=== PATIENT | male | born 1965 | race Caucasian/White ===

== ENCOUNTER 2022-12-27 21:00 | Observation (INO) | payer SELFPAY ==
[2022-12-27] VITALS (19 sets, daily range): BP systolic 146–179; BP diastolic 81–98; PULSE 66–82; RESP 13–26; TEMP 36.4; O2SAT 94–98; BMI 25.9
--- NOTE | 2022-12-27 21:31 | XR_ITS ---
The [address] [address] Patient Name: TAQUERIA DRAKE MRN: [id number] date: 1965 Sex: M Assigned Patient Location: ER Current Patient Location: ER Accession/Order Number: [id number] Exam Date: 12/27/2022 21:54 Report Date: 12/27/2022 22:22 At the request of: RENATA LUNA Procedure: XR chest 1V EXAMINATION: XR chest 1V HISTORY: CP COMPARISON: 11/26/2020 TECHNIQUE: AP portable FINDINGS: LUNGS: Mild left basilar infiltrate. The right lung is clear VASCULATURE: No increased pulmonary vasculature. PLEURA: No pneumothorax, effusion, or pleural thickening. CARDIAC: No cardiomegaly or cardiac silhouette abnormality. MEDIASTINUM: No visible mass or adenopathy. BONES: No fracture or visible bone lesion. OTHER: Negative. XR/XR chest 1V IMPRESSION: Left basilar infiltrate, atelectasis versus pneumonia Electronically authenticated by: PRICILA HURT Date: 12/27/2022 22:22
--- NOTE | 2022-12-27 21:31 | ECG_ITS ---
The [facility] Test Date: 2022-12-27 Pat Name: TAQUERIA DRAKE Department: Room: - Gender: Male Fall Internship: : 1965 Requested By: MIRIAM HASSAN Order Number: [id number] Reading MD: ROSA MERCHANT Measurements Intervals [place] Rate: 63 P: 65 VT: 150 QRS: -34 QRSD: 110 T: 38 QT: 394 QTc: 401 Interpretive Statements 1100 Sinus rhythm 4068 Nonspecific Twave abnormality 7200 Abnormal left axis deviation 9130 borderline ECG No previous ECG available for comparison Electronically Signed On 12-28-2022 6:59:51 EDT by ROSA MERCHANT
[2022-12-27 21:43] LABS: Basophils Percent Auto 0.3 % (0.2-2.0); Eosinophils Absolute Auto 0.2 10^3/uL (0.0-0.7); Eosinophils Percent Auto 2.4 % (0.9-7.0); Hematocrit 42.4 % (42.0-54.0); Hemoglobin 14.6 g/dL (14.0-18.0); Immature Granulocytes Abs Auto 0.03 10^3/uL (0.00-0.03); Immature Granulocytes Pct Auto 0.3 % (0.0-0.5); Lymphocytes Absolute Auto 3.2 10^3/uL (1.2-3.8); Lymphocytes Percent Auto 34.9 % (20.5-60.0); Mean Corpuscular HGB Conc 34.4 g/dL (29.9-35.2); Mean Corpuscular Hemoglobin 31.3 pg (25.9-34.0); Mean Platelet Volume 10.2 fL (9.5-13.5); Monocytes Absolute Auto 1.1 10^3/uL (0.3-0.8); Monocytes Percent Auto 11.6 % (1.7-12.0); Neutrophils Absolute Auto 4.7 10^3/uL (1.4-6.5); Neutrophils Percent Auto 50.5 % (43.0-75.0); Platelet Count 292 10^3/uL (150-450); Red Blood Count 4.66 10^6/uL (4.70-6.10); Red Cell Distribution Width 13.5 % (11.0-15.0); White Blood Count 9.3 10^3/uL (4.0-11.0)
[2022-12-27] MEDS: MORPHINE SULFATE 2 MG/ML SYRINGE IV (21:47)
[2022-12-27] MEDS: NITROGLYCERIN 0.4 MG TAB.SUBL PO (21:49)
[2022-12-27 21:54] LABS: INR 1.13; Partial Thromboplastin Time 30.2 sec (22.3-36.2); Prothrombin Time 11.9 sec (9.0-11.6)
[2022-12-27 21:55] LABS: Alanine Aminotransferase 41 U/L (16-63); Albumin Globulin Ratio 1.1; Albumin Level 3.8 g/dL (3.4-5.0); Alkaline Phosphatase 72 U/L (46-116); Anion Gap 11.3; Aspartate Amino Transferase 26 U/L (15-37); BUN Creatinine Ratio 14.5; Bilirubin Total 0.2 mg/dL (0.2-1.0); Calcium 9.2 mg/dL (8.5-10.1); Carbon Dioxide 27.4 mmol/L (21.0-32.0); Chloride 105 mmol/L (98-107); Estimated GFR (African America >60 (>=60); Estimated GFR (Non-African Ame >60 (>=60); Globulin 3.5 g/dL; Glucose 119 mg/dL (74-106); Potassium 3.7 mmol/L (3.5-5.1); Sodium 140 mmol/L (136-145); Total Protein 7.3 g/dL (6.4-8.2)
--- NOTE | 2022-12-27 22:01 | PC.NURSE ---
2147: BP 164/97 and pain rated 4/10, 1 nitro given and 2mg Morphine given 2156: BP 151/88 pain rated 2/10, gambling monitor continues
[2022-12-27 23:35] LABS: Troponin I High Sensitivity 9.6 pg/mL (4.0-76.1)
--- NOTE | 2022-12-27 23:51 | ED.CHESTPAI1 ---
HPI - Chest Pain General Chief Complaint: Chest Pain Stated Complaint: chest pain Time Seen by Provider: 12/27/22 21:31 Source: patient Mode of arrival: walk-in Limitations: no limitations History of Present Illness HPI narrative: The patient have history of coronary artery disease status post stent the last was in 2019 presented to us with a left-sided chest pain pressure like radiating to his back. The pain was not associated with any vomiting but associated with difficulty breathing and nausea and he mentioned that he was doing some physical work outside when this happened The patient denies any other concern he did try some nitroglycerin for arrival that did not help Related Data Home Medications Medication Instructions Recorded Confirmed aspirin 81 mg capsule 81 mg PO DAILY 12/27/22 12/27/22 atorvastatin 10 mg tablet 10 mg PO DAILY 12/27/22 12/27/22 carvedilol 6.25 mg tablet 6.25 mg PO Q12H 12/27/22 12/27/22 lisinopril 10 mg tablet 5 mg PO DAILY 12/27/22 12/27/22 metformin 500 mg tablet 500 mg PO DAILY 12/27/22 12/27/22 nitroglycerin 0.4 mg sublingual mg 12/27/22 tablet Allergies Allergy/AdvReac Type Severity Reaction Status Date / Time No Known Drug Allergies Allergy Verified 12/27/22 21:10 Review of Systems ROS Status of ROS 10 or more systems reviewed and unremarkable except as noted in history and below [facility] Social History Smoking status: Current every day smoker Exam Narrative Exam Narrative: Nurses notes and vital signs reviewed and patient is not hypoxic. General: Well-appearing and in no apparent distress. Skin: Warm, dry, no pallor noted. No rash. Head: Normocephalic, atraumatic. Neck: Supple, non-tender. Eye: Pupils are equal, round and EOMI. No scleral icterus. Ears, Nose, Mouth, and Throat: TM are clear, no nasal mucosal hypertrophy. Oral mucosa is moist, no posterior oropharynx erythema, uvula is mid-line Cardiovascular: Regular Rate and Rhythm without murmur, gallop or rub. Respiratory: No accessory muscle use or respiratory distress. Lungs are clear to auscultation, no wheezing, rales or rhonchi Chest Wall: no tenderness Back: No midline thoracic or lumbar vertebral tenderness. No CVA tenderness Musculoskeletal: normal ROM, no calf or popliteal tenderness, no lower extremity edema/swelling GI: Abdomen is soft, non-distended. Normal bowel sounds. No masses appreciated. No tenderness to palpation. No rebound, guarding, or rigidity noted. Neurological: A&O x4. No cranial nerve dysfunction observed. No truncal ataxia. Moves all extremities. Sensation intact. Psychiatric: Cooperative and interactive. Normal mood and affect. Constitutional Vital Signs, click to edit/add: Last Vital Signs Temp 97.6 F 12/27/22 21:04 Pulse 66 12/28/22 04:30 Resp 23 12/28/22 04:30 BP 148/84 H 12/28/22 04:30 Pulse Ox 95 12/27/22 23:40 O2 Del Method Room Air 12/27/22 21:21 Course Vital Signs Vital signs: Vital Signs Temperature 97.6 F 12/27/22 21:04 Pulse Rate 72 12/27/22 21:04 Respiratory Rate 18 12/27/22 21:04 Blood Pressure 179/94 H 12/27/22 21:04 Pulse Oximetry 98 12/27/22 21:04 Oxygen Delivery Method Room Air 12/27/22 21:04 Temperature 97.6 F 12/27/22 21:04 Pulse Rate 66 12/28/22 04:30 Respiratory Rate 23 12/28/22 04:30 Blood Pressure 148/84 H 12/28/22 04:30 Pulse Oximetry 95 12/27/22 23:40 Oxygen Delivery Method Room Air 12/27/22 21:21 MDM - Chest Pain MDM Narrative Medical decision making narrative: The patient EKG showing sinus rhythm with a heart rate of [address] elevation or depression Upon presentation he was noted to have elevated blood pressure with his pain being typical for coronary artery disease and his history the patient was treated with nitroglycerin and morphine Chest x-ray shows infiltrates in the left lung although the patient have no cough or difficulty breathing other than the one associated with the pain the patient also had a repeated troponin twice showing no trending up The patient is a high risk patient will be admitted for further observation Lab Data Labs: Lab Results 12/27/22 12/27/22 12/28/22 Range/Units 21:19 23:13 03:48 WBC 9.3 8.7 (4.0-11.0) 10^3/uL RBC 4.66 L 4.68 L (4.70-6.10) 10^6/uL Hgb 14.6 14.3 (14.0-18.0) g/dL Hct 42.4 42.9 (42.0-54.0) % MCV 91.0 91.7 (80.0-94.0) fL MCH 31.3 30.6 (25.9-34.0) pg MCHC 34.4 33.3 (29.9-35.2) g/dL RDW 13.5 13.6 (11.0-15.0) % Plt Count 292 253 (150-450) 10^3/uL MPV 10.2 10.2 (9.5-13.5) fL Neut % (Auto) 50.5 51.9 (43.0-75.0) % Lymph % (Auto) 34.9 34.6 (20.5-60.0) % Kaufman % (Auto) 11.6 10.4 (1.7-12.0) % Eos % (Auto) 2.4 2.3 (0.9-7.0) % Baso % (Auto) 0.3 0.3 (0.2-2.0) % Neut # (Auto) 4.7 4.5 (1.4-6.5) 10^3/uL Lymph # (Auto) 3.2 3.0 (1.2-3.8) 10^3/uL Kaufman # (Auto) 1.1 H 0.9 H (0.3-0.8) 10^3/uL Eos # (Auto) 0.2 0.2 (0.0-0.7) 10^3/uL Baso # (Auto) 0.0 0.0 (0.0-0.1) 10^3/uL Abs Immat Gran (auto) 0.03 0.04 H (0.00-0.03) 10^3/uL Imm/Tot Granulo (auto) 0.3 0.5 (0.0-0.5) % PT 11.9 H (9.0-11.6) sec INR 1.13 APTT 30.2 (22.3-36.2) sec Sodium 140 139 (136-145) mmol/L Potassium 3.7 3.3 L (3.5-5.1) mmol/L Chloride 105 105 (98-107) mmol/L Carbon Dioxide 27.4 24.4 (21.0-32.0) mmol/L Anion Gap 11.3 12.9 BUN 10.0 9.0 (7.0-18.0) mg/dL Creatinine 0.69 L 0.67 L (0.70-1.30) mg/dL Est GFR ( Amer) >60 >60 (>=60) Est GFR (Non-Af Amer) >60 >60 (>=60) BUN/Creatinine Ratio 14.5 13.4 Glucose 119 H 140 H (74-106) mg/dL Calcium 9.2 8.7 (8.5-10.1) mg/dL Total Bilirubin 0.2 (0.2-1.0) mg/dL AST 26 (15-37) U/L ALT 41 (16-63) U/L Alkaline Phosphatase 72 (46-116) U/L Troponin I High Sens 9.0 9.6 8.8 (4.0-76.1) pg/mL Total Protein 7.3 (6.4-8.2) g/dL Albumin 3.8 (3.4-5.0) g/dL Globulin 3.5 g/dL Albumin/Globulin Ratio 1.1 Triglycerides 217 H (<=150) mg/dL Cholesterol 149 (<=200) mg/dL LDL Cholesterol, Calc 72.0 mg/dL VLDL Cholesterol 43.4 mg/dL HDL Cholesterol 34 L (40-60) mg/dL Cholesterol/HDL Ratio 4.4 Heart Score History: Highly Suspicious ECG: Normal Age: >45-<65 years Risk Factors: >3 Risk Factors/ HX of CAD:2 Discharge Plan Discharge Chief Complaint: Chest Pain Clinical Impression: Chest pain, Pneumonia Patient Disposition: Admitted as Observation Time of Disposition Decision: 00:18 Condition: Good
[2022-12-28] VITALS (37 sets, daily range): BP systolic 121–177; BP diastolic 69–111; PULSE 50–81; RESP 12–26; TEMP 36.6; O2SAT 91–97; BMI 25.4; BMI 25.9
[2022-12-28] MEDS: AZITHROMYCIN 500 MG in 0.9 % SODIUM CHLORIDE 250 ML 250 MG IV (00:45)
--- NOTE | 2022-12-28 03:09 | P.PN_ITS ---
Progress Note: Subjective Subjective Interval history: The patient is a 57-year-old male with a history of coronary artery disease status post stents and diabetes, who was in his usual state of health until earlier today when he had 8 out of 10 substernal chest pain associated with nausea and vomiting prior to arrival. He took 1 nitroglycerin without minimal effect. He did feel lightheaded. The pain radiated to his back but not to his arm. It was similar to his episode in 2019 when he had his first episode of ischemia. He presented to the ED and 2 troponins were negative. Chest x-ray was done which did show a left lower lobe infiltrate. The patient denies any pulmonary complaints. He smokes 1 pack/day. He is being admitted for chest pain rule out. Exam Narrative Exam Narrative: General : Alert and oriented x3 HEENT : Extraocular movements intact, pupils equal round and reactive to light and accommodation Neck: Supple, no JVD Chest: Clear to auscultation bilaterally, no wheezes Heart: Regular rate and rhythm, S1 and S2 heard Abdomen: Soft nontender nondistended. Extremities: No clubbing cyanosis or edema Neurologically: Moving all 4 extremities Skin: No rashes Constitutional Vital Signs, click to edit/add: Last Vital Signs Temp 97.6 F 12/27/22 21:04 Pulse 64 12/28/22 03:00 Resp 23 12/28/22 03:00 BP 177/90 H 12/28/22 03:00 Pulse Ox 95 12/27/22 23:40 O2 Del Method Room Air 12/27/22 21:21 Progress Note: Objective Labs Labs: Short CBC 12/27/22 Range/Units 21:19 WBC 9.3 (4.0-11.0) 10^3/uL Hgb 14.6 (14.0-18.0) g/dL Hct 42.4 (42.0-54.0) % Plt Count 292 (150-450) 10^3/uL BMP 12/27/22 21:19 Sodium 140 Potassium 3.7 Chloride 105 Carbon Dioxide 27.4 BUN 10.0 Creatinine 0.69 L Glucose 119 H Calcium 9.2 Liver Function 12/27/22 Range/Units 21:19 Total Bilirubin 0.2 (0.2-1.0) mg/dL AST 26 (15-37) U/L ALT 41 (16-63) U/L Alkaline Phosphatase 72 (46-116) U/L Albumin 3.8 (3.4-5.0) g/dL Progress Note: A&P Assessment and Plan (1) Chest pain: (2) Pneumonia: Plan The patient is a 57-year-old male with above medical problems, presenting with atypical chest pain and was found to have left lower lobe pneumonia on chest x- ray. Atypical chest pain -Patient has several cardiac risk factors including prior coronary artery disease and stents, diabetes and hypertension -Chest pain could also be related to pleurisy from underlying pneumonia -Provide supportive care -Serial cardiac enzymes -Continue aspirin -Nitroglycerin as needed -Morphine for severe pain - NPO -Hold Coreg for stress test -Day provider to order stress test per hospital protocol Diabetes -Hold Glucophage while n.p.o. Question left lower lobe community-acquired pneumonia -Provide nebulizers as needed -Empiric antibiotics with Rocephin and azithromycin Nicotine dependence -Provide nicotine patch DVT Prophylaxis -Lovenox, SCDs Medication review -Medication reconciliation form completed Goals of care -Full code Communications -Discussed with the emergency room physician -Discussed with the bedside nurse -Patient updated of plan of care, all questions answered to their satisfaction Disposition -Home when medically stable Telemedicine clause -As the provider of this telehealth evaluation, requested by the patient's evaluating physician, I attest that I introduced myself to the patient, provided my credentials and determined that telemedicine via a real-time, two-way interactive audio and video platform is an appropriate and effective means of providing this service. -I reviewed the patient's chart and had a discussion with the member of the patient's treatment team. -The patient and I mutually agreed with continuation of this evaluation via telemedicine. The patient consented for the telemedicine evaluation. -This virtual encounter was taken place from [place], [place]. The encounter was approximately 35 minutes. The nurse was present during the entire time of the encounter and was able to remove the stethoscope and appropriate directions. The patient was evaluated at [facility] Telemedicine Attestation Telemedicine Attestation I conducted this encounter from [facility] via secure live, [id number] video conference with the patient, located at [facility] with nurse. Prior to the interview, the risks and benefits of telemedicine were discussed with the patient and verbal consent was obtained.
[2022-12-28 04:12] LABS: Basophils Percent Auto 0.3 % (0.2-2.0); Eosinophils Absolute Auto 0.2 10^3/uL (0.0-0.7); Eosinophils Percent Auto 2.3 % (0.9-7.0); Hematocrit 42.9 % (42.0-54.0); Hemoglobin 14.3 g/dL (14.0-18.0); Immature Granulocytes Abs Auto 0.04 10^3/uL (0.00-0.03); Immature Granulocytes Pct Auto 0.5 % (0.0-0.5); Lymphocytes Percent Auto 34.6 % (20.5-60.0); Mean Corpuscular HGB Conc 33.3 g/dL (29.9-35.2); Mean Corpuscular Hemoglobin 30.6 pg (25.9-34.0); Mean Corpuscular Volume 91.7 fL (80.0-94.0); Mean Platelet Volume 10.2 fL (9.5-13.5); Monocytes Absolute Auto 0.9 10^3/uL (0.3-0.8); Monocytes Percent Auto 10.4 % (1.7-12.0); Neutrophils Absolute Auto 4.5 10^3/uL (1.4-6.5); Neutrophils Percent Auto 51.9 % (43.0-75.0); Platelet Count 253 10^3/uL (150-450); Red Blood Count 4.68 10^6/uL (4.70-6.10); Red Cell Distribution Width 13.6 % (11.0-15.0); White Blood Count 8.7 10^3/uL (4.0-11.0)
[2022-12-28 04:20] LABS: Anion Gap 12.9; BUN Creatinine Ratio 13.4; Calcium 8.7 mg/dL (8.5-10.1); Carbon Dioxide 24.4 mmol/L (21.0-32.0); Chloride 105 mmol/L (98-107); Estimated GFR (African America >60 (>=60); Estimated GFR (Non-African Ame >60 (>=60); Glucose 140 mg/dL (74-106); Potassium 3.3 mmol/L (3.5-5.1); Sodium 139 mmol/L (136-145)
[2022-12-28 04:30] LABS: Chol HDL Ratio 4.4; Cholesterol 149 mg/dL (<=200); HDL Cholesterol 34 mg/dL (40-60); Triglycerides 217 mg/dL (<=150); Troponin I High Sensitivity 8.8 pg/mL (4.0-76.1); VLDL CHOLESTEROL 43.4 mg/dL
[2022-12-28] MEDS: CEFTRIAXONE 1,000 MG in 0.9 % SODIUM CHLORIDE 50 ML 100 MG IV (04:32)
[2022-12-28] MEDS: NICOTINE 14 MG PATCH.TD24 TD (04:32)
--- NOTE | 2022-12-28 07:58 | CA_ITS ---
Patient: TAQUERIA DRAKE Exam Date: 12/28/2022 : 1965 Gender:M Ordering : DR Ren Atwood . Admission #: [id number] Family : Order #: [id number] CLICK HERE TO VIEW EXAM ECHOCARDIOGRAM REPORT PROCEDURE: CA ECHO DOPPLER COMPLETE INDICATIONS: Dyspnea, Chest pain COMPARISON: None. DESCRIPTION: COMPLETE ECHOCARDIOGRAM Real-time transthoracic echocardiography with 2D, M-mode, spectral and color flow Doppler performed. QUALITY: Technical quality was good. LEFT VENTRICLE: Normal chamber size. Mild concentric left ventricular hypertrophy. Global left ventricular systolic function is normal. LV EF: Estimated left ventricular ejection fraction is 55-60% DIASTOLIC: Normal diastolic function. ATRIAL SEPTUM: LEFT ATRIUM: Normal chamber size. RIGHT ATRIUM: Mild dilatation. RIGHT VENTRICLE: Normal chamber size. Normal right ventricular systolic function. TRICUSPID VALVE: Normal mobility and thickness. No stenosis with trivial regurgitation. Mild pulmonary hypertension. RVSP 35 mmHg MITRAL VALVE: Normal mobility and thickness. No evidence of mitral valve stenosis. There is no mitral annular calcification. Trivial mitral regurgitation. AORTIC VALVE: Normal trileaflet appearance. Thickened aortic valve. Normal leaflet mobility. No evidence of aortic valve stenosis. No aortic regurgitation. AORTIC ROOT: Normal diameter and appearance. PULMONIC VALVE: Normal thickness and mobility. No stenosis. Trivial regurgitation. PERICARDIUM: No evidence of pericardial effusion. IVC: Collapses with inspirations. Mild dilatation measuring 2.4 cm. PLEURA: CONCLUSION: 1. Mild concentric left ventricular hypertrophy. Normal ventricular systolic function. LVEF is 55 to 60%. 2. Normal right ventricular size and systolic function. 3. Normal diastolic function. 4. No significant valvular dysfunction. 5. Mildly elevated right-sided pressures. Adult Echocardiography Procedure Report Left Ventricle LVEDD (3.7 - 5.6 cm): 4.62 cm LVESD (2.2 - 4.0 cm): 3.53 cm LVIVS thickness (0.6 - 1.2 cm): 1.20 cm LVPW thickness (0.5 - 1.0 cm): 1.37 cm e': 0.08 m/s E - e': 7.64 LVOT Max Gradient: 3.57 mm[Hg] LVOT Area (cm2): 0.94 m/s Peak Velocity (LVOT): 0.94 m/s Mean Velocity (LVOT): 0.62 m/s LVOT Diameter 2.08 cm Left Ventricular Ejection Fraction: 55-60 % Left Atrium LA Volume Index (2D A2C): 31.80 ml/m2 Left Atrium Systolic Dimension: 3.95 cm Mitral Valve MV E to A Ratio: 1.15 Mitral Valve A-Wave Peak Velocity: 0.51 m/s Mitral Valve E-Wave Peak Velocity: 0.59 m/s Right Ventricle RV Internal Diastolic Dimension: 3.04 cm Aorta AO Root Diam: 3.39 cm Ascending Ao Diam: 2.72 cm Aortic Valve AoV Area (Peak Da): 2.26 cm2, 2.26 cm2 AoV Area (VTI): 2.14 cm2, 2.14 cm2 Peak Velocity(Antegrade Flow): 1.42 m/s Peak Gradient(Antegrade Flow): 8.03 mm[Hg] Mean Velocity(Antegrade Flow): 0.95 m/s Mean Gradient(Antegrade Flow): 4.16 mm[Hg] Velocity Time Integral: 31.23 cm Tricuspid Valve Peak Velocity (Regurgitant Flow): 1.88 m/s, 2.09 m/s, 2.61 m/s Pulmonic Valve Mean Gradient: 2.35 mm[Hg] Mean Velocity: 0.72 m/s Peak Velocity: 0.98 m/s, 0.97 m/s Peak Gradient: 3.73 mm[Hg], 3.86 mm[Hg] Right Atrium Right Atrium Systolic Pressure: 54.94 ml, 54.94 ml Dictated by: Eric Sidhu M.D. on 12/30/2022 at 16:53 Approved by: Eric Sidhu M.D. on 12/30/2022 at 16:56
--- NOTE | 2022-12-28 07:59 | P.HP_ITS ---
H&P: HPI History of Present Illness Chief complaint: chest pain Narrative: Pt with increasing episodeas of chest pain - some pressure - some mccarty - is similar to when had stent placed in the past CXR also supsicious for LLL pneumonia - no fever - no cough PFSH PFSH Medical History (Updated 12/28/22 @ 08:57 by Charu Bowles) Surgical History (Updated 12/28/22 @ 08:57 by Charu Bowles) Family History (Updated 12/28/22 @ 08:59 by Charu Bowles) Grandfather Family history of CHF (congestive heart failure) Family history of hypertension Family history of myocardial infarction Father Family history of CHF (congestive heart failure) Family history of myocardial infarction Mother Family history of COPD (chronic obstructive pulmonary disease) Family history of diabetes mellitus Family history of hypertension Grandmother Family history of cancer Sister Family history of myocardial infarction Social History (Updated 12/28/22 @ 09:06 by Charu Bowles) Within the past year, how often did you have a drink containing alcohol: monthly or less Within the past year, how many standard drinks containing alcohol did you have on a typical day: 1 or 2 Within the past year, how often did you have six or more drinks on one occasion: never Total score: 0 Score interpretation: A score less than 4 is consistent with normal alcohol consumption. Smoking status: Heavy tobacco smoker Non-prescribed substance use: denies use Previous occupational history: [employer] Highest level of school completed/degree received: 12th grade, no diploma Are you now , , , , never or living with a partner: living with partner In a typical week, how many times do you talk on the telephone with family, friends, or neighbors: 3 or more times per week How often do you get together with friends or relatives: once per week How often do you attend buddhism or baptism services: never Do you belong to any clubs or organizations such as buddhism groups unions, fraternal or athletic groups, or school groups: no Total score: 2 Score interpretation: A score of greater than or equal to 2 indicates the lowest level of social isolation. Little interest or pleasure in doing things: not at all Feeling down, depressed, or hopeless: not at all Feel stressed/tense/nervous/anxious/difficulty sleeping: only a little Due to disability, difficulty making decisions: No Do you think of yourself as: straight/heterosexual Gender Identity: male Meds Home Medications and Allergies Home Medications Medication Instructions Recorded Confirmed Type aspirin 81 mg capsule 81 mg PO DAILY 12/27/22 12/28/22 History atorvastatin 10 mg tablet 80 mg PO DAILY 12/27/22 12/28/22 History carvedilol 6.25 mg tablet 25 mg PO Q12H 12/27/22 12/28/22 History lisinopril 10 mg tablet 40 mg PO DAILY 12/27/22 12/28/22 History metformin 500 mg tablet 500 mg PO BID 12/27/22 12/28/22 History nitroglycerin 0.4 mg sublingual 0.4 mg sublingual Q5M PRN chest 12/27/22 12/28/22 History tablet pain dapagliflozin 5 mg tablet (Farxiga) 5 mg PO DAILY 12/28/22 12/28/22 History fenofibrate 40 mg tablet 48 mg PO DAILY 12/28/22 12/28/22 History isosorbide mononitrate 60 mg 60 mg PO DAILY 12/28/22 12/28/22 History tablet,extended release 24 hr omeprazole 40 mg capsule,delayed 40 mg PO DAILY 12/28/22 12/28/22 History release Allergies Allergy/AdvReac Type Severity Reaction Status Date / Time No Known Drug Allergies Allergy Verified 12/27/22 21:10 Exam Constitutional Vital Signs, click to edit/add: Last Vital Signs Temp 97.6 F 12/27/22 21:04 Pulse 81 12/28/22 07:10 Resp 18 12/28/22 07:10 BP 138/111 H 12/28/22 07:10 Pulse Ox 96 12/28/22 06:15 O2 Del Method Room Air 12/27/22 21:21 Documenting provider has reviewed patient's vital signs: yes Common normals: no apparent distress Chest Common normals: inspection of chest normal Respiratory Common normals: normal respiratory effort and no retractions Auscultation: rales Cardio Common normals: regular rate, regular rhythm and no murmurs GI Common normals: Normal to inspection, nondistended, normoactive bowel sounds present, soft to palpation and no masses Results Labs Labs: Short CBC 12/27/22 12/28/22 Range/Units 21:19 03:48 WBC 9.3 8.7 (4.0-11.0) 10^3/uL Hgb 14.6 14.3 (14.0-18.0) g/dL Hct 42.4 42.9 (42.0-54.0) % Plt Count 292 253 (150-450) 10^3/uL BMP 12/27/22 12/28/22 21:19 03:48 Sodium 140 139 Potassium 3.7 3.3 L Chloride 105 105 Carbon Dioxide 27.4 24.4 BUN 10.0 9.0 Creatinine 0.69 L 0.67 L Glucose 119 H 140 H Calcium 9.2 8.7 Liver Function 12/27/22 Range/Units 21:19 Total Bilirubin 0.2 (0.2-1.0) mg/dL AST 26 (15-37) U/L ALT 41 (16-63) U/L Alkaline Phosphatase 72 (46-116) U/L Albumin 3.8 (3.4-5.0) g/dL Assessment and Plan Assessment and Plan (1) Chest pain: (2) Pneumonia: (3) Diabetes: (4) Heart attack: (5) Hyperlipemia: (6) Hypertension: Plan Chest pain - hx CAd stent placed - feels similar - nopain now - adjust meds - consult to cardiology, check echo Pneumonia vs atelectasis - to be safe - treat with antibiotics Hypertension 0 cont iwht mes NIDDM - sliding scale GERD - cont with meds
[2022-12-28 08:42] LABS: Lactate/Lactic Acid 1.1 mmol/L (0.4-2.0)
[2022-12-28 09:01] LABS: Free T3 2.56 pg/mL (2.18-3.98); Magnesium 1.8 mg/dL (1.8-2.4); Thyroid Stimulating Hormone 1.182 uIU/mL (0.358-3.740)
[2022-12-28] MEDS: ISOSORBIDE MONONITRATE 30 MG TAB.ER.24H PO (09:55)
[2022-12-28] MEDS: ATORVASTATIN CALCIUM 10 MG TABLET PO (09:56)
[2022-12-28] MEDS: ASPIRIN 81 MG TAB.CHEW PO (09:56)
[2022-12-28] MEDS: LISINOPRIL 10 MG TABLET 5 MG PO (09:56)
[2022-12-29] VITALS (7 sets, daily range): BP systolic 160–166; BP diastolic 90–101; PULSE 58–77; RESP 18; TEMP 36.5; O2SAT 94
[2022-12-29] MEDS: AZITHROMYCIN 500 MG in 0.9 % SODIUM CHLORIDE 250 ML 250 MG IV (02:23)
[2022-12-29 04:42] LABS: Basophils Percent Auto 0.3 % (0.2-2.0); Eosinophils Absolute Auto 0.2 10^3/uL (0.0-0.7); Eosinophils Percent Auto 2.2 % (0.9-7.0); Hematocrit 44.9 % (42.0-54.0); Hemoglobin 14.7 g/dL (14.0-18.0); Immature Granulocytes Abs Auto 0.03 10^3/uL (0.00-0.03); Immature Granulocytes Pct Auto 0.3 % (0.0-0.5); Lymphocytes Absolute Auto 2.2 10^3/uL (1.2-3.8); Lymphocytes Percent Auto 25.5 % (20.5-60.0); Mean Corpuscular HGB Conc 32.7 g/dL (29.9-35.2); Mean Corpuscular Hemoglobin 30.4 pg (25.9-34.0); Mean Corpuscular Volume 92.8 fL (80.0-94.0); Mean Platelet Volume 9.9 fL (9.5-13.5); Monocytes Absolute Auto 1.1 10^3/uL (0.3-0.8); Neutrophils Absolute Auto 5.2 10^3/uL (1.4-6.5); Neutrophils Percent Auto 59.7 % (43.0-75.0); Platelet Count 232 10^3/uL (150-450); Red Blood Count 4.84 10^6/uL (4.70-6.10); Red Cell Distribution Width 13.4 % (11.0-15.0); White Blood Count 8.7 10^3/uL (4.0-11.0)
[2022-12-29 04:53] LABS: Anion Gap 12.6; BUN Creatinine Ratio 18.3; Calcium 8.8 mg/dL (8.5-10.1); Carbon Dioxide 26.3 mmol/L (21.0-32.0); Chloride 106 mmol/L (98-107); Estimated GFR (African America >60 (>=60); Estimated GFR (Non-African Ame >60 (>=60); Glucose 141 mg/dL (74-106); Potassium 3.9 mmol/L (3.5-5.1); Sodium 141 mmol/L (136-145)
[2022-12-29] MEDS: CEFTRIAXONE 1,000 MG in 0.9 % SODIUM CHLORIDE 50 ML 100 MG IV (05:14)
--- NOTE | 2022-12-29 07:48 | P.DS_ITS ---
DS: Providers Provider Date of admission: 12/28/22 06:55 Primary care physician: MIRIAM HASSAN Consults: 12/28/22 07:55 Consult to Cardiology Routine Consulting Provider: Fernando Chu DS: Diagnosis Discharge Diagnosis (1) Chest pain: (2) Pneumonia: (3) Diabetes: (4) Heart attack: (5) Hyperlipemia: (6) Hypertension: Plan Chest pain - hx CAd stent placed Pneumonia vs atelectasis Hypertension NIDDM GERD DS: Summary Hospital Course Hospital Course: Patient was seen and evaluated in the emergency room secondary to chest pain. This pain was typical of his previous chest pain related to when he had a stent placed. Cardiac markers were done which showed no myocardial damage. Echocardiogram is still pending. Cardiac consultation later today. Increased his Imdur to 60 mg a day. Restart carvedilol today. Depending on outcome of echocardiogram and plan from cardiology patient will either be discharged to home or transfer to [facility]. Since follow-up with PCP at discharge. Medications see list Status at Discharge Functional status at discharge: independent ambulation Overall status at discharge: patient is back to baseline Time Spent with Patient Time attestation: Total time spent providing and/or coordinating discharge services: Exam Constitutional Vital Signs, click to edit/add: Last Vital Signs Temp 97.7 F 12/29/22 05:15 Pulse 60 12/29/22 07:46 Resp 18 12/29/22 05:15 BP 160/90 H 12/29/22 07:46 Pulse Ox 94 L 12/29/22 05:15 O2 Del Method Room Air 12/29/22 05:15 Documenting provider has reviewed patient's vital signs: yes Common normals: no apparent distress Respiratory Common normals: normal respiratory effort, no retractions and clear to auscultation bilaterally Cardio Common normals: regular rate, regular rhythm and no murmurs GI Common normals: Normal to inspection, nondistended, normoactive bowel sounds present, soft to palpation and no masses DS: Data Data Completed and Pending Labs on day of discharge: Labs from last 24 hours 12/29/22 12/28/22 04:26 08:12 WBC 8.7 RBC 4.84 Hgb 14.7 Hct 44.9 MCV 92.8 MCH 30.4 MCHC 32.7 RDW 13.4 Plt Count 232 MPV 9.9 Neut % (Auto) 59.7 Lymph % (Auto) 25.5 [place] % (Auto) 12.0 Eos % (Auto) 2.2 Baso % (Auto) 0.3 Neut # (Auto) 5.2 Lymph # (Auto) 2.2 [place] # (Auto) 1.1 H Eos # (Auto) 0.2 Baso # (Auto) 0.0 Abs Immat Gran (auto) 0.03 Imm/Tot Granulo (auto) 0.3 Sodium 141 Potassium 3.9 Chloride 106 Carbon Dioxide 26.3 Anion Gap 12.6 BUN 11.0 Creatinine 0.60 L Est GFR ( Amer) >60 Est GFR (Non-Af Amer) >60 BUN/Creatinine Ratio 18.3 Glucose 141 H Lactate 1.1 Calcium 8.8 Magnesium 2.0 1.8 NT-Pro-B Natriuret Pep 78.0 TSH 1.182 Thyroxine (T4) 7.10 Free T3 2.56 Discharge Plan Discharge Disposition: Home, Self-Care Condition: Good Discharge Medications: New isosorbide mononitrate 60 mg tablet extended release 24 hr 120 mg PO DAILY Qty: 60 0RF Continued nitroglycerin 0.4 mg tablet, sublingual 0.4 mg sublingual Q5M PRN (Reason: chest pain) aspirin 81 mg capsule 81 mg PO DAILY metformin 500 mg tablet 500 mg PO BID carvedilol 6.25 mg tablet 25 mg PO Q12H Rx Instructions: must administer with a meal/food atorvastatin 10 mg tablet 80 mg PO DAILY lisinopril 10 mg tablet 40 mg PO DAILY omeprazole 40 mg capsule,delayed release(DR/EC) 40 mg PO DAILY fenofibrate 40 mg tablet 48 mg PO DAILY Farxiga 5 mg tablet 5 mg PO DAILY Discontinued isosorbide mononitrate 60 mg tablet extended release 24 hr 60 mg PO DAILY Forms: Portal Instructions
[2022-12-29] MEDS: ASPIRIN 81 MG TAB.CHEW PO (08:30)
[2022-12-29] MEDS: CARVEDILOL 25 MG TABLET PO (08:32)
[2022-12-29] MEDS: OMEPRAZOLE 40 MG CAPSULE.DR PO (08:34)
[2022-12-29] MEDS: NICOTINE 14 MG PATCH.TD24 TD (08:36)
[2022-12-29] MEDS: METFORMIN HCL 500 MG TABLET PO (09:21)
--- NOTE | 2023-01-11 14:52 | CM.DCFOLLOWU ---
Person spoke with:patient How are you feeling? well How is your pain? no pain Did you understand your discharge instructions? yes Do you have any questions about your discharge instructions? no Were you given any prescriptions at discharge? yes Were you able to get your prescriptions filled? yes, one is expensive, but spoke with Dr. Atwood about it and they are working on different medication Do you understand how to take your medications as ordered? yes Do you have any questions about your follow up appointment and do you plan to keep your follow up appointment? had follow up with Dr. Atwood and re-scheduled follow up with reporting consultant. Is there anything else that you would like to discuss? no Questions/Comments/Concerns/Other:
== END 2022-12-29 09:52 | disposition home or self-care (01) ==
LOC: ER 12-28 02:07 → MS 12-28 06:56
PROVIDERS: Internal Medicine; Admitting Provider Family Medicine; Emergency Provider Emergency Medicine; PCP Nurse Practitioner Family; Visit Provider Family Medicine
DX: R07.9 Chest pain, unspecified (principal); I25.10 Atherosclerotic heart disease of native coronary artery without angina pectoris; Z95.5 Presence of coronary angioplasty implant and graft; I10 Essential (primary) hypertension; E11.9 Type 2 diabetes mellitus without complications; K21.9 Gastro-esophageal reflux disease without esophagitis; R06.00 Dyspnea, unspecified; Z79.82 Long term (current) use of aspirin; Z79.899 Other long term (current) drug therapy; Z79.84 Long term (current) use of oral hypoglycemic drugs; F17.210 Nicotine dependence, cigarettes, uncomplicated; R91.8 Other nonspecific abnormal finding of lung field
CPT/HCPCS: 36415; 71045; 80048; 80053; 80061; 83605; 83735; 83880; 84436; 84443; 84481; 84484; 85025; 85610; 85730; 87070; 93005; 93306; 94667; 94668; 94761; 96365; 96366; 96367; 96375; 99285; G0378; J0456

== ENCOUNTER 2023-02-17 10:50 | Outpatient (OUT) | payer SELFPAY ==
[2023-02-17 11:22] LABS: Basophils Absolute Auto 0.1 10^3/uL (0.0-0.1); Basophils Percent Auto 0.5 % (0.2-2.0); Eosinophils Absolute Auto 0.2 10^3/uL (0.0-0.7); Eosinophils Percent Auto 2.2 % (0.9-7.0); Hematocrit 46.4 % (42.0-54.0); Hemoglobin 15.8 g/dL (14.0-18.0); Immature Granulocytes Abs Auto 0.03 10^3/uL (0.00-0.03); Immature Granulocytes Pct Auto 0.3 % (0.0-0.5); Lymphocytes Percent Auto 19.9 % (20.5-60.0); Mean Corpuscular HGB Conc 34.1 g/dL (29.9-35.2); Mean Corpuscular Hemoglobin 30.7 pg (25.9-34.0); Mean Corpuscular Volume 90.1 fL (80.0-94.0); Mean Platelet Volume 10.2 fL (9.5-13.5); Monocytes Percent Auto 10.1 % (1.7-12.0); Neutrophils Absolute Auto 6.9 10^3/uL (1.4-6.5); Platelet Count 240 10^3/uL (150-450); Red Blood Count 5.15 10^6/uL (4.70-6.10); Red Cell Distribution Width 13.3 % (11.0-15.0); White Blood Count 10.2 10^3/uL (4.0-11.0)
[2023-02-17 13:04] LABS: Prostate Specific Antigen Scrn 1.43 ng/mL (<=4.00)
[2023-02-17 14:06] LABS: Alanine Aminotransferase 55 U/L (16-63); Albumin Globulin Ratio 1.1; Alkaline Phosphatase 70 U/L (46-116); Aspartate Amino Transferase 20 U/L (15-37); BUN Creatinine Ratio 16.4; Bilirubin Total 0.3 mg/dL (0.2-1.0); Calcium 9.2 mg/dL (8.5-10.1); Carbon Dioxide 25.2 mmol/L (21.0-32.0); Chloride 103 mmol/L (98-107); Chol HDL Ratio 4.9; Cholesterol 152 mg/dL (<=200); Estimated GFR (African America >60 (>=60); Estimated GFR (Non-African Ame >60 (>=60); Free T3 3.01 pg/mL (2.18-3.98); Globulin 3.8 g/dL; Glucose 224 mg/dL (74-106); HDL Cholesterol 31 mg/dL (40-60); Potassium 4.2 mmol/L (3.5-5.1); Sodium 137 mmol/L (136-145); Thyroid Stimulating Hormone 0.931 uIU/mL (0.358-3.740); Total Protein 7.8 g/dL (6.4-8.2); Triglycerides 271 mg/dL (<=150); Uric Acid 2.8 mg/dL (3.5-7.2); VLDL CHOLESTEROL 54.2 mg/dL
[2023-02-17 14:46] LABS: Estimated Average Glucose 194 mg/dL; Glycohemoglobin A1C 8.4 % (4.5-6.2)
[2023-02-18 11:13] LABS: Insulin 16.9 uIU/mL (2.6-24.9)
== END 2023-02-17 10:51 | disposition home or self-care (01) ==
LOC: LAB 10:53
PROVIDERS: PCP Nurse Practitioner Family; Visit Provider Nurse Practitioner Family
DX: Z00.00 Encounter for general adult medical examination without abnormal findings (principal); Z12.5 Encounter for screening for malignant neoplasm of prostate
CPT/HCPCS: 36415; 80053; 80061; 83036; 83525; 84436; 84443; 84481; 84550; 85025; G0103

== ENCOUNTER 2023-02-19 12:37 | Outpatient (REF) | payer SELFPAY ==
[2023-02-19 13:09] LABS: Occult Blood Negative
== END 2023-02-19 12:38 | disposition home or self-care (01) ==
LOC: LAB 12:37
PROVIDERS: PCP Nurse Practitioner Family; Visit Provider Nurse Practitioner Family
DX: Z00.00 Encounter for general adult medical examination without abnormal findings (principal)
CPT/HCPCS: G0328

== ENCOUNTER 2023-03-11 11:57 | Outpatient (OUT) | payer SELFPAY ==
--- NOTE | 2023-03-11 13:07 | PM.STRESS ---
Stress Test Stress Test Allergies Allergy/AdvReac Type Severity Reaction Status Date / Time No Known Drug Allergies Allergy Verified 12/27/22 21:10 Requesting physician: BRITTANY DÍAZ General Information: Reason for Stress Test: [evaluation of a patient with known coronary artery disease and recent hospitalization for chest pain ] Cardiac History and Risk Factors: [this is a 57-year-old patient with known coronary disease. He has a history of PCI/stent placement ?2 in 2019. Primary risk factors include essential hypertension hyperlipidemia and type 2 diabetes mellitus. He also has a positive family history for coronary disease.] Resting 12 - Lead Electrocardiogram: normal sinus rhythm with a ventricular rate of 84 bpm. The NM interval 0.12, QRS interval 0.12 and QT 0.3 to. The axis is normal there is slight intraventricular conduction delay. Q waves are noticed in limb lead I and aVL. There is nonspecific ST-T wave changes. Stress Test: Protocol: [Michael protocol] Exercise Capacity: [This patient demonstrated below average exercise capacity. He exercised for five minutes achieving a heart rate of 141 bpm which is equal to eighty-five percent maximum predicted heart rate. Patient exercised into stage II of this protocol which is equivalent to 2.5 miles per hour twelve percent grade in seven METs units.] Blood Pressure Response: [This patient demonstrated an accentuated blood pressure response to exercise. His resting blood pressure 136/98 increasing to a peak of 222/110 and then gradually returning to baseline during the recovery phase.] Rhythm: [This patient's rhythm was sinus with occasional PVCs during exercise.] ST - Response: [At peak exercise there was slight J-point depression with upsloping ST segments easily returning to baseline prior to 0.08 seconds.] Patient Response: [During peak exercise the patient complained of dyspnea without chest pain.] Interpretation: During exercise there was no objective evidence of myocardial ischemia. The patient demonstrated below average exercise capacity with an abnormal blood pressure response to exercise. His Hancock's treadmill score was five placing him in the low risk category.
== END 2023-03-11 11:58 | disposition home or self-care (01) ==
LOC: CARD 11:57
PROVIDERS: PCP Nurse Practitioner Family; Visit Provider Internal Medicine Cardiovascular Disease
DX: I25.10 Atherosclerotic heart disease of native coronary artery without angina pectoris (principal); I25.83 Coronary atherosclerosis due to lipid rich plaque; R94.31 Abnormal electrocardiogram [ECG] [EKG]
CPT/HCPCS: 93017

== ENCOUNTER 2023-06-19 10:55 | Emergency (ER) | payer SELFPAY ==
[2023-06-19 10:59] VITALS: BP 163/87; PULSE 83; RESP 16; TEMP 36.7; O2SAT 99; BMI 25.5
--- NOTE | 2023-06-19 11:36 | ED.GENADUL1 ---
HPI - General Adult General Chief complaint: Back Pain/Injury Stated complaint: FLANK PAIN Time Seen by Provider: 06/19/23 11:36 Source: patient Mode of arrival: walk-in Related Data Home Medications Medication Instructions Recorded Confirmed aspirin 81 mg capsule 81 mg PO DAILY 12/27/22 12/28/22 atorvastatin 10 mg tablet 80 mg PO DAILY 12/27/22 12/28/22 carvedilol 6.25 mg tablet 25 mg PO Q12H 12/27/22 12/28/22 lisinopril 10 mg tablet 40 mg PO DAILY 12/27/22 12/28/22 metformin 500 mg tablet 500 mg PO BID 12/27/22 12/28/22 nitroglycerin 0.4 mg sublingual 0.4 mg sublingual Q5M PRN chest 12/27/22 12/28/22 tablet pain dapagliflozin propanediol 5 mg 5 mg PO DAILY 12/28/22 12/28/22 tablet (Farxiga) fenofibrate 40 mg tablet 48 mg PO DAILY 12/28/22 12/28/22 omeprazole 40 mg capsule,delayed 40 mg PO DAILY 12/28/22 12/28/22 release Previous Rx's Medication Instructions Recorded isosorbide mononitrate 60 mg 120 mg (2 x 60 mg) PO DAILY #60 12/29/22 tablet,extended release 24 hr tabs Allergies Allergy/AdvReac Type Severity Reaction Status Date / Time No Known Drug Allergies Allergy Verified 12/27/22 21:10 [facility] Medical History (Updated 01/02/23 @ 00:00 by ) Hyperlipemia ?E78.5 - Hyperlipidemia, unspecified (ICD-10) Heart attack ?I21.9 - Acute myocardial infarction, unspecified (ICD-10) Hypertension ?I10 - Essential (primary) hypertension (ICD-10) Diabetes ?E11.9 - Type 2 diabetes mellitus without complications (ICD-10) Surgical History (Updated 12/28/22 @ 08:57 by Charu Bowles) Stented coronary artery ?Z95.5 - Presence of coronary angioplasty implant and graft (ICD-10) Hx of appendectomy ?Z90.49 - Acquired absence of other specified parts of digestive tract (ICD-10) H/O knee surgery ?Z98.890 - Other specified postprocedural states (ICD-10) Family History (Updated 12/28/22 @ 08:59 by Charu Bowles) Grandfather Family history of CHF (congestive heart failure) Family history of hypertension Family history of myocardial infarction Father Family history of CHF (congestive heart failure) Family history of myocardial infarction Mother Family history of COPD (chronic obstructive pulmonary disease) Family history of diabetes mellitus Family history of hypertension Grandmother Family history of cancer Sister Family history of myocardial infarction Social History (Updated 12/28/22 @ 09:06 by Charu Bowles) Within the past year, how often did you have a drink containing alcohol: monthly or less Within the past year, how many standard drinks containing alcohol did you have on a typical day: 1 or 2 Within the past year, how often did you have six or more drinks on one occasion: never Total score: 0 Score interpretation: A score less than 4 is consistent with normal alcohol consumption. 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- [employer] Highest level of school completed/degree received: 12th grade, no diploma Are you now , , , , never or living with a partner: living with partner In a typical week, how many times do you talk on the telephone with family, friends, or neighbors: 3 or more times per week How often do you get together with friends or relatives: once per week How often do you attend protestant or tenriism services: never Do you belong to any clubs or organizations such as protestant groups unions, fraternal or athletic groups, or school groups: no Total score: 2 Score interpretation: A score of greater than or equal to 2 indicates the lowest level of social isolation. Little interest or pleasure in doing things: not at all Feeling down, depressed, or hopeless: not at all Feel stressed/tense/nervous/anxious/difficulty sleeping: only a little Due to disability, difficulty making decisions: No Do you think of yourself as: straight/heterosexual Gender Identity: male Exam Constitutional Vital Signs, click to edit/add: Last Vital Signs Temp 98.1 F 06/19/23 10:59 Pulse 83 06/19/23 10:59 Resp 16 06/19/23 10:59 BP 163/87 H 06/19/23 10:59 Pulse Ox 99 06/19/23 10:59 O2 Del Method Room Air 06/19/23 10:59 Course Vital Signs Vital signs: Vital Signs Temperature 98.1 F 06/19/23 10:59 Pulse Rate 83 06/19/23 10:59 Respiratory Rate 16 06/19/23 10:59 Blood Pressure 163/87 H 06/19/23 10:59 Pulse Oximetry 99 06/19/23 10:59 Oxygen Delivery Method Room Air 06/19/23 10:59 Temperature 98.1 F 06/19/23 10:59 Pulse Rate 83 06/19/23 10:59 Respiratory Rate 16 06/19/23 10:59 Blood Pressure 163/87 H 06/19/23 10:59 Pulse Oximetry 99 06/19/23 10:59 Oxygen Delivery Method Room Air 06/19/23 10:59 Discharge Plan Discharge Chief Complaint: Back Pain/Injury Prescriptions / Home Meds: No Action nitroglycerin 0.4 mg tablet, sublingual 0.4 mg sublingual Q5M PRN (Reason: chest pain) aspirin 81 mg capsule 81 mg PO DAILY metformin 500 mg tablet 500 mg PO BID carvedilol 6.25 mg tablet 25 mg PO Q12H Rx Instructions: must administer with a meal/food atorvastatin 10 mg tablet 80 mg PO DAILY lisinopril 10 mg tablet 40 mg PO DAILY omeprazole 40 mg capsule,delayed release(DR/EC) 40 mg PO DAILY fenofibrate 40 mg tablet 48 mg PO DAILY Farxiga 5 mg tablet 5 mg PO DAILY isosorbide mononitrate 60 mg tablet extended release 24 hr 120 mg PO DAILY Qty: 60 0RF Referrals: MIRIAM HASSAN [Primary Care Provider] - 1 week
--- NOTE | 2023-06-19 11:36 | ED.GENADUL1 ---
HPI - General Adult General Chief complaint: Back Pain/Injury Stated complaint: FLANK PAIN Time Seen by Provider: 06/19/23 11:36 Source: patient Mode of arrival: walk-in History of Present Illness HPI narrative: patient here is bilateral flank pain. 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 He doesn't know if he is running a fever but he does describe classic shakes and chills and sweating. He is not on any antibiotics. He's noticed a little bit increase of his urination recently. He is a diabetic and says his blood sugar has been running slightly higher, just about 2:30 this morning. He's not had nausea vomiting or diarrhea. He's not had problems with his prostate in the past. He has no history of kidney stones or urinary tract infections. Related Data Home Medications Medication Instructions Recorded Confirmed aspirin 81 mg capsule 81 mg PO DAILY 12/27/22 06/19/23 atorvastatin 10 mg tablet 80 mg PO DAILY 12/27/22 06/19/23 carvedilol 6.25 mg tablet 25 mg PO Q12H 12/27/22 06/19/23 lisinopril 10 mg tablet 40 mg PO DAILY 12/27/22 06/19/23 metformin 500 mg tablet 500 mg PO BID 12/27/22 06/19/23 nitroglycerin 0.4 mg sublingual 0.4 mg sublingual Q5M PRN chest 12/27/22 06/19/23 tablet pain dapagliflozin propanediol 5 mg 5 mg PO DAILY 12/28/22 06/19/23 tablet (Farxiga) fenofibrate 40 mg tablet 48 mg PO DAILY 12/28/22 06/19/23 Previous Rx's Medication Instructions Recorded isosorbide mononitrate 60 mg 120 mg (2 x 60 mg) PO DAILY #60 12/29/22 tablet,extended release 24 hr tabs Allergies Allergy/AdvReac Type Severity Reaction Status Date / Time No Known Drug Allergies Allergy Verified 12/27/22 21:10 [facility] Medical History (Updated 06/19/23 @ 14:33 by Bill Norman MD) Hyperlipemia ?E78.5 - Hyperlipidemia, unspecified (ICD-10) Heart attack ?I21.9 - Acute myocardial infarction, unspecified (ICD-10) Hypertension ?I10 - Essential (primary) hypertension (ICD-10) Diabetes ?E11.9 - Type 2 diabetes mellitus without complications (ICD-10) Surgical History (Updated 12/28/22 @ 08:57 by Charu Bowles) Stented coronary artery ?Z95.5 - Presence of coronary angioplasty implant and graft (ICD-10) Hx of appendectomy ?Z90.49 - Acquired absence of other specified parts of digestive tract (ICD-10) H/O knee surgery ?Z98.890 - Other specified postprocedural states (ICD-10) Family History (Updated 12/28/22 @ 08:59 by Charu Bowles) Grandfather Family history of CHF (congestive heart failure) Family history of hypertension Family history of myocardial infarction Father Family history of CHF (congestive heart failure) Family history of myocardial infarction Mother Family history of COPD (chronic obstructive pulmonary disease) Family history of diabetes mellitus Family history of hypertension Grandmother Family history of cancer Sister Family history of myocardial infarction Social History (Updated 12/28/22 @ 09:06 by Charu Bowles) Within the past year, how often did you have a drink containing alcohol: monthly or less Within the past year, how many standard drinks containing alcohol did you have on a typical day: 1 or 2 Within the past year, how often did you have six or more drinks on one occasion: never Total score: 0 Score interpretation: A score less than 4 is consistent with normal alcohol consumption. 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- [employer] Highest level of school completed/degree received: 12th grade, no diploma Are you now , , , , never or living with a partner: living with partner In a typical week, how many times do you talk on the telephone with family, friends, or neighbors: 3 or more times per week How often do you get together with friends or relatives: once per week How often do you attend hinduism or jehovah's witness services: never Do you belong to any clubs or organizations such as hinduism groups unions, fraternal or athletic groups, or school groups: no Total score: 2 Score interpretation: A score of greater than or equal to 2 indicates the lowest level of social isolation. Little interest or pleasure in doing things: not at all Feeling down, depressed, or hopeless: not at all Feel stressed/tense/nervous/anxious/difficulty sleeping: only a little Due to disability, difficulty making decisions: No Do you think of yourself as: straight/heterosexual Gender Identity: male Exam Narrative Exam Narrative: Awake alert pleasant does not appear ill or toxic. Skin is warm and dry Zaniewski tissue perfusion. There is no cyanosis pallor or clamminess. He does have some aching with percussion over both flank areas. There is no skin lesions or evidence of trauma or injury. His lungs were clear with no labored respiratory effort. Heart sounds were normal. Extremities were normal Constitutional Vital Signs, click to edit/add: Last Vital Signs Temp 98.1 F 06/19/23 10:59 Pulse 83 06/19/23 10:59 Resp 16 06/19/23 10:59 BP 163/87 H 06/19/23 10:59 Pulse Ox 99 06/19/23 10:59 O2 Del Method Room Air 06/19/23 10:59 Course Vital Signs Vital signs: Vital Signs Temperature 98.1 F 06/19/23 10:59 Pulse Rate 83 06/19/23 10:59 Respiratory Rate 16 06/19/23 10:59 Blood Pressure 163/87 H 06/19/23 10:59 Pulse Oximetry 99 06/19/23 10:59 Oxygen Delivery Method Room Air 06/19/23 10:59 Temperature 98.1 F 06/19/23 10:59 Pulse Rate 83 06/19/23 10:59 Respiratory Rate 16 06/19/23 10:59 Blood Pressure 163/87 H 06/19/23 10:59 Pulse Oximetry 99 06/19/23 10:59 Oxygen Delivery Method Room Air 06/19/23 10:59 Medical Decision Making [facility] Narrative Medical decision making narrative: this patient is a known diabetic. He has indications on his urinalysis of infection but his CBC is normal and his clinical vital signs are stable. I think it is prudent to start parental antibiotics. He is to follow-up with his primary care doctor by mid week and return to emergency room should he have any deterioration of his condition. We did do a postvoid residual urine and he only had 17 mL syringe is not obstructed or retaining any urine. His kidney function was also normal. Glucose was elevated and this was discussed with him. Lab Data Labs: Lab Results 06/19/23 06/19/23 Range/Units 11:37 11:43 WBC 10.3 (4.0-11.0) 10^3/uL RBC 4.47 L (4.70-6.10) 10^6/uL Hgb 13.5 L (14.0-18.0) g/dL Hct 41.5 L (42.0-54.0) % MCV 92.8 (80.0-94.0) fL MCH 30.2 (25.9-34.0) pg MCHC 32.5 (29.9-35.2) g/dL RDW 13.4 (11.0-15.0) % Plt Count 241 (150-450) 10^3/uL MPV 10.3 (9.5-13.5) fL Neut % (Auto) 70.3 (43.0-75.0) % Lymph % (Auto) 14.2 L (20.5-60.0) % [place] % (Auto) 14.1 H (1.7-12.0) % Eos % (Auto) 0.8 L (0.9-7.0) % Baso % (Auto) 0.2 (0.2-2.0) % Neut # (Auto) 7.3 H (1.4-6.5) 10^3/uL Lymph # (Auto) 1.5 (1.2-3.8) 10^3/uL [place] # (Auto) 1.5 H (0.3-0.8) 10^3/uL Eos # (Auto) 0.1 (0.0-0.7) 10^3/uL Baso # (Auto) 0.0 (0.0-0.1) 10^3/uL Abs Immat Gran (auto) 0.04 H (0.00-0.03) 10^3/uL Imm/Tot Granulo (auto) 0.4 (0.0-0.5) % Sodium 129 L (136-145) mmol/L Potassium 4.1 (3.5-5.1) mmol/L Chloride 93 L (98-107) mmol/L Carbon Dioxide 23.7 (21.0-32.0) mmol/L Anion Gap 16.4 BUN 10.0 (7.0-18.0) mg/dL Creatinine 0.73 (0.70-1.30) mg/dL Est GFR ( Amer) >60 (>=60) Est GFR (Non-Af Amer) >60 (>=60) BUN/Creatinine Ratio 13.7 Glucose 274 H (74-106) mg/dL Lactate 1.1 (0.4-2.0) mmol/L Calcium 9.6 (8.5-10.1) mg/dL Total Bilirubin 0.5 (0.2-1.0) mg/dL AST 12 L (15-37) U/L ALT 21 (16-63) U/L Alkaline Phosphatase 76 (46-116) U/L Total Protein 7.5 (6.4-8.2) g/dL Albumin 3.1 L (3.4-5.0) g/dL Globulin 4.4 g/dL Albumin/Globulin Ratio 0.7 Urine Color Lt. yellow (YELLOW) Urine Clarity Clear (CLEAR) Urine pH 6.0 (5.0-9.0) Ur Specific [place] <=1.005 A (1.005-1.025) Urine Protein Negative (NEG/TRACE) mg/dL Urine Glucose (UA) >=1000 A (NEGATIVE) mg/dL Urine Ketones >=80 A (NEGATIVE) mg/dL Urine Occult Blood Trace-i (NEGATIVE) Urine Nitrite Negative (NEGATIVE) Urine Bilirubin Negative (NEGATIVE) Urine Urobilinogen 1.0 (0.2-1.0) EU/dL Ur Leukocyte Esterase Negative (NEGATIVE) Urine RBC 5-10 A (0-2) #/HPF Urine WBC 5-10 A (NONE SEEN) #/HPF Ur Squamous Epith Cells Few A (NONE/RARE) #/LPF Urine Bacteria Moderate A (NONE SEEN) #/HPF Urine Mucus None seen (NONE SEEN) Ur Culture Indicated? Yes Discharge Plan Discharge Chief Complaint: Back Pain/Injury Clinical Impression: Urinary tract infection Patient Disposition: Home, Self-Care Time of Disposition Decision: 14:32 Prescriptions / Home Meds: No Action nitroglycerin 0.4 mg tablet, sublingual 0.4 mg sublingual Q5M PRN (Reason: chest pain) aspirin 81 mg capsule 81 mg PO DAILY metformin 500 mg tablet 500 mg PO BID carvedilol 6.25 mg tablet 25 mg PO Q12H Rx Instructions: must administer with a meal/food atorvastatin 10 mg tablet 80 mg PO DAILY lisinopril 10 mg tablet 40 mg PO DAILY fenofibrate 40 mg tablet 48 mg PO DAILY Farxiga 5 mg tablet 5 mg PO DAILY isosorbide mononitrate 60 mg tablet extended release 24 hr 120 mg PO DAILY Qty: 60 0RF Additional Instructions: Cipro/recheck with primary care doctor.by mid week/return to Emergency Room if worse Stand Alone Forms: Portal Instructions Referrals: MIRIAM HASSAN [Primary Care Provider] - 1 week
[2023-06-19] MEDS: 0.9 % SODIUM CHLORIDE 1,000 ML 999 ML IV (11:52)
[2023-06-19 11:54] LABS: Basophils Percent Auto 0.2 % (0.2-2.0); Eosinophils Absolute Auto 0.1 10^3/uL (0.0-0.7); Eosinophils Percent Auto 0.8 % (0.9-7.0); Hematocrit 41.5 % (42.0-54.0); Hemoglobin 13.5 g/dL (14.0-18.0); Immature Granulocytes Abs Auto 0.04 10^3/uL (0.00-0.03); Immature Granulocytes Pct Auto 0.4 % (0.0-0.5); Lymphocytes Absolute Auto 1.5 10^3/uL (1.2-3.8); Lymphocytes Percent Auto 14.2 % (20.5-60.0); Mean Corpuscular HGB Conc 32.5 g/dL (29.9-35.2); Mean Corpuscular Hemoglobin 30.2 pg (25.9-34.0); Mean Corpuscular Volume 92.8 fL (80.0-94.0); Mean Platelet Volume 10.3 fL (9.5-13.5); Monocytes Absolute Auto 1.5 10^3/uL (0.3-0.8); Monocytes Percent Auto 14.1 % (1.7-12.0); Neutrophils Absolute Auto 7.3 10^3/uL (1.4-6.5); Neutrophils Percent Auto 70.3 % (43.0-75.0); Platelet Count 241 10^3/uL (150-450); Red Blood Count 4.47 10^6/uL (4.70-6.10); Red Cell Distribution Width 13.4 % (11.0-15.0); White Blood Count 10.3 10^3/uL (4.0-11.0)
[2023-06-19 11:54] LABS: Bilirubin Urine NEGATIVE (NEGATIVE); Blood Urine TRACE-I (NEGATIVE); Clarity Urine CLEAR (CLEAR); Color Urine LT. YELLOW (YELLOW); Glucose Urine UA >=1000 mg/dL (NEGATIVE); Ketones Urine >=80 mg/dL (NEGATIVE); Leukocyte Esterase Urine NEGATIVE (NEGATIVE); Nitrite Urine NEGATIVE (NEGATIVE); Protein Urine NEGATIVE (NEG/TRACE); Specific Gravity Urine <=1.005 (1.005-1.025)
[2023-06-19 12:15] LABS: Alanine Aminotransferase 21 U/L (16-63); Albumin Globulin Ratio 0.7; Albumin Level 3.1 g/dL (3.4-5.0); Alkaline Phosphatase 76 U/L (46-116); Anion Gap 16.4; Aspartate Amino Transferase 12 U/L (15-37); BUN Creatinine Ratio 13.7; Bilirubin Total 0.5 mg/dL (0.2-1.0); Calcium 9.6 mg/dL (8.5-10.1); Carbon Dioxide 23.7 mmol/L (21.0-32.0); Chloride 93 mmol/L (98-107); Estimated GFR (African America >60 (>=60); Estimated GFR (Non-African Ame >60 (>=60); Globulin 4.4 g/dL; Glucose 274 mg/dL (74-106); Potassium 4.1 mmol/L (3.5-5.1); Sodium 129 mmol/L (136-145); Total Protein 7.5 g/dL (6.4-8.2)
[2023-06-19 12:24] LABS: Lactate/Lactic Acid 1.1 mmol/L (0.4-2.0)
[2023-06-19 12:32] LABS: Urine Microscopic Indicated YES
[2023-06-19 12:33] LABS: Bacteria Urine MODERATE #/HPF (NONE SEEN); Mucus Urine NONE SEEN (NONE SEEN); Squamous Epithelial Cell Urine FEW #/LPF (NONE/RARE)
[2023-06-19 12:34] LABS: Urine Culture Indicated YES
[2023-06-19] MEDS: CIPROFLOXACIN IN 5 % DEXTROSE 400 MG/200 ML PIGGYBACK 200 MG IV (13:38)
== END 2023-06-19 14:40 | disposition home or self-care (01) ==
PROVIDERS: Emergency Provider Emergency Medicine Emergency Medical Services; PCP Nurse Practitioner Family
DX: N39.0 Urinary tract infection, site not specified (principal); E78.5 Hyperlipidemia, unspecified; I10 Essential (primary) hypertension; I25.2 Old myocardial infarction; E11.9 Type 2 diabetes mellitus without complications; Z95.5 Presence of coronary angioplasty implant and graft; Z90.49 Acquired absence of other specified parts of digestive tract; Z98.890 Other specified postprocedural states; F17.210 Nicotine dependence, cigarettes, uncomplicated; Z79.82 Long term (current) use of aspirin; Z79.899 Other long term (current) drug therapy; Z79.84 Long term (current) use of oral hypoglycemic drugs
CPT/HCPCS: 36415; 51798; 80053; 81001; 83605; 85025; 87086; 87150; 87186; 96374; 99284; J0744

== ENCOUNTER 2023-09-27 09:04 | Outpatient (OUT) | payer SELFPAY ==
--- OUTSIDE RECORDS SUMMARY | 2023-09-27 09:13 | XMS_ITS | CCD ---
Author Organization [facility] Care Team Providers Care Toll Collector Supervisor Name Role Phone TAMMY KENNY Unavailable Unavailable AL-HOURANI, LUÍS Admitting Unavailable AL-HOURANI, LUÍS Attending Unavailable SELF, REFERRED Primary Care Unavailable SELF, REFERRED Referring Unavailable ALGHOTHANI, MOHAMAD Admitting Unavailable ALGHOTHANI, MOHAMAD Attending Unavailable SONYA, MIRIAM Primary Care Unavailable ALGHOTHANI, MOHAMAD Consulting Unavailable SONYA, MIRIAM Admitting Unavailable SONYA, MIRIAM Attending Unavailable SONYA, MIRIAM Primary Care Unavailable ALGHOTHANI, MOHAMAD Admitting Unavailable ALGHOTHANI, MOHAMAD Attending Unavailable SONYA, MIRIAM Primary Care Unavailable DR PRICILA HURT V Consulting Unavailable ALGHOTHANI, MOHAMAD Consulting Unavailable SONYA, MIRIAM Admitting Unavailable SONYA, MIRIAM Attending Unavailable SONYA, MIRIAM Primary Care Unavailable SONYA, MIRIAM Consulting Unavailable SONYA, MIRIAM Admitting Unavailable SONYA, MIRIAM Attending Unavailable SONYA, MIRIAM Primary Care Unavailable SONYA, MIRIAM Consulting Unavailable ALGHOTHANI, MOHAMAD Admitting Unavailable ALGHOTHANI, MOHAMAD Attending Unavailable SONYA, MIRIAM Primary Care Unavailable ALGHOTHANI, MOHAMAD Consulting Unavailable ALGHOTHANI, MOHAMAD Admitting Unavailable ALGHOTHANI, MOHAMAD Attending Unavailable SONYA, MIRIAM Primary Care Unavailable Flip BECKER Attending Unavailable Sparkle SIEGEL Attending Unavailable NIRAVYAHAIRA Attending Unavailable ALGHOTHANI, MOHAMAD Attending Unavailable NIRAVYAHAIRA Attending Unavailable Allergies Allergy Classification Reported Allergen(s) Allergy Type Date of Onset Reaction(s) Facility (1 source) No Known Medication Allergies; Translations: [No Known Medication Allergies] Propensity to adverse reactions (disorder) [facility] Repository Problems Active Problems Problem Classification Problem Date Documented Date Episodic/Chronic Coronary atherosclerosis and other heart disease (10 sources) Atherosclerotic heart disease of [place] coronary artery with other forms of angina pectoris; Translations: [Atherosclerotic heart disease of [place] coronary artery without angina pectoris] Onset: 04-14-2022 Chronic Diabetes mellitus without complication (4 sources) Type 2 diabetes mellitus without complications; Translations: [TYPE 2 DM WITHOUT COMPLICATIONS] Onset: 01-12-2022 Chronic Disorders of lipid metabolism (3 sources) Hyperlipidemia, unspecified; Translations: [Mixed hyperlipidemia] Onset: 09-18-2021 Chronic Essential hypertension (2 sources) Essential (primary) hypertension; Translations: [Essential (primary) hypertension] Onset: 04-14-2022 Chronic Nonspecific chest pain (1 source) Chest pain, unspecified; Translations: [Chest pain, unspecified] Onset: 06-02-2018 Episodic Other lower respiratory disease (4 sources) Dyspnea, unspecified; Translations: [DYSPNEA UNSPECIFIED] Onset: 04-08-2022 Episodic Other lower respiratory disease (2 sources) Other forms of dyspnea; Translations: [Other forms of dyspnea] Onset: 09-24-2023 Episodic Substance-related disorders (2 sources) Nicotine dependence, unspecified, uncomplicated; Translations: [Nicotine dependence, unspecified, uncomplicated] Onset: 04-14-2022 Chronic Past or Other Problems Problem Classification Problem Date Documented Da te Episodic/Chronic Diabetes mellitus without complication (1 source) Other abnormal glucose; Translations: [OTHER ABNORMAL GLUCOSE] Onset: 09-18-2021 Episodic Other screening for suspected conditions (not mental disorders or infectious disease) (2 sources) Encounter for screening for malignant neoplasm of prostate; Translations: [Encounter for screening for malignant neoplasm of rectum] Onset: 09-18-2021 Episodic Results Test Name Value Interpretation Reference Range Facility Office Visiton 09-24-2023 Follow-up visit [id number] Kirk Hdez 1965 M Date Provider Department Center 09/24/2023 YAHAIRA FERMIN Family History Problem Relation Age of Onset Coronary artery disease Father Heart attack Father Other Father Coronary artery disease Maternal Grandfather Family Status - Relation Status Age at Father Maternal Grandfather Level of Service:09561 [place] OFFICE/OUTPATIENT ESTABLISHED MOD MDM 30 MIN Normal [facility] 04-13-2023 Consent [id number]#1. 00TIFF [facility] In office Testingon 04-13-20 23 In office Testing [id number] 02 [id number]#1. 00TIFF [facility] Registrationon 04-13-2023 Registration [id number] 02 [id number]#1. 00TIFF [facility] Office Visiton 03-12-2023 Follow-up visit [id number] Kirk Hdez ry P 1965 M Date Provider Department Center 03/12/2023 3848-OLYA MALIK MARLA Dove Family History Problem Relation Age of Onset Coronary artery disease Father Heart attack Father Other Father Coronary artery disease Maternal Grandfather Family Status - Relation Status Age at Father Maternal Grandfather Level of Service:26297 [place] OFFICE/OUTPATIENT ESTABLISHED LOW MDM 20-29 MIN [facility] Office Visiton 12-08-2022 Follow-up visit [id number] LemuelKirk ry P 1965 M Date Provider Department Center 12/08/2022 120-YAHAIRA GASTELUM MARLA Dove Family History Problem Relation Age of Onset Coronary artery disease Father Heart attack Father Other Father Coronary artery disease Maternal Grandfather Family Status - Relation Status Age at Father Maternal Grandfather Level of Service:61271 [place] OFFICE/OUTPATIENT ESTABLISHED MOD MDM 30-39 MIN [facility] 04-30-2022 Consent [id number]#1. 00CD:127 Normal [facility] In office Testingon 04-30-20 22 In office Testing [id number]#1. 00CD:127 Normal [facility] In office Testing [id number]#1. 00CD:[address] [facility] Registrationon 04-30-2022 Registration [id number]#1. 00CD:[address] [facility] LIPID PROFILEon 04-28-2022 CHOL-HDL RATIO NORM SEE BELOW Normal [facility] Comment on above: Result Comment: 3.3 - 4.4 LOW RISK 4.4 - 7.1 AVERAGE RISK 7.1 - 11.0 MODERATE RISK >11.0 HIGH RISK Performed By: #### L IPID ####[facility] [address] [place], [place] [address]Ka. Sheila Thompson Cholesterol [Mass/Vol] 154 mg/dL Normal <=200 [facility] Comment on above: Performed By: #### L IPID ####[facility] [address] [place] [id number]. Sheila Thompson Cholesterol in HDL [Mass/Vol] 32 mg/dL Critically low 40-60 [facility] Comment on above: Performed By: #### L IPID ####[facility] Uh[address] [place] [id number]. Sheila Jay Cholesterol in LDL [Mass/Vol] 80.6 mg/dL Normal [facility] Comment on above: Performed By: #### L IPID ####[facility] [address] [place] [id number]. Sheila Thompson Cholesterol.total/Ch olesterol in HDL [Mass ratio] 4.8 {ratio} Normal [facility] Comment on above: Performed By: #### L IPID ####[facility] [address] [place] [id number]. Sheila Thompson HDL NORMAL > or = 60 mg/dl - LO W CARDIOVASCULAR RISK <40 mg/dl - HIGH CARDIOVASCULAR RISK Normal [facility] Comment on above: Performed By: #### L IPID ####[facility] [address] [place] [id number]. Sheila Thompson LDL CALC NORMAL SEE BELOW Normal [facility] Comment on above: Result Comment: <100 mg/dl OPTIMAL 100 - 129 mg/dl NEAR OR ABOVE OPTIMAL 130 - 159 mg/dl BORDERLINE HIGH 160 - 189 mg/dl HIGH >190 mg/dl VERY HIGH Performed By: #### L IPID ####[facility] [address] [place] [id number]. Sheila hTompson Triglyceride [Mass/Vol] 207 mg/dL Critically high <=150 [facility] Comment on above: Performed By: #### L IPID ####[facility] [address] [place], [place] [address]Jg. Sheila Thompson VLDL CALC 41.4 mg/dL Normal [facility] Comment on above: Performed By: #### L IPID ####[facility] [address] [place], [place] [address]Pv. Sheila Thompson ECHOCARDIO M/2D COMPLETEon 1 ECHOCARDIO M/2D COMPLETE Patient: TAQUERIA HDEZ Exam Date: 04/08/2022 : 1965 Gender:M Ordering : OLYA MALIK Admission #: [id number] Family : Order #: [id number] CLICK HERE TO VIEW EXAM ECHOCARDIOGRAM REPORT PROCEDURE: CARDIO PULMONARY ECHOCARDIO M/2D COMP INDICATIONS: [place]MORE COMPARISON: None. DESCRIPTION: COMPLETE ECHOCARDIOGRAM Real-time transthoracic echocardiography with 2D, M-mode, spectral and color flow Doppler performed. QUALITY: Technical quality was good. LEFT VENTRICLE: Normal chamber size. Mild concentric left ventricular hypertrophy. Global left ventricular systolic function is normal. LV EF: Calculated left ventricular ejection fraction is 60%. DIASTOLIC: Normal diastolic function. ATRIAL SEPTUM: LEFT ATRIUM: Mild dilatation. RIGHT ATRIUM: Mild dilatation. RIGHT VENTRICLE: Normal chamber size. Normal right ventricular systolic function. TRICUSPID VALVE: Normal mobility and thickness. No stenosis with trivial regurgitation. Mild pulmonary hypertension. RVSP 36 mmHg MITRAL VALVE: Normal mobility and thickness. No mitral valve prolapse. No evidence of mitral valve stenosis. There is no mitral annular calcification. Trivial mitral regurgitation. AORTIC VALVE: Normal trileaflet appearance. Mildly calcified aortic valve. Normal leaflet mobility. No evidence of aortic valve stenosis. DVI 0.8. No aortic regurgitation. AORTIC ROOT: Normal diameter and appearance. PULMONIC VALVE: Normal thickness and mobility. No stenosis. No regurgitation. PERICARDIUM: No evidence of pericardial effusion. IVC: Collapses with inspirations. Normal size. PLEURA: CONCLUSION: 1. Mild concentric left ventricular hypertrophy. Normal left ventricular systolic function. LVEF is 60%. 2. Normal right ventricular systolic function. 3. Mild biatrial dilatation. 4. No significant valvular dysfunction. 5. Mildly elevated right-sided pressures. Adult Echocardiography Procedure Report Left Ventricle LVEDD (3.7 - 5.6 cm): 5.25 cm LVESD (2.2 - 4.0 cm): 3.32 cm LVIVS thickness (0.6 - 1.2 cm): 1.19 cm LVPW thickness (0.5 - 1.0 cm): 1.09 cm e': 0.11 m/s E - e': 6.12 LVOT Max Gradient: 3.80 mm[Hg] Peak Velocity (LVOT): 0.97 m/s Mean Velocity (LVOT): 0.62 m/s LVOT Diameter 2.17 cm Left Ventricular Ejection Fraction: 60% Left Atrium LA Volume Index (2D A2C): 78.37 ml, 78.37 ml Left Atrium Systolic Dimension: 4.08 cm Mitral Valve MV E to A Ratio: 1.26 Mitral Valve A-Wave Peak Velocity: 0.55 m/s Mitral Valve E-Wave Peak Velocity: 0.69 m/s Right Ventricle RV Internal Diastolic Dimension: 3.15 cm Aorta AO Root Diam: 3.22 cm Ascending Ao Diam: 2.51 cm Aortic Valve AoV Area (Peak Da): 2.92 cm2, 2.92 cm2 AoV Area (VTI): 2.63 cm2, 2.63 cm2 Peak Velocity(Antegrade Flow): 1.24 m/s Peak Gradient(Antegrade Flow): 6.15 mm[Hg] Mean Velocity(Antegrade Flow): 0.89 m/s Mean Gradient(Antegrade Flow): 3.57 mm[Hg] Velocity Time Integral: 27.04 cm Tricuspid Valve Peak Velocity (Regurgitant Flow): 2.58 m/s, 2.86 m/s, 2.58 m/s Peak Velocity: 0.66 m/s Pulmonic Valve Peak Velocity: 1.03 m/s, 1.02 m/s Peak Gradient: 4.21 mm[Hg], 4.13 mm[Hg] Right Atrium Right Atrium Systolic Pressure: 47.09 ml, 47.09 ml Dictated by: Cole Haney M.D. on 04/15/2022 at 11:04 Approved by: Cole Haney M.D. on 04/15/2022 at 11:06 Normal [facility] DIRECT LDLon 01-12-2022 Cholesterol in LDL [Mass/Vol] 70 mg/dL Normal [facility] Comment on above: Performed By: #### L ABEL ROACH, CMP ####[facility] [address] [place] [address]Dr. Sheila Thompson DLDL NORMAL SEE BELOW Normal [facility] Comment on above: Result Comment: <100 mg/dl OPTIMAL 100 - 129 mg/dl NEAR OR ABOVE OPTIMAL 130 - 159 mg/dl BORDERLINE HIGH 160 - 189 mg/dl HIGH >190 mg/dl VERY HIGH Performed By: #### L ABEL ROACH, CMP ####[facility] [address] [place] [address]Dr. Sheila Thompson GLYCOHEMOGLOBIN A1Con 2021 ADA RECOMMENDATION SEE BELOW Normal [facility] Comment on above: Result Comment: ADA RECOMMENDED LIMIT 4.0 - 6.0 ADA THERAPEUTIC TARGET < 7.0 ACTION SUGGESTED > 7.0 Performed By: #### A 1C ####[facility] [address] [place] [address]Dr. Sheila Thompson Glucose [Mass/Vol] 160 mg/dL Normal [facility] Comment on above: Performed By: #### A 1C ####[facility] [address] [place] [id number]. Sheila Thompson HbA1c (Bld) [Mass fraction] 7.2 % Critically high 4.5-6.2 [facility] Comment on above: Performed By: #### A 1C ####[facility] [address] [place] [address]Dr. Sheila Thompson LIPID PROFILEon 01-12-2022 CHOL-HDL RATIO NORM SEE BELOW Normal [facility] Comment on above: Result Comment: 3.3 - 4.4 LOW RISK 4.4 - 7.1 AVERAGE RISK 7.1 - 11.0 MODERATE RISK >11.0 HIGH RISK Performed By: #### L MARLEY, JESSICAL, CMP ####[facility] [address] [place] [address]Dr. Sheila Thompson Cholesterol [Mass/Vol] 165 mg/dL Normal <=200 [facility] Comment on above: Performed By: #### L IPID, DLDL, CMP ####[facility] [address] [place] [address]Dr. Sheila Thompson Cholesterol in HDL [Mass/Vol] 25 mg/dL Critically low 40-60 [facility] Comment on above: Performed By: #### L IPID, DLDL, CMP ####[facility] [address] [place] [address]Dr. Sheila Thompson Cholesterol.total/Ch olesterol in HDL [Mass ratio] 6.6 {ratio} Normal [facility] Comment on above: Performed By: #### L IPID, DLDL, CMP ####[facility] [address] [place] [address]Dr. Sheila Thompson HDL NORMAL > or = 60 mg/dl - LO W CARDIOVASCULAR RISK <40 mg/dl - HIGH CARDIOVASCULAR RISK Normal [facility] Comment on above: Performed By: #### L IPID, DLDL, CMP ####[facility] [address] [place] [address]Dr. Sheila Thompson Triglyceride [Mass/Vol] 502 mg/dL Critically high <=150 [facility] Comment on above: Performed By: #### L IPID, DLDL, CMP ####[facility] [address] [place] [address]Dr. Sheila Thompson PROF 14(COMP METB)on 022 Albumin [Mass/Vol] 3.9 g/dL Normal 3.4-5.0 [facility] Comment on above: Performed By: #### L IPID, DLDL, CMP ####[facility] [address] [place] [address]Dr. Sheila Thompson Albumin/Globulin [Mass ratio] 1.1 {ratio} Normal [facility] Comment on above: Performed By: #### L IPID, DLDL, CMP ####[facility] [address] [place] [address]Dr. Sheila Thompson ALP [Catalytic activity/Vol] 71 U/L Normal 46-116 [facility] Comment on above: Performed By: #### L IPID, DLDL, CMP ####[facility] [address] [place] [address]Dr. Sheila Thompson ALT [Catalytic activity/Vol] 47 U/L Normal 16-63 [facility] Comment on above: Performed By: #### L IPID, DLDL, CMP ####[facility] [address] [place] [address]Dr. Sheila Thompson Anion gap [Moles/Vol] 12.9 mmol/L Normal [facility] Comment on above: Performed By: #### L IPID, DLDL, CMP ####[facility] [address] [place] [address]Dr. Sheila Thompson AST [Catalytic activity/Vol] 21 U/L Normal 15-37 [facility] Comment on above: Performed By: #### L IPID, DLDL, CMP ####[facility] [address] [place] [address]Dr. Sheila Thompson Bilirubin [Mass/Vol] 0.2 mg/dL Normal 0.2-1.0 [facility] Comment on above: Performed By: #### L IPID, DLDL, CMP ####[facility] [address] [place] [address]Dr. Sheila Thompson Calcium [Mass/Vol] 9.0 mg/dL Normal 8.5-10.1 [facility] Comment on above: Performed By: #### L IPID, DLDL, CMP ####[facility] [address]se[address] [place] [address]Dr. Sheila Thompson Chloride [Moles/Vol] 104 mmol/L Normal 98-107 [facility] Comment on above: Performed By: #### L IPID, DLDL, CMP ####[facility] [address] [place] [address]Dr. Sheila Thompson CO2 [Moles/Vol] 26.9 mmol/L Normal 21.0-32.0 [facility] Comment on above: Performed By: #### L IPID, DLDL, CMP ####[facility] [address]wefs[address] [place] [address]Dr. Sheila Thompson Creatinine [Mass/Vol] 0.78 mg/dL Normal 0.70-1.30 [facility] Comment on above: Performed By: #### L IPID, DLDL, CMP ####[facility] [address]fs[address] [place] [address]Dr. Sheila Thompson EGFR-AF TONGAN >60 Normal >=60 [facility] Comment on above: Performed By: #### L IPID, DLDL, CMP ####[facility] [address] [place] [address]Dr. Sheila Thompson EGFR-NON AF TONGAN >60 Normal >=60 [facility] Comment on above: Performed By: #### L IPID, DLDL, CMP ####[facility] [address]ieg[address] [place] [address]Dr. Sheila Thompson Globulin (S) [Mass/Vol] 3.5 g/dL Normal [facility] Comment on above: Performed By: #### L IPID, DLDL, CMP ####[facility] [address] [place], [place] [address]Dr. Sheila Thompson Glucose [Mass/Vol] 171 mg/dL Critically high 74-106 [facility] Comment on above: Performed By: #### L IPID, DLDL, CMP ####[facility] [address] [place], [place] [address]Dr. Sheila Thompson Potassium [Moles/Vol] 3.8 mmol/L Normal 3.5-5.1 [facility] Comment on above: Performed By: #### L IPID, DLDL, CMP ####[facility] [address] [place], [place] [address]Dr. Sheila Thompson Protein [Mass/Vol] 7.4 g/dL Normal 6.4-8.2 [facility] Comment on above: Performed By: #### L IPID, DLDL, CMP ####[facility] [address] [place], [place] [address]Dr. Sheila Thompson Sodium [Moles/Vol] 140 mmol/L Normal 136-145 [facility] Comment on above: Performed By: #### L IPID, DLDL, CMP ####[facility] [address] [place], [place] [address]Dr. Sheila Thompson Urea nitrogen [Mass/Vol] 16.0 mg/dL Normal 7.0-18.0 [facility] Comment on above: Performed By: #### L IPID, DLDL, CMP ####[facility] [address] [place], [place] [address]Dr. Sheila Thompson Urea nitrogen/Creatinine [Mass ratio] 20.5 mg/mg Normal [facility] Comment on above: Performed By: #### L IPID, DLDL, CMP ####[facility] [address] [place], [place] [address]Dr. Sheila Thompson INSULINon 09-16-2021 Insulin 59.1 uIU/mL Critically high 2.6-24.9 [facility] Comment on above: Performed By: #### I NSULIN ####[facility] [address] [place], [place] [address]Dr. Sheila Thompson CBC AUTO DIFFon 09-15-2021 BASO # 0.0 103/ul Normal 0.0-0.1 [facility] Comment on above: Performed By: #### C BC ####[facility] [address] [place], [place] [address]Dr. Sheila Thompson Basophils/100 WBC (Bld) 0.4 % Normal 0.2-2.0 [facility] Comment on above: Performed By: #### C BC ####[facility] [address] [place], [place] [address]Dr. Sheila Thompson EO # 0.2 103/ul Normal 0.0-0.7 [facility] Comment on above: Performed By: #### C BC ####[facility] [address] [place], [place] [address]Dr. Sheila Thompson Eosinophils/100 WBC (Bld) 1.9 % Normal 0.9-7.0 [facility] Comment on above: Performed By: #### C BC ####[facility] [address] [place] [address]Dr. Sheila Thompson Erythrocyte distribution width (RBC) [Ratio] 13.3 % Normal 11.0-15.0 [facility] Comment on above: Performed By: #### C BC ####[facility] [address] [place] [address]Dr. Sheila Thompson Hematocrit (Bld) [Volume fraction] 44.5 % Normal 42.0-54.0 [facility] Comment on above: Performed By: #### C BC ####[facility] [address] [place], [place] [address]Dr. Sheila Thompson Hemoglobin (Bld) [Mass/Vol] 14.7 g/dL Normal 14.0-18.0 [facility] Comment on above: Performed By: #### C BC ####[facility] [address]xl[address] [place], [place] [address]Dr. Sheila Jay IG # 0.02 10e3/ul Normal 0.00-0.03 [facility] Comment on above: Performed By: #### C BC ####[facility] [address] [place], [place] [address]Dr. Sheila Thompson IG % 0.2 % Normal 0.0-0.5 [facility] Comment on above: Performed By: #### C BC ####[facility] [address] [place], [place] [address]Dr. Sheila Thompson LYMPH # 2.2 103/ul Normal 1.2-3.8 [facility] Comment on above: Performed By: #### C BC ####[facility] [address] [place], [place] [address]Dr. Sheila Thompson Lymphocytes/100 WBC (Bld) 26.0 % Normal 20.5-60.0 [facility] Comment on above: Performed By: #### C BC ####[facility] [address] [place], [place] [address]Dr. Luzyoung Thompson MANUAL DIFF REQ NO Normal The [facility] Comment on above: Performed By: #### C BC ####[facility] [address] [place], [place] [address]Dr. Sheila Thompson MCH (RBC) [Entitic mass] 30.6 pg Normal 25.9-34.0 [facility] Comment on above: Performed By: #### C BC ####[facility] [address] [place] [address]Dr. Sheila Thompson MCHC (RBC) [Mass/Vol] 33.0 g/dL Normal 29.9-35.2 [facility] Comment on above: Performed By: #### C BC ####[facility] [address] [place] [address]Dr. Sheila Thompson MCV (RBC) [Entitic vol] 92.7 fL Normal 80.0-94.0 [facility] Comment on above: Performed By: #### C BC ####[facility] [address] [place] [address]Dr. Sehila Jay MONO # 1.0 103/ul Critically high 0.3-0.8 The [facility] Comment on above: Performed By: #### C BC ####[facility] [address] [place] [address]Dr. Luzyoung Thompson Monocytes/100 WBC (Bld) 11.9 % Normal 1.7-12.0 [facility] Comment on above: Performed By: #### C BC ####[facility] [address] [place] [address]Dr. Sheila Thompson NEUT # 5.0 103/ul Normal 1.4-6.5 [facility] Comment on above: Performed By: #### C BC ####[facility] [address] [place] [address]Dr. Sheila Jay Neutrophils/100 WBC (Bld) 59.6 % Normal 43.0-75.0 [facility] Comment on above: Performed By: #### C BC ####[facility] [address]jebr[address] [place] [address]Dr. Sheila Jay Platelet mean volume (Bld) [Entitic vol] 10.4 fL Normal 9.5-13.5 [facility] Comment on above: Performed By: #### C BC ####[facility] [address] [place], [place] [address]Wm. Sheila Thompson PLT 245 103/ul Normal 150-450 [facility] Comment on above: Performed By: #### C BC ####[facility] [address] [place], [place] [address]Gi. Sheila Thompson RBC 4.80 106/ul Normal 4.70-6.10 [facility] Comment on above: Performed By: #### C BC ####[facility] [id number] [place] [id number]. Sheila Thompson WBC 8.4 103/ul Normal 4.0-11.0 [facility] Comment on above: Performed By: #### C BC ####[facility] [address] [place] [id number] Thompson DIRECT LDLon 09-15-2021 Cholesterol in LDL [Mass/Vol] 74 mg/dL Normal [facility] Comment on above: Performed By: #### L IPID, DLDL, CMP, URIC #### [facility] [address] [address] [address] Sheila Thompson DLDL NORMAL SEE BELOW Normal [facility] Comment on above: Result Comment: <100 mg/dl OPTIMAL 100 - 129 mg/dl NEAR OR ABOVE OPTIMAL 130 - 159 mg/dl BORDERLINE HIGH 160 - 189 mg/dl HIGH >190 mg/dl VERY HIGH Performed By: #### L IPID, DLDL, CMP, URIC #### [facility] [address] [address] [address] Sheila Thompson GLYCOHEMOGLOBIN A1Con 2021 ADA RECOMMENDATION ADA THERAPEUTIC TARG ET 6.0 - 7.0 ACTION SUGGESTED > 7.0 Normal [facility] Comment on above: Performed By: #### A 1C #### [facility] [address] [address] [address] Sheila Thompson Glucose [Mass/Vol] 194 mg/dL Normal The [facility] Comment on above: Performed By: #### A 1C #### [facility] [address] [address] [address] Sheila Thompson HbA1c (Bld) [Mass fraction] 8.4 % Critically high <=6.0 [facility] Comment on above: Performed By: #### A 1C #### [facility] [address] [address] [address] Sheila Thompson LIPID PROFILEon 09-15-2021 CHOL-HDL RATIO NORM SEE BELOW Normal [facility] Comment on above: Result Comment: 3.3 - 4.4 LOW RISK 4.4 - 7.1 AVERAGE RISK 7.1 - 11.0 MODERATE RISK >11.0 HIGH RISK Performed By: #### L IPID, DLDL, CMP, URIC #### [facility] [address] [address] [address] Sheila Thompson Cholesterol [Mass/Vol] 223 mg/dL Critically high <=200 [facility] Comment on above: Performed By: #### L IPID, DLDL, CMP, URIC #### [facility] [address] [address] [address] Sheila Thompson Cholesterol in HDL [Mass/Vol] 24 mg/dL Critically low 40-60 [facility] Comment on above: Performed By: #### L IPID, DLDL, CMP, URIC #### [facility] [address] [address] [address] Sheila Thompson Cholesterol.total/Ch olesterol in HDL [Mass ratio] 9.3 {ratio} Normal [facility] Comment on above: Performed By: #### L IPID, DLDL, CMP, URIC #### [facility] [address] [address] [address] Sheila Thompson HDL NORMAL > or = 60 mg/dl - LO W CARDIOVASCULAR RISK <40 mg/dl - HIGH CARDIOVASCULAR RISK Normal [facility] Comment on above: Performed By: #### L IPID, DLDL, CMP, URIC #### [facility] [address] [place] [address] Dr. Sheila Thompson LDL CALC NORMAL SEE BELOW Normal The [facility] Comment on above: Result Comment: <100 mg/dl OPTIMAL 100 - 129 mg/dl NEAR OR ABOVE OPTIMAL 130 - 159 mg/dl BORDERLINE HIGH 160 - 189 mg/dl HIGH >190 mg/dl VERY HIGH Performed By: #### L IPID, DLDL, CMP, URIC #### [facility] [address] [address] [address] Sheila Thompson Triglyceride [Mass/Vol] 903 mg/dL Critically high <=150 [facility] Comment on above: Performed By: #### L IPID, DLDL, CMP, URIC #### [facility] [address] [address] [address] Sheila Thompson PROF 14(COMP METB)on 022 Albumin [Mass/Vol] 3.9 g/dL Normal 3.4-5.0 [facility] Comment on above: Performed By: #### L IPID, DLDL, CMP, URIC #### [facility] [address] [place] [address] Dr. Sheila Thompson Albumin/Globulin [Mass ratio] 1.1 {ratio} Normal [facility] Comment on above: Performed By: #### L IPID, DLDL, CMP, URIC #### [facility] [address] [place] [address] Dr. Sheila Thompson ALP [Catalytic activity/Vol] 76 U/L Normal 46-116 [facility] Comment on above: Performed By: #### L IPID, DLDL, CMP, URIC #### [facility] [address] [place] [address] Dr. Sheila Thompson ALT [Catalytic activity/Vol] 45 U/L Normal 16-63 [facility] Comment on above: Performed By: #### L IPID, DLDL, CMP, URIC #### [facility] [address] [address] [address] Sheila Thompson Anion gap [Moles/Vol] 12.3 mmol/L Normal [facility] Comment on above: Performed By: #### L IPID, DLDL, CMP, URIC #### [facility] [address] [place] [address] Dr. Sheila Thompson AST [Catalytic activity/Vol] 11 U/L Critically low 15-37 [facility] Comment on above: Performed By: #### L IPID, DLDL, CMP, URIC #### [facility] [address] [place] [address] Dr. Sheila Thompson Bilirubin [Mass/Vol] 0.2 mg/dL Normal 0.2-1.3 [facility] Comment on above: Performed By: #### L IPID, DLDL, CMP, URIC #### [facility] [address] [place] [address] Dr. Sheila Thompson Calcium [Mass/Vol] 8.4 mg/dL Critically low 8.5-10.1 Th [facility] Comment on above: Performed By: #### L IPID, DLDL, CMP, URIC #### [facility] [address] [place] [address] Dr. Sheila Thompson Chloride [Moles/Vol] 102 mmol/L Normal 98-107 [facility] Comment on above: Performed By: #### L IPID, DLDL, CMP, URIC #### [facility] [address] [place] [address] Dr. Sheila Thompson CO2 [Moles/Vol] 26.8 mmol/L Normal 22.0-30.0 The [facility] Comment on above: Performed By: #### L IPID, DLDL, CMP, URIC #### [facility] [address] [place] [address] Dr. Sheila Thompson Creatinine [Mass/Vol] 0.67 mg/dL Normal 0.66-1.25 [facility] Comment on above: Performed By: #### L IPID, DLDL, CMP, URIC #### [facility] [address] [place] [address] Dr. Sheila Thompson EGFR-AF TONGAN >60 Normal >=60 The [facility] Comment on above: Performed By: #### L IPID, DLDL, CMP, URIC #### [facility] [address] [place] [address] Dr. Sheila Thompson EGFR-NON AF TONGAN >60 Normal >=60 [facility] Comment on above: Performed By: #### L IPID, DLDL, CMP, URIC #### [facility] [address] [place] [address] Dr. Sheila Thompson Globulin (S) [Mass/Vol] 3.6 g/dL Normal [facility] Comment on above: Performed By: #### L IPID, DLDL, CMP, URIC #### [facility] [address] [address] [address] Sheila Thompson Glucose [Mass/Vol] 192 mg/dL Critically high 74-106 T [facility] Comment on above: Performed By: #### L IPID, DLDL, CMP, URIC #### [facility] [address] [address] [address] Sheila Thompson Potassium [Moles/Vol] 4.1 mmol/L Normal 3.4-5.0 [facility] Comment on above: Performed By: #### L IPID, DLDL, CMP, URIC #### [facility] [address] [address] [address] Sheila Thompson Protein [Mass/Vol] 7.5 g/dL Normal 6.1-8.2 [facility] Comment on above: Performed By: #### L IPID, DLDL, CMP, URIC #### [facility] [address] [address] [address] Sheila Thompson Sodium [Moles/Vol] 137 mmol/L Normal 137-145 [facility] Comment on above: Performed By: #### L IPID, DLDL, CMP, URIC #### [facility] [address] [address] [address] Sheila Thompson Urea nitrogen [Mass/Vol] 16.0 mg/dL Normal 7.0-18.0 [facility] Comment on above: Performed By: #### L IPID, DLDL, CMP, URIC #### [facility] [address] [address] [address] Sheila Thompson Urea nitrogen/Creatinine [Mass ratio] 23.9 mg/mg Normal [facility] Comment on above: Performed By: #### L IPID, DLDL, CMP, URIC #### [facility] [address] [address] [address] Sheila Thompson URIC ACID SERUMon 09-15-2021 Urate [Mass/Vol] 2.4 mg/dL Critically low 3.5-8.5 [facility] Comment on above: Performed By: #### L IPID, DLDL, CMP, URIC #### [facility] [address] [address] [address] Sheila JAMESON STRESS/REST MULTIon 08-25 NM STRESS/REST MULTI Patient: TAQUERIA HDEZ Exam Date: 08/25/2021 : 1965 Gender:M Ordering : OLYA MALIK Admission #: [id number] Family : Order #: [id number] CLICK HERE TO VIEW EXAM RADIOLOGY REPORT PROCEDURE: RADIONUCLIDE IMAGING STRESS/REST MULTI COMPARISON: NM STRESS/REST MULTI, 09/18/2019. INDICATIONS: Angina co-occurrent and due to coronary arteriosclerosis TECHNIQUE: Exam Description: Stress/Rest one day protocol gated SPECT Rest Imagin.0 mCi Tc-99m Cardiolite IV on 08/25/2021 Stress Imaging 30.7 mCi Tc-99m Cardiolite IV on 08/25/2021 Exercise Protocol: 0.4 mg Lexiscan given IV Heart Rate (bpm): Rest: 71 Max: 97 PMHR: 59 Blood Pressure: Rest: 162/98 Max: 180/100 Symptoms: Rest and peak stress ECG findings were normal and the exercise portion of the study was normal per attending physician Dr. Haney . For more details please see separate cardiac stress test report. FINDINGS: QUALITY OF STUDY: Good. PERFUSION DEFECT: LOCATION: Basal inferior. SIZE: Small (1-2 segments). SEVERITY: Mild. TYPE: Persistent. WALL MOTION: Normal. LV SIZE: Normal. 108 mL. TID / TCD: None; 0.9 LVEF: Normal. Calculated EF 63%. SUMMARY: Myocardial perfusion imaging study has ABNORMAL findings. CONCLUSION: 1. Small area of perfusion abnormality in the inferior wall, possibly diaphragmatic attenuation artifact 2. No reversible ischemia 3. Normal exercise test Dictated by: Pricila Hurt MD on 08/26/2021 at 13:55 Approved by: Pricila Hurt MD on 08/26/2021 at 13:57 Normal [facility] BASIC METABOLIC PANELon 10-1 Calcium [Mass/Vol] 9.9 mg/dL Normal 8.6-10.3 [facility] Comment on above: Order Comment: No: D o not add to previous draw Performed By: #### 9 [id number], [id number] #### [facility] [address] [place] [address], [place] Chloride [Moles/Vol] 103 mmol/L Normal 98-107 [facility] Comment on above: Order Comment: No: D o not add to previous draw Performed By: #### 9 9908, 10497 #### [facility] [address] [place] [address], [place] CO2 [Moles/Vol] 26 mmol/L Normal 21-31 [facility] Comment on above: Order Comment: No: D o not add to previous draw Performed By: #### 9 9908, [id number] #### [facility] [address] [place] [address], [place] Creatinine [Mass/Vol] 0.72 mg/dL Normal 0.70-1.30 [facility] Comment on above: Order Comment: No: D o not add to previous draw Performed By: #### 9 9908, 72962 #### [facility] [address] [place] [address], [place] GFR/1.73 sq M predicted among blacks MDRD (S/P/Bld) [Vol rate/Area] mL/min/{1.73_m2} Normal >60 [facility] Comment on above: Order Comment: No: D o not add to previous draw Performed By: #### 9 9908, [id number] #### [facility] [address] [place] [address], [place] GFR/1.73 sq M predicted among non-blacks MDRD (S/P/Bld) [Vol rate/Area] mL/min/{1.73_m2} Normal >60 [facility] Comment on above: Order Comment: No: D o not add to previous draw Performed By: #### 9 [id number], [id number] #### [facility] [address] [place] [address], [facility] Glucose [Mass/Vol] 152 mg/dL High 70-[address] [facility] Comment on above: Order Comment: No: D o not add to previous draw Performed By: #### 9 9908, 88034 #### [facility] [address] [place] [address], [facility] Potassium [Moles/Vol] 4.2 mmol/L Normal 3.5-5.1 [facility] Comment on above: Order Comment: No: D o not add to previous draw Performed By: #### 9 [id number], 05941 #### [facility] [address] [facility] [place] [address], [facility] Sodium [Moles/Vol] 135 mmol/L Low 136-[address] [facility] Comment on above: Order Comment: No: D o not add to previous draw Performed By: #### 9 [id number], 87411 #### [facility] [address] [facility] [place] [address], [facility] Urea nitrogen [Mass/Vol] 8 mg/dL Normal 7-25 [facility] Comment on above: Order Comment: No: D o not add to previous draw Performed By: #### 9 [id number], [id number] #### [facility] [address] [facility]. [address] CBC W/DIFFon 04-01-2019 ABS BASOPHILS 0.0 10*3/uL Normal 0.0-0.2 The [facility] Comment on above: Performed By: #### 5 0103 #### [facility] [address] [facility] [place] [address], [facility] ABS IMM GRANS 0.0 10*3/uL Normal 0.0-0.2 The [facility] Comment on above: Performed By: #### 5 0103 #### [facility] [address] [place] [address], [facility] ABS NEUTROPHILS 7.6 10*3/uL Normal 1.6-7.6 The [facility] Comment on above: Performed By: #### 5 0103 #### [facility] [address] [facility] [place] [address], [facility] Basophils/100 WBC (Bld) 0.4 % Normal 0.0-1.0 [facility] Comment on above: Performed By: #### 5 0103 #### [facility] [address] [place] [address], [facility] Eosinophils (Bld) [#/Vol] 0.2 10*3/uL Normal 0.0-0.5 [facility] Comment on above: Performed By: #### 5 0103 #### [facility] [address] [facility] [place] [address], [facility] Eosinophils/100 WBC (Bld) 1.3 % Normal 0.0-6.0 [facility] Comment on above: Performed By: #### 5 0103 #### [facility] [address] [place] [address], [facility] Erythrocyte distribution width (RBC) [Ratio] 13.2 % Normal 11.5-15.0 [facility] Comment on above: Performed By: #### 5 0103 #### [facility] [address] [facility] [place] [address], [facility] Hematocrit (Bld) [Volume fraction] 47.5 % Normal 39.0-50.0 [facility] Comment on above: Performed By: #### 5 0103 #### [facility] [address] [facility] [address], [facility] Hemoglobin (Bld) [Mass/Vol] 15.2 g/dL Normal 13.0-17.0 [facility] Comment on above: Performed By: #### 5 3 #### [facility] [address] [facility] [place] [address], [facility] IMMATURE GRANS 0.4 % Normal 0.0-1.0 The [facility] Comment on above: Performed By: #### 5 0103 #### [facility] [address] [facility] [place] [address], [facility] Lymphocytes (Bld) [#/Vol] 2.2 10*3/uL Normal 1.2-4.0 [facility] Comment on above: Performed By: #### 5 0103 #### [facility] [address] [facility] [place] [address], [facility] Lymphocytes/100 WBC (Bld) 19.6 % Low 20.0-45.0 [facility] Comment on above: Performed By: #### 5 3 #### [facility] [address] [facility] [address] MCH (RBC) [Entitic mass] 29.9 pg Normal 27.0-33.0 [facility] Comment on above: Performed By: #### 5 0103 #### [facility] [address] [facility] MCHC (RBC) [Mass/Vol] 32.0 g/dL Normal 32.0-35.0 [facility] Comment on above: Performed By: #### 5 3 #### [facility] [address] [facility] [place] [address], [facility] MCV (RBC) [Entitic vol] 93.3 fL Normal 82.0-98.0 [facility] Comment on above: Performed By: #### 5 3 #### [facility] [address] [facility] [address], [facility] Monocytes (Bld) [#/Vol] 1.3 10*3/uL High 0.1-1.0 [facility] Comment on above: Performed By: #### 5 3 #### [facility] [address] [facility] [place] [address], [facility] MONOS 11.4 % Normal 5.0-12.0 [facility] Comment on above: Performed By: #### 5 0103 #### [facility] [address] [place] [id number], [facility] Neutrophils/100 WBC (Bld) 66.9 % Normal 40.0-72.0 [facility] Comment on above: Performed By: #### 5 0103 #### [facility] [address] [facility] [place] [address], [facility] Nucleated RBC/100 WBC (Bld) [Ratio] 0 % Normal 0-0 [facility] Comment on above: Performed By: #### 5 0103 #### [facility] [address] [facility] [place] [address], [facility] PLAT CNT 223 10*3/uL Normal 150-400 The [facility] Comment on above: Performed By: #### 5 0103 #### [facility] [address] [facility] [place] [address], [facility] RBC (Bld) [#/Vol] 5.09 10*6/uL Normal 4.20-5.70 [facility] Comment on above: Performed By: #### 5 0103 #### [facility] [address] [facility] [place] [address], [place] WBC (Bld) [#/Vol] 11.39 10*3/uL High 4.00-10.60 [facility] Comment on above: Performed By: #### 5 0103 #### [facility] [address] [facility] [place] [address], [facility] History and Physicalon 04-01 History and Physical MR#: [id number] [facility] Pt. Name: Taqueria Hdez Admitted: 04/01/2019 Date of : 1965 Attending Physician: Julius Ivy MD Room #: [id number] Discharge Date: HISTORY AND PHYSICAL CHIEF COMPLAINT: Headache, elevated blood pressure. HISTORY OF PRESENT ILLNESS: This is a 54-year-old male, who was transferred from [facility] this morning for further evaluation. He presented there last night complaining of a headache. He states his headache has been on the left side of his head radiating to the back. It has been constantly present since 1 p.m. yesterday. It was partially alleviated by morphine that he received at [place], but has returned since. He states his blood pressure has been high as well. It has been in the 160s all week despite taking his medications. Normally, his blood pressure has been systolic within 140s. He reports compliance with his medications. When he presented to [place] ER, his blood pressure reportedly was 188/104. He was given morphine as mentioned for his headache and his blood pressure did not improve significantly. He has been given some hydralazine, his blood pressure came down. He is having associated dizziness and some blurring of his vision. He has felt nauseated and he received Zofran, which improved his nausea. He has no weakness or numbness in his extremities. Denies chest pain, shortness of breath, abdominal pain, dysuria, urinary frequency or urgency. Denies fevers, chills, or cough. In the [facility], he had CT imaging of his head done, which showed some findings concerning for possible moyer. Recommendation was made for the patient to have an MRI and it is not available at [facility]. PAST MEDICAL HISTORY: Hypertension, hyperlipidemia, GERD, vertigo, spinal stenosis. The patient has CAD, status post stents. PAST SURGICAL HISTORY: Knee surgery, appendectomy, and coronary stents. HOME MEDICATIONS: Amlodipine 10 mg p.o. daily, atorvastatin 40 mg p.o. at bedtime, clonidine 0.1 mg p.o. b.i.d. p.r.n. for systolic blood pressure 150, lisinopril-hydrochloro thiazide 10-12.5 mg p.o. daily, metoprolol tartrate 25 mg p.o. daily, omeprazole 1 capsule p.o. daily, prasugrel 10 mg p.o. daily. ALLERGIES: No known drug allergies. SOCIAL HISTORY: He states he smokes about a pack and a half per day. No alcohol use. No recreational drug use. FAMILY HISTORY: Significant for emphysema, coronary disease. REVIEW OF SYSTEMS: A 14-point review of systems obtained. All pertinent positives and negatives mentioned in the history of present illness. The remainder of systems otherwise negative. PHYSICAL EXAMINATION: GENERAL APPEARANCE: The patient is middle-aged male, presently in no acute distress, lying in bed comfortably. VITAL SIGNS: Temperature 97.5, heart rate 61, respiratory rate 17, blood pressure 135/93, saturating 99% on room air. EYES: Pupils are equal, round, reactive to light and accommodation. Extraocular movements are intact. No conjunctival pallor. ENT: External appearance of ears are unremarkable. Hearing appears to be normal. Mucous membranes are moist. No abnormalities in oropharynx. NECK: Supple. No cervical adenopathy. No JVD. RESPIRATORY: Lungs are clear to auscultation. Normal respiratory effort. CARDIOVASCULAR: Normal heart sounds. Regular rate and rhythm. No murmurs. Peripheral pulses are palpable and symmetric. ABDOMEN: Soft, nontender. Bowel sounds normal. No guarding or rebound tenderness. EXTREMITIES: No edema in bilateral lower extremities. No cyanosis. SKIN: No rash or lesions. Skin is warm and dry. PSYCHIATRIC: The patient's recent and remote memory intact. He is alert and oriented x3. MUSCULOSKELETAL: Head is normocephalic, atraumatic. Range of motion is intact in all extremities. Motor strength is normal in all extremities. NEUROLOGIC: No sensory deficits on exam. Cranial nerves II from XII are intact. Finger-nose testing, no symptoms. Deep tendon reflexes normal. LABORATORY STUDIES: Lab studies reviewed from [facility] from March 31, 2019. BMP; sodium 136, potassium 4.1, chloride 102, bicarb 29, BUN 8, creatinine 0.68, calcium 9.4, glucose 145. CBC; WBC 11.7, hemoglobin 14.9, hematocrit 43.6, platelet count 208. PT 11.6, INR 1.12, PTT 37.5. Troponin I less than 0.017. IMAGING STUDIES: CT of the brain without contrast, preliminary Radiology read was of no CT evidence of acute cortical CVA, hemorrhage or mass effect. There is decreased attenuation in the left occipital lobe, which may be artifact at end of the parietal lobes bilaterally. PRES is a concern with reported hypertension and headache. ASSESSMENT AND PLAN: 1. Hypertensive urgency/emergency: The patient's blood pressure is improved after receiving IV hydralazine. He still has headache. Resume his oral antihypertensives now and monitor his blood pressure. He will need followup with MRI for concern of PRES on imaging. 2. Headache: We will provide the patient with pain control for his headache and we will provide blood pressure control as well. Antiemetic for nausea. The patient has no neurological findings on exam. 3. Coronary artery disease status post stent: Continue the patient's home medications. He is not having any chest pain. 4. Hyperlipidemia: Continue the patient's statin and fenofibrate. 5. Gastroesophageal reflux disease: Continue the patient's Prilosec. 6. Leukocytosis: No evidence of signs or symptoms suggest infection, may be reactive. We will repeat CBC. Monitor clinically. 7. DVT prophylaxis: The patient received heparin subcutaneously for prophylaxis. 8. Diet: The patient have a cardiac diet. 9. Advanced directives: The patient is full code. Electronically Signed by: Julius Ivy MD 04/09/2019 11:02 P Julius Ivy MD Date Dict: 04/01/2019/04:16 A/Julius Ivy MD Date Trans: 04/01/2019 04:53 A/todd [id number] Normal [facility] LIVER BATTERYon 04-01-2019 Albumin [Mass/Vol] 4.6 g/dL Normal 3.5-5.[address] [facility] Comment on above: Order Comment: No: D o not add to previous draw Performed By: #### [id number], [id number] #### [facility] [address] [place] [address], [facility] ALKALINE PHOSPH 62 IU/L Normal 34-104 [facility] Comment on above: Order Comment: No: D o not add to previous draw Performed By: #### 9 [id number], [id number] #### [facility] [address] [place] [address], [place] ALT [Catalytic activity/Vol] 53 U/L High 7-52 [facility] Comment on above: Order Comment: No: D o not add to previous draw Performed By: #### 9 [id number], [id number] #### [facility] [address] [place] [address], [place] AST [Catalytic activity/Vol] 32 U/L Normal 13-39 [facility] Comment on above: Order Comment: No: D o not add to previous draw Performed By: #### 9 [id number], [id number] #### [facility] [address] [place] [address], [place] Bilirubin [Mass/Vol] 0.4 mg/dL Normal 0.3-1.0 [facility] Comment on above: Order Comment: No: D o not add to previous draw Performed By: #### 9 [id number], [id number] #### [facility] [address] [place] [address], [place] Bilirubin.direct [Mass/Vol] 0.0 mg/dL Normal 0.0-0.2 [facility] Comment on above: Order Comment: No: D o not add to previous draw Performed By: #### 9 [id number], [id number] #### [facility] [address] [place] [address], [place] Protein [Mass/Vol] 7.5 g/dL Normal 6.0-8.[address] [facility] Comment on above: Order Comment: No: D o not add to previous draw Performed By: #### 9 [id number], [id number] #### [facility] [address] [place] [address], [facility] MRI BRAIN WO CONTRASTon 03-14 MRI BRAIN WO CONTRAST [facility] Department of Radiology [address] [place] [id number] ======== Patient Name: TAQUERIA HDEZ : 1965 Sex: M Age: Race: White Pt. Location: [id number] Patient Status: D Ordered Date: 04/01/2019 4:00:00 AM Completed Date: 04/01/2019 12:45 PM Requesting Provider: JULIUS IVY Attending Provider: LUÍS FLORES Report Copy To: Signs & Symptoms: Headaches History: See Comments Comments: Other, evaluate for pres, has hypertension and headache, had decreased attenuation on ct head occiptal lobe and bilateral parietal lobes Exam: MRI BRAIN WO CONTRAST ======== 0MRI BRAIN WO CONTRAST 04/01/2019 12:45 PM EDT SIGN AND SYMPTOMS: Headaches TECHNOLOGIST COMMENTS: headaches QUESTION FOR RADIOLOGIST: Other, evaluate for pres, has hypertension and headache, had decreased attenuation on ct head occiptal lobe and bilateral parietal lobes PROTOCOL: The following pulse sequences were utilized when imaging the brain: sagittal T1, diffusion weighted imaging, axial T2 FLAIR, axial T2 fat-sat, axial T1, axial GRE. COMPARISON: None. FINDINGS: Extra axial spaces: Age appropriate. Hemorrhage: None. Ventricular system: Within normal limits. Basal cisterns: Within normal limits and not effaced. Cerebral parenchyma: Normal in signal. No evidence of increased T2 FLAIR signal in the occipital lobes. Single T2 hyperintensity in the right parietal white matter, within normal limits for patient's age. Midline shift: None.. Cerebellum: Within normal limits. Brainstem: Within normal limits. OTHER: Calvarium: Normal marrow signal. Vascular system: Satisfactory flow voids within the anterior and posterior circulation. Visualized Paranasal sinuses: Within normal limits. Visualized Orbits: Within normal limits. Visualized upper cervical spine: Within normal limits. Sella and skull base: Within normal limits. IMPRESSION: Unremarkable examination. No evidence of increased T2 FLAIR signal within the posterior occipital regions. Approved by:Althea Pyle on 04/01/2019 2:00 PM EDT. I, Tianna Orozco, have reviewed the images and report and concur with these findings. Electronically signed by:Tianna Orozco. Transcribed by: [email or web address], User Resident: ALTHEA BLACKMON Electronically Signed by: TIANNA OROZCO @ 04/02/2019 03:18 PM I personally read this/these film(s) with this resident Normal [facility] Comment on above: Order Comment: Other , evaluate for pres, has hypertension and headache, had decreased attenuation on ct head occiptal lobe and bilateral parietal lobes CBC With Platelet No Differe ntialon 06-02-2018 Erythrocyte distribution width Auto Ratio (RBC) 13.6 fL Normal 11.5-15.0 [facility] Hematocrit Auto Volume Fraction (Bld) 44.7 % Normal 37.0-54.0 [facility] Hemoglobin mass conc (Bld) 14.7 g/dL Normal 12.5-16.5 [facility] MCH Auto Entitic mass (RBC) 29.9 pg Normal 26.0-35.0 [facility] MCHC Auto mass conc (RBC) 32.9 % Normal 32.0-34.5 [facility] MCV Auto Entitic volume (RBC) 91.0 fL Normal 80.0-99.9 [facility] Platelet mean volume Auto Entitic volume (Bld) 10.0 fL Normal 7.0-12.0 [facility] Platelets Auto #/vol (Bld) 240 E9/L Normal 130-450 [facility] RBC Auto #/vol (Bld) 4.91 E12/L Normal 3.80-5.80 [facility] WBC Auto #/vol (Bld) 7.5 E9/L Normal 4.5-11.5 [facility] Comprehensive Metabolic Pane vince 06-02-2018 Albumin mass conc 4.4 g/dL Normal 3.5-5.2 [facility] ALP enzyme act/vol 67 U/L Normal 40-129 [facility] ALT enzyme act/vol 54 U/L High 0-40 [facility] Anion gap 3 molar conc 13 mmol/L Normal 7-16 [facility] AST enzyme act/vol 40 U/L High 0-39 [facility] Bilirubin mass conc 0.3 mg/dL Normal 0.0-1.2 [facility] Calcium mass conc 9.1 mg/dL Normal 8.6-10.2 [facility] Chloride molar conc 100 mmol/L Normal 98-107 [facility] CO2 molar conc 24 mmol/L Normal 22-29 [facility] Creatinine mass conc 0.9 mg/dL Normal 0.7-1.2 [facility] GFR/1.73 sq M predicted among blacks MDRD vol rate/area (S/P/Bld) mL/min/{1.73_m2} Normal [facility] GFR/1.73 sq M predicted among non-blacks MDRD vol rate/area (S/P/Bld) mL/min/{1.73_m2} Normal >=60 [facility] Comment on above: Result Comment: Filtration Plant Mechanic leonard Kidney Disease: less than 60 ml/min/1.73 sq.m. Kidney Failure: less than 15 ml/min/1.73 sq.m.Results valid for patients 18 years and older. Glucose mass conc 161 mg/dL High 74-99 [facility] Potassium molar conc 3.8 mmol/L Normal 3.5-5.0 [facility] Protein mass conc 7.5 g/dL Normal 6.4-8.3 [facility] Sodium molar conc 137 mmol/L Normal 132-146 [facility] Urea nitrogen mass conc 11 mg/dL Normal 6-20 [facility] Troponinon 06-02-2018 Troponin I.cardiac mass conc ng/mL Normal 0.00-0.03 [facility] Comment on above: Result Comment: TROP ONIN T BLOOD LEVELS: 0.03 ng/mL Upper Reference Limit0.04 - 0.09 ng/mL Possible myocardial injury >= 0.10 ng/mL Myocardial injury XR CHEST PORTABLEon 12-20-20 18 XR CHEST PORTABLE Patient : 1965Age: 53 yearsGender: MaleOrder Date: 06/02/2018 8:30 AMExam: XR CHEST PORTABLENumber of Views: 1Indication: Chest painComparison: NoneFindings: There is a normal cardiomediastinal silhouette with clearlungs.. No pneumothorax, pleural effusion or focal areas of airspaceconsolidation. IMPRESSION: No radiographic evidence of acute cardiopulmonary disease.Interpreted by:ANDREIA Whartonigned by:Jarrell Blankenship MD06/02/18inal result Normal [facility] Encounters Encounter Date Encounter Type Care Provider Facility Start: 09-24-2023 End: 09-24-2023 ambulatory [facility] Start: 04-13-2023 End: 04-14-2023 ambulatory Sparkle Jong SIEGEL Facility:[facility] Start: 03-12-2023 End: 03-12-2023 ambulatory [facility] Start: 12-08-2022 End: 12-08-2022 ambulatory [facility] Start: 04-30-2022 End: 05-01-2022 ambulatory Flip BECKER [facility] Start: 04-28-2022 End: 04-29-2022 ambulatory [facility] [place] [facility] Start: 04-08-2022 End: 04-09-2022 ambulatory OLYA MALIK Facility:[facility] Start: 01-12-2022 End: 01-13-2022 ambulatory MIRIAM HASSAN Facility:[facility] Start: 09-15-2021 End: 09-16-2021 ambulatory MIRIAM HASSAN Facility:[facility] Start: 08-25-2021 End: 08-26-2021 ambulatory [facility] [place] Start: 08-20-2021 ambulatory MIRIAM HASSAN Facility: [facility] Start: 04-01-2019 End: 04-01-2019 Patient encounter procedure LUÍS FLORES Facility:[facility] Start: 06-02-2018 End: 06-02-2018 Emergency department patient visit TAMMY KENNY [facility] Procedures Date Procedure Procedure Detail Performing Clinician Start: 09-15-2021 PSA screening OLYA PINA Comment on above: Performed By: #### P [facility] #### [facility] [address] [place] [address] Dr. Sheila Thompson Start: 06-02-2018 Blood count complete automated TAMMY KENNY Start: 06-02-2018 Comprehensive metabolic panel TAMMY KENNY Start: 06-02-2018 TROPONIN TAMMY DE LA TORRE Start: 06-02-2018 Radiologic exam ches t single view TAMMY KENNY Start: 06-02-2018 TELEMETRY MONITORING AR FERNANDO KENNY Start: 06-02-2018 EKG 12-LEAD TAMMYJOESPH DE LA TORRE Start: 06-02-2018 SALINE LOCK IV TAMMY S MIT Payers Date Payer Category Payer Private Health Insurance [id number] 2018 Unknown [id number] 1965 Unknown [id number] [id number]. [id number] 1965 Unknown [id number] 2.16.8 [id number] 1965 Unknown [id number] 2.16.84 [id number] 1965 Unknown [id number] 2.16.84 [id number] 1965 Unknown [id number] 2.16.84 [id number] 1965 Unknown [id number] 2.16.84 [id number] 1965 Unknown [id number] 2.16.84 [id number] 1965 Unknown [id number] 2.16.84 [id number] 1965 Unknown [id number] 2.16.84 [id number] 1965 Unknown [id number] 2.16.8 [id number] 1958 Private Health Insurance [id number] 1958 Private Health Insurance [id number] Self-pay [id number] Clinical Notes 08-25-2021 to 09-24-2023 Note Date & Type Note Facility 09-24-2023 Note longterm tobacco us e and new unintentional weight loss Ordered CXR, and pt to f/U with PCP today [facility] 09-24-2023 Note Continue lipitor and tricor for lipid management [facility] 09-24-2023 Note Reports weight loss of about 30 pounds over last 2.5 months without trying to loose weight/ diet or exercise. F/U with PCP today CXR in light of h/o tobacco dependence [facility] 09-24-2023 Note Hypertension is unco ntrolled in office. Continue coreg and lisinopril [facility] 09-24-2023 Note Coronary artery dise ase is stable Continue GDMT- ASA, lipitor, coreg continue risk factor modifications- heart healthy diet, regular exercise as tolerated and continue all medications. [facility] 09-24-2023 Note Patient here for 6 m o follow up CAD, hypertension, and hyperlipidemia. Had labs in Jun 2023. He has lost almost 30# since last visit in Feb 2023. He states this is unintentional. C/o worsening SOB. He states chest pain is sometimes worsening but it varies . C/o diaphoresis. Has been using compression stockings for LE edema, which doesn't help much. He is not taking Farxiga due to the high cost. Review of Systems Constitutional: Positive for weight loss (26# since Feb 2023). Cardiovascular: Positive for chest pain (intermittent), leg swelling and palpitations (with ambulation). Respiratory: Positive for shortness of breath. Musculoskeletal: Positive for arthritis, back pain, joint pain and myalgias. Neurological: Positive for headaches and light-headedness ( little bit ). All other systems reviewed and are negative. [facility] 09-24-2023 Note [facility] CARDIOLOGY PROGR ESS NOTE HPI: Taqueria Hdez is a 58 y.o. male here for routine f/U for CAD s/p PCI, HTN, HPL, and tobacco dependence Patient here for 6 mo follow up CAD, hypertension, and hyperlipidemia. Had labs in Jun 2023. He has lost almost 30# over the last 2.5 months. He states this is unintentional. C/o worsening SOB. He states intermittent chest pain is sometimes worsening but it varies . C/o diaphoresis. Has been using compression stockings for LE edema. He is not taking Farxiga due to the high cost. stopped imdur r/t headache. Denied any recent illness or hospitalization. 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 Review of Systems Constitutional: Positive for weight loss (26# since Feb 2023). Cardiovascular: Positive for chest pain (intermittent), leg swelling and palpitations (with ambulation). Respiratory: Positive for shortness of breath. Musculoskeletal: Positive for arthritis, back pain, joint pain and myalgias. Neurological: Positive for headaches and light-headedness ( little bit ). All other systems reviewed and are negative. Previous note per Dr Malik 09/2021 56 yo male past medical history including hypertension, hyperlipidemia, tobacco abuse, and CAD status post PCI in 2018. He presents to cardiology clinic for follow-up regarding his CAD and hypertension. -Lexiscan myocardial perfusion without evidence of reversible ischemia. -Continue aspirin, atorvastatin, Coreg for CAD -Continue current antihypertensive regimen. Emphasized importance of taking medications as prescribed. Patient voices understanding. -I counseled the patient on the importance of smoking cessation. He voices understanding and declines assistance at the present time. -Optimize medical management -Aggressive risk factor modification -Plan of care discussed with patient. All questions were answered. Patient voices understanding and is agreeable with current plan. -Patient was educated on red flag symptoms. Strict return precautions were provided. Patient verbalizes understanding -Follow-up in cardiology clinic in 6 months, or sooner as needed Visit Vitals BP (!) 154/96 (BP Location: Right arm, Patient Position: Sitting) Pulse 88 Ht 1.88 m (6' 2 ) Wt 77.6 kg (171 lb) SpO2 98% BMI 21.96 kg/m??? Smoking Status Every Day BSA 2.01 m??? No Known Allergies Medications: Current Outpatient Medications on File Prior to Visit Medication Sig Dispense Refill aspirin 81 mg EC tablet aspirin 81 mg tablet,delayed release atorvastatin (Lipitor) 80 mg tablet TAKE ONE TABLET BY MOUTH AT BEDTIME 90 tablet 3 carvedilol (Coreg) 25 mg tablet Take 1 tablet (25 mg) by mouth with breakfast and with evening meal. 180 tablet 3 fenofibrate (Tricor) 48 mg tablet Take 48 mg by mouth in the morning. lisinopril 40 mg tablet Take 1 tablet (40 mg) by mouth in the morning. 90 tablet 3 metFORMIN (Glucophage) 500 mg tablet Take 500 mg by mouth with breakfast and with evening meal. nitroglycerin (Nitrostat) 0.4 mg SL tablet nitroglycerin 0.4 mg sublingual tablet omeprazole (PriLOSEC) [address] capsule omeprazole 40 mg capsule,delayed release amLODIPine (Norvasc) 5 mg tablet Take 1 tablet (5 mg) by mouth in the morning. (Patient not taking: Reported on 09/24/2023) 90 tablet 3 isosorbide mononitrate ER (Imdur) 60 mg 24 hr tablet isosorbide mononitrate ER 60 mg tablet,extended release 24 hr only takes in the AM if his SPB > 160 [DISCONTINUED] dapagliflozin (Farxiga) 5 mg Take 5 mg by mouth 1 (one) time each day. No current facility-administered medications on file prior to visit. Physical Exam: Constitutional: Appearance: Normal appearance. Without apparent distress, thin appearing HENT: Head: Normocephalic and atraumatic. Nose: Nose normal. Mouth/Throat: Mouth: Mucous membranes are moist. Eyes: Extraocular Movements: Extraocular movements intact. Conjunctiva/sclera: Conjunctivae normal. Neck: Vascular: No JVD. Cardiovascular: Rate and Rhythm: Normal rate and regular rhythm. Pulses: Dorsalis pedis pulses are 3 on the right side and 3on the left side. Posterior tibial pulses are 3 on the right side and 3 on the left side. Heart sounds: Normal heart sounds, S1 normal and S2 normal. Pulmonary: Effort: Pulmonary effort is normal. Breath sounds: Normal breath sounds. Abdominal: General: Bowel sounds are normal. Palpations: Abdomen is soft. Musculoskeletal: General: Normal range of motion. Cervical back: Normal range of motion. Right lower leg: No edema. Left lower leg: No edema. Skin: General: Skin is warm and dry. Capillary Refill: Capillary refill takes less than 2 seconds. Neurological: General: No focal deficit present. Mental Status: he is alert and oriented to person, place, and time. Psychiatric: Mood and Affect: Mood normal. Behavior: Behavior normal. Thought Content: Thought content n (more content not included)... [facility] 03-12-2023 Note [facility] CARDIOLOGY PROGR ESS NOTE HPI: Taqueria Hdez is a 57 y.o. male here for routine f/U for CAD s/p PCI, HTN, HPL, and tobacco dependence Patient states that he is doing well overall. He denies any cardiac complaints or concerns at the present time. He was seen in the hospital in December with complaints of chest pain. At that time, cardiac work-up was unremarkable. He was diagnosed with pneumonia and treated for this. He states his symptoms resolved after treatment. 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 He denies any chest pain or shortness of breath. He denies any lower extremity edema, orthopnea, or paroxysmal nocturnal dyspnea. Overall, he states he is doing well. Review of Systems Constitutional: Negative. Respiratory: Negative. Cardiovascular: Negative. Neurological: Negative. All other systems reviewed and are negative. Previous note per Dr Malik 09/2021 56 yo male past medical history including hypertension, hyperlipidemia, tobacco abuse, and CAD status post PCI in 2018. He presents to cardiology clinic for follow-up regarding his CAD and hypertension. -Lexiscan myocardial perfusion without evidence of reversible ischemia. -Continue aspirin, atorvastatin, Coreg for CAD -Continue current antihypertensive regimen. Emphasized importance of taking medications as prescribed. Patient voices understanding. -I counseled the patient on the importance of smoking cessation. He voices understanding and declines assistance at the present time. -Optimize medical management -Aggressive risk factor modification -Plan of care discussed with patient. All questions were answered. Patient voices understanding and is agreeable with current plan. -Patient was educated on red flag symptoms. Strict return precautions were provided. Patient verbalizes understanding -Follow-up in cardiology clinic in 6 months, or sooner as needed Olya Malik MD Visit Vitals BP 154/82 (BP Location: Right arm, Patient Position: Sitting) Pulse 82 Ht 1.88 m (6' 2 ) Wt 89.4 kg (197 lb) SpO2 95% BMI 25.29 kg/m??? Smoking Status Every Day BSA 2.16 m??? No Known Allergies Medications: Current Outpatient Medications on File Prior to Visit Medication Sig Dispense Refill aspirin 81 mg EC tablet aspirin 81 mg tablet,delayed release atorvastatin (Lipitor) 80 mg tablet Take 1 tablet (80 mg) by mouth at bedtime. 90 tablet 3 carvedilol (Coreg) 25 mg tablet Take 1 tablet (25 mg) by mouth with breakfast and with evening meal. 180 tablet 3 dapagliflozin (Farxiga) 5 mg Take 5 mg by mouth 1 (one) time each day. fenofibrate (Tricor) 48 mg tablet Take 48 mg by mouth in the morning. isosorbide mononitrate ER (Imdur) 60 mg 24 hr tablet isosorbide mononitrate ER 60 mg tablet,extended release 24 hr only takes in the AM if his SPB > 160 lisinopril 40 mg tablet Take 1 tablet (40 mg) by mouth in the morning. 90 tablet 3 metFORMIN (Glucophage) 500 mg tablet Take 500 mg by mouth with breakfast and with evening meal. nitroglycerin (Nitrostat) 0.4 mg SL tablet nitroglycerin 0.4 mg sublingual tablet omeprazole (PriLOSEC) [address] capsule omeprazole 40 mg capsule,delayed release No current facility-administered medications on file prior to visit. Physical Exam: Constitutional: Appearance: Normal appearance. Without apparent distress HENT: Head: Normocephalic and atraumatic. Nose: Nose normal. Mouth/Throat: Mouth: Mucous membranes are moist. Eyes: Extraocular Movements: Extraocular movements intact. Conjunctiva/sclera: Conjunctivae normal. Neck: Vascular: No JVD. Cardiovascular: Rate and Rhythm: Normal rate and regular rhythm. Pulses: Dorsalis pedis pulses are 3 on the right side and 3on the left side. Posterior tibial pulses are 3 on the right side and 3 on the left side. Heart sounds: Normal heart sounds, S1 normal and S2 normal. Pulmonary: Effort: Pulmonary effort is normal. Breath sounds: Normal breath sounds. Abdominal: General: Bowel sounds are normal. Palpations: Abdomen is soft. Musculoskeletal: General: Normal range of motion. Cervical back: Normal range of motion. Right lower leg: No edema. Left lower leg: No edema. Skin: General: Skin is warm and dry. Capillary Refill: Capillary refill takes less than 2 seconds. Neurological: General: No focal deficit present. Mental Status: alert and oriented to person, place, and time. Psychiatric: Mood and Affect: Mood normal. Behavior: Behavior normal. Thought Content: Thought content normal. Judgment: Judgment normal. Labs: 01/12/22 Renal function and liver function normal Lipid level well controlled Last lab values have been reviewed CV Testin04/08/22 Echo Treadmill stress test 04/28/22 Assessment/Plan: Tobacco dependence syndrome Tobacco use is- unwilling to stop smoking at this time - spent over 6 minutes counseling the patient on the importance of smo (more content not included)... [facility] 03-12-2023 Note Patient here for [facility] admission in December 2022 for chest pain and pneumonia. 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 Still has intermittent chest pain. Had routine labs a few weeks ago. [facility] 12-08-2022 Note [facility] CARDIOLOGY PROGR ESS NOTE HPI: Taqueria Hdez is a 57 y.o. male here for routine 6 month f/U for CAD s/p PCI, HTN, HPL, and tobacco dependence HPI Currently denied any activity limiting symptoms. Denied chest pain, shortness of breath, orthopnea, or palpitations. States he is not willing to quit smoking. 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 Review of Systems Constitutional: Negative. Respiratory: Negative. Cardiovascular: Negative. Neurological: Negative. All other systems reviewed and are negative. Previous note per Dr Malik 09/[birth year]21 56 yo male past medical history including hypertension, hyperlipidemia, tobacco abuse, and CAD status post PCI in 2018. He presents to cardiology clinic for follow-up regarding his CAD and hypertension. -Lexiscan myocardial perfusion without evidence of reversible ischemia. -Continue aspirin, atorvastatin, Coreg for CAD -Continue current antihypertensive regimen. Emphasized importance of taking medications as prescribed. Patient voices understanding. -I counseled the patient on the importance of smoking cessation. He voices understanding and declines assistance at the present time. -Optimize medical management -Aggressive risk factor modification -Plan of care discussed with patient. All questions were answered. Patient voices understanding and is agreeable with current plan. -Patient was educated on red flag symptoms. Strict return precautions were provided. Patient verbalizes understanding -Follow-up in cardiology clinic in 6 months, or sooner as needed Olya Malik MD Visit Vitals BP 134/79 (BP Location: Left arm, Patient Position: Sitting) Pulse 75 Ht 1.88 m (6' 2 ) Wt 91.6 kg (202 lb) SpO2 96% BMI 25.94 kg/m??? Smoking Status Every Day BSA 2.19 m??? No Known Allergies Medications: Current Outpatient Medications on File Prior to Visit Medication Sig Dispense Refill aspirin 81 mg EC tablet aspirin 81 mg tablet,delayed release atorvastatin (Lipitor) 80 mg tablet Take 1 tablet (80 mg) by mouth at bedtime. 90 tablet 3 carvedilol (Coreg) 25 mg tablet Take 1 tablet (25 mg) by mouth with breakfast and with evening meal. 180 tablet 3 dapagliflozin (Farxiga) 5 mg Take 5 mg by mouth 1 (one) time each day. fenofibrate (Tricor) 48 mg tablet Take 48 mg by mouth in the morning. isosorbide mononitrate ER (Imdur) 60 mg 24 hr tablet isosorbide mononitrate ER 60 mg tablet,extended release 24 hr only takes in the AM if his SPB > 160 lisinopril 40 mg tablet Take 1 tablet (40 mg) by mouth in the morning. 90 tablet 3 metFORMIN (Glucophage) 500 mg tablet Take 500 mg by mouth with breakfast and with evening meal. nitroglycerin (Nitrostat) 0.4 mg SL tablet nitroglycerin 0.4 mg sublingual tablet omeprazole (PriLOSEC) [address] capsule omeprazole 40 mg capsule,delayed release [DISCONTINUED] ibuprofen 800 mg tablet ibuprofen 800 mg tablet TAKE 1 TABLET BY MOUTH 2 - 3 TIMES A DAY NEEDED No current facility-administered medications on file prior to visit. Physical Exam: Constitutional: Appearance: Normal appearance. Without apparent distress HENT: Head: Normocephalic and atraumatic. Nose: Nose normal. Mouth/Throat: Mouth: Mucous membranes are moist. Eyes: Extraocular Movements: Extraocular movements intact. Conjunctiva/sclera: Conjunctivae normal. Neck: Vascular: No JVD. Cardiovascular: Rate and Rhythm: Normal rate and regular rhythm. Pulses: Dorsalis pedis pulses are 3 on the right side and 3on the left side. Posterior tibial pulses are 3 on the right side and 3 on the left side. Heart sounds: Normal heart sounds, S1 normal and S2 normal. Pulmonary: Effort: Pulmonary effort is normal. Breath sounds: Normal breath sounds. Abdominal: General: Bowel sounds are normal. Palpations: Abdomen is soft. Musculoskeletal: General: Normal range of motion. Cervical back: Normal range of motion. Right lower leg: No edema. Left lower leg: No edema. Skin: General: Skin is warm and dry. Capillary Refill: Capillary refill takes less than 2 seconds. Neurological: General: No focal deficit present. Mental Status: alert and oriented to person, place, and time. Psychiatric: Mood and Affect: Mood normal. Behavior: Behavior normal. Thought Content: Thought content normal. Judgment: Judgment normal. Labs: 01/12/22 Renal function and liver function normal Lipid level well controlled Last lab values have been reviewed CV Testin04/08/22 Echo Treadmill stress test 04/28/22 Assessment/Plan: Tobacco dependence syndrome Tobacco use is- unwilling to stop smoking at this time 10 min smoking cessation discussion Hypertensive disorder Hypertension is well controlled 134/79 Continue lisinopril, coreg, imdur Hyperlipidemia Continue tricor Coronary atherosclerosis Coronary artery disease is stable Continue GDMT- ASA, lipitor, coreg, tricor and imdur continue risk factor modificati (more content not included)... [facility] 12-08-2022 Note Patient here for 6 m o follow up CAD, hypertension, and hyperlipidemia. Had stress test and lipid profile in Apr 2022 after last apt. Says his chest pain is still intermittent and no worse than usual. C/o SOB at rest. 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 Review of Systems Cardiovascular: Positive for chest pain (intermittent), leg swelling and palpitations. Respiratory: Positive for shortness of breath. Musculoskeletal: Positive for arthritis, back pain, joint pain and myalgias. Neurological: Positive for headaches. All other systems reviewed and are negative. [facility] 12-08-2022 Note Coronary artery dise ase is stable Continue GDMT- ASA, lipitor, coreg, tricor and imdur continue risk factor modifications- heart healthy diet, regular exercise as tolerated and continue all medications. [facility] 12-08-[address] [facility] 12-08-2022 Note Hypertension is well controlled 134/79 Continue lisinopril, coreg, imdur [facility] 12-08-2022 Note Tobacco use is- unwi lling to stop smoking at this time 10 min smoking cessation discussion [facility] 04-28-2022 Note CARDIAC STRESS TEST Requesting Physician: Olya Malik M.D. Procedure Date:04/28/2022 Interpreting Physician: Deric Hernadez M.D. INDICATION FOR THE TEST: [employer] physical requirement. The patient is a 57-year-old gentleman with a past medical history of CAD with stents in the past, hypertension, tobacco abuse, with a family history of CAD, who presented for a treadmill stress test. At baseline, he was noted to have sinus rhythm with incomplete right bundle branch block with a resting heart rate of 81 beats per minute with a resting blood pressure was 158/92 mm/Hg. Patient exercised up to stage 3 with a total exercise time of 7 minutes and 30 seconds. During this time, the patient did demonstrate increase in heart rate achieving up to a maximum peak heart rate of 139 beats per minute and a blood pressure that was noted to 210/96 mm/Hg. He achieved 84% of the expected heart rate, thus ruling out chronotropic incompetence. Total maximum METS acquired was 10.1. During this time, there were no ECG changes concerning for ischemia. No arrhythmias were noted. During recovery, no evidence of any arrhythmias or PVCs noted. REASON FOR TERMINATION: Achievement of target heart rate and fatigue. INTERPRETATION: 1. EKG portion of the treadmill stress test was negative for ischemia. 2. Normal chronotropic response noted during exercise. 3. Expected heart rate recovery seen and expected rise in blood pressure with exercise. CC: Olya Malik M.D. Primary care physician [facility] 08-25-2021 Note CARDIAC STRESS TEST Requesting Physician: Procedure Date: Lexiscan Stress Test with Myocardial Perfusion Imaging performed at the [facility]. Informed consent was obtained. The patient was attached to electrocardiographic monitoring. A intravenous line was secured. Baseline vital signs and ECG were obtained. Lexiscan 0.4 mg was infused intravenously, followed by continuous electrocardiographic monitoring. The patient then went on to obtain myocardial perfusion images. Resting heart rate was 71 BPM and resting blood pressure was 162/98. Maximum heart rate was 97 BPM and maximum blood pressure was 182/100. Baseline ECG showed sinus rhythm with incomplete right bundle branch block. ECG following infusion of Lexiscan showed sinus rhythm with no ischemic ST changes and no arrhythmias. SUMMARY OF THE FINDINGS: 1. Negative stress test for Lexiscan induced ischemic ECG changes. 2. Resting hypertension that is uncontrolled. 3. Myocardial perfusion images will be reported separately. [facility] Signed and Approved by: DR COLE HANEY 08/27/2021 05:26:00 [facility] Summary Purpose Family History No Family History Records FoundNo Family History Records FoundNo Family History Records FoundNo Family History Records FoundNo Family History Records Found Advance Directives No Advanced Directives Records FoundNo Advanced Directives Records FoundNo Advanced Directives Records FoundNo Advanced Directives Records FoundNo Advanced Directives Records Found Hospital Course Note MR#: [id number] [facility] Pt. Name: Taqueria Hdez Admitted: 04/01/2019 Discharged: 04/01/2019 Date of : 1965 Physician: Luís Flores MD DISCHARGE SUMMARY PRIMARY DIAGNOSES: Hypertensive emergency or urgency, headache. SECONDARY DIAGNOSIS: Coronary artery disease. HISTORY OF PRESENT ILLNESS: This patient is a 54-year-old male with past medical history of coronary artery disease, hyperlipidemia, who presented to other facility due to complaining of headache. He stated that his headache was in the left side radiating to the back. He says that blood pressure has been has been in the 160s all the week despite taking his medication. He was given IV hydralazine and blood pressure came down. CT of the brain was done, which showed finding concerning for possible PRES and the patient was transferred to [facility] for MRI. HOSPITAL COURSE: 1. Hypertensive urgency, which is improved with his restarting his oral medication. The patient was told to continue ta (more content not included)... Additional Source Comments (unrecognized sect ion and content) No Status Records FoundNo Status Records FoundNo Status Records FoundNo Status Records FoundNo Status Records Found INFORMATION SOURCE (unrecogn ized section and content) DATE CREATED AUTHOR 06/06/2018 [facility] DATE CREATED AUTHOR AUTHOR'S EBONIE PIERRE 10/10/2019 [facility] DATE CREATED AUTHOR AUTHOR'S ORGANIZ ATION 05/14/2022 [facility] DATE CREATED AUTHOR AUTHOR'S ORGANIZ ATION 04/14/2023 [facility] DATE CREATED AUTHOR AUTHOR'S ORGANIZ ATION 09/25/2023 [facility] FOR RECORDS PERTAINING TO PATIENTS WHO ARE OR HAVE BEEN ENROLLED IN A CHEMICAL DEPENDENCY/SUBSTANCEABUSE PROGRAM, SOME INFORMATION MAY BE OMITTED. This clinical summary was aggregated from multiple sources. Caution should be exercised in using it in the provision of clinical care. This summary normalizes information from multiple sources, and as a consequence, information in this document may materially change the coding, format and clinical context of patient data. In addition, data may be omitted in some cases. CLINICAL DECISIONS SHOULD BE BASED ON THE PRIMARY CLINICAL RECORDS. Aggregate Knowledge [facility]. provides no warranty or guarantee of the accuracy or completeness of information in this document.
[2023-09-27 09:38] LABS: Basophils Percent Auto 0.3 % (0.2-2.0); Eosinophils Absolute Auto 0.2 10^3/uL (0.0-0.7); Eosinophils Percent Auto 1.6 % (0.9-7.0); Hematocrit 45.4 % (42.0-54.0); Hemoglobin 14.8 g/dL (14.0-18.0); Immature Granulocytes Abs Auto 0.06 10^3/uL (0.00-0.03); Immature Granulocytes Pct Auto 0.5 % (0.0-0.5); Lymphocytes Absolute Auto 1.9 10^3/uL (1.2-3.8); Lymphocytes Percent Auto 15.1 % (20.5-60.0); Mean Corpuscular HGB Conc 32.6 g/dL (29.9-35.2); Mean Corpuscular Hemoglobin 30.5 pg (25.9-34.0); Mean Corpuscular Volume 93.6 fL (80.0-94.0); Mean Platelet Volume 10.1 fL (9.5-13.5); Monocytes Absolute Auto 1.3 10^3/uL (0.3-0.8); Monocytes Percent Auto 10.3 % (1.7-12.0); Neutrophils Absolute Auto 8.9 10^3/uL (1.4-6.5); Neutrophils Percent Auto 72.2 % (43.0-75.0); Platelet Count 362 10^3/uL (150-450); Red Blood Count 4.85 10^6/uL (4.70-6.10); Red Cell Distribution Width 13.5 % (11.0-15.0); White Blood Count 12.4 10^3/uL (4.0-11.0)
[2023-09-27 10:52] LABS: Estimated Average Glucose 329 mg/dL; Glycohemoglobin A1C 13.1 % (4.5-6.2)
[2023-09-27 11:14] LABS: Alanine Aminotransferase 25 U/L (16-63); Albumin Globulin Ratio 0.8; Albumin Level 3.4 g/dL (3.4-5.0); Alkaline Phosphatase 105 U/L (46-116); Anion Gap 14.6; Aspartate Amino Transferase 14 U/L (15-37); BUN Creatinine Ratio 28.8; Bilirubin Total 0.4 mg/dL (0.2-1.0); Carbon Dioxide 25.8 mmol/L (21.0-32.0); Chloride 97 mmol/L (98-107); Chol HDL Ratio 5.9; Cholesterol 208 mg/dL (<=200); Estimated GFR (African America >60 (>=60); Estimated GFR (Non-African Ame >60 (>=60); Free T3 2.26 pg/mL (2.18-3.98); Globulin 4.3 g/dL; Glucose 368 mg/dL (74-106); HDL Cholesterol 35 mg/dL (40-60); Potassium 5.4 mmol/L (3.5-5.1); Sodium 132 mmol/L (136-145); Thyroid Stimulating Hormone 1.546 uIU/mL (0.358-3.740); Total Protein 7.7 g/dL (6.4-8.2); Triglycerides 592 mg/dL (<=150); Uric Acid 3.1 mg/dL (3.5-7.2); VLDL CHOLESTEROL 118.4 mg/dL
[2023-09-27 11:17] LABS: Prostate Specific Antigen Scrn 1.21 ng/mL (<=4.00)
[2023-09-27 11:52] LABS: LDL Cholesterol Direct 76 mg/dL
[2023-09-27 12:07] LABS: Bilirubin Urine NEGATIVE (NEGATIVE); Blood Urine NEGATIVE (NEGATIVE); Clarity Urine CLEAR (CLEAR); Color Urine YELLOW (YELLOW); Glucose Urine UA >=1000 mg/dL (NEGATIVE); Ketones Urine 15 mg/dL (NEGATIVE); Leukocyte Esterase Urine NEGATIVE (NEGATIVE); Nitrite Urine NEGATIVE (NEGATIVE); Protein Urine NEGATIVE (NEG/TRACE); Specific Gravity Urine 1.015 (1.005-1.025); Urobilinogen Urine 0.2 EU/dL (0.2-1.0); pH Urine 5.5 (5.0-9.0)
[2023-09-27 13:39] LABS: Bacteria Urine TRACE #/HPF (NONE SEEN); Cast Seen? NONE SEEN #/LPF (NONE SEEN); Crystals Seen? None Seen #/HPF (None Seen); Mucus Urine NONE SEEN (NONE SEEN); RBC Urine 0-2 #/HPF (0-2); Squamous Epithelial Cell Urine RARE #/LPF (NONE/RARE)
[2023-09-27 13:40] LABS: Urine Culture Indicated ALREADY ORDERED
[2023-09-28 10:09] LABS: Insulin 3.5 uIU/mL (2.6-24.9)
== END 2023-09-27 09:05 | disposition home or self-care (01) ==
LOC: LAB 09:05
PROVIDERS: PCP Nurse Practitioner Family; Visit Provider Nurse Practitioner Family
DX: Z00.00 Encounter for general adult medical examination without abnormal findings (principal); R35.0 Frequency of micturition
CPT/HCPCS: 36415; 80053; 80061; 81001; 83036; 83525; 83721; 84436; 84443; 84481; 84550; 85025; 87086; 87150; 87186; G0103

== ENCOUNTER 2023-10-25 08:05 | Outpatient (OUT) | payer SELFPAY ==
--- NOTE | 2023-10-25 08:00 | CA_ITS ---
Patient Name: TAQUERIA DRAKE MR#: [id number] : 1965 Exam Date: 10/25/2023 Ordering Doctor: YAHAIRA GASTELUM ECHOCARDIOGRAM REPORT PROCEDURE: CA ECHO DOPPLER COMPLETE INDICATIONS: Dyspnea on exertion, h/o AL, cardiac stents, hypertension, diabetes COMPARISON: None. DESCRIPTION: COMPLETE ECHOCARDIOGRAM Real-time transthoracic echocardiography with 2D, M-mode, spectral and color flow Doppler performed. QUALITY: Technical quality was good. 74 , 165#, BSA 2.00 m2, BP 102/70 LEFT VENTRICLE: Normal chamber size. Proximal septal hypertrophy (sigmoid septum). Normal systolic function. LV EF: Normal left ventricular ejection fraction, (65%). DIASTOLIC: Normal diastolic function. ATRIAL SEPTUM: Visually appears intact. LEFT ATRIUM: Normal chamber size. RIGHT ATRIUM: Normal chamber size. RIGHT VENTRICLE: Normal chamber size. Normal right ventricular systolic function. TRICUSPID VALVE: Normal mobility and thickness. No stenosis with trivial regurgitation. MITRAL VALVE: Normal mobility and thickness. No evidence of mitral valve stenosis. There is no mitral annular calcification. Trivial mitral regurgitation. AORTIC VALVE: Normal trileaflet appearance. Thickened aortic valve. There is focal nodular calcification of the tip of the noncoronary leaflet. Normal leaflet mobility. No evidence of aortic valve stenosis. AORTIC ROOT: Normal diameter and appearance. Ascending aorta is normal in size. PULMONIC VALVE: Normal thickness and mobility. No stenosis. No regurgitation. PERICARDIUM: No evidence of pericardial effusion. IVC: Collapses with inspirations. IVC is normal in size. PLEURA: CONCLUSION: 1. Normal ventricular size and systolic function. LVEF is 65%. 2. Normal diastolic function. 3. No significant valvular dysfunction. 4. Focal, nodular calcification is seen at the tip of the noncoronary leaflet of the aortic valve without valvular stenosis or regurgitation. 5. No pericardial effusion. Adult Echocardiography Procedure Report Left Ventricle LVEDD (3.7 - 5.6 cm): 4.88 cm LVESD (2.2 - 4.0 cm): 3.03 cm LVIVS thickness (0.6 - 1.2 cm): 1.21 cm LVPW thickness (0.5 - 1.0 cm): 0.88 cm e': 0.12 m/s E - e': 5.87 LVOT Max Gradient: 4.96 mm[Hg] LVOT Area (cm2): 1.11 m/s Peak Velocity (LVOT): 1.11 m/s Mean Velocity (LVOT): 0.73 m/s LVOT Diameter 2.34 cm Left Atrium LA Volume Index (2D A2C): 29.48 ml/m2 Left Atrium Systolic Dimension: 3.94 cm Mitral Valve MV E to A Ratio: 1.27 Mitral Valve A-Wave Peak Velocity: 0.57 m/s Mitral Valve E-Wave Peak Velocity: 0.72 m/s Right Ventricle Aorta AO Root Diam: 3.16 cm Ascending Ao Diam: 2.84 cm Aortic Valve AoV Area (Peak Da): 4.06 cm2, 4.06 cm2 AoV Area (VTI): 4.16 cm2, 4.16 cm2 Peak Velocity(Antegrade Flow): 1.18 m/s Peak Gradient(Antegrade Flow): 5.60 mm[Hg] Mean Velocity(Antegrade Flow): 0.81 m/s Mean Gradient(Antegrade Flow): 2.87 mm[Hg] Velocity Time Integral: 23.12 cm Tricuspid Valve Pulmonic Valve Peak Gradient: 3.21 mm[Hg], 5.68 mm[Hg] Right Atrium Right Atrium Systolic Pressure: 31.24 ml, 31.24 ml Dictated by: Eric Sidhu M.D. on 10/26/2023 at 08:41 Approved by: Eric Sidhu M.D. on 10/26/2023 at 08:46
--- OUTSIDE RECORDS SUMMARY | 2023-10-25 08:28 | XMS_ITS | CCD ---
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; Translations: [Atherosclerotic heart disease of [place] coronary artery without angina pectoris] Onset: 04-14-2022 [...] Range Facility Office Visiton 09-24-2023 Follow-up visit [id number] Kirk Hdez 1965 M Date Provider Department Center 09/24/2023 YAHAIRA FERMIN Family History Problem Relation Age of Onset Coronary artery disease Father Heart attack Father Other Father Coronary artery disease Maternal Grandfather Family Status - Relation Status Age at Father Maternal Grandfather Level of Service:88367 [place] OFFICE/OUTPATIENT ESTABLISHED MOD MDM 30 MIN Normal [facility] [place] 04-13-2023 Consent [id number]#1. 00TIFF [facility] In office Testingon 04-13-20 23 In office Testing [id number] 02 [id number]#1. 00TIFF [facility] Registrationon 04-13-2023 Registration [id number] 02 [id number]#1. 00TIFF [facility] Office Visiton 03-12-2023 Follow-up visit [id number] Kirk Hdez ry P 1965 M Date Provider Department Center 03/12/2023 3848-OLYA MALIK MARLA Dove Family History Problem Relation Age of Onset Coronary artery disease Father Heart attack Father Other Father Coronary artery disease Maternal Grandfather Family Status - Relation Status Age at Father Maternal Grandfather Level of Service:08258 [place] OFFICE/OUTPATIENT ESTABLISHED LOW MDM 20-29 MIN [facility] Office Visiton 12-08-2022 Follow-up visit [id number] LemuelKirk ry P 1965 M Date Provider Department Center 12/08/2022 120-YAHAIRA GASTELUM MARLA Dove Family History Problem Relation Age of Onset Coronary artery disease Father Heart attack Father Other Father Coronary artery disease Maternal Grandfather Family Status - Relation Status Age at Father Maternal Grandfather Level of Service:51866 [place] OFFICE/OUTPATIENT ESTABLISHED MOD MDM 30-39 MIN [facility] [place] 04-30-2022 Consent [id number]#1. 00CD:127 Normal [facility] In office Testingon 04-30-20 22 In office Testing [id number]#1. 00CD:127 Normal [facility] In office Testing [id number]#1. 00CD:127 [facility] Registrationon 04-30-2022 Registration [id number]#1. 00CD:127 [facility] LIPID PROFILEon 04-28-2022 CHOL-HDL RATIO NORM SEE BELOW Normal [facility] Comment on above: Result Comment: 3.3 - 4.4 LOW RISK 4.4 - 7.1 AVERAGE RISK 7.1 - 11.0 MODERATE RISK >11.0 HIGH RISK Performed By: #### L IPID ####[facility] [address] [place], [place] [address]Xg. Sheila Thompson Cholesterol [Mass/Vol] 154 mg/dL Normal <=200 [facility] Comment on above: Performed By: #### L IPID ####[facility] [address] [place] [address]Dr. Sheila Thompson Cholesterol in HDL [Mass/Vol] 32 mg/dL Critically low 40-60 [facility] Comment on above: Performed By: #### L IPID ####[facility] [address]uyisqa[address] [place] [address]Dr. Sheila Jay Cholesterol in LDL [Mass/Vol] 80.6 mg/dL Normal [facility] Comment on above: Performed By: #### L IPID ####[facility] [address] [place] [address]Dr. Sheila Thompson Cholesterol.total/Ch olesterol in HDL [Mass ratio] 4.8 {ratio} Normal [facility] Comment on above: Performed By: #### L IPID ####[facility] [address]zt[address] [place] [address]Dr. Sheila Thompson HDL NORMAL > or = 60 mg/dl - LO W CARDIOVASCULAR RISK <40 mg/dl - HIGH CARDIOVASCULAR RISK Normal [facility] Comment on above: Performed By: #### L IPID ####[facility] [address]ydns[address] [place] [address]Dr. Sheila Thompson LDL CALC NORMAL SEE BELOW Normal [facility] Comment on above: Result Comment: <100 mg/dl OPTIMAL 100 - 129 mg/dl NEAR OR ABOVE OPTIMAL 130 - 159 mg/dl BORDERLINE HIGH 160 - 189 mg/dl HIGH >190 mg/dl VERY HIGH Performed By: #### L IPID ####[facility] [address]fbwfbt[address] [place] [address]Dr. Sheila Thompson Triglyceride [Mass/Vol] 207 mg/dL Critically high <=150 [facility] Comment on above: Performed By: #### L IPID ####[facility] [address] [place], [place] [address]Xc. Sheila hTompson VLDL CALC 41.4 mg/dL Normal [facility] Comment on above: Performed By: #### L IPID ####[facility] [address] [place], [place] [address]Sa. Sheila Thompson ECHOCARDIO M/2D COMPLETEon 1 ECHOCARDIO M/2D COMPLETE Patient: TAQUERIA HDEZ Exam Date: 04/08/2022 : 1965 Gender:M Ordering : OLYA MALIK Admission #: [id number] Family : Order #: [id number] CLICK HERE TO VIEW EXAM ECHOCARDIOGRAM REPORT [...] M.D. on 04/15/2022 at 11:06 Normal [facility] DIRECT LDLon 01-12-2022 Cholesterol in LDL [Mass/Vol] 70 mg/dL Normal [facility] Comment on above: Performed By: #### L ABEL ROACH, CMP ####[facility] [address] [place] [address]Dr. Sheila Thompson DLDL NORMAL SEE BELOW Normal [facility] Comment on above: Result Comment: <100 mg/dl OPTIMAL 100 - 129 mg/dl NEAR OR ABOVE OPTIMAL 130 - 159 mg/dl BORDERLINE HIGH 160 - 189 mg/dl HIGH >190 mg/dl VERY HIGH Performed By: #### L ABEL ROACH, CMP ####[facility] [address]sem[address] [place] [address]Dr. Sheila Thompson GLYCOHEMOGLOBIN A1Con 2021 ADA RECOMMENDATION SEE BELOW Normal [facility] Comment on above: Result Comment: ADA RECOMMENDED LIMIT 4.0 - 6.0 ADA THERAPEUTIC TARGET < 7.0 ACTION SUGGESTED > 7.0 Performed By: #### A 1C ####[facility] [address] [place] [address]Dr. Sheila Thompson Glucose [Mass/Vol] 160 mg/dL Normal [facility] Comment on above: Performed By: #### A 1C ####[facility] [address] [place] [address]Dr. Sheila Thompson HbA1c (Bld) [Mass fraction] 7.2 % Critically high 4.5-6.2 [facility] Comment on above: Performed By: #### A 1C ####[facility] [address] [place] [address]Dr. Sheila Thompson LIPID PROFILEon 01-12-2022 CHOL-HDL RATIO NORM SEE BELOW Normal [facility] Comment on above: Result Comment: 3.3 - 4.4 LOW RISK 4.4 - 7.1 AVERAGE RISK 7.1 - 11.0 MODERATE RISK >11.0 HIGH RISK Performed By: #### L MARLEY, JESSICAL, CMP ####[facility] [address] [place] [address]Dr. Sheila Thompson Cholesterol [Mass/Vol] 165 mg/dL Normal <=200 [facility] Comment on above: Performed By: #### L IPID, DLDL, CMP ####[facility] [address] [place] [address]Dr. Sheila Thompson Cholesterol in HDL [Mass/Vol] 25 mg/dL Critically low 40-60 [facility] Comment on above: Performed By: #### L IPID, DLDL, CMP ####[facility] [address]ffrud[address] [place] [address]Dr. Sheila Thompson Cholesterol.total/Ch olesterol in HDL [Mass ratio] 6.6 {ratio} Normal [facility] Comment on above: Performed By: #### L IPID, DLDL, CMP ####[facility] [address] [place] [address]Dr. Sheila Thompson HDL NORMAL > or = 60 mg/dl - LO W CARDIOVASCULAR RISK <40 mg/dl - HIGH CARDIOVASCULAR RISK Normal [facility] Comment on above: Performed By: #### L IPID, DLDL, CMP ####[facility] Qkvq[address]owexj[address] [place] [address]Dr. Sheila Thompson Triglyceride [Mass/Vol] 502 mg/dL Critically high <=150 [facility] Comment on above: Performed By: #### L IPID, DLDL, CMP ####[facility] Aq[address] [place] [address]Dr. Sheila Thompson PROF 14(COMP METB)on 022 Albumin [Mass/Vol] 3.9 g/dL Normal 3.4-5.0 [facility] Comment on above: Performed By: #### L IPID, DLDL, CMP ####[facility] [address] [place] [address]Dr. Sheila Thompson Albumin/Globulin [Mass ratio] 1.1 {ratio} Normal [facility] Comment on above: Performed By: #### L IPID, DLDL, CMP ####[facility] Em[address]pxqgkn[address] [place] [address]Dr. Sheila Thompson ALP [Catalytic activity/Vol] 71 U/L Normal 46-116 [facility] Comment on above: Performed By: #### L IPID, DLDL, CMP ####[facility] Cx[address]ugihbip[address] [place] [address]Dr. Sheila Thompson ALT [Catalytic activity/Vol] 47 U/L Normal 16-63 [facility] Comment on above: Performed By: #### L IPID, DLDL, CMP ####[facility] Ulme[address]cp[address] [place] [address]Dr. Sheila Thompson Anion gap [Moles/Vol] 12.9 mmol/L Normal [facility] Comment on above: Performed By: #### L IPID, DLDL, CMP ####[facility] [address]orq[address] [place] [address]Dr. Sheila Thompson AST [Catalytic activity/Vol] 21 U/L Normal 15-37 [facility] Comment on above: Performed By: #### L IPID, DLDL, CMP ####[facility] V[address]juetgpjh[address] [place] [address]Dr. Sheila Thompson Bilirubin [Mass/Vol] 0.2 mg/dL Normal 0.2-1.0 [facility] Comment on above: Performed By: #### L IPID, DLDL, CMP ####[facility] [address] [place] [address]Dr. Sheila Thompson Calcium [Mass/Vol] 9.0 mg/dL Normal 8.5-10.1 [facility] Comment on above: Performed By: #### L IPID, DLDL, CMP ####[facility] Yhtnfcgiiq[address] [place] [address]Dr. Sheila Thompson Chloride [Moles/Vol] 104 mmol/L Normal 98-107 [facility] Comment on above: Performed By: #### L IPID, DLDL, CMP ####[facility] L[address]arbelts[address] [place] [address]Dr. Sheila Thompson CO2 [Moles/Vol] 26.9 mmol/L Normal 21.0-32.0 [facility] Comment on above: Performed By: #### L IPID, DLDL, CMP ####[facility] Rqemxcfbdz[address] [place] [address]Dr. Sheila Thompson Creatinine [Mass/Vol] 0.78 mg/dL Normal 0.70-1.30 [facility] Comment on above: Performed By: #### L IPID, DLDL, CMP ####[facility] [address]dkoluxlp[address] [place] [address]Dr. Sheila Thompson EGFR-AF TAIWANESE >60 Normal >=60 [facility] Comment on above: Performed By: #### L IPID, DLDL, CMP ####[facility] Akltdvfqfp[address] [place] [address]Dr. Sheila Thompson EGFR-NON AF TAIWANESE >60 Normal >=60 [facility] Comment on above: Performed By: #### L IPID, DLDL, CMP ####[facility] Osztkphisa[address] [place] [address]Dr. Sheila Thompson Globulin (S) [Mass/Vol] 3.5 g/dL Normal [facility] Comment on above: Performed By: #### L IPID, DLDL, CMP ####[facility] [address] [place], [place] [address]Dr. Sheila Thompson Glucose [Mass/Vol] 171 mg/dL Critically high 74-106 [facility] Comment on above: Performed By: #### L IPID, DLDL, CMP ####[facility] [address]xf[address] [place], [place] [address]Dr. Sheila Thompson Potassium [Moles/Vol] 3.8 mmol/L Normal 3.5-5.1 [facility] Comment on above: Performed By: #### L IPID, DLDL, CMP ####[facility] [address] [place], [place] [address]Dr. Sheila Thompson Protein [Mass/Vol] 7.4 g/dL Normal 6.4-8.2 [facility] Comment on above: Performed By: #### L IPID, DLDL, CMP ####[facility] E[address]to[address] [place], [place] [address]Dr. Sheila Thompson Sodium [Moles/Vol] 140 mmol/L Normal 136-145 [facility] Comment on above: Performed By: #### L IPID, DLDL, CMP ####[facility] [address] [place], [place] [address]Dr. Sheila Thompson Urea nitrogen [Mass/Vol] 16.0 mg/dL Normal 7.0-18.0 [facility] Comment on above: Performed By: #### L IPID, DLDL, CMP ####[facility] [address] [place], [place] [address]Dr. Sheila Thompson Urea nitrogen/Creatinine [Mass ratio] 20.5 mg/mg Normal [facility] Comment on above: Performed By: #### L IPID, DLDL, CMP ####[facility] Ezvtelcurw[address] [place], [place] [address]Dr. Sheila Thompson INSULINon 09-16-2021 Insulin 59.1 uIU/mL Critically high 2.6-24.9 [facility] Comment on above: Performed By: #### I NSULIN ####[facility] [address] [place], [place] [address]Dr. Sheila Thompson CBC AUTO DIFFon 09-15-2021 BASO # 0.0 103/ul Normal 0.0-0.1 [facility] Comment on above: Performed By: #### C BC ####[facility] [address] [place], [place] [address]Dr. Sheila Thompson Basophils/100 WBC (Bld) 0.4 % Normal 0.2-2.0 [facility] Comment on above: Performed By: #### C BC ####[facility] [address] [place], [place] [address]Dr. Sheila Thompson EO # 0.2 103/ul Normal 0.0-0.7 [facility] Comment on above: Performed By: #### C BC ####[facility] X[address] [place], [place] [address]Dr. Sheila Thompson Eosinophils/100 WBC (Bld) 1.9 % Normal 0.9-7.0 [facility] Comment on above: Performed By: #### C BC ####[facility] [address]sez[address] [place] [address]Dr. Sheila Thompson Erythrocyte distribution width (RBC) [Ratio] 13.3 % Normal 11.0-15.0 [facility] Comment on above: Performed By: #### C BC ####[facility] [address] [place] [address]Dr. Sheila Thompson Hematocrit (Bld) [Volume fraction] 44.5 % Normal 42.0-54.0 [facility] Comment on above: Performed By: #### C BC ####[facility] [address] [place], [place] [address]Dr. Sheila Thompson Hemoglobin (Bld) [Mass/Vol] 14.7 g/dL Normal 14.0-18.0 [facility] Comment on above: Performed By: #### C BC ####[facility] [address] [place], [place] [address]Dr. Sheila Jay IG # 0.02 10e3/ul Normal 0.00-0.03 [facility] Comment on above: Performed By: #### C BC ####[facility] [address] [place], [place] [address]Dr. Sheila Thompson IG % 0.2 % Normal 0.0-0.5 [facility] Comment on above: Performed By: #### C BC ####[facility] Abio[address] [place], [place] [address]Dr. Sheila Thompson LYMPH # 2.2 103/ul Normal 1.2-3.8 [facility] Comment on above: Performed By: #### C BC ####[facility] [address] [place], [place] [address]Dr. hSeila Thompson Lymphocytes/100 WBC (Bld) 26.0 % Normal 20.5-60.0 [facility] Comment on above: Performed By: #### C BC ####[facility] I[address]wr[address] [place], [place] [address]Dr. Luzyoung Thompson MANUAL DIFF REQ NO Normal [facility] Comment on above: Performed By: #### C BC ####[facility] [address] [place], [place] [address]Dr. Sheila Thompson MCH (RBC) [Entitic mass] 30.6 pg Normal 25.9-34.0 [facility] Comment on above: Performed By: #### C BC ####[facility] [address] [place] [address]Dr. Sheila Thompson MCHC (RBC) [Mass/Vol] 33.0 g/dL Normal 29.9-35.2 [facility] Comment on above: Performed By: #### C BC ####[facility] [address]urg[address] [place] [address]Dr. Sheila Thompson MCV (RBC) [Entitic vol] 92.7 fL Normal 80.0-94.0 [facility] Comment on above: Performed By: #### C BC ####[facility] [address] [place] [address]Dr. Sheila Jay MONO # 1.0 103/ul Critically high 0.3-0.8 [facility] Comment on above: Performed By: #### C BC ####[facility] [address] [place] [address]Dr. Luzyoung Thompson Monocytes/100 WBC (Bld) 11.9 % Normal 1.7-12.0 [facility] Comment on above: Performed By: #### C BC ####[facility] [address] [place] [address]Dr. Sheila Thompson NEUT # 5.0 103/ul Normal 1.4-6.5 [facility] Comment on above: Performed By: #### C BC ####[facility] [address]jqfbij[address] [place] [address]Dr. Sheila Jay Neutrophils/100 WBC (Bld) 59.6 % Normal 43.0-75.0 [facility] Comment on above: Performed By: #### C BC ####[facility] [address] [place] [address]Dr. Sheila Jay Platelet mean volume (Bld) [Entitic vol] 10.4 fL Normal 9.5-13.5 [facility] Comment on above: Performed By: #### C BC ####[facility] [address] [place], [place] [address]Ov. Sheila Thompson PLT 245 103/ul Normal 150-450 [facility] Comment on above: Performed By: #### C BC ####[facility] [address] [place], [place] [address]Zr. Sheila Thompson RBC 4.80 106/ul Normal 4.70-6.10 [facility] Comment on above: Performed By: #### C BC ####[facility] [address] [place] [address]Dr. Sheila Thompson WBC 8.4 103/ul Normal 4.0-11.0 [facility] Comment on above: Performed By: #### C BC ####[facility] [address]mf[address]cl[address] [place] [address]DrLeonardo Thompson DIRECT LDLon 09-15-2021 Cholesterol in LDL [Mass/Vol] 74 mg/dL Normal [facility] Comment on above: Performed By: #### L IPID, DLDL, CMP, URIC #### [facility] [address] [place] [address] [address] Sheila Thompson DLDL NORMAL SEE BELOW Normal [facility] Comment on above: Result Comment: <100 mg/dl OPTIMAL 100 - 129 mg/dl NEAR OR ABOVE OPTIMAL 130 - 159 mg/dl BORDERLINE HIGH 160 - 189 mg/dl HIGH >190 mg/dl VERY HIGH Performed By: #### L IPID, DLDL, CMP, URIC #### [facility] [address] [place] [address] [address] Sheila Thompson GLYCOHEMOGLOBIN A1Con 2021 ADA RECOMMENDATION ADA THERAPEUTIC TARG ET 6.0 - 7.0 ACTION SUGGESTED > 7.0 Normal [facility] Comment on above: Performed By: #### A 1C #### [facility] [address] [place] [address] [address] Sheila Thompson Glucose [Mass/Vol] 194 mg/dL Normal [facility] Comment on above: Performed By: #### A 1C #### [facility] [address] [place] [address] [address] Sheila Thompson HbA1c (Bld) [Mass fraction] 8.4 % Critically high <=6.0 [facility] Comment on above: Performed By: #### A 1C #### [facility] [address] [place] [address] [address] Sheila Thompson LIPID PROFILEon 09-15-2021 CHOL-HDL RATIO NORM SEE BELOW Normal [facility] Comment on above: Result Comment: 3.3 - 4.4 LOW RISK 4.4 - 7.1 AVERAGE RISK 7.1 - 11.0 MODERATE RISK >11.0 HIGH RISK Performed By: #### L IPID, DLDL, CMP, URIC #### [facility] [address] [place] [address] [address] Sheila Thompson Cholesterol [Mass/Vol] 223 mg/dL Critically high <=200 [facility] Comment on above: Performed By: #### L IPID, DLDL, CMP, URIC #### [facility] [address] [place] [address] [address] Sheila Thompson Cholesterol in HDL [Mass/Vol] 24 mg/dL Critically low 40-60 [facility] Comment on above: Performed By: #### L IPID, DLDL, CMP, URIC #### [facility] [address] [place] [address] [address] Sheila Thompson Cholesterol.total/Ch olesterol in HDL [Mass ratio] 9.3 {ratio} Normal [facility] Comment on above: Performed By: #### L IPID, DLDL, CMP, URIC #### [facility] [address] [place] [address] [address] Sheila Thompson HDL NORMAL > or = 60 mg/dl - LO W CARDIOVASCULAR RISK <40 mg/dl - HIGH CARDIOVASCULAR RISK Normal [facility] Comment on above: Performed By: #### L IPID, DLDL, CMP, URIC #### [facility] [address] [place] [address] Dr. Sheila Thompson LDL CALC NORMAL SEE BELOW Normal [facility] Comment on above: Result Comment: <100 mg/dl OPTIMAL 100 - 129 mg/dl NEAR OR ABOVE OPTIMAL 130 - 159 mg/dl BORDERLINE HIGH 160 - 189 mg/dl HIGH >190 mg/dl VERY HIGH Performed By: #### L IPID, DLDL, CMP, URIC #### [facility] [address] [place] [address] [address] Sheila Thompson Triglyceride [Mass/Vol] 903 mg/dL Critically high <=150 [facility] Comment on above: Performed By: #### L IPID, DLDL, CMP, URIC #### [facility] [address] [place] [address] [address] Sheila Thompson PROF 14(COMP METB)on 022 Albumin [Mass/Vol] 3.9 g/dL Normal 3.4-5.0 [facility] Comment on above: Performed By: #### L IPID, DLDL, CMP, URIC #### [facility] [address] [place] [address] Dr. Sheila Thompson Albumin/Globulin [Mass ratio] 1.1 {ratio} Normal [facility] Comment on above: Performed By: #### L IPID, DLDL, CMP, URIC #### [facility] [address] [place] [address] Dr. Sheila Thompson ALP [Catalytic activity/Vol] 76 U/L Normal 46-116 [facility] Comment on above: Performed By: #### L IPID, DLDL, CMP, URIC #### [facility] [address] [place] [address] Dr. Sheila Thompson ALT [Catalytic activity/Vol] 45 U/L Normal 16-63 [facility] Comment on above: Performed By: #### L IPID, DLDL, CMP, URIC #### [facility] [address] [place] [address] [address] Sheila Thompson Anion gap [Moles/Vol] 12.3 mmol/L Normal [facility] Comment on above: Performed By: #### L IPID, DLDL, CMP, URIC #### [facility] [address] [place] [address] Dr. Sheila Thompson AST [Catalytic activity/Vol] 11 U/L Critically low 15-37 [facility] Comment on above: Performed By: #### L IPID, DLDL, CMP, URIC #### [facility] [address] [place] [address] Dr. Sheila Thompson Bilirubin [Mass/Vol] 0.2 mg/dL Normal 0.2-1.3 [facility] Comment on above: Performed By: #### L IPID, DLDL, CMP, URIC #### [facility] [address] [place] [address] Dr. Sheila Thompson Calcium [Mass/Vol] 8.4 mg/dL Critically low 8.5-10.1 [facility] Comment on above: Performed By: #### L IPID, DLDL, CMP, URIC #### [facility] [address] [place] [address] Dr. Sheila Thompson Chloride [Moles/Vol] 102 mmol/L Normal 98-107 [facility] Comment on above: Performed By: #### L IPID, DLDL, CMP, URIC #### [facility] [address] [place] [address] Dr. Sheila Thompson CO2 [Moles/Vol] 26.8 mmol/L Normal 22.0-30.0 [facility] Comment on above: Performed By: #### L IPID, DLDL, CMP, URIC #### [facility] [address] [place] [address] Dr. Sheila Thompson Creatinine [Mass/Vol] 0.67 mg/dL Normal 0.66-1.25 [facility] Comment on above: Performed By: #### L IPID, DLDL, CMP, URIC #### [facility] [address] [place] [address] Dr. Sheila Thompson EGFR-AF TAIWANESE >60 Normal >=60 [facility] Comment on above: Performed By: #### L IPID, DLDL, CMP, URIC #### [facility] [address] [place] [address] Dr. Sheila Thompson EGFR-NON AF TAIWANESE >60 Normal >=60 [facility] Comment on above: Performed By: #### L IPID, DLDL, CMP, URIC #### [facility] [address] [place] [address] Dr. Sheila Thompson Globulin (S) [Mass/Vol] 3.6 g/dL Normal [facility] Comment on above: Performed By: #### L IPID, DLDL, CMP, URIC #### [facility] [address] [address] [address] Sheila Thompson Glucose [Mass/Vol] 192 mg/dL Critically high 74-106 T [facility] Comment on above: Performed By: #### L IPID, DLDL, CMP, URIC #### [facility] [address] [address] [address] Sheila Thompson Potassium [Moles/Vol] 4.1 mmol/L Normal 3.4-5.0 [facility] Comment on above: Performed By: #### L IPID, DLDL, CMP, URIC #### [facility] [address] [address] [address] Sheila Thompson Protein [Mass/Vol] 7.5 g/dL Normal 6.1-8.2 [facility] Comment on above: Performed By: #### L IPID, DLDL, CMP, URIC #### [facility] [address] [address] [address] Sheila Thompson Sodium [Moles/Vol] 137 mmol/L Normal 137-145 [facility] Comment on above: Performed By: #### L IPID, DLDL, CMP, URIC #### [facility] [address] [address] [address] Sheila Thompson Urea nitrogen [Mass/Vol] 16.0 mg/dL Normal 7.0-18.0 [facility] Comment on above: Performed By: #### L IPID, DLDL, CMP, URIC #### [facility] [address] [address] [address] Sheila Thompson Urea nitrogen/Creatinine [Mass ratio] 23.9 mg/mg Normal [facility] Comment on above: Performed By: #### L IPID, DLDL, CMP, URIC #### [facility] [address] [address] [address] Sheila Thompson URIC ACID SERUMon 09-15-2021 Urate [Mass/Vol] 2.4 mg/dL Critically low 3.5-8.5 [facility] Comment on above: Performed By: #### L IPID, DLDL, CMP, URIC #### [facility] [address] [address] [address] Sheila JAMESON STRESS/REST MULTIon 08-25 NM STRESS/REST MULTI Patient: TAQUERIA HDEZ Exam Date: 08/25/2021 : 1965 Gender:M Ordering : OLYA MALIK Admission #: [id number] Family : Order #: [id number] CLICK HERE TO VIEW EXAM RADIOLOGY REPORT [...] MD on 08/26/2021 at 13:57 Normal [facility] BASIC METABOLIC PANELon 10-1 Calcium [Mass/Vol] 9.9 mg/dL Normal 8.6-10.3 [facility] Comment on above: Order Comment: No: D o not add to previous draw Performed By: #### 9 [id number], [id number] #### [facility] [address] [place] [address], [place] Chloride [Moles/Vol] 103 mmol/L Normal 98-107 [facility] Comment on above: Order Comment: No: D o not add to previous draw Performed By: #### 9 9908, 45536 #### [facility] [address] [place] [address], [place] CO2 [Moles/Vol] 26 mmol/L Normal 21-31 The [facility] Comment on above: Order Comment: No: D o not add to previous draw Performed By: #### 9 9908, [id number] #### [facility] [address] [place] [address], [place] Creatinine [Mass/Vol] 0.72 mg/dL Normal 0.70-1.30 [facility] Comment on above: Order Comment: No: D o not add to previous draw Performed By: #### 9 9908, 48657 #### [facility] [address] [place] [address], [place] GFR/1.73 sq M predicted among blacks MDRD (S/P/Bld) [Vol rate/Area] mL/min/{1.73_m2} Normal >60 [facility] Comment on above: Order Comment: No: D o not add to previous draw Performed By: #### 9 9908, 10618 #### [facility] [address] [place] [address], [place] GFR/1.73 sq M predicted among non-blacks MDRD (S/P/Bld) [Vol rate/Area] mL/min/{1.73_m2} Normal >60 [facility] Comment on above: Order Comment: No: D o not add to previous draw Performed By: #### 9 9908, 06138 #### [facility] [address] [place] [address], [facility] Glucose [Mass/Vol] 152 mg/dL High 70-100 The [facility] Comment on above: Order Comment: No: D o not add to previous draw Performed By: #### 9 9908, 77162 #### [facility] [address] [place] [address], [facility] Potassium [Moles/Vol] 4.2 mmol/L Normal 3.5-5.1 [facility] Comment on above: Order Comment: No: D o not add to previous draw Performed By: #### 9 9908, 81613 #### [facility] [address] [facility] [place] [address], [facility] Sodium [Moles/Vol] 135 mmol/L Low 136-145 [facility] Comment on above: Order Comment: No: D o not add to previous draw Performed By: #### 9 9908, 82137 #### [facility] [address] [facility] [place] [address], [facility] Urea nitrogen [Mass/Vol] 8 mg/dL Normal 7-25 [facility] Comment on above: Order Comment: No: D o not add to previous draw Performed By: #### 9 9908, 74497 #### [facility] [address] [facility]. [address] CBC W/DIFFon 04-01-2019 ABS BASOPHILS 0.0 10*3/uL Normal 0.0-0.2 [facility] Comment on above: Performed By: #### 5 0103 #### [facility] [address] [facility] [place] [address], [facility] ABS IMM GRANS 0.0 10*3/uL Normal 0.0-0.2 [facility] Comment on above: Performed By: #### 5 0103 #### [facility] [address] [place] [address], [facility] ABS NEUTROPHILS 7.6 10*3/uL Normal 1.6-7.6 The [facility] Comment on above: Performed By: #### 5 0103 #### [facility] [address] [address], [facility] Basophils/100 WBC (Bld) 0.4 % Normal 0.0-1.0 [facility] Comment on above: Performed By: #### 5 0103 #### [facility] [address] [place] [address], [facility] Eosinophils (Bld) [#/Vol] 0.2 10*3/uL Normal 0.0-0.5 [facility] Comment on above: Performed By: #### 5 0103 #### [facility] [address] [facility] [place] [address], [facility] Eosinophils/100 WBC (Bld) 1.3 % Normal 0.0-6.0 [facility] Comment on above: Performed By: #### 5 0103 #### [facility] [address] [place] [address], [facility] Erythrocyte distribution width (RBC) [Ratio] 13.2 % Normal 11.5-15.0 [facility] Comment on above: Performed By: #### 5 0103 #### [facility] [address] [address], [facility] Hematocrit (Bld) [Volume fraction] 47.5 % Normal 39.0-50.0 [facility] Comment on above: Performed By: #### 5 0103 #### [facility] [address] [facility] [place] [address], [facility] Hemoglobin (Bld) [Mass/Vol] 15.2 g/dL Normal 13.0-17.0 [facility] Comment on above: Performed By: #### 5 3 #### [facility] [address] [address], [facility] IMMATURE GRANS 0.4 % Normal 0.0-1.0 The [facility] Comment on above: Performed By: #### 5 0103 #### [facility] [address] [address], [facility] Lymphocytes (Bld) [#/Vol] 2.2 10*3/uL Normal 1.2-4.0 [facility] Comment on above: Performed By: #### 5 0103 #### [facility] [address] [facility] [place] [address], [facility] Lymphocytes/100 WBC (Bld) 19.6 % Low 20.0-45.0 [facility] Comment on above: Performed By: #### 5 3 #### [facility] [address] [facility]. [address] MCH (RBC) [Entitic mass] 29.9 pg Normal 27.0-33.0 [facility] Comment on above: Performed By: #### 5 0103 #### [facility] [address] [facility]. [address] MCHC (RBC) [Mass/Vol] 32.0 g/dL Normal 32.0-35.0 [facility] Comment on above: Performed By: #### 5 3 #### [facility] [address] [facility] [place] [address], [facility] MCV (RBC) [Entitic vol] 93.3 fL Normal 82.0-98.0 [facility] Comment on above: Performed By: #### 5 3 #### [facility] [address] [place] [address], [facility] Monocytes (Bld) [#/Vol] 1.3 10*3/uL High 0.1-1.0 [facility] Comment on above: Performed By: #### 5 3 #### [facility] [address] [address], [facility] MONOS 11.4 % Normal 5.0-12.0 [facility] Comment on above: Performed By: #### 5 0103 #### [facility] [address] [place] [id number], [facility] Neutrophils/100 WBC (Bld) 66.9 % Normal 40.0-72.0 [facility] Comment on above: Performed By: #### 5 0103 #### [facility] [address] [facility] [place] [address], [facility] Nucleated RBC/100 WBC (Bld) [Ratio] 0 % Normal 0-0 [facility] Comment on above: Performed By: #### 5 0103 #### [facility] [address] [facility] [place] [address], [facility] PLAT CNT 223 10*3/uL Normal 150-400 [facility] Comment on above: Performed By: #### 5 0103 #### [facility] [address] [facility] [place] [address], [facility] RBC (Bld) [#/Vol] 5.09 10*6/uL Normal 4.20-5.70 [facility] Comment on above: Performed By: #### 5 0103 #### [facility] [address] [facility] [place] [place] [address], [place] WBC (Bld) [#/Vol] 11.39 10*3/uL High 4.00-10.60 [facility] Comment on above: Performed By: #### 5 0103 #### [facility] [address] [facility] [place] [address], [facility] History and Physicalon 04-01 History and Physical MR#: [id number] [facility] Pt. Name: Taqueria Hdez Admitted: 04/01/2019 Date of : 1965 Attending Physician: Julius Ivy MD Room #: [id number] Discharge Date: HISTORY AND PHYSICAL CHIEF COMPLAINT: Headache, elevated blood pressure. HISTORY OF PRESENT ILLNESS: This is a 54-year-old male, who was transferred from [facility] this morning for further evaluation. He presented there last night complaining of a headache. He states his headache has been on the left side of his head radiating to the back. It has been constantly present since 1 p.m. yesterday. It was partially alleviated by morphine that he received at [facility], but has returned since. He states his blood pressure has been high as well. It has been in the 160s all week despite taking his medications. Normally, his blood pressure has been systolic within 140s. He reports compliance with his medications. When he presented to [facility], his blood pressure reportedly was 188/104. [...] Denies fevers, chills, or cough. In the [facility], he had CT imaging of his head done, which showed some findings concerning for possible moyer. Recommendation was made for the patient to have an MRI and it is not available at [facility]. PAST MEDICAL HISTORY: Hypertension, hyperlipidemia, GERD, vertigo, [...] normal. LABORATORY STUDIES: Lab studies reviewed from [facility] from March 31, 2019. BMP; sodium 136, [...] Ivy MD Date Trans: 04/01/2019 04:53 A/todd [id number] Normal [facility] LIVER BATTERYon 04-01-2019 Albumin [Mass/Vol] 4.6 g/dL Normal 3.5-5.7 [facility] Comment on above: Order Comment: No: D o not add to previous draw Performed By: #### 9 9909, 03403 #### [facility] [address] [place] [address], [facility] ALKALINE PHOSPH 62 IU/L Normal 34-104 The [facility] Comment on above: Order Comment: No: D o not add to previous draw Performed By: #### 9 9909, 19117 #### [facility] [address] [place] [address], [place] ALT [Catalytic activity/Vol] 53 U/L High 7-52 [facility] Comment on above: Order Comment: No: D o not add to previous draw Performed By: #### 9 9909, 34812 #### [facility] [address] [place] [address], [place] AST [Catalytic activity/Vol] 32 U/L Normal 13-39 [facility] Comment on above: Order Comment: No: D o not add to previous draw Performed By: #### 9 9908, 34598 #### [facility] [address] [place] [address], [place] Bilirubin [Mass/Vol] 0.4 mg/dL Normal 0.3-1.0 [facility] Comment on above: Order Comment: No: D o not add to previous draw Performed By: #### 9 9908, 95874 #### [facility] [address] [place] [address], [place] Bilirubin.direct [Mass/Vol] 0.0 mg/dL Normal 0.0-0.2 [facility] Comment on above: Order Comment: No: D o not add to previous draw Performed By: #### 9 9909, 36116 #### [facility] [address] [place] [address], [place] Protein [Mass/Vol] 7.5 g/dL Normal 6.0-8.3 [facility] Comment on above: Order Comment: No: D o not add to previous draw Performed By: #### 9 9909, 61337 #### [facility] [address] [place] [address], [facility] MRI BRAIN WO CONTRASTon 03-14 MRI BRAIN WO CONTRAST [facility] Department of Radiology [address] [place] [id number] ======== Patient Name: TAQUERIA HDEZ : 1965 Sex: M Age: Race: White Pt. Location: [id number] Patient Status: D Ordered Date: 04/01/2019 4:00:00 [...] findings. Electronically signed by:Tianna Orozco. Transcribed by: [email or web address], User Resident: ALTHEA BLACKMON Electronically Signed by: TIANNA OROZCO @ 04/02/2019 03:18 PM I personally read this/these film(s) with this resident Normal [facility] Comment on above: Order Comment: Other , evaluate for pres, has hypertension and headache, had decreased attenuation on ct head occiptal lobe and bilateral parietal lobes CBC With Platelet No Differe ntialon 06-02-2018 Erythrocyte distribution width Auto Ratio (RBC) 13.6 fL Normal 11.5-15.0 [facility] Hematocrit Auto Volume Fraction (Bld) 44.7 % Normal 37.0-54.0 [facility] Hemoglobin mass conc (Bld) 14.7 g/dL Normal 12.5-16.5 [facility] MCH Auto Entitic mass (RBC) 29.9 pg Normal 26.0-35.0 [facility] MCHC Auto mass conc (RBC) 32.9 % Normal 32.0-34.5 [facility] MCV Auto Entitic volume (RBC) 91.0 fL Normal 80.0-99.9 [facility] Platelet mean volume Auto Entitic volume (Bld) 10.0 fL Normal 7.0-12.0 [facility] Platelets Auto #/vol (Bld) 240 E9/L Normal 130-450 [facility] RBC Auto #/vol (Bld) 4.91 E12/L Normal 3.80-5.80 [facility] WBC Auto #/vol (Bld) 7.5 E9/L Normal 4.5-11.5 [facility] Comprehensive Metabolic Pane vince 06-02-2018 Albumin mass conc 4.4 g/dL Normal 3.5-5.2 [facility] ALP enzyme act/vol 67 U/L Normal 40-129 [facility] ALT enzyme act/vol 54 U/L High 0-40 [facility] Anion gap 3 molar conc 13 mmol/L Normal 7-16 [facility] AST enzyme act/vol 40 U/L High 0-39 [facility] Bilirubin mass conc 0.3 mg/dL Normal 0.0-1.2 [facility] Calcium mass conc 9.1 mg/dL Normal 8.6-10.2 [facility] Chloride molar conc 100 mmol/L Normal 98-107 [facility] CO2 molar conc 24 mmol/L Normal 22-29 [facility] Creatinine mass conc 0.9 mg/dL Normal 0.7-1.2 [facility] GFR/1.73 sq M predicted among blacks MDRD vol rate/area (S/P/Bld) mL/min/{1.73_m2} Normal [facility] GFR/1.73 sq M predicted among non-blacks MDRD vol rate/area (S/P/Bld) mL/min/{1.73_m2} Normal >=60 [facility] Comment on above: Result Comment: Community Resource Consultant leonard Kidney Disease: less than 60 ml/min/1.73 sq.m. Kidney Failure: less than 15 ml/min/1.73 sq.m.Results valid for patients 18 years and older. Glucose mass conc 161 mg/dL High 74-99 [facility] Potassium molar conc 3.8 mmol/L Normal 3.5-5.0 [facility] Protein mass conc 7.5 g/dL Normal 6.4-8.3 [facility] Sodium molar conc 137 mmol/L Normal 132-146 [facility] Urea nitrogen mass conc 11 mg/dL Normal 6-20 [facility] Troponinon 06-02-2018 Troponin I.cardiac mass conc ng/mL Normal 0.00-0.03 [facility] Comment on above: Result Comment: TROP ONIN [...] by:ANDREIA Whartonigned by:Jarrell Blankenship MD06/02/18inal result Normal [facility] Encounters Encounter Date Encounter Type Care Provider Facility Start: 09-24-2023 End: 09-24-2023 ambulatory [facility] Start: 04-13-2023 End: 04-14-2023 ambulatory Sparkle Jong SIEGEL Facility:[facility] Start: 03-12-2023 End: 03-12-2023 ambulatory [facility] Start: 12-08-2022 End: 12-08-2022 ambulatory [facility] Start: 04-30-2022 End: 05-01-2022 ambulatory Flip BECKER [facility] Start: 04-28-2022 End: 04-29-2022 [facility] Start: 04-08-2022 End: 04-09-2022 ambulatory OLYA MALIK Facility:[facility] Start: 01-12-2022 End: 01-13-2022 ambulatory MIRIAM HASSAN Facility:[facility] Start: 09-15-2021 End: 09-16-2021 ambulatory MIRIAM HASSAN Facility:[facility] Start: 08-25-2021 End: 08-26-2021 [facility] Start: 08-20-2021 ambulatory MIRIAM HASSAN Facility: [facility] Start: 04-01-2019 End: 04-01-2019 Patient encounter procedure LUÍS FLORES Facility:[facility] Start: 06-02-2018 End: 06-02-2018 Emergency department patient visit TAMMY KENNY [facility] Procedures Date Procedure Procedure Detail Performing Clinician Start: 09-15-2021 PSA screening OLYA PINA Comment on above: Performed By: #### P [facility] #### [facility] [address] [place] [address] Dr. Sheila Thompson Start: 06-02-2018 Blood count [...] Payer Category Payer Private Health Insurance [id number] 2018 Unknown [id number] 1965 Unknown [id number] 2.16. [id number] 1965 Unknown [id number] 2.16.8 [id number] 1965 Unknown [id number] 2.16.84 [id number] 1965 Unknown [id number] 2.16.84 [id number] 1965 Unknown [id number] 2.16.84 [id number] 1965 Unknown [id number] 2.16.84 [id number] 1965 Unknown [id number] 2.16.84 [id number] 1965 Unknown [id number] 2.16.84 [id number] 1966 Unknown [id number] 2.16.84 [id number] 1965 Unknown [id number] 2.16.8 [id number] 1958 Private Health Insurance [id number] Private Health Insurance [id number] 1958 Self-pay [id number] Clinical Notes 08-25-2021 to 09-24-2023 Note Date & Type Note Facility 09-24-2023 Note assisted tobacco us e and new unintentional weight loss Ordered CXR, and pt to f/U with PCP today [facility] 09-24-2023 Note Continue lipitor and tricor for lipid management [facility] 09-24-2023 Note Reports weight loss of about 30 pounds over last 2.5 months without trying to loose weight/ diet or exercise. F/U with PCP today CXR in light of h/o tobacco dependence [facility] 09-24-2023 Note Hypertension is unco ntrolled in office. Continue coreg and lisinopril [facility] 09-24-2023 Note Coronary artery dise ase is stable Continue GDMT- ASA, lipitor, coreg continue risk factor modifications- heart healthy diet, regular exercise as tolerated and continue all medications. [facility] 09-24-2023 Note Patient here for 6 m [...] All other systems reviewed and are negative. [facility] 09-24-2023 Note UTP CARDIOLOGY PROGR ESS NOTE [...] illness or hospitalization. 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 [facility] 03-12-2023 Note UTP CARDIOLOGY PROGR ESS NOTE [...] importance of smo (more content not included)... [facility] 03-12-2023 Note Patient here for [facility] admission in December 2022 for chest pain and pneumonia. 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 Still has intermittent chest pain. Had routine labs a few weeks ago. [facility] 12-08-2022 Note UTP CARDIOLOGY PROGR ESS NOTE HPI: Taqueria Hdez is a 57 y.o. male here for routine 6 month f/U for CAD s/p PCI, HTN, HPL, and tobacco dependence HPI Currently denied any activity limiting symptoms. Denied chest pain, shortness of breath, orthopnea, or palpitations. States he is not willing to quit smoking. 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 Review of Systems Constitutional: Negative. Respiratory: Negative. [...] risk factor modificati (more content not included)... [facility] 12-08-2022 Note Patient here for 6 m o follow up CAD, hypertension, and hyperlipidemia. Had stress test and lipid profile in Apr 2022 after last apt. Says his chest pain is still intermittent and no worse than usual. C/o SOB at rest. 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 Review of Systems Cardiovascular: Positive for chest pain (intermittent), leg swelling and palpitations. Respiratory: Positive for shortness of breath. Musculoskeletal: Positive for arthritis, back pain, joint pain and myalgias. Neurological: Positive for headaches. All other systems reviewed and are negative. [facility] 12-08-2022 Note Coronary artery dise ase is stable Continue GDMT- ASA, lipitor, coreg, tricor and imdur continue risk factor modifications- heart healthy diet, regular exercise as tolerated and continue all medications. [facility] 12-08-2022 Note Continue tricor [facility] 12-08-2022 Note Hypertension is well controlled 134/79 Continue lisinopril, coreg, imdur [facility] 12-08-2022 Note Tobacco use is- unwi lling to stop smoking at this time 10 min smoking cessation discussion [facility] 04-28-2022 Note CARDIAC STRESS TEST Requesting Physician: [...] Olya Malik M.D. Primary care physician [facility] 08-25-2021 Note CARDIAC STRESS TEST Requesting Physician: Procedure Date: Lexiscan Stress Test with Myocardial Perfusion Imaging performed at the [facility]. Informed consent was obtained. The patient was [...] Myocardial perfusion images will be reported separately. [facility] Signed and Approved by: DR COLE HANEY 08/27/2021 05:26:00 [facility] [facility] Summary Purpose Family History No Family History Records FoundNo Family History Records FoundNo Family History Records FoundNo Family History Records FoundNo Family History Records Found Advance Directives No Advanced Directives Records FoundNo Advanced Directives Records FoundNo Advanced Directives Records FoundNo Advanced Directives Records FoundNo Advanced Directives Records Found Hospital Course Note MR#: [id number] [facility] Pt. Name: Taqueria Hdez Admitted: 04/01/2019 Discharged: [...] PRES and the patient was transferred to [facility] for MRI. HOSPITAL COURSE: 1. Hypertensive urgency, which is improved with his restarting his oral medication. The patient was told to continue ta (more content not included)... Additional Source Comments (unrecognized sect ion and content) No Status Records FoundNo Status Records FoundNo Status Records FoundNo Status Records FoundNo Status Records Found INFORMATION SOURCE (unrecogn ized section and content) DATE CREATED AUTHOR 06/06/2018 [facility] DATE CREATED AUTHOR AUTHOR'S EBONIE PIERRE 10/10/2019 [facility] DATE CREATED AUTHOR AUTHOR'S ORGANIZ ATION 05/14/2022 [facility] DATE CREATED AUTHOR AUTHOR'S ORGANIZ ATION 04/14/2023 [facility] DATE CREATED AUTHOR AUTHOR'S ORGANIZ ATION 09/25/2023 [facility] FOR RECORDS PERTAINING TO PATIENTS WHO [...] BE BASED ON THE PRIMARY CLINICAL RECORDS. [facility]. provides no warranty or guarantee of the accuracy or completeness of information in this document.
== END 2023-10-25 08:06 | disposition home or self-care (01) ==
LOC: CARD 08:06
PROVIDERS: PCP Nurse Practitioner Family; Visit Provider Nurse Practitioner
DX: R06.09 Other forms of dyspnea (principal); I10 Essential (primary) hypertension; I25.10 Atherosclerotic heart disease of native coronary artery without angina pectoris
CPT/HCPCS: 93306

== ENCOUNTER 2023-10-25 08:10 | Outpatient (OUT) | payer SELFPAY ==
--- OUTSIDE RECORDS SUMMARY | 2023-10-25 08:31 | XMS_ITS | CCD ---
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 04-13-2023 Consent [id number]#1. 00TIFF [facility] In office Testingon 04-13-20 23 In office Testing [id number] 02 [id number]#1. 00TIFF [facility] Registrationon 04-13-2023 Registration [id number] 02 [id number]#1. 00TIFF [facility] Office Visiton 03-12-2023 Follow-up visit [id number] Kirk Hdez ry P 1965 M Date Provider Department Center 03/12/2023 3848-OLYA MALIK MARLA oDve Family History Problem Relation Age of Onset Coronary artery disease Father Heart attack Father Other Father Coronary artery disease Maternal Grandfather Family Status - Relation Status Age at Father Maternal Grandfather Level of Service:00651 UT OFFICE/OUTPATIENT ESTABLISHED LOW MDM 20-29 MIN [facility] Office Visiton 12-08-2022 Follow-up visit [id number] LemuelKirk ry P 1965 M Date Provider Department Center 12/08/2022 120-YAHAIRA GASTELUM MARLA Dove Family History Problem Relation Age of Onset Coronary artery disease Father Heart attack Father Other Father Coronary artery disease Maternal Grandfather Family Status - Relation Status Age at Father Maternal Grandfather Level of Service:05374 UT OFFICE/OUTPATIENT ESTABLISHED MOD MDM 30-39 MIN [facility] 04-30-2022 Consent [id number]#1. 00CD:127 Normal [facility] In office Testingon 04-30-20 22 In office Testing [id number]#1. 00CD:127 Normal [facility] In office Testing [id number]#1. 00CD:127 [facility] Registrationon 04-30-2022 Registration [id number]#1. 00CD:127 [facility] LIPID PROFILEon 04-28-2022 CHOL-HDL RATIO NORM SEE BELOW Normal [facility] Comment on above: Result Comment: 3.3 - 4.4 LOW RISK 4.4 - 7.1 AVERAGE RISK 7.1 - 11.0 MODERATE RISK >11.0 HIGH RISK Performed By: #### L IPID ####[facility] [address] [place], [place] [address]Lx. Sheila Thompson Cholesterol [Mass/Vol] 154 mg/dL Normal <=200 [facility] Comment on above: Performed By: #### L IPID ####[facility] [address] [place] [id number]. Sheila Thompson Cholesterol in HDL [Mass/Vol] 32 mg/dL Critically low 40-60 [facility] Comment on above: Performed By: #### L IPID ####[facility] [address] [place] [id number]. Sheila Jay Cholesterol in LDL [Mass/Vol] 80.6 mg/dL Normal [facility] Comment on above: Performed By: #### L IPID ####[facility] [address] [place] [id number]. Sheila Thompson Cholesterol.total/Ch olesterol in HDL [Mass ratio] 4.8 {ratio} Normal [facility] Comment on above: Performed By: #### L IPID ####[facility] [address] [place] [id number]. Sheila Thompson HDL NORMAL > or = 60 mg/dl - LO W CARDIOVASCULAR RISK <40 mg/dl - HIGH CARDIOVASCULAR RISK Normal [facility] Comment on above: Performed By: #### L IPID ####[facility] [address] [place] [id number]. Sheila Thompson LDL CALC NORMAL SEE BELOW Normal [facility] Comment on above: Result Comment: <100 mg/dl OPTIMAL 100 - 129 mg/dl NEAR OR ABOVE OPTIMAL 130 - 159 mg/dl BORDERLINE HIGH 160 - 189 mg/dl HIGH >190 mg/dl VERY HIGH Performed By: #### L IPID ####[facility] [address] [place] [id number]. Sheila Thompson Triglyceride [Mass/Vol] 207 mg/dL Critically high <=150 [facility] Comment on above: Performed By: #### L IPID ####[facility] [address] [place], [place] [address]Wt. Sheila Thompson VLDL CALC 41.4 mg/dL Normal [facility] Comment on above: Performed By: #### L IPID ####[facility] [address] [place], [place] [address]Dr. Sheila Thompson ECHOCARDIO M/2D COMPLETEon 1 ECHOCARDIO M/2D COMPLETE Patient: TAQUERIA HDEZ Exam Date: 04/08/2022 : 1965 Gender:M Ordering : OLYA MALIK Admission #: [id number] Family : Order #: [id number] CLICK HERE TO VIEW EXAM ECHOCARDIOGRAM REPORT [...] M.D. on 04/15/2022 at 11:06 Normal [facility] DIRECT LDLon 01-12-2022 Cholesterol in LDL [Mass/Vol] 70 mg/dL Normal [facility] Comment on above: Performed By: #### L ABEL ROACH, CMP ####[facility] [address] [place] [address]Dr. Sheila Thompson DLDL NORMAL SEE BELOW Normal [facility] Comment on above: Result Comment: <100 mg/dl OPTIMAL 100 - 129 mg/dl NEAR OR ABOVE OPTIMAL 130 - 159 mg/dl BORDERLINE HIGH 160 - 189 mg/dl HIGH >190 mg/dl VERY HIGH Performed By: #### L ABEL ROACH, CMP ####[facility] [address] [place] [address]Dr. Sheila Thompson GLYCOHEMOGLOBIN A1Con 2021 ADA RECOMMENDATION SEE BELOW Normal [facility] Comment on above: Result Comment: ADA RECOMMENDED LIMIT 4.0 - 6.0 ADA THERAPEUTIC TARGET < 7.0 ACTION SUGGESTED > 7.0 Performed By: #### A 1C ####[facility] [address] [place] [address]Dr. Sheila Thompson Glucose [Mass/Vol] 160 mg/dL Normal [facility] Comment on above: Performed By: #### A 1C ####[facility] [address] [place] [id number]. Sheila Thompson HbA1c (Bld) [Mass fraction] 7.2 % Critically high 4.5-6.2 [facility] Comment on above: Performed By: #### A 1C ####[facility] [address] [place] [address]Dr. Sheila Thompson LIPID PROFILEon 01-12-2022 CHOL-HDL RATIO NORM SEE BELOW Normal [facility] Comment on above: Result Comment: 3.3 - 4.4 LOW RISK 4.4 - 7.1 AVERAGE RISK 7.1 - 11.0 MODERATE RISK >11.0 HIGH RISK Performed By: #### L MARLEY, JESSICAL, CMP ####[facility] [address] [place] [address]Dr. Sheila Thompson Cholesterol [Mass/Vol] 165 mg/dL Normal <=200 [facility] Comment on above: Performed By: #### L IPID, DLDL, CMP ####[facility] [address] [place] [address]Dr. Sheila Thompson Cholesterol in HDL [Mass/Vol] 25 mg/dL Critically low 40-60 [facility] Comment on above: Performed By: #### L IPID, DLDL, CMP ####[facility] [address] [place] [address]Dr. Sheila Thompson Cholesterol.total/Ch olesterol in HDL [Mass ratio] 6.6 {ratio} Normal [facility] Comment on above: Performed By: #### L IPID, DLDL, CMP ####[facility] [address] [place] [address]Dr. Sheila Thompson HDL NORMAL > or = 60 mg/dl - LO W CARDIOVASCULAR RISK <40 mg/dl - HIGH CARDIOVASCULAR RISK Normal [facility] Comment on above: Performed By: #### L IPID, DLDL, CMP ####[facility] [address] [place] [address]Dr. Sheila Thompson Triglyceride [Mass/Vol] 502 mg/dL Critically high <=150 [facility] Comment on above: Performed By: #### L IPID, DLDL, CMP ####[facility] [address] [place] [address]Dr. Sheila Thompson PROF 14(COMP METB)on 022 Albumin [Mass/Vol] 3.9 g/dL Normal 3.4-5.0 [facility] Comment on above: Performed By: #### L IPID, DLDL, CMP ####[facility] [address] [place] [address]Dr. Sheila Thompson Albumin/Globulin [Mass ratio] 1.1 {ratio} Normal [facility] Comment on above: Performed By: #### L IPID, DLDL, CMP ####[facility] [address] [place] [address]Dr. Sheila Thompson ALP [Catalytic activity/Vol] 71 U/L Normal 46-116 [facility] Comment on above: Performed By: #### L IPID, DLDL, CMP ####[facility] [address] [place] [address]Dr. Sheila Thompson ALT [Catalytic activity/Vol] 47 U/L Normal 16-63 [facility] Comment on above: Performed By: #### L IPID, DLDL, CMP ####[facility] [address] [place] [address]Dr. Sheila Thompson Anion gap [Moles/Vol] 12.9 mmol/L Normal [facility] Comment on above: Performed By: #### L IPID, DLDL, CMP ####[facility] [address] [place] [address]Dr. Sheila Thompson AST [Catalytic activity/Vol] 21 U/L Normal 15-37 [facility] Comment on above: Performed By: #### L IPID, DLDL, CMP ####[facility] [address] [place] [address]Dr. Sheila Thompson Bilirubin [Mass/Vol] 0.2 mg/dL Normal 0.2-1.0 [facility] Comment on above: Performed By: #### L IPID, DLDL, CMP ####[facility] [address] [place] [address]Dr. Sheila Thompson Calcium [Mass/Vol] 9.0 mg/dL Normal 8.5-10.1 [facility] Comment on above: Performed By: #### L IPID, DLDL, CMP ####[facility] [address] [place] [address]Dr. Sheila Thompson Chloride [Moles/Vol] 104 mmol/L Normal 98-107 [facility] Comment on above: Performed By: #### L IPID, DLDL, CMP ####[facility] [address] [place] [address]Dr. Sheila Thompson CO2 [Moles/Vol] 26.9 mmol/L Normal 21.0-32.0 [facility] [place] Comment on above: Performed By: #### L IPID, DLDL, CMP ####[facility] [address] [place] [address]Dr. Sheila Thompson Creatinine [Mass/Vol] 0.78 mg/dL Normal 0.70-1.30 [facility] Comment on above: Performed By: #### L IPID, DLDL, CMP ####[facility] [address] [place] [address]Dr. Sheila Thompson EGFR-AF ALBANIAN >60 Normal >=60 [facility] Comment on above: Performed By: #### L IPID, DLDL, CMP ####[facility] [address] [place] [address]Dr. Sheila Thompson EGFR-NON AF ALBANIAN >60 Normal >=60 [facility] Comment on above: Performed By: #### L IPID, DLDL, CMP ####[facility] [address] [place] [address]Dr. Sheila Thompson Globulin (S) [Mass/Vol] 3.5 g/dL Normal [facility] Comment on above: Performed By: #### L IPID, DLDL, CMP ####[facility] [address] [place], [place] [address]Dr. Sheila Thompson Glucose [Mass/Vol] 171 mg/dL Critically high 74-106 [facility] Comment on above: Performed By: #### L IPID, DLDL, CMP ####[facility] [address] [place], [place] [address]Dr. Sheila Thompson Potassium [Moles/Vol] 3.8 mmol/L Normal 3.5-5.1 [facility] Comment on above: Performed By: #### L IPID, DLDL, CMP ####[facility] [address] [place], [place] [address]Dr. Sheila Thompson Protein [Mass/Vol] 7.4 g/dL Normal 6.4-8.2 [facility] Comment on above: Performed By: #### L IPID, DLDL, CMP ####[facility] [address] [place], [place] [address]Dr. Sheila Thompson Sodium [Moles/Vol] 140 mmol/L Normal 136-145 [facility] Comment on above: Performed By: #### L IPID, DLDL, CMP ####[facility] [address] [place], [place] [address]Dr. Sheila Thompson Urea nitrogen [Mass/Vol] 16.0 mg/dL Normal 7.0-18.0 [facility] Comment on above: Performed By: #### L IPID, DLDL, CMP ####[facility] [address] [place], [place] [address]Dr. Sheila Thompson Urea nitrogen/Creatinine [Mass ratio] 20.5 mg/mg Normal [facility] Comment on above: Performed By: #### L IPID, DLDL, CMP ####[facility] [address] [place], [place] [address]Dr. Sheila Thompson INSULINon 09-16-2021 Insulin 59.1 uIU/mL Critically high 2.6-24.9 [facility] Comment on above: Performed By: #### I NSULIN ####[facility] [address] [place], [place] [address]Dr. Sheila Thompson CBC AUTO DIFFon 09-15-2021 BASO # 0.0 103/ul Normal 0.0-0.1 [facility] Comment on above: Performed By: #### C BC ####[facility] [address] [place], [place] [address]Dr. Sheila Thompson Basophils/100 WBC (Bld) 0.4 % Normal 0.2-2.0 [facility] Comment on above: Performed By: #### C BC ####[facility] [address] [place], [place] [address]Dr. Sheila Thompson EO # 0.2 103/ul Normal 0.0-0.7 [facility] Comment on above: Performed By: #### C BC ####[facility] [address] [place], [place] [address]Dr. Sheila Thompson Eosinophils/100 WBC (Bld) 1.9 % Normal 0.9-7.0 [facility] Comment on above: Performed By: #### C BC ####[facility] [address] [place] [address]Dr. Sheila Thompson Erythrocyte distribution width (RBC) [Ratio] 13.3 % Normal 11.0-15.0 [facility] Comment on above: Performed By: #### C BC ####[facility] [address] [place] [address]Dr. Sheila Thompson Hematocrit (Bld) [Volume fraction] 44.5 % Normal 42.0-54.0 [facility] Comment on above: Performed By: #### C BC ####[facility] [address] [place], [place] [address]Dr. Sheila Thompson Hemoglobin (Bld) [Mass/Vol] 14.7 g/dL Normal 14.0-18.0 [facility] Comment on above: Performed By: #### C BC ####[facility] [address] [place], [place] [address]Dr. Sheila Jay IG # 0.02 10e3/ul Normal 0.00-0.03 [facility] Comment on above: Performed By: #### C BC ####[facility] [address] [place], [place] [address]Dr. Sheila Thompson IG % 0.2 % Normal 0.0-0.5 [facility] Comment on above: Performed By: #### C BC ####[facility] [address] [place], [place] [address]Dr. Sheila Thompson LYMPH # 2.2 103/ul Normal 1.2-3.8 [facility] Comment on above: Performed By: #### C BC ####[facility] [address] [place], [place] [address]Dr. Sheila Thompson Lymphocytes/100 WBC (Bld) 26.0 % Normal 20.5-60.0 [facility] Comment on above: Performed By: #### C BC ####[facility] [address] [place], [place] [address]Dr. Luzyoung Thompson MANUAL DIFF REQ NO Normal [facility] Comment on above: Performed By: #### C BC ####[facility] [address] [place], [place] [address]Dr. Sheila Thompson MCH (RBC) [Entitic mass] 30.6 pg Normal 25.9-34.0 [facility] Comment on above: Performed By: #### C BC ####[facility] [address] [place] [address]Dr. Sheila Thompson MCHC (RBC) [Mass/Vol] 33.0 g/dL Normal 29.9-35.2 [facility] Comment on above: Performed By: #### C BC ####[facility] [address] [place] [address]Dr. Sheila Thompson MCV (RBC) [Entitic vol] 92.7 fL Normal 80.0-94.0 [facility] Comment on above: Performed By: #### C BC ####[facility] [address] [place] [address]Dr. Sheila Jay MONO # 1.0 103/ul Critically high 0.3-0.8 [facility] Comment on above: Performed By: #### C BC ####[facility] [address] [place] [address]Dr. Luzyoung Thompson Monocytes/100 WBC (Bld) 11.9 % Normal 1.7-12.0 [facility] Comment on above: Performed By: #### C BC ####[facility] [address] [place] [address]Dr. Sheila Thompson NEUT # 5.0 103/ul Normal 1.4-6.5 [facility] Comment on above: Performed By: #### C BC ####[facility] [address] [place] [address]Dr. Sheila Jay Neutrophils/100 WBC (Bld) 59.6 % Normal 43.0-75.0 [facility] Comment on above: Performed By: #### C BC ####[facility] [address] [place] [address]Dr. Sheila Jay Platelet mean volume (Bld) [Entitic vol] 10.4 fL Normal 9.5-13.5 [facility] Comment on above: Performed By: #### C BC ####[facility] [address] [place], [place] [address]Pj. Sheila Thompson PLT 245 103/ul Normal 150-450 [facility] Comment on above: Performed By: #### C BC ####[facility] [address] [place], [place] [address]Ck. Sheila Thompson RBC 4.80 106/ul Normal 4.70-6.10 [facility] Comment on above: Performed By: #### C BC ####[facility] [address] [place] [id number]. Sheila Thompson WBC 8.4 103/ul Normal 4.0-11.0 [facility] Comment on above: Performed By: #### C BC ####[facility] [address] [place] [address]11DrLeonardo Thompson DIRECT LDLon 09-15-2021 Cholesterol in LDL [Mass/Vol] 74 mg/dL Normal [facility] Comment on above: Performed By: #### L IPID, DLDL, CMP, URIC #### [facility] [address] [place] [address] [address] Sheila Thompson DLDL NORMAL SEE BELOW Normal [facility] Comment on above: Result Comment: <100 mg/dl OPTIMAL 100 - 129 mg/dl NEAR OR ABOVE OPTIMAL 130 - 159 mg/dl BORDERLINE HIGH 160 - 189 mg/dl HIGH >190 mg/dl VERY HIGH Performed By: #### L IPID, DLDL, CMP, URIC #### [facility] [address] [place] [address] [address] Sheila Thompson GLYCOHEMOGLOBIN A1Con 2021 ADA RECOMMENDATION ADA THERAPEUTIC TARG ET 6.0 - 7.0 ACTION SUGGESTED > 7.0 Normal [facility] Comment on above: Performed By: #### A 1C #### [facility] [address] [place] [address] [address] Sheila Thompson Glucose [Mass/Vol] 194 mg/dL Normal [facility] Comment on above: Performed By: #### A 1C #### [facility] [address] [place] [address] [address] Sheila Thompson HbA1c (Bld) [Mass fraction] 8.4 % Critically high <=6.0 [facility] Comment on above: Performed By: #### A 1C #### [facility] [address] [place] [address] [address] Sheila Thompson LIPID PROFILEon 09-15-2021 CHOL-HDL RATIO NORM SEE BELOW Normal [facility] Comment on above: Result Comment: 3.3 - 4.4 LOW RISK 4.4 - 7.1 AVERAGE RISK 7.1 - 11.0 MODERATE RISK >11.0 HIGH RISK Performed By: #### L IPID, DLDL, CMP, URIC #### [facility] [address] [address] [address] Sheila Thompson Cholesterol [Mass/Vol] 223 mg/dL Critically high <=200 [facility] Comment on above: Performed By: #### L IPID, DLDL, CMP, URIC #### [facility] [address] [place] [address] [address] Sheila Thompson Cholesterol in HDL [Mass/Vol] 24 mg/dL Critically low 40-60 [facility] Comment on above: Performed By: #### L IPID, DLDL, CMP, URIC #### [facility] [address] [place] [address] [address] Sheila Thompson Cholesterol.total/Ch olesterol in HDL [Mass ratio] 9.3 {ratio} Normal [facility] Comment on above: Performed By: #### L IPID, DLDL, CMP, URIC #### [facility] [address] [place] [address] [address] Sheila Thompson HDL NORMAL > or = 60 mg/dl - LO W CARDIOVASCULAR RISK <40 mg/dl - HIGH CARDIOVASCULAR RISK Normal [facility] Comment on above: Performed By: #### L IPID, DLDL, CMP, URIC #### [facility] [address] [place] [address] Dr. Sheila Thompson LDL CALC NORMAL SEE BELOW Normal [facility] Comment on above: Result Comment: <100 mg/dl OPTIMAL 100 - 129 mg/dl NEAR OR ABOVE OPTIMAL 130 - 159 mg/dl BORDERLINE HIGH 160 - 189 mg/dl HIGH >190 mg/dl VERY HIGH Performed By: #### L IPID, DLDL, CMP, URIC #### [facility] [address] [address] [address] Sheila Thompson Triglyceride [Mass/Vol] 903 mg/dL Critically high <=150 [facility] Comment on above: Performed By: #### L IPID, DLDL, CMP, URIC #### [facility] [address] [address] [address] Sheila Thompson PROF 14(COMP METB)on 022 Albumin [Mass/Vol] 3.9 g/dL Normal 3.4-5.0 [facility] Comment on above: Performed By: #### L IPID, DLDL, CMP, URIC #### [facility] [address] [place] [address] Dr. Sheila Thompson Albumin/Globulin [Mass ratio] 1.1 {ratio} Normal [facility] Comment on above: Performed By: #### L IPID, DLDL, CMP, URIC #### [facility] [address] [place] [address] Dr. Sheila Thompson ALP [Catalytic activity/Vol] 76 U/L Normal 46-116 [facility] Comment on above: Performed By: #### L IPID, DLDL, CMP, URIC #### [facility] [address] [place] [address] Dr. Sheila Thompson ALT [Catalytic activity/Vol] 45 U/L Normal 16-63 [facility] Comment on above: Performed By: #### L IPID, DLDL, CMP, URIC #### [facility] [address] [place] [address] [address] Sheila Thompson Anion gap [Moles/Vol] 12.3 mmol/L Normal [facility] Comment on above: Performed By: #### L IPID, DLDL, CMP, URIC #### [facility] [address] [place] [address] Dr. Sheila Thompson AST [Catalytic activity/Vol] 11 U/L Critically low 15-37 [facility] Comment on above: Performed By: #### L IPID, DLDL, CMP, URIC #### [facility] [address] [place] [address] Dr. Sheila Thompson Bilirubin [Mass/Vol] 0.2 mg/dL Normal 0.2-1.3 [facility] Comment on above: Performed By: #### L IPID, DLDL, CMP, URIC #### [facility] [address] [place] [address] Dr. Sheila Thompson Calcium [Mass/Vol] 8.4 mg/dL Critically low 8.5-10.1 [facility] Comment on above: Performed By: #### L IPID, DLDL, CMP, URIC #### [facility] [address] [place] [address] Dr. Sheila Thompson Chloride [Moles/Vol] 102 mmol/L Normal 98-107 [facility] Comment on above: Performed By: #### L IPID, DLDL, CMP, URIC #### [facility] [address] [place] [address] Dr. Sheila Thompson CO2 [Moles/Vol] 26.8 mmol/L Normal 22.0-30.0 [facility] Comment on above: Performed By: #### L IPID, DLDL, CMP, URIC #### [facility] [address] [place] [address] Dr. Sheila Thompson Creatinine [Mass/Vol] 0.67 mg/dL Normal 0.66-1.25 [facility] Comment on above: Performed By: #### L IPID, DLDL, CMP, URIC #### [facility] [address] [place] [address] Dr. Sheila Thompson EGFR-AF ALBANIAN >60 Normal >=60 [facility] Comment on above: Performed By: #### L IPID, DLDL, CMP, URIC #### [facility] [address] [place] [address] Dr. Sheila Thompson EGFR-NON AF ALBANIAN >60 Normal >=60 [facility] Comment on above: Performed By: #### L IPID, DLDL, CMP, URIC #### [facility] [address] [place] [address] Dr. Sheila Thompson Globulin (S) [Mass/Vol] 3.6 g/dL Normal [facility] Comment on above: Performed By: #### L IPID, DLDL, CMP, URIC #### [facility] [address] [place] [address] [address] Sheila Thompson Glucose [Mass/Vol] 192 mg/dL Critically high 74-106 [facility] Comment on above: Performed By: #### L IPID, DLDL, CMP, URIC #### [facility] [address] [place] [address] [address] Sheila Thompson Potassium [Moles/Vol] 4.1 mmol/L Normal 3.4-5.0 [facility] Comment on above: Performed By: #### L IPID, DLDL, CMP, URIC #### [facility] [address] [place] [address] [address] Sheila Thompson Protein [Mass/Vol] 7.5 g/dL Normal 6.1-8.2 [facility] Comment on above: Performed By: #### L IPID, DLDL, CMP, URIC #### [facility] [address] [place] [address] [address] Sheila Thompson Sodium [Moles/Vol] 137 mmol/L Normal 137-145 [facility] Comment on above: Performed By: #### L IPID, DLDL, CMP, URIC #### [facility] [address] [place] [address] [address] Sheila Thompson Urea nitrogen [Mass/Vol] 16.0 mg/dL Normal 7.0-18.0 [facility] Comment on above: Performed By: #### L IPID, DLDL, CMP, URIC #### [facility] [facility] [address] [address] [address] Sheila Thompson Urea nitrogen/Creatinine [Mass ratio] 23.9 mg/mg Normal [facility] Comment on above: Performed By: #### L IPID, DLDL, CMP, URIC #### [facility] [address] [address] [address] Sheila Thompson URIC ACID SERUMon 09-15-2021 Urate [Mass/Vol] 2.4 mg/dL Critically low 3.5-8.5 [facility] Comment on above: Performed By: #### L IPID, DLDL, CMP, URIC #### [facility] [address] [address] [address] Sheila JAMESON STRESS/REST MULTIon 08-25 NM STRESS/REST MULTI Patient: TAQUERIA HDEZ Exam Date: 08/25/2021 : 1965 Gender:M Ordering : OLYA MALIK Admission #: [id number] Family : Order #: [id number] CLICK HERE TO VIEW EXAM RADIOLOGY REPORT [...] MD on 08/26/2021 at 13:57 Normal [facility] BASIC METABOLIC PANELon 10-1 Calcium [Mass/Vol] 9.9 mg/dL Normal 8.6-10.3 [facility] Comment on above: Order Comment: No: D o not add to previous draw Performed By: #### 9 [id number], [id number] #### [facility] [address] [place] [address], [place] Chloride [Moles/Vol] 103 mmol/L Normal 98-[address] [facility] Comment on above: Order Comment: No: D o not add to previous draw Performed By: #### 9 [id number], 28741 #### [facility] [address] [place] [address], [place] CO2 [Moles/Vol] 26 mmol/L Normal 21-31 [facility] Comment on above: Order Comment: No: D o not add to previous draw Performed By: #### 9 [id number], 93892 #### [facility] [address] [place] [address], [place] Creatinine [Mass/Vol] 0.72 mg/dL Normal 0.70-1.[address] [facility] Comment on above: Order Comment: No: D o not add to previous draw Performed By: #### 9 [id number], 31942 #### [facility] [address] [place] [address], [place] GFR/1.73 sq M predicted among blacks MDRD (S/P/Bld) [Vol rate/Area] mL/min/{1.73_m2} Normal >[address] [facility] Comment on above: Order Comment: No: D o not add to previous draw Performed By: #### 9 [id number], 90232 #### [facility] [address] [place] [address], [place] GFR/1.73 sq M predicted among non-blacks MDRD (S/P/Bld) [Vol rate/Area] mL/min/{1.73_m2} Normal >[address] [facility] Comment on above: Order Comment: No: D o not add to previous draw Performed By: #### 9 [id number], [id number] #### [facility] [address] [place] [address], [facility] Glucose [Mass/Vol] 152 mg/dL High 70-100 The [facility] Comment on above: Order Comment: No: D o not add to previous draw Performed By: #### 9 [id number], 33685 #### [facility] [address] [place] [address], [facility] Potassium [Moles/Vol] 4.2 mmol/L Normal 3.5-5.[address] [facility] Comment on above: Order Comment: No: D o not add to previous draw Performed By: #### 9 [id number], 85134 #### [facility] [address] [facility] [place] [address], [facility] Sodium [Moles/Vol] 135 mmol/L Low 136-145 [facility] Comment on above: Order Comment: No: D o not add to previous draw Performed By: #### 9 9908, 61694 #### [facility] [address] [facility] [place] [address], [facility] Urea nitrogen [Mass/Vol] 8 mg/dL Normal 7-[address] [facility] Comment on above: Order Comment: No: D o not add to previous draw Performed By: #### 9 [id number], 98867 #### [facility] [address] [facility]. [address] CBC W/DIFFon 04-01-2019 ABS BASOPHILS 0.0 10*3/uL Normal 0.0-0.2 [facility] Comment on above: Performed By: #### 5 0103 #### [facility] [address] [facility] [place] [address], [facility] ABS IMM GRANS 0.0 10*3/uL Normal 0.0-0.2 [facility] Comment on above: Performed By: #### 5 0103 #### [facility] [address] [place] [address], [facility] ABS NEUTROPHILS 7.6 10*3/uL Normal 1.6-7.6 The [facility] Comment on above: Performed By: #### 5 0103 #### [facility] [address] [facility] [place] [address], [facility] Basophils/100 WBC (Bld) 0.4 % Normal 0.0-1.[address] [facility] Comment on above: Performed By: #### 5 0103 #### [facility] [address] [place] [address], [facility] Eosinophils (Bld) [#/Vol] 0.2 10*3/uL Normal 0.0-0.[address] [facility] Comment on above: Performed By: #### 5 0103 #### [facility] [address] [place] [address], [facility] Eosinophils/100 WBC (Bld) 1.3 % Normal 0.0-6.[address] [facility] Comment on above: Performed By: #### 5 0103 #### [facility] [address] [place] [address], [facility] Erythrocyte distribution width (RBC) [Ratio] 13.2 % Normal 11.5-15.[address] [facility] Comment on above: Performed By: #### 5 0103 #### [facility] [address] [facility] [place] [address], [facility] Hematocrit (Bld) [Volume fraction] 47.5 % Normal 39.0-50.[address] [facility] Comment on above: Performed By: #### 5 0103 #### [facility] [address] [facility] [address], [facility] Hemoglobin (Bld) [Mass/Vol] 15.2 g/dL Normal 13.0-17.[address] [facility] Comment on above: Performed By: #### 5 3 #### [facility] [address] [facility] [place] [address], [facility] IMMATURE GRANS 0.4 % Normal 0.0-1.0 The [facility] Comment on above: Performed By: #### 5 0103 #### [facility] [address] [facility] [place] [address], [facility] Lymphocytes (Bld) [#/Vol] 2.2 10*3/uL Normal 1.2-4.[address] [facility] Comment on above: Performed By: #### 5 0103 #### [facility] [address] [facility] [place] [address], [facility] Lymphocytes/100 WBC (Bld) 19.6 % Low 20.0-45.[address] [facility] Comment on above: Performed By: #### 5 3 #### [facility] [address] MCH (RBC) [Entitic mass] 29.9 pg Normal 27.0-33.[address] [facility] Comment on above: Performed By: #### 5 0103 #### [facility] [address] MCHC (RBC) [Mass/Vol] 32.0 g/dL Normal 32.0-35.[address] [facility] Comment on above: Performed By: #### 5 3 #### [facility] [address] [place] [address], [facility] MCV (RBC) [Entitic vol] 93.3 fL Normal 82.0-98.[address] [facility] Comment on above: Performed By: #### 5 3 #### [facility] [address] [facility] [address], [facility] Monocytes (Bld) [#/Vol] 1.3 10*3/uL High 0.1-1.[address] [facility] Comment on above: Performed By: #### 5 3 #### [facility] [address] [facility] [place] [address], [facility] MONOS 11.4 % Normal 5.0-12.[address] [facility] Comment on above: Performed By: #### 5 0103 #### [facility] [address] [place] [id number], [facility] Neutrophils/100 WBC (Bld) 66.9 % Normal 40.0-72.[address] [facility] Comment on above: Performed By: #### 5 0103 #### [facility] [address] [place] [address], [facility] Nucleated RBC/100 WBC (Bld) [Ratio] 0 % Normal 0-[address] [facility] Comment on above: Performed By: #### 5 0103 #### [facility] [address] [place] [address], [facility] PLAT CNT 223 10*3/uL Normal 150-400 The [facility] Comment on above: Performed By: #### 5 0103 #### [facility] [address] [facility] [place] [address], [facility] RBC (Bld) [#/Vol] 5.09 10*6/uL Normal 4.20-5.70 [facility] Comment on above: Performed By: #### 5 0103 #### [facility] [address] [place] [address], [place] WBC (Bld) [#/Vol] 11.39 10*3/uL High 4.00-10.60 [facility] Comment on above: Performed By: #### 5 0103 #### [facility] [address] [facility] [place] [address], [facility] History and Physicalon 04-01 History and Physical MR#: [id number] [facility] Pt. Name: Taqueria Hdez Admitted: 04/01/2019 Date of : 1965 Attending Physician: Julius Ivy MD Room #: [id number] Discharge Date: HISTORY AND PHYSICAL CHIEF COMPLAINT: Headache, elevated blood pressure. HISTORY OF PRESENT ILLNESS: This is a 54-year-old male, who was transferred from [facility] this morning for further evaluation. He presented there last night complaining of a headache. He states his headache has been on the left side of his head radiating to the back. It has been constantly present since 1 p.m. yesterday. It was partially alleviated by morphine that he received at [place], but has returned since. He states his blood pressure has been high as well. It has been in the 160s all week despite taking his medications. Normally, his blood pressure has been systolic within 140s. He reports compliance with his medications. When he presented to [place] ER, his blood pressure reportedly was 188/104. [...] Denies fevers, chills, or cough. In the [facility], he had CT imaging of his head done, which showed some findings concerning for possible moyer. Recommendation was made for the patient to have an MRI and it is not available at [facility]. PAST MEDICAL HISTORY: Hypertension, hyperlipidemia, GERD, [...] normal. LABORATORY STUDIES: Lab studies reviewed from [facility] from March 31, 2019. BMP; sodium [...] Ivy MD Date Trans: 04/01/2019 04:53 A/todd [id number] Normal [facility] LIVER BATTERYon 04-01-2019 Albumin [Mass/Vol] 4.6 g/dL Normal 3.5-5.7 [facility] Comment on above: Order Comment: No: D o not add to previous draw Performed By: #### 9 9909, 46138 #### [facility] [address] [place] [address], [facility] ALKALINE PHOSPH 62 IU/L Normal 34-104 [facility] Comment on above: Order Comment: No: D o not add to previous draw Performed By: #### 9 9909, 33275 #### [facility] [address] [place] [address], [place] ALT [Catalytic activity/Vol] 53 U/L High 7-[address] [facility] Comment on above: Order Comment: No: D o not add to previous draw Performed By: #### 9 9909, 18244 #### [facility] [address] [place] [address], [place] AST [Catalytic activity/Vol] 32 U/L Normal 13-[address] [facility] Comment on above: Order Comment: No: D o not add to previous draw Performed By: #### 9 9908, 02278 #### [facility] [address] [place] [address], [place] Bilirubin [Mass/Vol] 0.4 mg/dL Normal 0.3-1.[address] [facility] Comment on above: Order Comment: No: D o not add to previous draw Performed By: #### 9 9908, 97882 #### [facility] [address] [place] [address], [place] Bilirubin.direct [Mass/Vol] 0.0 mg/dL Normal 0.0-0.[address] [facility] Comment on above: Order Comment: No: D o not add to previous draw Performed By: #### 9 9909, 74847 #### [facility] [address] [place] [address], [place] Protein [Mass/Vol] 7.5 g/dL Normal 6.0-8.3 [facility] Comment on above: Order Comment: No: D o not add to previous draw Performed By: #### 9 9909, 03583 #### [facility] [address] [place] [address], [facility] MRI BRAIN WO CONTRASTon 03-14 MRI BRAIN WO CONTRAST [facility] Department of Radiology [address] [place] [id number] ======== Patient Name: TAQUERIA HDEZ : 1965 Sex: M Age: Race: White Pt. Location: [id number] Patient Status: D Ordered Date: 04/01/2019 4:00:00 [...] findings. Electronically signed by:Tianna Orozco. Transcribed by: [email or web address], User Resident: ALTHEA BLACKMON Electronically Signed by: TIANNA OROZCO @ 04/02/2019 03:18 PM I personally read this/these film(s) with this resident Normal [facility] Comment on above: Order Comment: Other , evaluate for pres, has hypertension and headache, had decreased attenuation on ct head occiptal lobe and bilateral parietal lobes CBC With Platelet No Differe ntialon 06-02-2018 Erythrocyte distribution width Auto Ratio (RBC) 13.6 fL Normal 11.5-15.0 [facility] Hematocrit Auto Volume Fraction (Bld) 44.7 % Normal 37.0-54.0 [facility] Hemoglobin mass conc (Bld) 14.7 g/dL Normal 12.5-16.5 [facility] MCH Auto Entitic mass (RBC) 29.9 pg Normal 26.0-35.0 [facility] MCHC Auto mass conc (RBC) 32.9 % Normal 32.0-34.5 [facility] MCV Auto Entitic volume (RBC) 91.0 fL Normal 80.0-99.9 [facility] Platelet mean volume Auto Entitic volume (Bld) 10.0 fL Normal 7.0-12.0 [facility] Platelets Auto #/vol (Bld) 240 E9/L Normal 130-450 [facility] RBC Auto #/vol (Bld) 4.91 E12/L Normal 3.80-5.80 [facility] WBC Auto #/vol (Bld) 7.5 E9/L Normal 4.5-11.5 [facility] Comprehensive Metabolic Pane vince 06-02-2018 Albumin mass conc 4.4 g/dL Normal 3.5-5.2 [facility] ALP enzyme act/vol 67 U/L Normal 40-129 [facility] ALT enzyme act/vol 54 U/L High 0-40 [facility] Anion gap 3 molar conc 13 mmol/L Normal 7-16 [facility] AST enzyme act/vol 40 U/L High 0-39 [facility] Bilirubin mass conc 0.3 mg/dL Normal 0.0-1.2 [facility] Calcium mass conc 9.1 mg/dL Normal 8.6-10.2 [facility] Chloride molar conc 100 mmol/L Normal 98-107 [facility] CO2 molar conc 24 mmol/L Normal 22-29 [facility] Creatinine mass conc 0.9 mg/dL Normal 0.7-1.2 [facility] GFR/1.73 sq M predicted among blacks MDRD vol rate/area (S/P/Bld) mL/min/{1.73_m2} Normal [facility] GFR/1.73 sq M predicted among non-blacks MDRD vol rate/area (S/P/Bld) mL/min/{1.73_m2} Normal >=60 [facility] Comment on above: Result Comment: Scientific Linguist leonard Kidney Disease: less than 60 ml/min/1.73 sq.m. Kidney Failure: less than 15 ml/min/1.73 sq.m.Results valid for patients 18 years and older. Glucose mass conc 161 mg/dL High 74-99 [facility] Potassium molar conc 3.8 mmol/L Normal 3.5-5.0 [facility] Protein mass conc 7.5 g/dL Normal 6.4-8.3 [facility] Sodium molar conc 137 mmol/L Normal 132-146 [facility] Urea nitrogen mass conc 11 mg/dL Normal 6-20 [facility] Troponinon 06-02-2018 Troponin I.cardiac mass conc ng/mL Normal 0.00-0.03 [facility] Comment on above: Result Comment: TROP [...] by:ANDREIA Whartonigned by:Jarrell Blankenship MD06/02/18inal result Normal [facility] Encounters Encounter Date Encounter Type Care Provider Facility Start: 09-24-2023 End: 09-24-2023 ambulatory [facility] Start: 04-13-2023 End: 04-14-2023 ambulatory Sparkle Jong SIEGEL Facility:[facility] Start: 03-12-2023 End: 03-12-2023 ambulatory [facility] Start: 12-08-2022 End: 12-08-2022 ambulatory [facility] Start: 04-30-2022 End: 05-01-2022 ambulatory Flip BECKER [facility] Start: 04-28-2022 End: 04-29-2022 [facility] Start: 04-08-2022 End: 04-09-2022 ambulatory OLYA MALIK Facility:[facility] Start: 01-12-2022 End: 01-13-2022 ambulatory MIRIAM HASSAN Facility:[facility] Start: 09-15-2021 End: 09-16-2021 ambulatory MIRIAM HASSAN Facility:[facility] Start: 08-25-2021 End: 08-26-2021 [facility] Start: 08-20-2021 ambulatory MIRIAM HASSAN Facility: [facility] Start: 04-01-2019 End: 04-01-2019 Patient encounter procedure LUÍS FLORES Facility:[facility] Start: 06-02-2018 End: 06-02-2018 Emergency department patient visit TAMMY KENNY [facility] Procedures Date Procedure Procedure Detail Performing Clinician Start: 09-15-2021 PSA screening OLAY PINA Comment on above: Performed By: #### [facility] #### [facility] [address] [place] [address] Dr. Sheila Thompson Start: 06-02-2018 Blood count complete automated TAMMY KENNY Start: 06-02-2018 Comprehensive metabolic panel TAMMY KENNY Start: 06-02-2018 TROPONIN TAMMY DE LA TORRE Start: 06-02-2018 Radiologic exam ches t single view ATMMY KENNY Start: 06-02-2018 TELEMETRY MONITORING AR FERNANDO KENNY Start: 06-02-2018 EKG 12-LEAD TAMMYJOESPH DE LA TORRE Start: 06-02-2018 SALINE LOCK IV TAMMY S MIT Payers Date Payer Category Payer Private Health Insurance [id number] 2018 Unknown [id number] 1965 Unknown [id number] 2.16. [id number] 1965 Unknown [id number] 2.16.8 [id number] 1965 Unknown [id number] 2.16.84 [id number] 1965 Unknown [id number] 2.16.84 [id number] 1965 Unknown [id number] 2.16.84 [id number] 1965 Unknown [id number] 2.16.84 [id number] 1965 Unknown [id number] 2.16.84 [id number] 1965 Unknown [id number] 2.16.84 [id number] 1965 Unknown [id number] 2.16.84 [id number] 1965 Unknown [id number] 2.16.8 [id number] 1958 Private Health Insurance [id number] 1958 Private Health Insurance [id number] 1958 Self-pay [id number] Clinical Notes 08-25-2021 to 09-24-2023 Note Date & Type Note Facility 09-24-2023 Note assisted tobacco us e and new unintentional weight loss Ordered CXR, and pt to f/U with PCP today [facility] 09-24-2023 Note Continue lipitor and tricor for lipid management [facility] 09-24-2023 Note Reports weight loss of about 30 pounds over last 2.5 months without trying to loose weight/ diet or exercise. F/U with PCP today CXR in light of h/o tobacco dependence [facility] 09-24-2023 Note Hypertension is unco ntrolled in office. Continue coreg and lisinopril [facility] 09-24-2023 Note Coronary artery dise ase is stable Continue GDMT- ASA, lipitor, coreg continue risk factor modifications- heart healthy diet, regular exercise as tolerated and continue all medications. [facility] 09-24-2023 Note Patient here for 6 m [...] All other systems reviewed and are negative. [facility] 09-24-2023 Note UTP CARDIOLOGY PROGR ESS NOTE [...] illness or hospitalization. 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 [facility] 03-12-2023 Note UTP CARDIOLOGY PROGR ESS NOTE [...] importance of smo (more content not included)... [facility] 03-12-2023 Note [facility] admission in December 2022 for chest pain and pneumonia. 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 Still has intermittent chest pain. Had routine labs a few weeks ago. [facility] 12-08-2022 Note UTP CARDIOLOGY PROGR ESS NOTE HPI: Taqueria Hdez is a 57 y.o. male here for routine 6 month f/U for CAD s/p PCI, HTN, HPL, and tobacco dependence HPI Currently denied any activity limiting symptoms. Denied chest pain, shortness of breath, orthopnea, or palpitations. States he is not willing to quit smoking. 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 Review of Systems Constitutional: Negative. Respiratory: Negative. [...] risk factor modificati (more content not included)... [facility] 12-08-2022 Note Patient here for 6 m o follow up CAD, hypertension, and hyperlipidemia. Had stress test and lipid profile in Apr 2022 after last apt. Says his chest pain is still intermittent and no worse than usual. C/o SOB at rest. 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 Review of Systems Cardiovascular: Positive for chest pain (intermittent), leg swelling and palpitations. Respiratory: Positive for shortness of breath. Musculoskeletal: Positive for arthritis, back pain, joint pain and myalgias. Neurological: Positive for headaches. All other systems reviewed and are negative. [facility] 12-08-2022 Note Coronary artery dise ase is stable Continue GDMT- ASA, lipitor, coreg, tricor and imdur continue risk factor modifications- heart healthy diet, regular exercise as tolerated and continue all medications. [facility] 12-08-2022 Note Continue tricor [facility] 12-08-2022 Note Hypertension is well controlled 134/79 Continue lisinopril, coreg, imdur [facility] 12-08-2022 Note Tobacco use is- unwi lling to stop smoking at this time 10 min smoking cessation discussion [facility] 04-28-2022 Note CARDIAC STRESS TEST Requesting Physician: [...] Olya Malik M.D. Primary care physician [facility] 08-25-2021 Note CARDIAC STRESS TEST Requesting Physician: Procedure Date: Lexiscan Stress Test with Myocardial Perfusion Imaging performed at the [facility]. Informed consent was obtained. The patient [...] Myocardial perfusion images will be reported separately. [facility] Signed and Approved by: DR COLE HANEY 08/27/2021 05:26:00 [facility] Summary Purpose Family History No Family History Records FoundNo Family History Records FoundNo Family History Records FoundNo Family History Records FoundNo Family History Records Found Advance Directives No Advanced Directives Records FoundNo Advanced Directives Records FoundNo Advanced Directives Records FoundNo Advanced Directives Records FoundNo Advanced Directives Records Found Hospital Course Note MR#: [id number] [facility] Pt. Name: Taqueria Hdez Admitted: 04/01/2019 Discharged: [...] PRES and the patient was transferred to [facility] for MRI. HOSPITAL COURSE: 1. Hypertensive urgency, which is improved with his restarting his oral medication. The patient was told to continue ta (more content not included)... Additional Source Comments (unrecognized sect ion and content) No Status Records FoundNo Status Records FoundNo Status Records FoundNo Status Records FoundNo Status Records Found INFORMATION SOURCE (unrecogn ized section and content) DATE CREATED AUTHOR 06/06/2018 [facility] DATE CREATED AUTHOR AUTHOR'S EBONIE PIERRE 10/10/2019 [facility] DATE CREATED AUTHOR AUTHOR'S ORGANIZ ATION 05/14/2022 [facility] DATE CREATED AUTHOR AUTHOR'S ORGANIZ ATION 04/14/2023 [facility] DATE CREATED AUTHOR AUTHOR'S ORGANIZ ATION 09/25/2023 [facility] FOR RECORDS PERTAINING TO PATIENTS WHO ARE [...] BE BASED ON THE PRIMARY CLINICAL RECORDS. [employer] [facility]. provides no warranty or guarantee of the accuracy or completeness of information in this document.
[2023-10-25 09:17] LABS: Bilirubin Urine NEGATIVE (NEGATIVE); Blood Urine NEGATIVE (NEGATIVE); Clarity Urine CLEAR (CLEAR); Color Urine LT. YELLOW (YELLOW); Glucose Urine UA >=1000 mg/dL (NEGATIVE); Ketones Urine NEGATIVE (NEGATIVE); Leukocyte Esterase Urine NEGATIVE (NEGATIVE); Nitrite Urine POSITIVE (NEGATIVE); Protein Urine NEGATIVE (NEG/TRACE); Urobilinogen Urine 0.2 EU/dL (0.2-1.0)
[2023-10-25 09:23] LABS: Alanine Aminotransferase 35 U/L (16-63); Albumin Level 3.6 g/dL (3.4-5.0); Alkaline Phosphatase 79 U/L (46-116); Anion Gap 11.7; Aspartate Amino Transferase 16 U/L (15-37); BUN Creatinine Ratio 26.6; Bilirubin Total 0.3 mg/dL (0.2-1.0); Calcium 9.4 mg/dL (8.5-10.1); Carbon Dioxide 27.7 mmol/L (21.0-32.0); Chloride 100 mmol/L (98-107); Estimated GFR (African America >60 (>=60); Estimated GFR (Non-African Ame >60 (>=60); Globulin 3.6 g/dL; Glucose 300 mg/dL (74-106); Potassium 4.4 mmol/L (3.5-5.1); Sodium 135 mmol/L (136-145); Total Protein 7.2 g/dL (6.4-8.2)
--- NOTE | 2023-10-25 10:18 | XR_ITS ---
The [address] [address] Patient Name: TAQUERIA DRAKE MRN: [id number] date: 1965 Sex: M Assigned Patient Location: LAB Current Patient Location: LAB Accession/Order Number: [id number] Exam Date: 10/25/2023 10:25 Report Date: 10/25/2023 12:26 At the request of: MIRIAM HASSAN Procedure: XR chest 2V EXAM: XR chest 2V HISTORY: Weight Loss R63.4 COMPARISON: 12/27/2022 TECHNIQUE: Upright PA and lateral chest x-ray FINDINGS: There is been interval clearing of the lung bases. No acute infiltrate, effusion or pneumothorax is identified. The heart is not enlarged and the vasculature is not distended. The osseous structures are grossly intact. XR/XR chest 2V IMPRESSION: No acute infiltrate or evidence of cardiac decompensation. Interval clearing of the lung bases. Electronically authenticated by: NADEEM CASILLAS Date: 10/25/2023 12:26
[2023-10-25 10:36] LABS: Bacteria Urine MODERATE #/HPF (NONE SEEN); RBC Urine NONE SEEN #/HPF (0-2); WBC Urine 0-2 #/HPF (NONE SEEN)
[2023-10-25 10:37] LABS: Cast Seen? NONE SEEN #/LPF (NONE SEEN); Crystals Seen? None Seen #/HPF (None Seen); Mucus Urine NONE SEEN (NONE SEEN); Squamous Epithelial Cell Urine FEW #/LPF (NONE/RARE)
== END 2023-10-25 08:11 | disposition home or self-care (01) ==
PROVIDERS: PCP Nurse Practitioner Family; Visit Provider Nurse Practitioner Family
DX: N39.0 Urinary tract infection, site not specified (principal); E11.9 Type 2 diabetes mellitus without complications; R63.4 Abnormal weight loss
CPT/HCPCS: 36415; 71046; 80053; 81001; 87086; 87150; 87186

== ENCOUNTER 2023-11-12 06:45 | Outpatient (OUT) | payer SELFPAY ==
--- NOTE | 2023-11-12 06:47 | US_ITS ---
The [address] [address] Patient Name: TAQUERIA DRAKE MRN: [id number] date: 1965 Sex: M Assigned Patient Location: US Current Patient Location: US Accession/Order Number: [id number] Exam Date: 11/12/2023 07:04 Report Date: 11/12/2023 08:04 At the request of: MIRIAM HASSAN Procedure: US renal bladder EXAMINATION: US renal bladder HISTORY: Urinary Tract Infection , recurrent COMPARISON: No relevant comparison available. TECHNIQUE: Ultrasound examination was performed of the kidneys and urinary bladder. FINDINGS: RIGHT KIDNEY: No evidence of pelvocaliectasis, mass, or calculi. Normal renal cortical parenchymal echogenicity. Color Doppler demonstrates blood flow within the kidney. Kidney: 12.0 x 6.1 x 6.1 cm LEFT KIDNEY: Mild dilation of an inferior pole calyx. No mass or calculi. Normal renal cortical parenchymal echogenicity. Color Doppler demonstrates blood flow within the kidney. Kidney: 14.1 x 6.2 x 6.9 cm BLADDER: Abnormal wall thickening up to 11 mm. Post void residual: 18 mL URETERAL JETS: Visualized bilaterally. US/US renal bladder IMPRESSION: 1. Abnormal circumferential wall thickening of urinary bladder suggestive of cystitis. No appreciable bladder mass, stones, or diverticula. 2. Single mildly dilated calyx within inferior pole of left kidney; nonspecific. No stones, mass, or findings to suggest infection/inflammation. Electronically authenticated by: CRISSY NINO Date: 11/12/2023 08:04
--- OUTSIDE RECORDS SUMMARY | 2023-11-12 06:47 | XMS_ITS | CCD ---
Author Organization [facility] Care Team Providers Care Scientific Aide Name Role Phone TAMMY KENNY Unavailable Unavailable [...] BECKER Attending Unavailable Sparkle SIEGEL Attending Unavailable ALGHOTHANI, MOHAMAD Attending Unavailable NIRAVYAHAIRA Attending Unavailable NIRAVYAHAIRA Attending Unavailable ALGHOTHANI, MOHAMAD Attending Unavailable Allergies Allergy Classification Reported Allergen(s) Allergy Type Date of Onset Reaction(s) Facility (1 source) No Known Medication Allergies; Translations: [No Known Medication Allergies] Propensity to adverse reactions (disorder) [facility] Repository Problems Active Problems Problem Classification Problem Date Documented Date Episodic/Chronic Coronary atherosclerosis and other heart disease (10 sources) Atherosclerotic heart disease of [place] coronary artery with other forms of angina pectoris; Translations: [Atherosclerotic heart disease of [place] coronary artery without angina pectoris] Onset: 04-14-2022 Chronic Diabetes mellitus without complication (4 sources) Type 2 diabetes mellitus without complications; Translations: [TYPE 2 DM WITHOUT COMPLICATIONS] Onset: 01-12-2022 Chronic Disorders of lipid metabolism (3 sources) Hyperlipidemia, unspecified; Translations: [Mixed hyperlipidemia] Onset: 09-18-2021 Chronic Essential hypertension (2 sources) Essential (primary) hypertension; Translations: [Essential (primary) hypertension] Onset: 04-14-2022 Chronic Nonspecific chest pain (3 sources) Chest pain, unspecified; Translations: [Other chest pain] Onset: 06-02-2018 Episodic Other lower respiratory disease [...] Test Name Value Interpretation Reference Range Facility Orders Onlyon 11-05-2023 Orders Only [id number] Kirk Hdez 1965 M Date Provider Department [place] 11/05/2023 [id number], [facility] Heike Dove Family History Problem Relation Age of Onset Coronary artery disease Father Heart attack Father Other Father Coronary artery disease Maternal Grandfather Family Status - Relation Status Age at Father Maternal Grandfather Normal [facility] 36on 10-27-2023 36 PT INFORMED APPT MADE Normal [facility] Office Visiton 09-24-2023 Follow-up visit [id number] Kirk Hdez ry P 1965 M Date Provider Department Center 09/24/2023 YAHAIRA FERMIN Family History Problem Relation Age of Onset Coronary artery disease Father Heart attack Father Other Father Coronary artery disease Maternal Grandfather Family Status - Relation Status Age at Father Maternal Grandfather Level of Service:22755 UT OFFICE/OUTPATIENT ESTABLISHED MOD MDM 30 MIN [facility] [place] 04-13-2023 Consent [id number] [id number]#[address] [facility] In office Testingon 04-13-20 23 In office Testing [id number] 02 [id number]#1. 00TIFF [facility] Registrationon 04-13-2023 Registration [id number] [address] [id number]#1[address] [facility] Office Visiton 03-12-2023 Follow-up visit [id number] Kirk Hdez ry P 1965 M Date Provider Department Center 03/12/2023 [id number] MALIK Family History Problem Relation Age of Onset Coronary artery disease Father Heart attack Father Other Father Coronary artery disease Maternal Grandfather Family Status - Relation Status Age at Father Maternal Grandfather Level of Service:67566 UT OFFICE/OUTPATIENT ESTABLISHED LOW MDM 20-29 MIN [facility] Office Visiton 12-08-2022 Follow-up visit [id number] Kirk Hdez ry P 1965 M Date Provider Department Center 12/08/2022 YAHAIRA FERMIN Family History Problem Relation Age of Onset Coronary artery disease Father Heart attack Father Other Father Coronary artery disease Maternal Grandfather Family Status - Relation Status Age at Father Maternal Grandfather Level of Service:29996 UT OFFICE/OUTPATIENT ESTABLISHED MOD MDM 30-39 MIN Normal [facility] [place] 04-30-2022 Consent [id number]#1. 00CD:127 Normal [facility] In office Testingon 04-30-20 22 In office Testing [id number]#1. 00CD:127 Normal [facility] In office Testing [id number]#1. 00CD:127 Normal [facility] Registrationon 04-30-2022 Registration [id number]#1. 00CD:127 Normal [facility] LIPID PROFILEon 04-28-2022 CHOL-HDL RATIO NORM SEE BELOW Normal [facility] Comment on above: Result Comment: 3.3 - 4.4 LOW RISK 4.4 - 7.1 AVERAGE RISK 7.1 - 11.0 MODERATE RISK >11.0 HIGH RISK Performed By: #### L IPID ####[facility] [address] [place] [id number]. Sheila Thompson Cholesterol [Mass/Vol] 154 mg/dL Normal <=200 [facility] Comment on above: Performed By: #### L IPID ####[facility] [address] [place] [address]Dr. Sheila Thompson Cholesterol in HDL [Mass/Vol] 32 mg/dL Critically low 40-60 [facility] Comment on above: Performed By: #### L IPID ####[facility] [address] [place] [address]Dr. Sheila Thompson Cholesterol in LDL [Mass/Vol] 80.6 mg/dL Normal [facility] Comment on above: Performed By: #### L IPID ####[facility] [address] [place] [id number]. Sheila Thompson Cholesterol.total/Ch olesterol in HDL [Mass ratio] 4.8 {ratio} Normal [facility] Comment on above: Performed By: #### L IPID ####[facility] [address]hcv[address] [place] [id number]. Luzlan Thompson HDL NORMAL > or = 60 mg/dl - LO W CARDIOVASCULAR RISK <40 mg/dl - HIGH CARDIOVASCULAR RISK Normal [facility] Comment on above: Performed By: #### L IPID ####[facility] Iednqlafaz[address] [place] [id number]. Sheila Thompson LDL CALC NORMAL SEE BELOW Normal [facility] Comment on above: Result Comment: <100 mg/dl OPTIMAL 100 - 129 mg/dl NEAR OR ABOVE OPTIMAL 130 - 159 mg/dl BORDERLINE HIGH 160 - 189 mg/dl HIGH >190 mg/dl VERY HIGH Performed By: #### L IPID ####[facility] [address]ofl[address] [place] [id number]. Sheila Thompson Triglyceride [Mass/Vol] 207 mg/dL Critically high <=150 [facility] Comment on above: Performed By: #### L IPID ####[facility] [address]ekj[address] [place] [id number]. Sheila Thompson VLDL CALC 41.4 mg/dL Normal [facility] Comment on above: Performed By: #### L IPID ####[facility] [address]eea[address] [place] [id number]. Sheila Thompson ECHOCARDIO M/2D COMPLETEon 1 ECHOCARDIO M/2D COMPLETE Patient: TAQUERIA HDEZ Exam Date: 04/08/2022 : 1965 Gender:M Ordering : OLYA CLEMENTKASHMIRCARYN Admission #: [id number] Family : Order #: [id number] CLICK HERE TO VIEW EXAM ECHOCARDIOGRAM REPORT [...] M.D. on 04/15/2022 at 11:06 Normal [facility] DIRECT LDLon 01-12-2022 Cholesterol in LDL [Mass/Vol] 70 mg/dL Normal [facility] Comment on above: Performed By: #### L ABEL ROACH, CMP ####[facility] [address] [place] [address]Dr. Sheila Thompson DLDL NORMAL SEE BELOW Normal [facility] Comment on above: Result Comment: <100 mg/dl OPTIMAL 100 - 129 mg/dl NEAR OR ABOVE OPTIMAL 130 - 159 mg/dl BORDERLINE HIGH 160 - 189 mg/dl HIGH >190 mg/dl VERY HIGH Performed By: #### L ABEL ROACH, CMP ####[facility] [address]xpezll[address] [place] [address]Dr. Sheila Thompson GLYCOHEMOGLOBIN A1Con 2021 ADA RECOMMENDATION SEE BELOW Normal [facility] Comment on above: Result Comment: ADA RECOMMENDED LIMIT 4.0 - 6.0 ADA THERAPEUTIC TARGET < 7.0 ACTION SUGGESTED > 7.0 Performed By: #### A 1C ####[facility] [address]derpa[address] [place] [id number]. Sheila Thompson Glucose [Mass/Vol] 160 mg/dL Normal [facility] Comment on above: Performed By: #### A 1C ####[facility] [address]ylfju[address] [place] [address]Dr. Sheila Thompson HbA1c (Bld) [Mass fraction] 7.2 % Critically high 4.5-6.2 [facility] Comment on above: Performed By: #### A 1C ####[facility] [address]tyvwilza[address] [place] [id number]. Luzyoung Thompson LIPID PROFILEon 01-12-2022 CHOL-HDL RATIO NORM SEE BELOW Normal [facility] Comment on above: Result Comment: 3.3 - 4.4 LOW RISK 4.4 - 7.1 AVERAGE RISK 7.1 - 11.0 MODERATE RISK >11.0 HIGH RISK Performed By: #### L IPID, DLDL, CMP ####[facility] E[address]pssqzkg16[address] [place] [id number]. Sheila Thompson Cholesterol [Mass/Vol] 165 mg/dL Normal <=200 [facility] Comment on above: Performed By: #### L IPID, DLDL, CMP ####[facility] [address]jlfja[address] [place] [address]Dr. Sheila Thompson Cholesterol in HDL [Mass/Vol] 25 mg/dL Critically low 40-60 [facility] Comment on above: Performed By: #### L IPID, DLDL, CMP ####[facility] R[address]wcneczt[address] [place] [address]Dr. Sheila Thompson Cholesterol.total/Ch olesterol in HDL [Mass ratio] 6.6 {ratio} Normal [facility] Comment on above: Performed By: #### L IPID, DLDL, CMP ####[facility] F[address]xhljqbt[address] [place] [id number]. Sheila Thompson HDL NORMAL > or = 60 mg/dl - LO W CARDIOVASCULAR RISK <40 mg/dl - HIGH CARDIOVASCULAR RISK Normal [facility] Comment on above: Performed By: #### L IPID, DLDL, CMP ####[facility] [address]chzhkyib[address] [place] [id number]. Sheila Thompson Triglyceride [Mass/Vol] 502 mg/dL Critically high <=150 [facility] Comment on above: Performed By: #### L IPID, DLDL, CMP ####[facility] P[address]zgjabgj[address] [place] [id number]. Sheila Thompson PROF 14(COMP METB)on 022 Albumin [Mass/Vol] 3.9 g/dL Normal 3.4-5.0 [facility] Comment on above: Performed By: #### L IPID, DLDL, CMP ####[facility] [address]uan[address] [place] [address]Dr. Sheila Thompson Albumin/Globulin [Mass ratio] 1.1 {ratio} Normal [facility] Comment on above: Performed By: #### L IPID, DLDL, CMP ####[facility] [address]rakfgj[address] [place] [address]Dr. Sheila Thompson ALP [Catalytic activity/Vol] 71 U/L Normal 46-116 [facility] Comment on above: Performed By: #### L IPID, DLDL, CMP ####[facility] Xikzamslkb[address] [place], [place] [address]Dr. Sheila Thompson ALT [Catalytic activity/Vol] 47 U/L Normal 16-63 [facility] Comment on above: Performed By: #### L IPID, DLDL, CMP ####[facility] Kweiiahngg[address] [place], [place] [address]Dr. Sheila Thompson Anion gap [Moles/Vol] 12.9 mmol/L Normal [facility] Comment on above: Performed By: #### L IPID, DLDL, CMP ####[facility] Qmrmzrmakm[address] [place], [place] [address]Dr. Sheila Thompson AST [Catalytic activity/Vol] 21 U/L Normal 15-37 [facility] Comment on above: Performed By: #### L IPID, DLDL, CMP ####[facility] Gvgefbjcti[address] [place], [place] [address]Dr. Sheila Thompson Bilirubin [Mass/Vol] 0.2 mg/dL Normal 0.2-1.0 [facility] Comment on above: Performed By: #### L IPID, DLDL, CMP ####[facility] Nqmtigpati[address] [place], [place] [address]Dr. Sheila Thompson Calcium [Mass/Vol] 9.0 mg/dL Normal 8.5-10.1 [facility] Comment on above: Performed By: #### L IPID, DLDL, CMP ####[facility] [address]hmqtf[address] [place] [address]Dr. Sheila Thompson Chloride [Moles/Vol] 104 mmol/L Normal 98-107 [facility] Comment on above: Performed By: #### L IPID, DLDL, CMP ####[facility] Rbvnvyyaht[address] [place] [address]Dr. Sheila Thompson CO2 [Moles/Vol] 26.9 mmol/L Normal 21.0-32.[address] [facility] Comment on above: Performed By: #### L IPID, DLDL, CMP ####[facility] Snmketxljk35[address] [place] [address]Dr. Sheila Thompson Creatinine [Mass/Vol] 0.78 mg/dL Normal 0.70-1.30 [facility] Comment on above: Performed By: #### L IPID, DLDL, CMP ####[facility] Cjcoxdghig[address] [place], [place] [address]Dr. Sheila Jay EGFR-AF PERUVIAN >60 Normal >=[address] [facility] Comment on above: Performed By: #### L IPID, DLDL, CMP ####[facility] Zxoylqvurw[address] [place], [place] [address]Dr. Sheila Jay EGFR-NON AF PERUVIAN >60 Normal >=60 [facility] Comment on above: Performed By: #### L IPID, DLDL, CMP ####[facility] Qgwcyayuze12[address] [place], [place] [address]Dr. Sheila Jay Globulin (S) [Mass/Vol] 3.5 g/dL Normal [facility] Comment on above: Performed By: #### L IPID, DLDL, CMP ####[facility] [address]qodchjk[address] [place] [address]Dr. Luzyoung Jay Glucose [Mass/Vol] 171 mg/dL Critically high 74-106 T [facility] Comment on above: Performed By: #### L IPID, DLDL, CMP ####[facility] O[address]ajf[address] [place] [address]Dr. Sheila Thompson Potassium [Moles/Vol] 3.8 mmol/L Normal 3.5-5.1 [facility] Comment on above: Performed By: #### L IPID, DLDL, CMP ####[facility] Sxqqulopfh[address] [place], [place] [address]Dr. Sheila Thompson Protein [Mass/Vol] 7.4 g/dL Normal 6.4-8.2 [facility] Comment on above: Performed By: #### L IPID, DLDL, CMP ####[facility] Fbbuivkqhx[address] [place], [place] [address]Dr. Sheila Thompson Sodium [Moles/Vol] 140 mmol/L Normal 136-145 [facility] Comment on above: Performed By: #### L IPID, DLDL, CMP ####[facility] Yrisodbyqm[address] [place], [place] [address]Dr. Sheila Thompson Urea nitrogen [Mass/Vol] 16.0 mg/dL Normal 7.0-18.0 [facility] Comment on above: Performed By: #### L IPID, DLDL, CMP ####[facility] Gnffluienu[address] [place], [place] [address]Dr. Sheila Thompson Urea nitrogen/Creatinine [Mass ratio] 20.5 mg/mg Normal [facility] Comment on above: Performed By: #### L IPID, DLDL, CMP ####[facility] Mkiwqtilyx[address] [place], [place] [address]Dr. Sheila Thompson INSULINon 09-16-2021 Insulin 59.1 uIU/mL Critically high 2.6-24.[address] [facility] Comment on above: Performed By: #### I NSULIN ####[facility] Lamxltaquq[address] [place], [place] [address]Dr. Sheila Thompson CBC AUTO DIFFon 09-15-2021 BASO # 0.0 103/ul Normal 0.0-0.1 [facility] Comment on above: Performed By: #### C BC ####[facility] Kzjnf[address]cs[address] [place], [place] [address]Dr. Sheila Thompson Basophils/100 WBC (Bld) 0.4 % Normal 0.2-2.0 [facility] Comment on above: Performed By: #### C BC ####[facility] Sclxnkanfw34[address] [place] [id number]. Sheila Thompson EO # 0.2 103/ul Normal 0.0-0.7 [facility] Comment on above: Performed By: #### C BC ####[facility] Bwjxftkfge[address] [place] [id number]. Sheila Thompson Eosinophils/100 WBC (Bld) 1.9 % Normal 0.9-7.0 [facility] Comment on above: Performed By: #### C BC ####[facility] Scndpcwxsx[address] [place], [place] [address]Dr. Sheila Thompson Erythrocyte distribution width (RBC) [Ratio] 13.3 % Normal 11.0-15.0 [facility] Comment on above: Performed By: #### C BC ####[facility] Nzipdplamo[address] [place], [place] [address]Dr. Sheila Thompson Hematocrit (Bld) [Volume fraction] 44.5 % Normal 42.0-54.0 [facility] Comment on above: Performed By: #### C BC ####[facility] Hyzqhdmsgl[address] [place], [place] [address]Dr. Sheila Thompson Hemoglobin (Bld) [Mass/Vol] 14.7 g/dL Normal 14.0-18.0 [facility] Comment on above: Performed By: #### C BC ####[facility] Kujglcmbas[address] [place], [place] [address]Dr. Sheila Thompson IG # 0.02 10e3/ul Normal 0.00-0.03 [facility] Comment on above: Performed By: #### C BC ####[facility] [address]jwjqinfox[address] [place], [place] [address]Dr. Sheila Thompson IG % 0.2 % Normal 0.0-0.5 [facility] Comment on above: Performed By: #### C BC ####[facility] Fwcuvnoftw[address] [place], [place] [address]Dr. Sheila Thompson LYMPH # 2.2 103/ul Normal 1.2-3.8 [facility] Comment on above: Performed By: #### C BC ####[facility] [address]tkxs[address] [place] [id number]. Luzyoung Thompson Lymphocytes/100 WBC (Bld) 26.0 % Normal 20.5-60.0 [facility] Comment on above: Performed By: #### C BC ####[facility] V[address]neajv[address] [place] [id number]. Sheila Thompson MANUAL DIFF REQ NO Normal [facility] Comment on above: Performed By: #### C BC ####[facility] B[address]kqpmim[address] [place] [id number]. Sheila Thompson MCH (RBC) [Entitic mass] 30.6 pg Normal 25.9-34.0 [facility] Comment on above: Performed By: #### C BC ####[facility] Chuuautuox[address] [place], [place] [address]Dr. Sheila Thompson MCHC (RBC) [Mass/Vol] 33.0 g/dL Normal 29.9-35.2 [facility] Comment on above: Performed By: #### C BC ####[facility] [address]lxagp[address] [place] [id number]. Sheila Thompson MCV (RBC) [Entitic vol] 92.7 fL Normal 80.0-94.0 [facility] Comment on above: Performed By: #### C BC ####[facility] Igsrnroeyx[address] [place] [id number]. Sheila Thompson MONO # 1.0 103/ul Critically high 0.3-0.8 [facility] Comment on above: Performed By: #### C BC ####[facility] Cxfuaamnkd6[address] [place] [id number]. Sheila Thompson Monocytes/100 WBC (Bld) 11.9 % Normal 1.7-12.0 [facility] Comment on above: Performed By: #### C BC ####[facility] Trrjljbgvv[address] [place], [place] [address]Dr. Sheila Thompson NEUT # 5.0 103/ul Normal 1.4-6.5 [facility] Comment on above: Performed By: #### C BC ####[facility] Tlbpfdxfjq5232 [place], [place] [address]Ar. Sheila Thompson Neutrophils/100 WBC (Bld) 59.6 % Normal 43.0-75.0 [facility] Comment on above: Performed By: #### C BC ####[facility] [address]mr[address]ftzcc[address] [place] [id number]. Sheila Thompson Platelet mean volume (Bld) [Entitic vol] 10.4 fL Normal 9.5-13.5 [facility] Comment on above: Performed By: #### C BC ####[facility] [address]qu[address]zedb[address] [place] [id number]. Sheila Thompson PLT 245 103/ul Normal 150-450 [facility] Comment on above: Performed By: #### C BC ####[facility] [address]aczz[address] [place] [id number]. Sheila Thompson RBC 4.80 106/ul Normal 4.70-6.10 [facility] Comment on above: Performed By: #### C BC ####[facility] R[address]okzh[address] [place] [id number]. Sheila Thompson WBC 8.4 103/ul Normal 4.0-11.0 [facility] Comment on above: Performed By: #### C BC ####[facility] Fsmtpkcjvk[address] [place] [id number]. Sheila Thompson DIRECT LDLon 09-15-2021 Cholesterol in LDL [Mass/Vol] 74 mg/dL Normal [facility] Comment on above: Performed By: #### L IPID, DLDL, CMP, URIC #### [facility] [address] [place] [address] [address] Sheila Thompson DLDL NORMAL SEE BELOW Normal [facility] Comment on above: Result Comment: <100 mg/dl OPTIMAL 100 - 129 mg/dl NEAR OR ABOVE OPTIMAL 130 - 159 mg/dl BORDERLINE HIGH 160 - 189 mg/dl HIGH >190 mg/dl VERY HIGH Performed By: #### L IPID, DLDL, CMP, URIC #### [facility] [address] [place] [address] [address] Sheila Thompson GLYCOHEMOGLOBIN A1Con 2021 ADA RECOMMENDATION ADA THERAPEUTIC TARG ET 6.0 - 7.0 ACTION SUGGESTED > 7.0 Normal [facility] Comment on above: Performed By: #### A 1C #### [facility] [address] [place] [address] Dr. Sheila Thompson Glucose [Mass/Vol] 194 mg/dL Normal [facility] Comment on above: Performed By: #### A 1C #### [facility] [address] [place] [address] [address] Sheila Thompson HbA1c (Bld) [Mass fraction] 8.4 % Critically high <=6.0 [facility] Comment on above: Performed By: #### A 1C #### [facility] [address] [place] [address] Dr. Sheila Thompson LIPID PROFILEon 09-15-2021 CHOL-HDL RATIO NORM SEE BELOW Normal [facility] Comment on above: Result Comment: 3.3 - 4.4 LOW RISK 4.4 - 7.1 AVERAGE RISK 7.1 - 11.0 MODERATE RISK >11.0 HIGH RISK Performed By: #### L IPID, DLDL, CMP, URIC #### [facility] [address] [place] [address] Dr. Sheila Thompson Cholesterol [Mass/Vol] 223 mg/dL Critically high <=200 [facility] Comment on above: Performed By: #### L IPID, DLDL, CMP, URIC #### [facility] [address] [place] [address] Dr. Sheila Thompson Cholesterol in HDL [Mass/Vol] 24 mg/dL Critically low 40-60 [facility] Comment on above: Performed By: #### L IPID, DLDL, CMP, URIC #### [facility] [address] [place] [address] Dr. Sheila Thompson Cholesterol.total/Ch olesterol in HDL [Mass ratio] 9.3 {ratio} Normal [facility] Comment on above: Performed By: #### L IPID, DLDL, CMP, URIC #### [facility] [address] [place] [address] Dr. Sheila Thompson HDL NORMAL > or = 60 mg/dl - LO W CARDIOVASCULAR RISK <40 mg/dl - HIGH CARDIOVASCULAR RISK Normal [facility] Comment on above: Performed By: #### L IPID, DLDL, CMP, URIC #### [facility] [address] [place] [address] [address] Sheila Thompson LDL CALC NORMAL SEE BELOW Normal [facility] Comment on above: Result Comment: <100 mg/dl OPTIMAL 100 - 129 mg/dl NEAR OR ABOVE OPTIMAL 130 - 159 mg/dl BORDERLINE HIGH 160 - 189 mg/dl HIGH >190 mg/dl VERY HIGH Performed By: #### L IPID, DLDL, CMP, URIC #### [facility] [address] [address] [address] Sheila Thompson Triglyceride [Mass/Vol] 903 mg/dL Critically high <=150 [facility] Comment on above: Performed By: #### L IPID, DLDL, CMP, URIC #### [facility] [address] [address] [address] Sheila Thompson PROF 14(COMP METB)on 022 Albumin [Mass/Vol] 3.9 g/dL Normal 3.4-5.0 [facility] Comment on above: Performed By: #### L IPID, DLDL, CMP, URIC #### [facility] [address] [place] [address] Dr. Sheila Thompson Albumin/Globulin [Mass ratio] 1.1 {ratio} Normal [facility] Comment on above: Performed By: #### L IPID, DLDL, CMP, URIC #### [facility] [address] [address] [address] Sheila Thompson ALP [Catalytic activity/Vol] 76 U/L Normal 46-116 [facility] Comment on above: Performed By: #### L IPID, DLDL, CMP, URIC #### [facility] [address] [place] [address] Dr. Sheila Thompson ALT [Catalytic activity/Vol] 45 U/L Normal 16-63 [facility] Comment on above: Performed By: #### L IPID, DLDL, CMP, URIC #### [facility] [address] [address] [address] Sheila Thompson Anion gap [Moles/Vol] 12.3 mmol/L Normal [facility] Comment on above: Performed By: #### L IPID, DLDL, CMP, URIC #### [facility] [address] [address] [address] Sheila Thompson AST [Catalytic activity/Vol] 11 U/L Critically low 15-37 [facility] Comment on above: Performed By: #### L IPID, DLDL, CMP, URIC #### [facility] [address] [address] [address] Sheila Thompson Bilirubin [Mass/Vol] 0.2 mg/dL Normal 0.2-1.3 [facility] Comment on above: Performed By: #### L IPID, DLDL, CMP, URIC #### [facility] [address] [place] [address] Dr. Sheila Thompson Calcium [Mass/Vol] 8.4 mg/dL Critically low 8.5-10.1 [facility] Comment on above: Performed By: #### L IPID, DLDL, CMP, URIC #### [facility] [address] [place] [address] Dr. Sheila Thompson Chloride [Moles/Vol] 102 mmol/L Normal 98-107 [facility] Comment on above: Performed By: #### L IPID, DLDL, CMP, URIC #### [facility] [address] [address] [address] Sheila Thompson CO2 [Moles/Vol] 26.8 mmol/L Normal 22.0-30.0 [facility] Comment on above: Performed By: #### L IPID, DLDL, CMP, URIC #### [facility] [address] [place] [address] Dr. Sheila Thompson Creatinine [Mass/Vol] 0.67 mg/dL Normal 0.66-1.25 [facility] Comment on above: Performed By: #### L IPID, DLDL, CMP, URIC #### [facility] [address] [address] [address] Sheila Thompson EGFR-AF PERUVIAN >60 Normal >=[address] [facility] Comment on above: Performed By: #### L IPID, DLDL, CMP, URIC #### [facility] [address] [address] [address] Sheila Thompson EGFR-NON AF PERUVIAN >60 Normal >=60 [facility] Comment on above: Performed By: #### L IPID, DLDL, CMP, URIC #### [facility] [address] [address] [address] Sheila Thompson Globulin (S) [Mass/Vol] 3.6 g/dL Normal [facility] Comment on above: Performed By: #### L IPID, DLDL, CMP, URIC #### [facility] [address] [address] [address] Sheila Thompson Glucose [Mass/Vol] 192 mg/dL Critically high 74-106 T [facility] Comment on above: Performed By: #### L IPID, DLDL, CMP, URIC #### [facility] [address] [address] [address] Sheila Thompson Potassium [Moles/Vol] 4.1 mmol/L Normal 3.4-5.0 [facility] Comment on above: Performed By: #### L IPID, DLDL, CMP, URIC #### [facility] [address] [address] [address] Sheila Thompson Protein [Mass/Vol] 7.5 g/dL Normal 6.1-8.2 [facility] Comment on above: Performed By: #### L IPID, DLDL, CMP, URIC #### [facility] [address] [address] [address] Sheila Thompson Sodium [Moles/Vol] 137 mmol/L Normal 137-145 [facility] Comment on above: Performed By: #### L IPID, DLDL, CMP, URIC #### [facility] [address] [address] [address] Sheila Thompson Urea nitrogen [Mass/Vol] 16.0 mg/dL Normal 7.0-18.0 [facility] Comment on above: Performed By: #### L IPID, DLDL, CMP, URIC #### [facility] [address] [address] [address] Sheila Thompson Urea nitrogen/Creatinine [Mass ratio] 23.9 mg/mg Normal [facility] Comment on above: Performed By: #### L IPID, DLDL, CMP, URIC #### [facility] [address] [address] [address] Sheila Thompson URIC ACID SERUMon 09-15-2021 Urate [Mass/Vol] 2.4 mg/dL Critically low 3.5-8.5 [facility] Comment on above: Performed By: #### L IPID, DLDL, CMP, URIC #### [facility] [address] [place] [address] Dr. Sheila Thompson NM STRESS/REST MULTIon 08-25 NM STRESS/REST MULTI Patient: TAQUERIA HDEZ Exam Date: 08/25/2021 : 1965 Gender:M Ordering : OLYA MALIK Admission #: [id number] Family : Order #: [id number] CLICK HERE TO VIEW EXAM RADIOLOGY REPORT [...] MD on 08/26/2021 at 13:57 Normal [facility] BASIC METABOLIC PANELon 10- Calcium [Mass/Vol] 9.9 mg/dL Normal 8.6-10.3 [facility] Comment on above: Order Comment: No: D o not add to previous draw Performed By: #### 9 [id number], 82629 #### [facility] [address] [place] [id number], [facility] Chloride [Moles/Vol] 103 mmol/L Normal 98-107 [facility] Comment on above: Order Comment: No: D o not add to previous draw Performed By: #### 9 99, 09776 #### [facility] [address] [place] [address], [place] CO2 [Moles/Vol] 26 mmol/L Normal 21-31 [facility] Comment on above: Order Comment: No: D o not add to previous draw Performed By: #### 9 99, 29204 #### [facility] [address] [place] [address], [place] Creatinine [Mass/Vol] 0.72 mg/dL Normal 0.70-1.30 [facility] Comment on above: Order Comment: No: D o not add to previous draw Performed By: #### 9 99, 93045 #### [facility] [address] [place] [address], [place] GFR/1.73 sq M predicted among blacks MDRD (S/P/Bld) [Vol rate/Area] mL/min/{1.73_m2} Normal >60 [facility] Comment on above: Order Comment: No: D o not add to previous draw Performed By: #### 9 [id number], 82635 #### [facility] [address] [place] [address], [place] GFR/1.73 sq M predicted among non-blacks MDRD (S/P/Bld) [Vol rate/Area] mL/min/{1.73_m2} Normal >60 [facility] Comment on above: Order Comment: No: D o not add to previous draw Performed By: #### 9 [id number], 94025 #### [facility] [address] [place] [address], [place] Glucose [Mass/Vol] 152 mg/dL High 70-100 [facility] Comment on above: Order Comment: No: D o not add to previous draw Performed By: #### 9 9908, 05534 #### [facility] [address] [place] [address], [place] Potassium [Moles/Vol] 4.2 mmol/L Normal 3.5-5.1 [facility] Comment on above: Order Comment: No: D o not add to previous draw Performed By: #### 9 9908, 12293 #### [facility] [address] [place] [address], [place] Sodium [Moles/Vol] 135 mmol/L Low 136-145 [facility] Comment on above: Order Comment: No: D o not add to previous draw Performed By: #### 9 9908, 14060 #### [facility] [address] [place] [address], [place] Urea nitrogen [Mass/Vol] 8 mg/dL Normal 7-25 [facility] Comment on above: Order Comment: No: D o not add to previous draw Performed By: #### 9 9908, 57401 #### [facility] [address] [place] [address], [place] CBC W/DIFFon 04-01-2019 ABS BASOPHILS 0.0 10*3/uL Normal 0.0-0.2 [facility] Comment on above: Performed By: #### 5 0103 #### [facility] [address] [facility] ABS IMM GRANS 0.0 10*3/uL Normal 0.0-0.2 [facility] Comment on above: Performed By: #### 5 0103 #### [facility] [address] ABS NEUTROPHILS 7.6 10*3/uL Normal 1.6-7.[address] [facility] Comment on above: Performed By: #### 5 0103 #### [facility] [address] Basophils/100 WBC (Bld) 0.4 % Normal 0.0-1.0 [facility] Comment on above: Performed By: #### 5 0103 #### [facility] [address] Eosinophils (Bld) [#/Vol] 0.2 10*3/uL Normal 0.0-0.5 [facility] Comment on above: Performed By: #### 5 0103 #### [facility] [address] [place] [address], [facility] Eosinophils/100 WBC (Bld) 1.3 % Normal 0.0-6.0 [facility] Comment on above: Performed By: #### 5 0103 #### [facility] [address] Erythrocyte distribution width (RBC) [Ratio] 13.2 % Normal 11.5-15.0 [facility] Comment on above: Performed By: #### 5 0103 #### [facility] [address] Hematocrit (Bld) [Volume fraction] 47.5 % Normal 39.0-50.0 [facility] Comment on above: Performed By: #### 5 0103 #### [facility] [address] [place] [address], [facility] Hemoglobin (Bld) [Mass/Vol] 15.2 g/dL Normal 13.0-17.0 [facility] Comment on above: Performed By: #### 5 0103 #### [facility] [address] [facility] [place] [address], [facility] IMMATURE GRANS 0.4 % Normal 0.0-1.0 [facility] Comment on above: Performed By: #### 5 0103 #### [facility] [address] [facility] [place] [address], [facility] Lymphocytes (Bld) [#/Vol] 2.2 10*3/uL Normal 1.2-4.0 [facility] Comment on above: Performed By: #### 5 0103 #### [facility] [address] [place] [address], [facility] Lymphocytes/100 WBC (Bld) 19.6 % Low 20.0-45.0 [facility] Comment on above: Performed By: #### 5 0103 #### [facility] [address] [facility] [place] [address], [facility] MCH (RBC) [Entitic mass] 29.9 pg Normal 27.0-33.0 [facility] Comment on above: Performed By: #### 5 0103 #### [facility] [address] [facility] [place] [address], [facility] MCHC (RBC) [Mass/Vol] 32.0 g/dL Normal 32.0-35.0 [facility] Comment on above: Performed By: #### 5 3 #### [facility] [address] [place] [address], [facility] MCV (RBC) [Entitic vol] 93.3 fL Normal 82.0-98.0 [facility] Comment on above: Performed By: #### 5 0103 #### [facility] [address] [place] [address], [facility] Monocytes (Bld) [#/Vol] 1.3 10*3/uL High 0.1-1.0 [facility] Comment on above: Performed By: #### 5 0103 #### [facility] [address] [facility] [place] [address], [facility] MONOS 11.4 % Normal 5.0-12.0 [facility] Comment on above: Performed By: #### 5 010 #### [facility] [address] [facility] [place] [address], [facility] Neutrophils/100 WBC (Bld) 66.9 % Normal 40.0-72.0 [facility] Comment on above: Performed By: #### 5 102 #### [facility] [address] [facility] [place] [address], [facility] Nucleated RBC/100 WBC (Bld) [Ratio] 0 % Normal 0-0 [facility] Comment on above: Performed By: #### 5 3 #### [facility] [address] [place] [address], [facility] PLAT CNT 223 10*3/uL Normal 150-400 The [facility] Comment on above: Performed By: #### 5 3 #### [facility] [address] [place] [address], [facility] RBC (Bld) [#/Vol] 5.09 10*6/uL Normal 4.20-5.70 [facility] Comment on above: Performed By: #### 5 102 #### [facility] [address] [place] [address], [place] WBC (Bld) [#/Vol] 11.39 10*3/uL High 4.00-10.60 [facility] Comment on above: Performed By: #### 5 0103 #### [facility] [address] History and Physicalon 04-01 History and Physical MR#: [id number] [facility] Pt. Name: Taqueria Hdez Admitted: 04/01/2019 Date of : 1965 Attending Physician: Julius Ivy MD Room #: [id number] Discharge Date: HISTORY AND PHYSICAL CHIEF COMPLAINT: Headache, elevated blood pressure. HISTORY OF PRESENT ILLNESS: This is a 54-year-old male, who was transferred from [facility] this morning for further evaluation. He presented there last night complaining of a headache. He states his headache has been on the left side of his head radiating to the back. It has been constantly present since 1 p.m. yesterday. It was partially alleviated by morphine that he received at [place], but has returned since. He states his blood pressure has been high as well. It has been in the 160s all week despite taking his medications. Normally, his blood pressure has been systolic within 140s. He reports compliance with his medications. When he presented to [facility] ER, his blood pressure reportedly was 188/104. [...] Denies fevers, chills, or cough. In the [facility], he had CT imaging of his head done, which showed some findings concerning for possible moyer. Recommendation was made for the patient to have an MRI and it is not available at [facility]. PAST MEDICAL HISTORY: Hypertension, hyperlipidemia, GERD, [...] normal. LABORATORY STUDIES: Lab studies reviewed from [facility] from March 31, 2019. BMP; sodium [...] P Julius Ivy MD Date Dict: 04/01/2019/04:16 Loida/Julius Ivy MD Date Trans: 04/01/2019 04:53 A/todd [id number] Normal [facility] LIVER BATTERYon 04-01-2019 Albumin [Mass/Vol] 4.6 g/dL Normal 3.5-5.7 [facility] Comment on above: Order Comment: No: D o not add to previous draw Performed By: #### 9 9908, 89612 #### [facility] [address] [place] [address], [place] ALKALINE PHOSPH 62 IU/L Normal 34-104 [facility] Comment on above: Order Comment: No: D o not add to previous draw Performed By: #### 9 9908, 44499 #### [facility] [address] [place] [address], [place] ALT [Catalytic activity/Vol] 53 U/L High 7-52 [facility] Comment on above: Order Comment: No: D o not add to previous draw Performed By: #### 9 9908, 41948 #### [facility] [address] [place] [address], [place] AST [Catalytic activity/Vol] 32 U/L Normal 13-39 [facility] Comment on above: Order Comment: No: D o not add to previous draw Performed By: #### 9 9908, 59672 #### [facility] [address] [place] [address], [place] Bilirubin [Mass/Vol] 0.4 mg/dL Normal 0.3-1.0 [facility] Comment on above: Order Comment: No: D o not add to previous draw Performed By: #### 9 9908, 39757 #### [facility] [address] [place] [address], [place] Bilirubin.direct [Mass/Vol] 0.0 mg/dL Normal 0.0-0.2 [facility] Comment on above: Order Comment: No: D o not add to previous draw Performed By: #### 9 9908, 20404 #### [facility] [address] [place] [address], [place] Protein [Mass/Vol] 7.5 g/dL Normal 6.0-8.3 [facility] Comment on above: Order Comment: No: D o not add to previous draw Performed By: #### 9 9908, 73722 #### [id number] [place] [address] MRI BRAIN WO CONTRASTon 03-14 MRI BRAIN WO CONTRAST [facility] Department of Radiology [address] [place] [id number] ======== Patient Name: TAQUERIA HDEZ : 1965 Sex: M Age: Race: White Pt. Location: [id number] Patient Status: D Ordered Date: 04/01/2019 4:00:00 [...] findings. Electronically signed by:Tianna Orozco. Transcribed by: [email or web address], User Resident: ALTHEA BLACKMON Electronically Signed by: TIANNA OROZCO @ 04/02/2019 03:18 PM I personally read this/these film(s) with this resident Normal [facility] Comment on above: Order Comment: Other , evaluate for pres, has hypertension and headache, had decreased attenuation on ct head occiptal lobe and bilateral parietal lobes CBC With Platelet No Differe ntialon 06-02-2018 Erythrocyte distribution width Auto Ratio (RBC) 13.6 fL Normal 11.5-15.0 [facility] Hematocrit Auto Volume Fraction (Bld) 44.7 % Normal 37.0-54.0 [facility] Hemoglobin mass conc (Bld) 14.7 g/dL Normal 12.5-16.5 [facility] MCH Auto Entitic mass (RBC) 29.9 pg Normal 26.0-35.0 [facility] MCHC Auto mass conc (RBC) 32.9 % Normal 32.0-34.5 [facility] MCV Auto Entitic volume (RBC) 91.0 fL Normal 80.0-99.9 [facility] Platelet mean volume Auto Entitic volume (Bld) 10.0 fL Normal 7.0-12.0 [facility] Platelets Auto #/vol (Bld) 240 E9/L Normal 130-450 [facility] RBC Auto #/vol (Bld) 4.91 E12/L Normal 3.80-5.80 [facility] WBC Auto #/vol (Bld) 7.5 E9/L Normal 4.5-11.5 [facility] Comprehensive Metabolic Pane vince 06-02-2018 Albumin mass conc 4.4 g/dL Normal 3.5-5.2 [facility] ALP enzyme act/vol 67 U/L Normal 40-129 [facility] ALT enzyme act/vol 54 U/L High 0-40 [facility] Anion gap 3 molar conc 13 mmol/L Normal 7-16 [facility] AST enzyme act/vol 40 U/L High 0-39 [facility] Bilirubin mass conc 0.3 mg/dL Normal 0.0-1.2 [facility] Calcium mass conc 9.1 mg/dL Normal 8.6-10.2 [facility] Chloride molar conc 100 mmol/L Normal 98-107 [facility] CO2 molar conc 24 mmol/L Normal 22-29 [facility] Creatinine mass conc 0.9 mg/dL Normal 0.7-1.2 [facility] GFR/1.73 sq M predicted among blacks MDRD vol rate/area (S/P/Bld) mL/min/{1.73_m2} Normal [facility] GFR/1.73 sq M predicted among non-blacks MDRD vol rate/area (S/P/Bld) mL/min/{1.73_m2} Normal >=60 [facility] Comment on above: Result Comment: Radiotelegraph Operator Servicer leonard Kidney Disease: less than 60 ml/min/1.73 sq.m. Kidney Failure: less than 15 ml/min/1.73 sq.m.Results valid for patients 18 years and older. Glucose mass conc 161 mg/dL High 74-99 [facility] Potassium molar conc 3.8 mmol/L Normal 3.5-5.0 [facility] Protein mass conc 7.5 g/dL Normal 6.4-8.3 [facility] Sodium molar conc 137 mmol/L Normal 132-146 [facility] Urea nitrogen mass conc 11 mg/dL Normal 6-20 [facility] Troponinon 06-02-2018 Troponin I.cardiac mass conc ng/mL Normal 0.00-0.03 [facility] Comment on above: Result Comment: TROP ONIN T BLOOD LEVELS: 0.03 ng/mL Upper Reference Limit0.04 - 0.09 ng/mL Possible myocardial injury >= 0.10 ng/mL Myocardial injury XR CHEST PORTABLEon 06-02-20 XR CHEST PORTABLE Patient : 1965Age: 53 yearsGender: MaleOrder Date: 06/02/2018 8:30 AMExam: XR CHEST PORTABLENumber of Views: 1Indication: Chest painComparison: NoneFindings: There is a normal cardiomediastinal silhouette with clearlungs.. No pneumothorax, pleural effusion or focal areas of airspaceconsolidation. IMPRESSION: No radiographic evidence of acute cardiopulmonary disease.Interpreted by:ANDREIA Whartonigned by:Jarrell Blankenship MD06/02/18inal result Normal [facility] Encounters Encounter Date Encounter Type Care Provider Facility Start: 11-05-2023 End: 11-05-2023 ambulatory [facility] Start: 09-24-2023 End: 09-24-2023 ambulatory [facility] Start: 04-13-2023 End: 04-14-2023 ambulatory Sparkle SIEGEL [facility] Start: 03-12-2023 End: 03-12-2023 ambulatory [facility] Start: 12-08-2022 End: 12-08-2022 ambulatory [facility] Start: 04-30-2022 End: 05-01-2022 ambulatory Flip BECKER [facility] Start: 04-28-2022 End: 04-29-2022 ambulatory [facility] Facility: Start: 04-08-2022 End: 04-09-2022 ambulatory OLYA MALIK Facility:[facility] Start: 01-12-2022 End: 01-13-2022 ambulatory MIRIAM HASSAN Facility:[facility] Start: 09-15-2021 End: 09-16-2021 ambulatory MIRIAM HASSAN Facility:[facility] Start: 08-25-2021 End: 08-26-2021 ambulatory OLYA MALIK Facility:[facility] Start: 08-20-2021 ambulatory MIRIAM HASSAN Facility: [facility] Start: 04-01-2019 End: 04-01-2019 Patient encounter procedure LUÍS FLORES Facility:[facility] Start: 06-02-2018 End: 06-02-2018 Emergency department patient visit TAMMY KENNY [facility] Procedures Date Procedure Procedure Detail Performing Clinician Start: 09-15-2021 PSA screening ERENDIRASTORMY Mariscal SHIVAMJOSE G Comment on above: Performed By: #### P [facility] #### [facility] [address] [place] [address] Dr. Sheila Thompson Start: 06-02-2018 Blood count complete automated TAMMY KENNY Start: 06-02-2018 Comprehensive metabolic panel TAMMY KENNY Start: 06-02-2018 TROPONIN TAMMY DE LA TORRE Start: 06-02-2018 Radiologic exam ches t single view TAMMY KENNY Start: 06-02-2018 TELEMETRY MONITORING AR FERNANDO KENNY Start: 06-02-2018 EKG 12-LEAD TAMMY SMI TH Start: 06-02-2018 SALINE LOCK IV TAMMY S MITH Payers Date Payer Category Payer Private Health Insurance [id number] 2018 Unknown [id number] 1965 Unknown [id number] 2.16. [id number] 1965 Unknown [id number] 2.16.8 [id number] 1965 Unknown [id number] 2.16.84 [id number] 1965 Unknown [id number] 2.16.84 [id number] 1965 Unknown [id number] 2.16.84 [id number] 1965 Unknown [id number] 2.16.84 [id number] 1965 Unknown [id number] 2.16.84 [id number] 1965 Unknown [id number] 2.16.84 [id number] 1965 Unknown [id number] 2.16.84 [id number] 1965 Unknown [id number] 2.16.8 [id number] 1958 Private Health Insurance [id number] 1958 Private Health Insurance [id number] 1958 Self-pay [id number] Clinical Notes 08-25-2021 to 09-24-2023 Note Date & Type Note Facility 09-24-2023 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 F/U with PCP today CXR in light of h/o tobacco dependence [facility] 09-24-2023 Note Hypertension is unco ntrolled in office. Continue coreg and lisinopril [facility] 09-24-2023 Note Coronary artery dise ase is stable Continue GDMT- ASA, lipitor, coreg continue risk factor modifications- heart healthy diet, regular exercise as tolerated and continue all medications. [facility] 09-24-2023 Note [facility] C[facility] PRO[facility] [...] or hospitalization. 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 [facility] 09-24-2023 Note Patient here for [...] All other systems reviewed and are negative. [facility] 03-12-2023 Note [facility]TP CARDIOLOGY PROGR [...] importance of smo (more content not included)... [facility] 03-12-2023 Note Patient here for fol low up [facility] admission in December 2022 for chest pain and pneumonia. 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 Still has intermittent chest pain. Had routine labs a few weeks ago. [facility] 12-08-2022 Note Patient here for 6 m o follow up CAD, hypertension, and hyperlipidemia. Had stress test and lipid profile in Apr 2022 after last apt. Says his chest pain is still intermittent and no worse than usual. C/o SOB at rest. 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 Review of Systems Cardiovascular: Positive for chest pain (intermittent), leg swelling and palpitations. Respiratory: Positive for shortness of breath. Musculoskeletal: Positive for arthritis, back pain, joint pain and myalgias. Neurological: Positive for headaches. All other systems reviewed and are negative. [facility] 12-08-2022 Note [facility]TP CARDIOLOGY PROGR ESS NOTE HPI: Taqueria Hdez is a 57 y.o. male here for routine 6 month f/U for CAD s/p PCI, HTN, HPL, and tobacco dependence HPI Currently denied any activity limiting symptoms. Denied chest pain, shortness of breath, orthopnea, or palpitations. States he is not willing to quit smoking. 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 Review of Systems Constitutional: Negative. Respiratory: Negative. Cardiovascular: Negative. Neurological: Negative. All other systems reviewed and are negative. Previous note per Dr Malki 09/2021 56 yo male past medical history [...] risk factor modificati (more content not included)... [facility] 12-08-2022 Note Coronary artery dise ase is stable Continue GDMT- ASA, lipitor, coreg, tricor and imdur continue risk factor modifications- heart healthy diet, regular exercise as tolerated and continue all medications. [facility] [facility] 12-08-2022 Note Continue tricor [facility] 12-08-2022 Note Hypertension is well controlled 134/79 Continue lisinopril, coreg, imdur [facility] 12-08-2022 Note Tobacco use is- unwi lling to stop smoking at this time 10 min smoking cessation discussion [facility] 04-28-2022 Note CARDIAC STRESS TEST [...] Olya Malik M.D. Primary care physician [facility] 08-25-2021 Note CARDIAC STRESS TEST Requesting Physician: Procedure Date: Lexiscan Stress Test with Myocardial Perfusion Imaging performed at the [facility]. Informed consent was obtained. The patient [...] Myocardial perfusion images will be reported separately. [facility] Signed and Approved by: DR COLE HANEY 08/27/2021 05:26:00 [facility] Summary Purpose Family History No Family History Records FoundNo Family History Records FoundNo Family History Records FoundNo Family History Records FoundNo Family History Records Found Advance Directives No Advanced Directives Records FoundNo Advanced Directives Records FoundNo Advanced Directives Records FoundNo Advanced Directives Records FoundNo Advanced Directives Records Found Hospital Course Note MR#: [id number] [facility] Pt. Name: Taqueria Hdez Admitted: 04/01/2019 [...] PRES and the patient was transferred to [facility] for MRI. HOSPITAL COURSE: 1. [...] section and content) DATE CREATED AUTHOR 06/06/2018 [facility] DATE CREATED AUTHOR AUTHOR'S ORGANIZ ATION 10/10/2019 [facility] DATE CREATED AUTHOR AUTHOR'S ORGANIZ ATION 05/14/2022 [facility] DATE CREATED AUTHOR AUTHOR'S ORGANIZ ATION 04/14/2023 [facility] DATE CREATED AUTHOR AUTHOR'S ORGANIZ ATION 11/08/2023 [facility] FOR RECORDS PERTAINING [...] BE BASED ON THE PRIMARY CLINICAL RECORDS. [employer] provides no warranty or guarantee of the accuracy or completeness of information in this document.
== END 2023-11-12 06:46 | disposition home or self-care (01) ==
LOC: US 06:45
PROVIDERS: PCP Nurse Practitioner Family; Visit Provider Nurse Practitioner Family
DX: N39.0 Urinary tract infection, site not specified (principal)
CPT/HCPCS: 76770

== ENCOUNTER 2023-11-22 08:17 | Outpatient (OUT) | payer SELFPAY ==
--- OUTSIDE RECORDS SUMMARY | 2023-11-22 08:34 | XMS_ITS | CCD ---
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; Translations: [Atherosclerotic heart disease of [place] coronary artery without angina pectoris] Onset: 04-14-2022 [...] Range Facility Orders Onlyon 11-05-2023 Orders Only [id number] Kirk Hdez 1965 M Date Provider Department [place] 11/05/2023 [id number], HISTORICAL [facility] Heike Dove Family History Problem Relation Age of Onset Coronary artery disease Father Heart attack Father Other Father Coronary artery disease Maternal Grandfather Family Status - Relation Status Age at Father Maternal Grandfather Normal [facility] 36on 10-27-2023 36 PT INFORMED APPT MADE [facility] Office Visiton 09-24-2023 Follow-up visit [id number] Kirk Hdez ry P 1965 M Date Provider Department Center 09/24/2023 YAHAIRA FERMIN Family History Problem Relation Age of Onset Coronary artery disease Father Heart attack Father Other Father Coronary artery disease Maternal Grandfather Family Status - Relation Status Age at Father Maternal Grandfather Level of Service:86917 [place] OFFICE/OUTPATIENT ESTABLISHED MOD MDM 30 MIN [facility] [place] 04-13-2023 Consent [id number]#1. 00TIFF [facility] In office Testingon 04-13-20 23 In office Testing [id number]#1. 00TIFF [facility] Registrationon 04-13-2023 Registration [id number]#1. 00TIFF [facility] Office Visiton 03-12-2023 Follow-up visit [id number] Kirk Hdez ry P 1965 M Date Provider Department Center 03/12/2023 3848-[id number] MALIK Family History Problem Relation Age of Onset Coronary artery disease Father Heart attack Father Other Father Coronary artery disease Maternal Grandfather Family Status - Relation Status Age at Father Maternal Grandfather Level of Service:20856 [place] OFFICE/OUTPATIENT ESTABLISHED LOW MDM 20-29 MIN [facility] Office Visiton 12-08-2022 Follow-up visit [id number] Kirk Hdez ry P 1965 M Date Provider Department Center 12/08/2022 YAHAIRA FERMIN Family History Problem Relation Age of Onset Coronary artery disease Father Heart attack Father Other Father Coronary artery disease Maternal Grandfather Family Status - Relation Status Age at Father Maternal Grandfather Level of Service:56013 [place] OFFICE/OUTPATIENT ESTABLISHED MOD MDM 30-39 MIN Normal [facility] [place] 04-30-2022 Consent [id number]#1. 00CD:127 Normal [facility] In office Testingon 04-30-20 22 In office Testing [id number]#1. 00CD:127 Normal [facility] In office Testing [id number]#1. 00CD:127 Normal [facility] Registrationon 04-30-2022 Registration [id number]#1. 00CD:127 Normal [facility] LIPID PROFILEon 04-28-2022 CHOL-HDL RATIO NORM SEE BELOW Normal [facility] Comment on above: Result Comment: 3.3 - 4.4 LOW RISK 4.4 - 7.1 AVERAGE RISK 7.1 - 11.0 MODERATE RISK >11.0 HIGH RISK Performed By: #### L IPID ####[facility] [address] [place] [id number]. Sheila Thompson Cholesterol [Mass/Vol] 154 mg/dL Normal <=200 [facility] Comment on above: Performed By: #### L IPID ####[facility] [address] [place] [address]Dr. Sheila Thompson Cholesterol in HDL [Mass/Vol] 32 mg/dL Critically low 40-60 [facility] Comment on above: Performed By: #### L IPID ####[facility] [address] [place] [address]Dr. Sheila Thompson Cholesterol in LDL [Mass/Vol] 80.6 mg/dL Normal [facility] Comment on above: Performed By: #### L IPID ####[facility] [address] [place] [id number]. Sheila Thompson Cholesterol.total/Ch olesterol in HDL [Mass ratio] 4.8 {ratio} Normal [facility] Comment on above: Performed By: #### L IPID ####[facility] [address] [place] [id number]. Luzlan Thompson HDL NORMAL > or = 60 mg/dl - LO W CARDIOVASCULAR RISK <40 mg/dl - HIGH CARDIOVASCULAR RISK Normal [facility] Comment on above: Performed By: #### L IPID ####[facility] [address] [place] [id number]. Sheila Thompson LDL CALC NORMAL SEE BELOW Normal [facility] Comment on above: Result Comment: <100 mg/dl OPTIMAL 100 - 129 mg/dl NEAR OR ABOVE OPTIMAL 130 - 159 mg/dl BORDERLINE HIGH 160 - 189 mg/dl HIGH >190 mg/dl VERY HIGH Performed By: #### L IPID ####[facility] Rowiqgenlt[address] [place] [phone]. Sheila Thompson Triglyceride [Mass/Vol] 207 mg/dL Critically high <=150 [facility] Comment on above: Performed By: #### L IPID ####[facility] [address] [place] [id number]. Sheila Thompson VLDL CALC 41.4 mg/dL Normal [facility] Comment on above: Performed By: #### L IPID ####[facility] [address] [place] [phone]. Sheila Thompson ECHOCARDIO M/2D COMPLETEon 1 ECHOCARDIO M/2D COMPLETE Patient: TAQUERIA HDEZ Exam Date: 04/08/2022 : 1965 Gender:M Ordering : OLYA CLEMENTKASHMIRCARYN Admission #: [id number] Family : Order #: [id number] CLICK HERE TO VIEW EXAM ECHOCARDIOGRAM REPORT [...] M.D. on 04/15/2022 at 11:06 Normal [facility] DIRECT LDLon 01-12-2022 Cholesterol in LDL [Mass/Vol] 70 mg/dL Normal [facility] Comment on above: Performed By: #### L ABEL ROACH, CMP ####[facility] [address] [place] [address]Dr. Sheila Thompson DLDL NORMAL SEE BELOW Normal [facility] Comment on above: Result Comment: <100 mg/dl OPTIMAL 100 - 129 mg/dl NEAR OR ABOVE OPTIMAL 130 - 159 mg/dl BORDERLINE HIGH 160 - 189 mg/dl HIGH >190 mg/dl VERY HIGH Performed By: #### L ABEL ROACH, CMP ####[facility] [address] [place] [address]Dr. Sheila Thompson GLYCOHEMOGLOBIN A1Con 2021 ADA RECOMMENDATION SEE BELOW Normal [facility] Comment on above: Result Comment: ADA RECOMMENDED LIMIT 4.0 - 6.0 ADA THERAPEUTIC TARGET < 7.0 ACTION SUGGESTED > 7.0 Performed By: #### A 1C ####[facility] [address] [place] [phone]. Sheila Thompson Glucose [Mass/Vol] 160 mg/dL Normal [facility] Comment on above: Performed By: #### A 1C ####[facility] [address] [place] [address]Dr. Sheila Thompson HbA1c (Bld) [Mass fraction] 7.2 % Critically high 4.5-6.2 [facility] Comment on above: Performed By: #### A 1C ####[facility] [address] [place] [id number]. Luzyoung Thompson LIPID PROFILEon 01-12-2022 CHOL-HDL RATIO NORM SEE BELOW Normal [facility] Comment on above: Result Comment: 3.3 - 4.4 LOW RISK 4.4 - 7.1 AVERAGE RISK 7.1 - 11.0 MODERATE RISK >11.0 HIGH RISK Performed By: #### L IPID, DLDL, CMP ####[facility] [address] [place] [phone]. Sheila Thompson Cholesterol [Mass/Vol] 165 mg/dL Normal <=200 [facility] Comment on above: Performed By: #### L IPID, DLDL, CMP ####[facility] [address] [place] [address]Dr. Sheila Thompson Cholesterol in HDL [Mass/Vol] 25 mg/dL Critically low 40-60 [facility] Comment on above: Performed By: #### L IPID, DLDL, CMP ####[facility] [address] [place] [address]Dr. Sheila Thompson Cholesterol.total/Ch olesterol in HDL [Mass ratio] 6.6 {ratio} Normal [facility] Comment on above: Performed By: #### L IPID, DLDL, CMP ####[facility] [address] [place] [phone]. Sheila Thompson HDL NORMAL > or = 60 mg/dl - LO W CARDIOVASCULAR RISK <40 mg/dl - HIGH CARDIOVASCULAR RISK Normal [facility] Comment on above: Performed By: #### L IPID, DLDL, CMP ####[facility] [address]qrn[address] [place] [phone]. Sheila Thompson Triglyceride [Mass/Vol] 502 mg/dL Critically high <=150 [facility] Comment on above: Performed By: #### L IPID, DLDL, CMP ####[facility] [address]qpe[address] [place] [phone]. Sheila Thompson PROF 14(COMP METB)on 022 Albumin [Mass/Vol] 3.9 g/dL Normal 3.4-5.0 [facility] Comment on above: Performed By: #### L IPID, DLDL, CMP ####[facility] [address] [place] [address]Dr. Sheila Thompson Albumin/Globulin [Mass ratio] 1.1 {ratio} Normal [facility] Comment on above: Performed By: #### L IPID, DLDL, CMP ####[facility] Inik[address]fd[address] [place] [address]Dr. Sheila Thompson ALP [Catalytic activity/Vol] 71 U/L Normal 46-116 [facility] Comment on above: Performed By: #### L IPID, DLDL, CMP ####[facility] [address] [place], [place] [address]Dr. Sheila Thompson ALT [Catalytic activity/Vol] 47 U/L Normal 16-63 [facility] Comment on above: Performed By: #### L IPID, DLDL, CMP ####[facility] Rae[address] [place], [place] [address]Dr. Sheila Thompson Anion gap [Moles/Vol] 12.9 mmol/L Normal [facility] Comment on above: Performed By: #### L IPID, DLDL, CMP ####[facility] Rmgciz[address] [place], [place] [address]Dr. Sheila Thompson AST [Catalytic activity/Vol] 21 U/L Normal 15-37 [facility] Comment on above: Performed By: #### L IPID, DLDL, CMP ####[facility] Lsisdpr[address] [place], [place] [address]Dr. Sheila Thompson Bilirubin [Mass/Vol] 0.2 mg/dL Normal 0.2-1.0 [facility] Comment on above: Performed By: #### L IPID, DLDL, CMP ####[facility] Rcfitw[address] [place], [place] [address]Dr. Sheila Thompson Calcium [Mass/Vol] 9.0 mg/dL Normal 8.5-10.1 [facility] Comment on above: Performed By: #### L IPID, DLDL, CMP ####[facility] [address] [place] [address]Dr. Sheila Thompson Chloride [Moles/Vol] 104 mmol/L Normal 98-107 [facility] Comment on above: Performed By: #### L IPID, DLDL, CMP ####[facility] Xbm[address]iiotg6[address] [place] [address]Dr. Sheila Thompson CO2 [Moles/Vol] 26.9 mmol/L Normal 21.0-32.0 [facility] Comment on above: Performed By: #### L IPID, DLDL, CMP ####[facility] [address] [place] [address]Dr. Sheila Thompson Creatinine [Mass/Vol] 0.78 mg/dL Normal 0.70-1.30 [facility] Comment on above: Performed By: #### L IPID, DLDL, CMP ####[facility] [address]utf[address] [place], [place] [address]Dr. Sheila Jay EGFR-AF GIBRALTARIAN >60 Normal >=60 [facility] Comment on above: Performed By: #### L IPID, DLDL, CMP ####[facility] [address]fxpt[address] [place], [place] [address]Dr. Sheila Jay EGFR-NON AF GIBRALTARIAN >60 Normal >=60 [facility] Comment on above: Performed By: #### L IPID, DLDL, CMP ####[facility] Rlxzeb[address] [place], [place] [address]Dr. Sheila Jay Globulin (S) [Mass/Vol] 3.5 g/dL Normal [facility] Comment on above: Performed By: #### L IPID, DLDL, CMP ####[facility] Ig[address]aesm[address] [place] [address]Dr. Luzyoung Jay Glucose [Mass/Vol] 171 mg/dL Critically high 74-106 [facility] Comment on above: Performed By: #### L IPID, DLDL, CMP ####[facility] Btdzt[address]ipv[address] [place] [address]Dr. Sheila Thompson Potassium [Moles/Vol] 3.8 mmol/L Normal 3.5-5.1 [facility] Comment on above: Performed By: #### L IPID, DLDL, CMP ####[facility] [address] [place], [place] [address]Dr. Sheila Thompson Protein [Mass/Vol] 7.4 g/dL Normal 6.4-8.2 [facility] Comment on above: Performed By: #### L IPID, DLDL, CMP ####[facility] [address] [place], [place] [address]Dr. Sheila Thompson Sodium [Moles/Vol] 140 mmol/L Normal 136-145 [facility] Comment on above: Performed By: #### L IPID, DLDL, CMP ####[facility] [address]ugf[address] [place], [place] [address]Dr. Sheila Thompson Urea nitrogen [Mass/Vol] 16.0 mg/dL Normal 7.0-18.0 [facility] Comment on above: Performed By: #### L IPID, DLDL, CMP ####[facility] K[address]qrds[address]xu[address] [place], [place] [address]Dr. Sheila Thompson Urea nitrogen/Creatinine [Mass ratio] 20.5 mg/mg Normal [facility] Comment on above: Performed By: #### L IPID, DLDL, CMP ####[facility] Anlui[address] [place], [place] [address]Dr. Sheila Thompson INSULINon 09-16-2021 Insulin 59.1 uIU/mL Critically high 2.6-24.9 [facility] Comment on above: Performed By: #### I NSULIN ####[facility] [address] [place], [place] [address]Dr. Sheila Thompson CBC AUTO DIFFon 09-15-2021 BASO # 0.0 103/ul Normal 0.0-0.1 [facility] Comment on above: Performed By: #### C BC ####[facility] Gyrplokas[address] [place], [place] [address]Dr. Sheila Thompson Basophils/100 WBC (Bld) 0.4 % Normal 0.2-2.0 [facility] Comment on above: Performed By: #### C BC ####[facility] Un[address]rs[address]xg[address] [place] [id number]. Sheila Thompson EO # 0.2 103/ul Normal 0.0-0.7 [facility] Comment on above: Performed By: #### C BC ####[facility] Oenleetotf[address] [place] [phone]. Sheila Thompson Eosinophils/100 WBC (Bld) 1.9 % Normal 0.9-7.0 [facility] Comment on above: Performed By: #### C BC ####[facility] Lfd[address] [place], [place] [address]Dr. Sheila Thompson Erythrocyte distribution width (RBC) [Ratio] 13.3 % Normal 11.0-15.0 [facility] Comment on above: Performed By: #### C BC ####[facility] [address] [place], [place] [address]Dr. Sheila Thompson Hematocrit (Bld) [Volume fraction] 44.5 % Normal 42.0-54.0 [facility] Comment on above: Performed By: #### C BC ####[facility] [address]xs[address] [place], [place] [address]Dr. Sheila Thompson Hemoglobin (Bld) [Mass/Vol] 14.7 g/dL Normal 14.0-18.0 [facility] Comment on above: Performed By: #### C BC ####[facility] [address]fr[address] [place], [place] [address]Dr. Sheila Thompson IG # 0.02 10e3/ul Normal 0.00-0.03 [facility] Comment on above: Performed By: #### C BC ####[facility] H[address]elltc[address] [place], [place] [address]Dr. Sheila Thompson IG % 0.2 % Normal 0.0-0.5 [facility] Comment on above: Performed By: #### C BC ####[facility] [address]av[address]ce[address] [place], [place] [address]Dr. Sheila Thompson LYMPH # 2.2 103/ul Normal 1.2-3.8 [facility] Comment on above: Performed By: #### C BC ####[facility] [address]zjtj[address] [place] [id number]. Luzyoung Thompson Lymphocytes/100 WBC (Bld) 26.0 % Normal 20.5-60.0 [facility] Comment on above: Performed By: #### C BC ####[facility] Yormxy[address]tb[address] [place] [id number]. Sheila Thompson MANUAL DIFF REQ NO Normal [facility] Comment on above: Performed By: #### C BC ####[facility] [address]wof[address] [place] [id number]. Sheila Thompson MCH (RBC) [Entitic mass] 30.6 pg Normal 25.9-34.0 [facility] Comment on above: Performed By: #### C BC ####[facility] Emtds[address] [place], [place] [address]Dr. Sheila Thompson MCHC (RBC) [Mass/Vol] 33.0 g/dL Normal 29.9-35.2 [facility] Comment on above: Performed By: #### C BC ####[facility] [address]fven[address] [place] [id number]. Sheila Thompson MCV (RBC) [Entitic vol] 92.7 fL Normal 80.0-94.0 [facility] Comment on above: Performed By: #### C BC ####[facility] E[address]lsicxkn[address] [place] [id number]. Sheila Thompson MONO # 1.0 103/ul Critically high 0.3-0.8 [facility] Comment on above: Performed By: #### C BC ####[facility] [address]vpbwyccu[address] [place] [id number]. Sheila Thompson Monocytes/100 WBC (Bld) 11.9 % Normal 1.7-12.0 [facility] Comment on above: Performed By: #### C BC ####[facility] Bj[address]akmwd[address] [place], [place] [address]Dr. Sheila Thompson NEUT # 5.0 103/ul Normal 1.4-6.5 [facility] Comment on above: Performed By: #### C BC ####[facility] [address] [place], [place] [address]Zh. Sheila Thompson Neutrophils/100 WBC (Bld) 59.6 % Normal 43.0-75.0 [facility] Comment on above: Performed By: #### C BC ####[facility] [address] [place] [id number]. Sheila Thompson Platelet mean volume (Bld) [Entitic vol] 10.4 fL Normal 9.5-13.5 [facility] Comment on above: Performed By: #### C BC ####[facility] [address]gtzz[address] [place] [id number]. Sheila Thompson PLT 245 103/ul Normal 150-450 [facility] Comment on above: Performed By: #### C BC ####[facility] [address]zygce[address] [place] [id number]. Sheila Thompson RBC 4.80 106/ul Normal 4.70-6.10 [facility] Comment on above: Performed By: #### C BC ####[facility] Q[address]xblv[address] [place] [id number]. Sheila Thompson WBC 8.4 103/ul Normal 4.0-11.0 [facility] Comment on above: Performed By: #### C BC ####[facility] [address]bufcg[address] [place] [id number]. Sheila Thompson DIRECT LDLon 09-15-2021 Cholesterol in LDL [Mass/Vol] 74 mg/dL Normal [facility] Comment on above: Performed By: #### L IPID, DLDL, CMP, URIC #### [facility] [address] [place] [address] [address] Sheila Thompson DLDL NORMAL SEE BELOW Normal [facility] Comment on above: Result Comment: <100 mg/dl OPTIMAL 100 - 129 mg/dl NEAR OR ABOVE OPTIMAL 130 - 159 mg/dl BORDERLINE HIGH 160 - 189 mg/dl HIGH >190 mg/dl VERY HIGH Performed By: #### L IPID, DLDL, CMP, URIC #### [facility] [address] [place] [address] [address] Sheila Thompson GLYCOHEMOGLOBIN A1Con 2021 ADA RECOMMENDATION ADA THERAPEUTIC TARG ET 6.0 - 7.0 ACTION SUGGESTED > 7.0 Normal [facility] Comment on above: Performed By: #### A 1C #### [facility] [address] [place] [address] Dr. Sheila Thompson Glucose [Mass/Vol] 194 mg/dL Normal [facility] Comment on above: Performed By: #### A 1C #### [facility] [address] [place] [address] [address] Sheila Thompson HbA1c (Bld) [Mass fraction] 8.4 % Critically high <=6.0 [facility] Comment on above: Performed By: #### A 1C #### [facility] [address] [place] [address] Dr. Sheila Thompson LIPID PROFILEon 09-15-2021 CHOL-HDL RATIO NORM SEE BELOW Normal [facility] Comment on above: Result Comment: 3.3 - 4.4 LOW RISK 4.4 - 7.1 AVERAGE RISK 7.1 - 11.0 MODERATE RISK >11.0 HIGH RISK Performed By: #### L IPID, DLDL, CMP, URIC #### [facility] [address] [place] [address] Dr. Sheila Thompson Cholesterol [Mass/Vol] 223 mg/dL Critically high <=200 [facility] Comment on above: Performed By: #### L IPID, DLDL, CMP, URIC #### [facility] [address] [place] [address] Dr. Sheila Thompson Cholesterol in HDL [Mass/Vol] 24 mg/dL Critically low 40-60 [facility] Comment on above: Performed By: #### L IPID, DLDL, CMP, URIC #### [facility] [address] [place] [address] Dr. Sheila Thompson Cholesterol.total/Ch olesterol in HDL [Mass ratio] 9.3 {ratio} Normal [facility] Comment on above: Performed By: #### L IPID, DLDL, CMP, URIC #### [facility] [address] [place] [address] Dr. Sheila Thompson HDL NORMAL > or = 60 mg/dl - LO W CARDIOVASCULAR RISK <40 mg/dl - HIGH CARDIOVASCULAR RISK Normal [facility] Comment on above: Performed By: #### L IPID, DLDL, CMP, URIC #### [facility] [address] [place] [address] [address] Sheila Thompson LDL CALC NORMAL SEE BELOW Normal [facility] Comment on above: Result Comment: <100 mg/dl OPTIMAL 100 - 129 mg/dl NEAR OR ABOVE OPTIMAL 130 - 159 mg/dl BORDERLINE HIGH 160 - 189 mg/dl HIGH >190 mg/dl VERY HIGH Performed By: #### L IPID, DLDL, CMP, URIC #### [facility] [address] [address] [address] Sheila Thompson Triglyceride [Mass/Vol] 903 mg/dL Critically high <=150 [facility] Comment on above: Performed By: #### L IPID, DLDL, CMP, URIC #### [facility] [address] [address] [address] Sheila Thompson PROF 14(COMP METB)on 022 Albumin [Mass/Vol] 3.9 g/dL Normal 3.4-5.0 [facility] Comment on above: Performed By: #### L IPID, DLDL, CMP, URIC #### [facility] [address] [place] [address] Dr. Sheila Thompson Albumin/Globulin [Mass ratio] 1.1 {ratio} Normal [facility] Comment on above: Performed By: #### L IPID, DLDL, CMP, URIC #### [facility] [address] [address] [address] Sheila Thompson ALP [Catalytic activity/Vol] 76 U/L Normal 46-116 [facility] Comment on above: Performed By: #### L IPID, DLDL, CMP, URIC #### [facility] [address] [place] [address] Dr. Sheila Thompson ALT [Catalytic activity/Vol] 45 U/L Normal 16-63 [facility] Comment on above: Performed By: #### L IPID, DLDL, CMP, URIC #### [facility] [address] [address] [address] Sheila Thompson Anion gap [Moles/Vol] 12.3 mmol/L Normal [facility] Comment on above: Performed By: #### L IPID, DLDL, CMP, URIC #### [facility] [address] [address] [address] Sheila Thompson AST [Catalytic activity/Vol] 11 U/L Critically low 15-37 [facility] Comment on above: Performed By: #### L IPID, DLDL, CMP, URIC #### [facility] [address] [address] [address] Sheila Thompson Bilirubin [Mass/Vol] 0.2 mg/dL Normal 0.2-1.3 [facility] Comment on above: Performed By: #### L IPID, DLDL, CMP, URIC #### [facility] [address] [place] [address] Dr. Sheila Thompson Calcium [Mass/Vol] 8.4 mg/dL Critically low 8.5-10.1 [facility] Comment on above: Performed By: #### L IPID, DLDL, CMP, URIC #### [facility] [address] [place] [address] Dr. Sheila Thompson Chloride [Moles/Vol] 102 mmol/L Normal 98-107 [facility] Comment on above: Performed By: #### L IPID, DLDL, CMP, URIC #### [facility] [address] [address] [address] Sheila Thompson CO2 [Moles/Vol] 26.8 mmol/L Normal 22.0-30.0 [facility] Comment on above: Performed By: #### L IPID, DLDL, CMP, URIC #### [facility] [address] [place] [address] Dr. Sheila Thompson Creatinine [Mass/Vol] 0.67 mg/dL Normal 0.66-1.25 [facility] Comment on above: Performed By: #### L IPID, DLDL, CMP, URIC #### [facility] [address] [address] [address] Sheila Thompson EGFR-AF GIBRALTARIAN >60 Normal >=60 [facility] Comment on above: Performed By: #### L IPID, DLDL, CMP, URIC #### [facility] [address] [address] [address] Sheila Thompson EGFR-NON AF GIBRALTARIAN >60 Normal >=60 [facility] Comment on above: Performed By: #### L IPID, DLDL, CMP, URIC #### [facility] [address] [address] [address] Sheila Thompson Globulin (S) [Mass/Vol] 3.6 g/dL Normal [facility] Comment on above: Performed By: #### L IPID, DLDL, CMP, URIC #### [facility] [address] [address] [address] Sheila Thompson Glucose [Mass/Vol] 192 mg/dL Critically high 74-106 [facility] Comment on above: Performed By: #### L IPID, DLDL, CMP, URIC #### [facility] [address] [address] [address] Sheila Thompson Potassium [Moles/Vol] 4.1 mmol/L Normal 3.4-5.0 [facility] Comment on above: Performed By: #### L IPID, DLDL, CMP, URIC #### [facility] [address] [address] [address] Sheila Thompson Protein [Mass/Vol] 7.5 g/dL Normal 6.1-8.2 [facility] Comment on above: Performed By: #### L IPID, DLDL, CMP, URIC #### [facility] [address] [address] [address] Sheila Thompson Sodium [Moles/Vol] 137 mmol/L Normal 137-145 [facility] Comment on above: Performed By: #### L IPID, DLDL, CMP, URIC #### [facility] [address] [address] [address] Sheila Thompson Urea nitrogen [Mass/Vol] 16.0 mg/dL Normal 7.0-18.0 [facility] Comment on above: Performed By: #### L IPID, DLDL, CMP, URIC #### [facility] [address] [address] [address] Sheila Thompson Urea nitrogen/Creatinine [Mass ratio] 23.9 mg/mg Normal [facility] Comment on above: Performed By: #### L IPID, DLDL, CMP, URIC #### [facility] [address] [address] [address] Sheila Thompson URIC ACID SERUMon 09-15-2021 Urate [Mass/Vol] 2.4 mg/dL Critically low 3.5-8.5 [facility] Comment on above: Performed By: #### L IPID, DLDL, CMP, URIC #### [facility] [address] [place] [address] Dr. Sheila Thompson NM STRESS/REST MULTIon 08-25 NM STRESS/REST MULTI Patient: TAQUERIA HDEZ Exam Date: 08/25/2021 : 1965 Gender:M Ordering : OLYA MALIK Admission #: [id number] Family : Order #: [id number] CLICK HERE TO VIEW EXAM RADIOLOGY REPORT [...] MD on 08/26/2021 at 13:57 Normal [facility] BASIC METABOLIC PANELon 10- Calcium [Mass/Vol] 9.9 mg/dL Normal 8.6-10.3 [facility] Comment on above: Order Comment: No: D o not add to previous draw Performed By: #### 9 9909, [id number] #### [facility] [address] [place] [id number], [facility] Chloride [Moles/Vol] 103 mmol/L Normal 98-107 [facility] Comment on above: Order Comment: No: D o not add to previous draw Performed By: #### 9 99, [id number] #### [facility] [address] [place] [address], [place] CO2 [Moles/Vol] 26 mmol/L Normal 21-31 [facility] Comment on above: Order Comment: No: D o not add to previous draw Performed By: #### 9 99, 33162 #### [facility] [address] [place] [address], [place] Creatinine [Mass/Vol] 0.72 mg/dL Normal 0.70-1.30 [facility] Comment on above: Order Comment: No: D o not add to previous draw Performed By: #### 9 99, 55823 #### [facility] [address] [place] [address], [place] GFR/1.73 sq M predicted among blacks MDRD (S/P/Bld) [Vol rate/Area] mL/min/{1.73_m2} Normal >60 [facility] Comment on above: Order Comment: No: D o not add to previous draw Performed By: #### 9 9908, 41385 #### [facility] [address] [place] [address], [place] GFR/1.73 sq M predicted among non-blacks MDRD (S/P/Bld) [Vol rate/Area] mL/min/{1.73_m2} Normal >60 [facility] Comment on above: Order Comment: No: D o not add to previous draw Performed By: #### 9 9908, 16374 #### [facility] [address] [place] [address], [place] Glucose [Mass/Vol] 152 mg/dL High 70-100 [facility] Comment on above: Order Comment: No: D o not add to previous draw Performed By: #### 9 9908, 46912 #### [facility] [address] [place] [address], [place] Potassium [Moles/Vol] 4.2 mmol/L Normal 3.5-5.1 [facility] Comment on above: Order Comment: No: D o not add to previous draw Performed By: #### 9 9908, 20108 #### [facility] [address] [place] [address], [place] Sodium [Moles/Vol] 135 mmol/L Low 136-145 [facility] Comment on above: Order Comment: No: D o not add to previous draw Performed By: #### 9 9908, 06411 #### [facility] [address] [place] [address], [place] Urea nitrogen [Mass/Vol] 8 mg/dL Normal 7-25 [facility] Comment on above: Order Comment: No: D o not add to previous draw Performed By: #### 9 9908, 91446 #### [facility] [address] [place] [address], [place] CBC W/DIFFon 04-01-2019 ABS BASOPHILS 0.0 10*3/uL Normal 0.0-0.2 [facility] Comment on above: Performed By: #### 5 0103 #### [facility] [address] [facility]. [address] ABS IMM GRANS 0.0 10*3/uL Normal 0.0-0.2 [facility] Comment on above: Performed By: #### 5 0103 #### [facility] [address] ABS NEUTROPHILS 7.6 10*3/uL Normal 1.6-7.6 [facility] Comment on above: Performed By: #### 5 0103 #### [facility] [address] Basophils/100 WBC (Bld) 0.4 % Normal 0.0-1.0 [facility] Comment on above: Performed By: #### 5 0103 #### [facility] [address] Eosinophils (Bld) [#/Vol] 0.2 10*3/uL Normal 0.0-0.5 [facility] Comment on above: Performed By: #### 5 0103 #### [facility] [address] [place] [address], [facility] Eosinophils/100 WBC (Bld) 1.3 % Normal 0.0-6.0 [facility] Comment on above: Performed By: #### 5 0103 #### [facility] [address] Erythrocyte distribution width (RBC) [Ratio] 13.2 % Normal 11.5-15.0 [facility] Comment on above: Performed By: #### 5 0103 #### [facility] [address] Hematocrit (Bld) [Volume fraction] 47.5 % Normal 39.0-50.0 [facility] Comment on above: Performed By: #### 5 0103 #### [facility] [address] [place] [address], [facility] Hemoglobin (Bld) [Mass/Vol] 15.2 g/dL Normal 13.0-17.0 [facility] Comment on above: Performed By: #### 5 0103 #### [facility] [address] [facility] [place] [address], [facility] IMMATURE GRANS 0.4 % Normal 0.0-1.0 [facility] Comment on above: Performed By: #### 5 0103 #### [facility] [address] [facility] [place] [address], [facility] Lymphocytes (Bld) [#/Vol] 2.2 10*3/uL Normal 1.2-4.0 [facility] Comment on above: Performed By: #### 5 0103 #### [facility] [address] [facility] [place] [address], [facility] Lymphocytes/100 WBC (Bld) 19.6 % Low 20.0-45.0 [facility] Comment on above: Performed By: #### 5 0103 #### [facility] [address] [facility] [place] [address], [facility] MCH (RBC) [Entitic mass] 29.9 pg Normal 27.0-33.0 [facility] Comment on above: Performed By: #### 5 0103 #### [facility] [address] [facility] [place] [address], [facility] MCHC (RBC) [Mass/Vol] 32.0 g/dL Normal 32.0-35.0 [facility] Comment on above: Performed By: #### 5 3 #### [facility] [address] [place] [address], [facility] MCV (RBC) [Entitic vol] 93.3 fL Normal 82.0-98.0 [facility] Comment on above: Performed By: #### 5 0103 #### [facility] [address] [place] [address], [facility] Monocytes (Bld) [#/Vol] 1.3 10*3/uL High 0.1-1.0 [facility] Comment on above: Performed By: #### 5 0103 #### [facility] [address] [facility] [place] [address], [facility] MONOS 11.4 % Normal 5.0-12.0 [facility] Comment on above: Performed By: #### 5 010 #### [facility] [address] [facility] [place] [address], [facility] Neutrophils/100 WBC (Bld) 66.9 % Normal 40.0-72.0 [facility] Comment on above: Performed By: #### 5 102 #### [facility] [address] [facility] [place] [address], [facility] Nucleated RBC/100 WBC (Bld) [Ratio] 0 % Normal 0-0 [facility] Comment on above: Performed By: #### 5 3 #### [facility] [address] [place] [address], [facility] PLAT CNT 223 10*3/uL Normal 150-400 [facility] Comment on above: Performed By: #### 5 3 #### [facility] [address] [place] [address], [facility] RBC (Bld) [#/Vol] 5.09 10*6/uL Normal 4.20-5.70 [facility] Comment on above: Performed By: #### 5 102 #### [facility] [address] [place] [address], [place] WBC (Bld) [#/Vol] 11.39 10*3/uL High 4.00-10.60 [facility] Comment on above: Performed By: #### 5 0103 #### [facility] [address] History and Physicalon 04-01 History and Physical MR#: [id number] [facility] Pt. Name: Taqueria Hdez Admitted: 04/01/2019 Date of : 1965 Attending Physician: Julius Ivy MD Room #: [id number] Discharge Date: HISTORY AND PHYSICAL CHIEF COMPLAINT: Headache, elevated blood pressure. HISTORY OF PRESENT ILLNESS: This is a 54-year-old male, who was transferred from [facility] this morning for further evaluation. He presented there last night complaining of a headache. He states his headache has been on the left side of his head radiating to the back. It has been constantly present since 1 p.m. yesterday. It was partially alleviated by morphine that he received at [place], but has returned since. He states his blood pressure has been high as well. It has been in the 160s all week despite taking his medications. Normally, his blood pressure has been systolic within 140s. He reports compliance with his medications. When he presented to [place] ER, his blood pressure reportedly was 188/104. [...] Denies fevers, chills, or cough. In the [facility], he had CT imaging of his head done, which showed some findings concerning for possible moyer. Recommendation was made for the patient to have an MRI and it is not available at [facility]. PAST MEDICAL HISTORY: Hypertension, hyperlipidemia, [...] normal. LABORATORY STUDIES: Lab studies reviewed from [facility] from March 31, 2019. BMP; [...] Ivy MD Date Trans: 04/01/2019 04:53 A/todd [id number] Normal The [facility] LIVER BATTERYon 04-01-2019 Albumin [Mass/Vol] 4.6 g/dL Normal 3.5-5.7 [facility] Comment on above: Order Comment: No: D o not add to previous draw Performed By: #### 9 9908, 61296 #### [facility] [address] [place] [address], [place] ALKALINE PHOSPH 62 IU/L Normal 34-104 [facility] Comment on above: Order Comment: No: D o not add to previous draw Performed By: #### 9 9908, 09695 #### [facility] [address] [place] [address], [place] ALT [Catalytic activity/Vol] 53 U/L High 7-52 [facility] Comment on above: Order Comment: No: D o not add to previous draw Performed By: #### 9 9908, 59028 #### [facility] [address] [place] [address], [place] AST [Catalytic activity/Vol] 32 U/L Normal 13-39 [facility] Comment on above: Order Comment: No: D o not add to previous draw Performed By: #### 9 9908, 16822 #### [facility] [address] [place] [address], [place] Bilirubin [Mass/Vol] 0.4 mg/dL Normal 0.3-1.0 [facility] Comment on above: Order Comment: No: D o not add to previous draw Performed By: #### 9 9908, 48504 #### [facility] [address] [place] [address], [place] Bilirubin.direct [Mass/Vol] 0.0 mg/dL Normal 0.0-0.2 Comment on above: Order Comment: No: D o not add to previous draw Performed By: #### 9 9908, 44032 #### [facility] [address] [place] [address], [place] Protein [Mass/Vol] 7.5 g/dL Normal 6.0-8.3 [facility] Comment on above: Order Comment: No: D o not add to previous draw Performed By: #### 9 9908, 75273 #### [id number] [place] [address] MRI BRAIN WO CONTRASTon 03-14 MRI BRAIN WO CONTRAST [facility] Department of Radiology [address] [place] [id number] ======== Patient Name: TAQUERIA HDEZ : 1965 Sex: M Age: Race: White Pt. Location: [id number] Patient Status: D Ordered Date: 04/01/2019 4:00:00 [...] findings. Electronically signed by:Tianna Orozco. Transcribed by: [email or web address], User Resident: ALTHEA BLACKMON Electronically Signed by: TIANNA OROZCO @ 04/02/2019 03:18 PM I personally read this/these film(s) with this resident Normal [facility] Comment on above: Order Comment: Other , evaluate for pres, has hypertension and headache, had decreased attenuation on ct head occiptal lobe and bilateral parietal lobes CBC With Platelet No Differe ntialon 06-02-2018 Erythrocyte distribution width Auto Ratio (RBC) 13.6 fL Normal 11.5-15.0 [facility] Hematocrit Auto Volume Fraction (Bld) 44.7 % Normal 37.0-54.0 [facility] Hemoglobin mass conc (Bld) 14.7 g/dL Normal 12.5-16.5 [facility] MCH Auto Entitic mass (RBC) 29.9 pg Normal 26.0-35.0 [facility] MCHC Auto mass conc (RBC) 32.9 % Normal 32.0-34.5 [facility] MCV Auto Entitic volume (RBC) 91.0 fL Normal 80.0-99.9 [facility] Platelet mean volume Auto Entitic volume (Bld) 10.0 fL Normal 7.0-12.0 [facility] Platelets Auto #/vol (Bld) 240 E9/L Normal 130-450 [facility] RBC Auto #/vol (Bld) 4.91 E12/L Normal 3.80-5.80 [facility] WBC Auto #/vol (Bld) 7.5 E9/L Normal 4.5-11.5 [facility] Comprehensive Metabolic Pane vince 06-02-2018 Albumin mass conc 4.4 g/dL Normal 3.5-5.2 [facility] ALP enzyme act/vol 67 U/L Normal 40-129 [facility] ALT enzyme act/vol 54 U/L High 0-40 [facility] Anion gap 3 molar conc 13 mmol/L Normal 7-16 [facility] AST enzyme act/vol 40 U/L High 0-39 [facility] Bilirubin mass conc 0.3 mg/dL Normal 0.0-1.2 [facility] Calcium mass conc 9.1 mg/dL Normal 8.6-10.2 [facility] Chloride molar conc 100 mmol/L Normal 98-107 [facility] CO2 molar conc 24 mmol/L Normal 22-29 [facility] Creatinine mass conc 0.9 mg/dL Normal 0.7-1.2 [facility] GFR/1.73 sq M predicted among blacks MDRD vol rate/area (S/P/Bld) mL/min/{1.73_m2} Normal [facility] GFR/1.73 sq M predicted among non-blacks MDRD vol rate/area (S/P/Bld) mL/min/{1.73_m2} Normal >=60 [facility] Comment on above: Result Comment: Chief Security And Safety Officer leonard Kidney Disease: less than 60 ml/min/1.73 sq.m. Kidney Failure: less than 15 ml/min/1.73 sq.m.Results valid for patients 18 years and older. Glucose mass conc 161 mg/dL High 74-99 [facility] Potassium molar conc 3.8 mmol/L Normal 3.5-5.0 [facility] Protein mass conc 7.5 g/dL Normal 6.4-8.3 [facility] Sodium molar conc 137 mmol/L Normal 132-146 [facility] Urea nitrogen mass conc 11 mg/dL Normal 6-20 [facility] Troponinon 06-02-2018 Troponin I.cardiac mass conc ng/mL Normal 0.00-0.03 [facility] Comment on above: Result Comment: TROP ONIN [...] by:ANDREIA Whartonigned by:Jarrell Blankenship MD06/02/18inal result Normal [facility] Encounters Encounter Date Encounter Type Care Provider Facility Start: 11-05-2023 End: 11-05-2023 ambulatory [facility] Start: 09-24-2023 End: 09-24-2023 ambulatory [facility] Start: 04-13-2023 End: 04-14-2023 ambulatory Sparkle SIEGEL [facility] Start: 03-12-2023 End: 03-12-2023 ambulatory [facility] Start: 12-08-2022 End: 12-08-2022 ambulatory [facility] Start: 04-30-2022 End: 05-01-2022 ambulatory Flip BECKER [facility] Start: 04-28-2022 End: 04-29-2022 ambulatory [facility] Facility: Start: 04-08-2022 End: 04-09-2022 ambulatory OLYA MALIK Facility:[facility] Start: 01-12-2022 End: 01-13-2022 ambulatory MIRIAM HASSAN Facility:[facility] Start: 09-15-2021 End: 09-16-2021 ambulatory MIRIAM HASSAN Facility:[facility] Start: 08-25-2021 End: 08-26-2021 ambulatory OLYA MALIK Facility:[facility] Start: 08-20-2021 ambulatory MIRIAM HASSAN Facility: [facility] Start: 04-01-2019 End: 04-01-2019 Patient encounter procedure LUÍS FLORES Facility:[facility] Start: 06-02-2018 End: 06-02-2018 Emergency department patient visit TAMMY KENNY [facility] Procedures Date Procedure Procedure Detail Performing Clinician Start: 09-15-2021 PSA screening ERENDIRASTORMY Mariscal SHIVAMJOSE G Comment on above: Performed By: #### [facility] #### [facility] [address] [place] [address] Dr. Sheila Thompson Start: 06-02-2018 Blood count [...] Payer Category Payer Private Health Insurance [id number] 2018 Unknown [id number] 1965 Unknown [id number] 2.16. [id number] 1965 Unknown [id number] 2.16.8 [id number] 1965 Unknown [id number] 2.16.84 [id number] 1965 Unknown [id number] 2.16.84 [id number] 1965 Unknown [id number] 2.16.84 [id number] 1965 Unknown [id number] 2.16.84 [id number] 1965 Unknown [id number] 2.16.84 [id number] 1965 Unknown [id number] 2.16.84 [id number] 1965 Unknown [id number] 2.16.84 [id number] 1965 Unknown [id number] 2.16.8 [id number] 1959 Private Health Insurance [id number] Private Health Insurance [id number] Self-pay [id number] Clinical Notes 08-25-2021 to 09-24-2023 Note Date & Type Note Facility 09-24-2023 Note intermediate tobacco us e and new unintentional weight loss Ordered CXR, and pt to f/U with PCP today [facility] 09-24-2023 Note Continue lipitor and tricor for lipid management [facility] 09-24-2023 Note Reports weight loss of about 30 pounds over last 2.5 months without trying to loose weight/ diet or exercise. F/U with PCP today CXR in light of h/o tobacco dependence [facility] 09-24-2023 Note Hypertension is unco ntrolled in office. Continue coreg and lisinopril [facility] 09-24-2023 Note Coronary artery dise ase is stable Continue GDMT- ASA, lipitor, coreg continue risk factor modifications- heart healthy diet, regular exercise as tolerated and continue all medications. [facility] 09-24-2023 Note UTP CARDIOLOGY PROGR ESS NOTE [...] Thought content n (more content not included)... [facility] 09-24-2023 Note Patient here for 6 m [...] All other systems reviewed and are negative. [facility] 03-12-2023 Note UTP CARDIOLOGY PROGR ESS NOTE [...] and are negative. Previous note per Dr aMlik 09/2021 56 yo male past medical history [...] importance of smo (more content not included)... [facility] 03-12-2023 Note Patient here for fol low up [facility] admission in December 2022 for chest pain and pneumonia. 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 Still has intermittent chest pain. Had routine labs a few weeks ago. [facility] 12-08-2022 Note Patient here for 6 m [...] All other systems reviewed and are negative. [facility] 12-08-2022 Note UTP CARDIOLOGY PROGR ESS NOTE HPI: Taqueria Hdez is a 57 y.o. male here for routine 6 month f/U for CAD s/p PCI, HTN, HPL, and tobacco dependence HPI Currently denied any activity limiting symptoms. Denied chest pain, shortness of breath, orthopnea, or palpitations. States he is not willing to quit smoking. 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 Review of Systems [...] risk factor modificati (more content not included)... [facility] 12-08-2022 Note Coronary artery dise ase is stable Continue GDMT- ASA, lipitor, coreg, tricor and imdur continue risk factor modifications- heart healthy diet, regular exercise as tolerated and continue all medications. [facility] 12-08-2022 Note Continue tricor [facility] 12-08-2022 Note Hypertension is well controlled 134/79 Continue lisinopril, coreg, imdur [facility] 12-08-2022 Note Tobacco use is- unwi lling to stop smoking at this time 10 min smoking cessation discussion [facility] 04-28-2022 Note CARDIAC STRESS TEST Requesting Physician: [...] Olya Malik M.D. Primary care physician [facility] 08-25-2021 Note CARDIAC STRESS TEST Requesting Physician: Procedure Date: Lexiscan Stress Test with Myocardial Perfusion Imaging performed at the [facility]. Informed consent was obtained. The [...] Myocardial perfusion images will be reported separately. [facility] Signed and Approved by: DR COLE HANEY 08/27/2021 05:26:00 [facility] Summary Purpose Family History No Family History Records FoundNo Family History Records FoundNo Family History Records FoundNo Family History Records FoundNo Family History Records Found Advance Directives No Advanced Directives Records FoundNo Advanced Directives Records FoundNo Advanced Directives Records FoundNo Advanced Directives Records FoundNo Advanced Directives Records Found Hospital Course Note MR#: [id number] 2 [facility] Pt. Name: Taqueria Hdez Admitted: [...] section and content) DATE CREATED AUTHOR 06/06/2018 [facility] DATE CREATED AUTHOR AUTHOR'S ORGANIZ ATION 10/10/2019 [facility] DATE CREATED AUTHOR AUTHOR'S ORGANIZ ATION 05/14/2022 [facility] DATE CREATED AUTHOR AUTHOR'S ORGANIZ ATION 04/14/2023 [facility] DATE CREATED AUTHOR AUTHOR'S ORGANIZ ATION 11/08/2023 [facility] FOR RECORDS PERTAINING TO PATIENTS WHO [...] BE BASED ON THE PRIMARY CLINICAL RECORDS. [employer] provides no warranty or guarantee of the accuracy or completeness of information in this document.
[2023-11-22 10:30] LABS: Bilirubin Urine NEGATIVE (NEGATIVE); Blood Urine NEGATIVE (NEGATIVE); Clarity Urine CLEAR (CLEAR); Color Urine LT. YELLOW (YELLOW); Glucose Urine UA 250 mg/dL (NEGATIVE); Ketones Urine NEGATIVE (NEGATIVE); Leukocyte Esterase Urine NEGATIVE (NEGATIVE); Nitrite Urine NEGATIVE (NEGATIVE); Protein Urine NEGATIVE (NEG/TRACE); Specific Gravity Urine >=1.030 (1.005-1.025); Urobilinogen Urine 0.2 EU/dL (0.2-1.0)
[2023-11-22 10:36] LABS: Bacteria Urine MODERATE #/HPF (NONE SEEN); Cast Seen? NONE SEEN #/LPF (NONE SEEN); Crystals Seen? None Seen #/HPF (None Seen); Mucus Urine NONE SEEN (NONE SEEN); RBC Urine 0-2 #/HPF (0-2); Squamous Epithelial Cell Urine RARE #/LPF (NONE/RARE)
== END 2023-11-22 08:18 | disposition home or self-care (01) ==
PROVIDERS: PCP Nurse Practitioner Family; Visit Provider Nurse Practitioner Family
DX: N39.0 Urinary tract infection, site not specified (principal)
CPT/HCPCS: 81001; 87086; 87150; 87186

== ENCOUNTER 2024-03-31 12:56 | Outpatient (REF) | payer SELFPAY ==
--- OUTSIDE RECORDS SUMMARY | 2024-03-31 13:00 | XMS_ITS | CCD ---
Author Organization [facility] Care Team Providers Care Sales Professional Name Role Phone TAMMY KENNY Unavailable Unavailable [...] Attending Unavailable SONYA, MIRIAM Primary Care Unavailable Sparkle SIEGEL Attending Unavailable ALGHOTHANI, MOHAMAD Attending Unavailable YAHAIRA GASTELUM Attending Unavailable Allergies Allergy Classification Reported Allergen(s) Allergy Type Date of Onset Reaction(s) Facility (1 source) No Known Medication Allergies; Translations: [No Known Medication Allergies] Propensity to adverse reactions (disorder) [facility] Repository Problems Active Problems Problem Classification Problem Date Documented Date Episodic/Chronic Coronary atherosclerosis and other heart disease (10 sources) Atherosclerotic heart disease of [place] coronary artery with other forms of angina pectoris; Translations: [Atherosclerotic heart disease of [place] coronary artery without angina pectoris] Onset: 04-14-2022 Chronic Diabetes mellitus without complication (4 sources) Type 2 diabetes mellitus without complications; Translations: [TYPE 2 DM WITHOUT COMPLICATIONS] Onset: 01-12-2022 Chronic Disorders of lipid metabolism (3 sources) Hyperlipidemia, unspecified; Translations: [Mixed hyperlipidemia] Onset: 09-18-2021 Chronic Essential hypertension (2 sources) Essential (primary) hypertension; Translations: [Essential (primary) hypertension] Onset: 04-14-2022 Chronic Other lower respiratory disease (4 sources) Dyspnea, unspecified; Translations: [DYSPNEA UNSPECIFIED] Onset: 04-08-2022 Episodic Substance-related disorders (2 sources) Nicotine dependence, unspecified, uncomplicated; Translations: [Nicotine dependence, unspecified, uncomplicated] Onset: 04-14-2022 Chronic Past or Other Problems Problem Classification Problem Date Documented Da te Episodic/Chronic Diabetes mellitus without complication (1 source) Other abnormal glucose; Translations: [OTHER ABNORMAL GLUCOSE] Onset: 09-18-2021 Episodic Nonspecific chest pain (3 sources) Chest pain, unspecified; Translations: [Other chest pain] Onset: 06-02-2018 Episodic Other lower respiratory disease (2 sources) Other forms of dyspnea; Translations: [Other forms of dyspnea] Onset: 09-24-2023 Episodic Other screening for suspected conditions (not mental disorders or infectious disease) (2 sources) Encounter for screening for malignant neoplasm of prostate; Translations: [Encounter for screening for malignant neoplasm of rectum] Onset: 09-18-2021 Episodic Results Test Name Value Interpretation Reference Range Facility Office Visiton 11-05-2023 Follow-up visit [id number] Kirk Hdez P 1965 M Date Provider Department Center 11/05/2023 Shane-OLYA MALIK Family History Problem Relation Age of Onset Coronary artery disease Father Heart attack Father Other Father Coronary artery disease Maternal Grandfather Family Status - Relation Status Age at Father Maternal Grandfather Level of Service:03072 [place] OFFICE/OUTPATIENT ESTABLISHED LOW MDM 20 MIN Normal [facility] Orders Onlyon 11-05-2023 Orders Only [id number] Kirk Hdez P 1965 M Date Provider Department Center 11/05/2023 [id number], HISTORICAL CARD [facility] Family History Problem Relation Age of Onset Coronary artery disease Father Heart attack Father Other Father Coronary artery disease Maternal Grandfather Family Status - Relation Status Age at Father Maternal Grandfather Normal [facility] 36on 10-27-2023 36 PT INFORMED APPT [facility] 09-24-2023 Follow-up visit [id number] Kirk Hdez masoud Manzo 1965 M Date Provider Department Center 09/24/2023 120-YAHAIRA GASTELUM CARD [facility] Family History Problem Relation Age of Onset Coronary artery disease Father Heart attack Father Other Father Coronary artery disease Maternal Grandfather Family Status - Relation Status Age at Father Maternal Grandfather Level of Service:48805 [place] OFFICE/OUTPATIENT ESTABLISHED MOD MDM 30 MIN Normal [facility] Consenton 04-13-2023 Consent [id number]. 00TIFF Normal [facility] In office Testingon 04-13-20 23 In office Testing [id number]#1. 00TIFF Normal [facility] Registrationon 04-13-2023 Registration [id number]#1. 00TIFF [facility] LIPID PROFILEon 04-28-2022 CHOL-HDL RATIO NORM SEE BELOW Normal [facility] Comment on above: Result Comment: 3.3 - 4.4 LOW RISK 4.4 - 7.1 AVERAGE RISK 7.1 - 11.0 MODERATE RISK >11.0 HIGH RISK Performed By: #### L IPID ####[facility] [address] [place], [place] [address]CwLeonardo Thompson Cholesterol [Mass/Vol] 154 mg/dL Normal <=200 [facility] Comment on above: Performed By: #### L IPID ####[facility] [address]78[address] [place], [place] [address]OnLeonardo Thompson Cholesterol in HDL [Mass/Vol] 32 mg/dL Critically low 40-60 [facility] Comment on above: Performed By: #### L IPID ####[facility] [address] [place] [id number]. Sheila Thompson Cholesterol in LDL [Mass/Vol] 80.6 mg/dL Normal [facility] Comment on above: Performed By: #### L IPID ####[facility] [address] [place] [id number]. Sheila Thompson Cholesterol.total/Ch olesterol in HDL [Mass ratio] 4.8 {ratio} Normal [facility] Comment on above: Performed By: #### L IPID ####[facility] [address] [place] [id number]. Sheila Thompson HDL NORMAL > or = 60 mg/dl - LO W CARDIOVASCULAR RISK <40 mg/dl - HIGH CARDIOVASCULAR RISK Normal [facility] Comment on above: Performed By: #### L IPID ####[facility] [address]im[address] [place] [id number]. Sheila Thompson LDL CALC NORMAL SEE BELOW Normal [facility] Comment on above: Result Comment: <100 mg/dl OPTIMAL 100 - 129 mg/dl NEAR OR ABOVE OPTIMAL 130 - 159 mg/dl BORDERLINE HIGH 160 - 189 mg/dl HIGH >190 mg/dl VERY HIGH Performed By: #### L IPID ####[facility] [address]bx[address] [place] [id number]. Sheila Thompson Triglyceride [Mass/Vol] 207 mg/dL Critically high <=150 [facility] Comment on above: Performed By: #### L IPID ####[facility] X[address]vx[address]mf8[address] [place], [place] [address]Is. Sheila Thompson VLDL CALC 41.4 mg/dL Normal [facility] Comment on above: Performed By: #### L IPID ####[facility] [address] [place] [id number]. Sheila Thompson ECHOCARDIO M/2D COMPLETEon 1 ECHOCARDIO M/2D COMPLETE Patient: TAQUERIA HDEZ Exam Date: 04/08/2022 : 1965 Gender:M Ordering : OLYA MALIK Admission #: [id number] Family : Order #: [id number] CLICK HERE TO VIEW EXAM ECHOCARDIOGRAM REPORT [...] M.D. on 04/15/2022 at 11:06 Normal [facility] DIRECT LDLon 01-12-2022 Cholesterol in LDL [Mass/Vol] 70 mg/dL Normal [facility] Comment on above: Performed By: #### L IPID, JESSICAL, CMP ####[facility] [address] [place] [address]DrLeonardo ROMAN NORMAL SEE BELOW Normal [facility] Comment on above: Result Comment: <100 mg/dl OPTIMAL 100 - 129 mg/dl NEAR OR ABOVE OPTIMAL 130 - 159 mg/dl BORDERLINE HIGH 160 - 189 mg/dl HIGH >190 mg/dl VERY HIGH Performed By: #### L IPID, DLDL, CMP ####[facility] [address] [place] [address]DrLeonardo Thompson GLYCOHEMOGLOBIN A1Con 2021 ADA RECOMMENDATION SEE BELOW Normal [facility] Comment on above: Result Comment: ADA RECOMMENDED LIMIT 4.0 - 6.0 ADA THERAPEUTIC TARGET < 7.0 ACTION SUGGESTED > 7.0 Performed By: #### A 1C ####[facility] [address]ub[address] [place] [id number]. Sheila Thompson Glucose [Mass/Vol] 160 mg/dL Normal [facility] Comment on above: Performed By: #### A 1C ####[facility] [address]zxbu[address] [place] [id number]. Sheila Thompson HbA1c (Bld) [Mass fraction] 7.2 % Critically high 4.5-6.2 [facility] Comment on above: Performed By: #### A 1C ####[facility] [address] [place], [place] [address]Dr. Sheila Thompson LIPID PROFILEon 01-12-2022 CHOL-HDL RATIO NORM SEE BELOW [facility] Comment on above: Result Comment: 3.3 - 4.4 LOW RISK 4.4 - 7.1 AVERAGE RISK 7.1 - 11.0 MODERATE RISK >11.0 HIGH RISK Performed By: #### L IPID, DLDL, CMP ####[facility] [address] [place], [place] [address]Dr. Sheila Thompson Cholesterol [Mass/Vol] 165 mg/dL Normal <=200 [facility] Comment on above: Performed By: #### L IPID, DLDL, CMP ####[facility] [address] [place] [id number]. Sheila Thompson Cholesterol in HDL [Mass/Vol] 25 mg/dL Critically low 40-60 [facility] Comment on above: Performed By: #### L IPID, DLDL, CMP ####[facility] [address] [place] [address]Dr. Sheila Thompson Cholesterol.total/Ch olesterol in HDL [Mass ratio] 6.6 {ratio} Normal [facility] Comment on above: Performed By: #### L IPID, DLDL, CMP ####[facility] [address] [place] [address]Dr. Sheila Thompson HDL NORMAL > or = 60 mg/dl - LO W CARDIOVASCULAR RISK <40 mg/dl - HIGH CARDIOVASCULAR RISK Normal [facility] Comment on above: Performed By: #### L IPID, DLDL, CMP ####[facility] [address] [place] [address]Dr. Sheila Thompson Triglyceride [Mass/Vol] 502 mg/dL Critically high <=150 [facility] Comment on above: Performed By: #### L IPID, DLDL, CMP ####[facility] [address]xs[address]ft[address] [place] [address]Dr. Sheila Thompson PROF 14(COMP METB)on 022 Albumin [Mass/Vol] 3.9 g/dL Normal 3.4-5.0 [facility] Comment on above: Performed By: #### L IPID, DLDL, CMP ####[facility] [address] [place] [address]Dr. Sheila Thompson Albumin/Globulin [Mass ratio] 1.1 {ratio} Normal [facility] Comment on above: Performed By: #### L IPID, DLDL, CMP ####[facility] [address]upxlvr[address] [place] [address]Dr. Sheila Thompson ALP [Catalytic activity/Vol] 71 U/L Normal 46-116 [facility] Comment on above: Performed By: #### L IPID, DLDL, CMP ####[facility] [address]oreq[address] [place] [address]Dr. Sheila Thompson ALT [Catalytic activity/Vol] 47 U/L Normal 16-63 [facility] Comment on above: Performed By: #### L IPID, DLDL, CMP ####[facility] [address] [place] [address]Dr. Sheila Thompson Anion gap [Moles/Vol] 12.9 mmol/L Normal [facility] Comment on above: Performed By: #### L IPID, DLDL, CMP ####[facility] [address]njxkw38[address] [place] [address]Dr. Sheila Thompson AST [Catalytic activity/Vol] 21 U/L Normal 15-37 [facility] Comment on above: Performed By: #### L IPID, DLDL, CMP ####[facility] C[address]svjbgxb56[address] [place] [address]Dr. Sheila Thompson Bilirubin [Mass/Vol] 0.2 mg/dL Normal 0.2-1.0 [facility] Comment on above: Performed By: #### L IPID, DLDL, CMP ####[facility] [address] [place], [place] [address]Dr. Sheila Thompson Calcium [Mass/Vol] 9.0 mg/dL Normal 8.5-10.1 [facility] Comment on above: Performed By: #### L IPID, DLDL, CMP ####[facility] [address]fa[address] [place], [place] [address]Dr. Sheila Thompson Chloride [Moles/Vol] 104 mmol/L Normal 98-107 [facility] Comment on above: Performed By: #### L IPID, DLDL, CMP ####[facility] [address]irl[address] [place], [place] [address]Dr. Sheila Thompson CO2 [Moles/Vol] 26.9 mmol/L Normal 21.0-32.0 [facility] Comment on above: Performed By: #### L IPID, DLDL, CMP ####[facility] [address] [place], [place] [address]Dr. Sheila Thompson Creatinine [Mass/Vol] 0.78 mg/dL Normal 0.70-1.30 [facility] Comment on above: Performed By: #### L IPID, DLDL, CMP ####[facility] [address]ss[address] [place], [place] [address]Dr. Sheila Thompson EGFR-AF MALAYSIAN >60 Normal >=60 [facility] Comment on above: Performed By: #### L IPID, DLDL, CMP ####[facility] [address] [place], [place] [address]Dr. Sheila Thompson EGFR-NON AF MALAYSIAN >60 Normal >=60 [facility] Comment on above: Performed By: #### L IPID, DLDL, CMP ####[facility] [address] [place] [address]Dr. Sheila Thompson Globulin (S) [Mass/Vol] 3.5 g/dL Normal [facility] Comment on above: Performed By: #### L IPID, DLDL, CMP ####[facility] [address] [place] [address]Dr. Sheila Thompson Glucose [Mass/Vol] 171 mg/dL Critically high 74-106 [facility] Comment on above: Performed By: #### L IPID, DLDL, CMP ####[facility] Mq[address]omgccej[address] [place] [address]Dr. Sheila Thompson Potassium [Moles/Vol] 3.8 mmol/L Normal 3.5-5.1 [facility] Comment on above: Performed By: #### L IPID, DLDL, CMP ####[facility] L[address]jehwbd39[address] [place] [address]Dr. Sheila Thompson Protein [Mass/Vol] 7.4 g/dL Normal 6.4-8.2 [facility] Comment on above: Performed By: #### L IPID, DLDL, CMP ####[facility] [address] [place], [place] [address]Dr. Sheila Thompson Sodium [Moles/Vol] 140 mmol/L Normal 136-145 [facility] Comment on above: Performed By: #### L IPID, DLDL, CMP ####[facility] Z[address]gsqqpib9[address] [place] [address]Dr. Sheila Thompson Urea nitrogen [Mass/Vol] 16.0 mg/dL Normal 7.0-18.0 [facility] Comment on above: Performed By: #### L IPID, DLDL, CMP ####[facility] [address] [place], [place] [address]Dr. Sheila Thompson Urea nitrogen/Creatinine [Mass ratio] 20.5 mg/mg Normal [facility] Comment on above: Performed By: #### L IPID, DLDL, CMP ####[facility] [address]nx[address] [place] [address]Dr. Sheila Thompson INSULINon 09-16-2021 Insulin 59.1 uIU/mL Critically high 2.6-24.9 [facility] Comment on above: Performed By: #### I NSULIN ####[facility] [address]usv[address] [place] [address]Dr. Sheila Thompson CBC AUTO DIFFon 09-15-2021 BASO # 0.0 103/ul Normal 0.0-0.1 [facility] Comment on above: Performed By: #### C BC ####[facility] [address] [place], [place] [address]Dr. Luzyoung Thompson Basophils/100 WBC (Bld) 0.4 % Normal 0.2-2.0 [facility] Comment on above: Performed By: #### C BC ####[facility] [address]qgy[address] [place], [place] [address]Dr. Sheila Thompson EO # 0.2 103/ul Normal 0.0-0.7 [facility] Comment on above: Performed By: #### C BC ####[facility] [address] [place], [place] [address]Dr. Luzyoung Thompson Eosinophils/100 WBC (Bld) 1.9 % Normal 0.9-7.0 [facility] Comment on above: Performed By: #### C BC ####[facility] [address]xaqn[address] [place], [place] [address]Dr. Sheila Thompson Erythrocyte distribution width (RBC) [Ratio] 13.3 % Normal 11.0-15.0 [facility] Comment on above: Performed By: #### C BC ####[facility] [address] [place], [place] [address]Dr. Sheila Thompson Hematocrit (Bld) [Volume fraction] 44.5 % Normal 42.0-54.0 [facility] Comment on above: Performed By: #### C BC ####[facility] Y[address]vngexgv[address] [place], [place] [address]Dr. Sheila Thompson Hemoglobin (Bld) [Mass/Vol] 14.7 g/dL Normal 14.0-18.0 [facility] Comment on above: Performed By: #### C BC ####[facility] [address]osszjc[address] [place] [id number]. Sheila Thompson IG # 0.02 10e3/ul Normal 0.00-0.03 [facility] Comment on above: Performed By: #### C BC ####[facility] X[address]jlxvs64[address] [place] [phone]. Sheila Thompson IG % 0.2 % Normal 0.0-0.5 [facility] Comment on above: Performed By: #### C BC ####[facility] Em[address]oyt[address] [place] [address]Dr. Sheila Thompson LYMPH # 2.2 103/ul Normal 1.2-3.8 [facility] Comment on above: Performed By: #### C BC ####[facility] Noimq[address]xkmo[address] [place] [address]Dr. Sheila Thompson Lymphocytes/100 WBC (Bld) 26.0 % Normal 20.5-60.0 [facility] Comment on above: Performed By: #### C BC ####[facility] [address] [place] [address]Dr. Sheila Thompson MANUAL DIFF REQ NO Normal [facility] [place] Comment on above: Performed By: #### C BC ####[facility] [address]ker[address] [place] [id number]. Sheila Thompson MCH (RBC) [Entitic mass] 30.6 pg Normal 25.9-34.0 [facility] Comment on above: Performed By: #### C BC ####[facility] [address] [place], [place] [address]Dr. Sheila Thompson MCHC (RBC) [Mass/Vol] 33.0 g/dL Normal 29.9-35.2 [facility] Comment on above: Performed By: #### C BC ####[facility] [address] [place], [place] [address]Dr. Sheila Thompson MCV (RBC) [Entitic vol] 92.7 fL Normal 80.0-94.0 [facility] Comment on above: Performed By: #### C BC ####[facility] Ow[address]smyt7133 [place] [id number]. Sheila Thompson MONO # 1.0 103/ul Critically high 0.3-0.8 [facility] Comment on above: Performed By: #### C BC ####[facility] Evnuidwfyj53[address] [place] [id number]. Sheila Thompson Monocytes/100 WBC (Bld) 11.9 % Normal 1.7-12.0 [facility] Comment on above: Performed By: #### C BC ####[facility] Qkiwipvtrx9531 [place] [phone]. Sheila Thompson NEUT # 5.0 103/ul Normal 1.4-6.5 [facility] Comment on above: Performed By: #### C BC ####[facility] In[address]xf[address] [place], [place] [address]Dr. Sheila Thompson Neutrophils/100 WBC (Bld) 59.6 % Normal 43.0-75.0 [facility] Comment on above: Performed By: #### C BC ####[facility] [address] [place], [place] [address]Dr. Sheila Thompson Platelet mean volume (Bld) [Entitic vol] 10.4 fL Normal 9.5-13.5 [facility] Comment on above: Performed By: #### C BC ####[facility] [address] [place], [place] [address]Dr. Sheila Thompson PLT 245 103/ul Normal 150-450 [facility] Comment on above: Performed By: #### C BC ####[facility] [address] [place], [place] [address]Dr. Sheila Thompson RBC 4.80 106/ul Normal 4.70-6.10 [facility] Comment on above: Performed By: #### C BC ####[facility] [address] [place] [phone]. Sheila Thompson WBC 8.4 103/ul Normal 4.0-11.0 [facility] Comment on above: Performed By: #### C BC ####[facility] [address]ks[address] [place], [place] [address]VbDr. Sheila Thompson DIRECT LDLon 09-15-2021 Cholesterol in LDL [Mass/Vol] 74 mg/dL Normal [facility] Comment on above: Performed By: #### L IPID, DLDL, CMP, URIC #### [facility] [address] [place] [address] [address] Sheila Thompson DLDL NORMAL SEE BELOW Normal [facility] Comment on above: Result Comment: <100 mg/dl OPTIMAL 100 - 129 mg/dl NEAR OR ABOVE OPTIMAL 130 - 159 mg/dl BORDERLINE HIGH 160 - 189 mg/dl HIGH >190 mg/dl VERY HIGH Performed By: #### L IPID, DLDL, CMP, URIC #### [facility] [address] [place] [address] [address] Sheila Thompson GLYCOHEMOGLOBIN A1Con 2021 ADA RECOMMENDATION ADA THERAPEUTIC TARG ET 6.0 - 7.0 ACTION SUGGESTED > 7.0 Normal [facility] Comment on above: Performed By: #### A 1C #### [facility] [address] [place] [address] [address] Sheila Thompson Glucose [Mass/Vol] 194 mg/dL Normal [facility] Comment on above: Performed By: #### A 1C #### [facility] [address] [place] [address] [address] Sheila Thompson HbA1c (Bld) [Mass fraction] 8.4 % Critically high <=6.0 [facility] Comment on above: Performed By: #### A 1C #### [facility] [address] [place] [address] [address] Sheila Thompson LIPID PROFILEon 09-15-2021 CHOL-HDL RATIO NORM SEE BELOW [facility] Comment on above: Result Comment: 3.3 - 4.4 LOW RISK 4.4 - 7.1 AVERAGE RISK 7.1 - 11.0 MODERATE RISK >11.0 HIGH RISK Performed By: #### L IPID, DLDL, CMP, URIC #### [facility] [address] [place] [address] [address] Sheila Thompson Cholesterol [Mass/Vol] 223 mg/dL Critically high <=200 [facility] Comment on above: Performed By: #### L IPID, DLDL, CMP, URIC #### [facility] [address] [place] [address] [address] Sheila Thompson Cholesterol in HDL [Mass/Vol] 24 mg/dL Critically low 40-60 [facility] Comment on above: Performed By: #### L IPID, DLDL, CMP, URIC #### [facility] [address] [place] [address] [address] Sheila Thompson Cholesterol.total/Ch olesterol in HDL [Mass ratio] 9.3 {ratio} Normal [facility] Comment on above: Performed By: #### L IPID, DLDL, CMP, URIC #### [facility] [address] [place] [address] [address] Sheila Thompson HDL NORMAL > or = 60 mg/dl - LO W CARDIOVASCULAR RISK <40 mg/dl - HIGH CARDIOVASCULAR RISK Normal [facility] Comment on above: Performed By: #### L IPID, DLDL, CMP, URIC #### [facility] [address] [place] [address] [address] Sheila Thompson LDL CALC NORMAL SEE BELOW Normal [facility] Comment on above: Result Comment: <100 mg/dl OPTIMAL 100 - 129 mg/dl NEAR OR ABOVE OPTIMAL 130 - 159 mg/dl BORDERLINE HIGH 160 - 189 mg/dl HIGH >190 mg/dl VERY HIGH Performed By: #### L IPID, DLDL, CMP, URIC #### [facility] [address] [place] [address] [address] Sheila Thompson Triglyceride [Mass/Vol] 903 mg/dL Critically high <=150 [facility] Comment on above: Performed By: #### L IPID, DLDL, CMP, URIC #### [facility] [address] [place] [address] [address] Sheila Thompson PROF 14(COMP METB)on 022 Albumin [Mass/Vol] 3.9 g/dL Normal 3.4-5.0 [facility] Comment on above: Performed By: #### L IPID, DLDL, CMP, URIC #### [facility] [address] [place] [address] [address] Sheila Thompson Albumin/Globulin [Mass ratio] 1.1 {ratio} Normal [facility] Comment on above: Performed By: #### L IPID, DLDL, CMP, URIC #### [facility] [address] [place] [address] [address] Sheila Thompson ALP [Catalytic activity/Vol] 76 U/L Normal 46-116 [facility] Comment on above: Performed By: #### L IPID, DLDL, CMP, URIC #### [facility] [address] [place] [address] [address] Sheila Thompson ALT [Catalytic activity/Vol] 45 U/L Normal 16-63 [facility] Comment on above: Performed By: #### L IPID, DLDL, CMP, URIC #### [facility] [address] [place] [address] Dr. Sheila Thompson Anion gap [Moles/Vol] 12.3 mmol/L Normal [facility] Comment on above: Performed By: #### L IPID, DLDL, CMP, URIC #### [facility] [address] [place] [address] [address] Sheila Thompson AST [Catalytic activity/Vol] 11 U/L Critically low 15-37 [facility] Comment on above: Performed By: #### L IPID, DLDL, CMP, URIC #### [facility] [address] [place] [address] [address] Sheila Thompson Bilirubin [Mass/Vol] 0.2 mg/dL Normal 0.2-1.3 [facility] Comment on above: Performed By: #### L IPID, DLDL, CMP, URIC #### [facility] [address] [place] [address] [address] Sheila Thompson Calcium [Mass/Vol] 8.4 mg/dL Critically low 8.5-10.1 [facility] Comment on above: Performed By: #### L IPID, DLDL, CMP, URIC #### [facility] [address] [place] [address] [address] Sheila Thompson Chloride [Moles/Vol] 102 mmol/L Normal 98-107 [facility] Comment on above: Performed By: #### L IPID, DLDL, CMP, URIC #### [facility] [address] [place] [address] [address] Sheila Thompson CO2 [Moles/Vol] 26.8 mmol/L Normal 22.0-30.0 [facility] Comment on above: Performed By: #### L IPID, DLDL, CMP, URIC #### [facility] [facility] [address] [address] [address] Sheila Thompson Creatinine [Mass/Vol] 0.67 mg/dL Normal 0.66-1.25 [facility] Comment on above: Performed By: #### L IPID, DLDL, CMP, URIC #### [facility] [address] [address] [address] Sheila Thompson EGFR-AF MALAYSIAN >60 Normal >=60 [facility] Comment on above: Performed By: #### L IPID, DLDL, CMP, URIC #### [facility] [address] [address] [address] Sheila Thompson EGFR-NON AF MALAYSIAN >60 Normal >=60 [facility] Comment on above: Performed By: #### L IPID, DLDL, CMP, URIC #### [facility] [address] [address] [address] Sheila Thompson Globulin (S) [Mass/Vol] 3.6 g/dL Normal [facility] Comment on above: Performed By: #### L IPID, DLDL, CMP, URIC #### [facility] [address] [address] [address] Sheila Thompson Glucose [Mass/Vol] 192 mg/dL Critically high 74-106 [facility] Comment on above: Performed By: #### L IPID, DLDL, CMP, URIC #### [facility] [address] [address] [address] Sheila Thompson Potassium [Moles/Vol] 4.1 mmol/L Normal 3.4-5.0 [facility] Comment on above: Performed By: #### L IPID, DLDL, CMP, URIC #### [facility] [address] [address] [address] Sheila Thompson Protein [Mass/Vol] 7.5 g/dL Normal 6.1-8.2 [facility] Comment on above: Performed By: #### L IPID, DLDL, CMP, URIC #### [facility] [address] [address] [address] Sheila Thompson Sodium [Moles/Vol] 137 mmol/L Normal 137-145 [facility] Comment on above: Performed By: #### L IPID, DLDL, CMP, URIC #### [facility] [address] [address] [address] Sheila Thompson Urea nitrogen [Mass/Vol] 16.0 mg/dL Normal 7.0-18.0 [facility] Comment on above: Performed By: #### L IPID, DLDL, CMP, URIC #### [facility] [address] [address] [address] Sheila Thompson Urea nitrogen/Creatinine [Mass ratio] 23.9 mg/mg Normal [facility] Comment on above: Performed By: #### L IPID, DLDL, CMP, URIC #### [facility] [address] [address] [address] Sheila Thompson URIC ACID SERUMon 09-15-2021 Urate [Mass/Vol] 2.4 mg/dL Critically low 3.5-8.5 [facility] Comment on above: Performed By: #### L IPID, DLDL, CMP, URIC #### [facility] [address] [place] [address] Dr. Sheila Thompson NM STRESS/REST MULTIon 08-25 NM STRESS/REST MULTI Patient: TAQUERIA HDEZ Exam Date: 08/25/2021 : 1965 Gender:M Ordering : ERENDIRASTORMY ARJUN Admission #: [id number] Family : Order #: [id number] CLICK HERE TO VIEW EXAM RADIOLOGY REPORT [...] Hurt MD on 08/26/2021 at 13:57 Normal [facility] BASIC METABOLIC PANELon 10- Calcium [Mass/Vol] 9.9 mg/dL Normal 8.6-10.3 [facility] Comment on above: Order Comment: No: D o not add to previous draw Performed By: #### 9 9909, [id number] #### [facility] [address] [place] [address], [place] Chloride [Moles/Vol] 103 mmol/L Normal 98-107 [facility] Comment on above: Order Comment: No: D o not add to previous draw Performed By: #### 9 9909, [id number] #### [facility] [address] [place] [address], [place] CO2 [Moles/Vol] 26 mmol/L Normal 21-[address] [facility] Comment on above: Order Comment: No: D o not add to previous draw Performed By: #### 9 9908, 09249 #### [facility] [address] [place] [address], [place] Creatinine [Mass/Vol] 0.72 mg/dL Normal 0.70-1.30 [facility] Comment on above: Order Comment: No: D o not add to previous draw Performed By: #### 9 9908, 72821 #### [facility] [address] [place] [address], [place] GFR/1.73 sq M predicted among blacks MDRD (S/P/Bld) [Vol rate/Area] mL/min/{1.73_m2} Normal >60 [facility] Comment on above: Order Comment: No: D o not add to previous draw Performed By: #### 9 9908, 69363 #### [facility] [address] [place] [address], [place] GFR/1.73 sq M predicted among non-blacks MDRD (S/P/Bld) [Vol rate/Area] mL/min/{1.73_m2} Normal >60 [facility] Comment on above: Order Comment: No: D o not add to previous draw Performed By: #### 9 9908, 52272 #### [facility] [address] [place] [address], [place] Glucose [Mass/Vol] 152 mg/dL High 70-100 [facility] Comment on above: Order Comment: No: D o not add to previous draw Performed By: #### 9 9908, 89918 #### [facility] [address] [place] [address], [place] Potassium [Moles/Vol] 4.2 mmol/L Normal 3.5-5.1 [facility] Comment on above: Order Comment: No: D o not add to previous draw Performed By: #### 9 9908, 55174 #### [facility] [address] [place] [address], [facility] Sodium [Moles/Vol] 135 mmol/L Low 136-145 [facility] Comment on above: Order Comment: No: D o not add to previous draw Performed By: #### 9 9909, 08887 #### [facility] [address] [address], [facility] Urea nitrogen [Mass/Vol] 8 mg/dL Normal 7-25 [facility] Comment on above: Order Comment: No: D o not add to previous draw Performed By: #### 9 9909, 69169 #### [facility] [address] [place] [address], [facility] CBC W/DIFFon 04-01-2019 ABS BASOPHILS 0.0 10*3/uL Normal 0.0-0.2 The [facility] Comment on above: Performed By: #### 5 0103 #### [facility] [address] [place] [address], [facility] ABS IMM GRANS 0.0 10*3/uL Normal 0.0-0.2 [facility] Comment on above: Performed By: #### 5 0103 #### [facility] [address] [facility]. [address] ABS NEUTROPHILS 7.6 10*3/uL Normal 1.6-7.6 [facility] Comment on above: Performed By: #### 5 0103 #### [facility] [address] [place] [address], [facility] Basophils/100 WBC (Bld) 0.4 % Normal 0.0-1.0 [facility] Comment on above: Performed By: #### 5 0103 #### [facility] [address] [place] [address], [facility] Eosinophils (Bld) [#/Vol] 0.2 10*3/uL Normal 0.0-0.5 [facility] Comment on above: Performed By: #### 5 0103 #### [facility] [address] [place] [address], [facility] Eosinophils/100 WBC (Bld) 1.3 % Normal 0.0-6.0 [facility] Comment on above: Performed By: #### 5 3 #### [facility] [address] [place] [address], [facility] Erythrocyte distribution width (RBC) [Ratio] 13.2 % Normal 11.5-15.0 [facility] Comment on above: Performed By: #### 5 3 #### [facility] [address] [place] [address], [facility] Hematocrit (Bld) [Volume fraction] 47.5 % Normal 39.0-50.0 [facility] Comment on above: Performed By: #### 5 3 #### [facility] [address] [address], [facility] Hemoglobin (Bld) [Mass/Vol] 15.2 g/dL Normal 13.0-17.0 [facility] Comment on above: Performed By: #### 5 3 #### [facility] [address] [place] [address], [facility] IMMATURE GRANS 0.4 % Normal 0.0-1.0 [facility] Comment on above: Performed By: #### 5 3 #### [facility] [address] [place] [address], [facility] Lymphocytes (Bld) [#/Vol] 2.2 10*3/uL Normal 1.2-4.0 [facility] Comment on above: Performed By: #### 5 3 #### [facility] [address] [place] [address], [facility] Lymphocytes/100 WBC (Bld) 19.6 % Low 20.0-45.0 [facility] Comment on above: Performed By: #### 5 0103 #### [facility] [address] [facility] [place] [address], [facility] MCH (RBC) [Entitic mass] 29.9 pg Normal 27.0-33.0 [facility] Comment on above: Performed By: #### 5 0103 #### [facility] [address] [address], [facility] MCHC (RBC) [Mass/Vol] 32.0 g/dL Normal 32.0-35.0 [facility] Comment on above: Performed By: #### 5 3 #### [facility] [address] [place] [address], [facility] MCV (RBC) [Entitic vol] 93.3 fL Normal 82.0-98.0 [facility] Comment on above: Performed By: #### 5 3 #### [facility] [address] [place] [address], [facility] Monocytes (Bld) [#/Vol] 1.3 10*3/uL High 0.1-1.0 [facility] Comment on above: Performed By: #### 5 3 #### [facility] [address] [place] [address], [facility] MONOS 11.4 % Normal 5.0-12.0 [facility] Comment on above: Performed By: #### 5 3 #### [facility] [address] [place] [address], [facility] Neutrophils/100 WBC (Bld) 66.9 % Normal 40.0-72.0 [facility] Comment on above: Performed By: #### 5 3 #### [facility] [address] [place] [address], [facility] Nucleated RBC/100 WBC (Bld) [Ratio] 0 % Normal 0-0 [facility] Comment on above: Performed By: #### 5 3 #### [facility] [address] [place] [address], [facility] PLAT CNT 223 10*3/uL Normal 150-400 The [facility] Comment on above: Performed By: #### 5 0103 #### [facility] [address] [place] [address], [facility] RBC (Bld) [#/Vol] 5.09 10*6/uL Normal 4.20-5.70 [facility] Comment on above: Performed By: #### 5 0103 #### [facility] [address] [place] [address], [facility] WBC (Bld) [#/Vol] 11.39 10*3/uL High 4.00-10.60 [facility] Comment on above: Performed By: #### 5 0103 #### [facility] [address] History and Physicalon 04-01 History and Physical MR#: [id number] [facility] Pt. Name: Taqueria Hdez Admitted: 04/01/2019 Date of : 1965 Attending Physician: Julius Ivy MD Room #: [id number] Discharge Date: HISTORY AND PHYSICAL CHIEF COMPLAINT: Headache, elevated blood pressure. HISTORY OF PRESENT ILLNESS: This is a 54-year-old male, who was transferred from [facility] this morning for further evaluation. He presented there last night complaining of a headache. He states his headache has been on the left side of his head radiating to the back. It has been constantly present since 1 p.m. yesterday. It was partially alleviated by morphine that he received at [place], but has returned since. He states his blood pressure has been high as well. It has been in the 160s all week despite taking his medications. Normally, his blood pressure has been systolic within 140s. He reports compliance with his medications. When he presented to [place] ER, his blood pressure reportedly was 188/104. [...] Denies fevers, chills, or cough. In the [facility], he had CT imaging of his head done, which showed some findings concerning for possible moyer. Recommendation was made for the patient to have an MRI and it is not available at [facility]. PAST MEDICAL HISTORY: Hypertension, hyperlipidemia, GERD, vertigo, [...] normal. LABORATORY STUDIES: Lab studies reviewed from [facility] from March 31, 2019. BMP; sodium 136, [...] A/Julius Ivy MD Date Trans: 04/01/2019 04:53 A/mmo [id number] Normal [facility] LIVER BATTERYon 04-01-2019 Albumin [Mass/Vol] 4.6 g/dL Normal 3.5-5.7 [facility] Comment on above: Order Comment: No: D o not add to previous draw Performed By: #### 9 9909, 98758 #### [facility] [address] [place] [address], [facility] ALKALINE PHOSPH 62 IU/L Normal 34-104 [facility] Comment on above: Order Comment: No: D o not add to previous draw Performed By: #### 9 09, 20393 #### [facility] [address] [place] [id number], [facility] ALT [Catalytic activity/Vol] 53 U/L High 7-52 [facility] Comment on above: Order Comment: No: D o not add to previous draw Performed By: #### 9 9908, 14097 #### [facility] [address] [place] [id number], [place] AST [Catalytic activity/Vol] 32 U/L Normal 13-39 [facility] Comment on above: Order Comment: No: D o not add to previous draw Performed By: #### 9 9909, 48763 #### [facility] [address] [place] [id number], [facility] Bilirubin [Mass/Vol] 0.4 mg/dL Normal 0.3-1.0 [facility] Comment on above: Order Comment: No: D o not add to previous draw Performed By: #### 9 9909, 64758 #### [facility] [address] [facility]. [address] Bilirubin.direct [Mass/Vol] 0.0 mg/dL Normal 0.0-0.2 [facility] Comment on above: Order Comment: No: D o not add to previous draw Performed By: #### 9 9909, 41548 #### [facility] [address] [place] [address], [facility] Protein [Mass/Vol] 7.5 g/dL Normal 6.0-8.3 [facility] Comment on above: Order Comment: No: D o not add to previous draw Performed By: #### 9 9909, 40017 #### [facility] [address] [place] [address], [facility] MRI BRAIN WO CONTRASTon 03-14 MRI BRAIN WO CONTRAST [facility] Department of Radiology [address] [place] [id number] ======== Patient Name: TAQUERIA HDEZ : 1965 Sex: M Age: Race: White Pt. Location: [id number] Patient Status: D Ordered Date: 04/01/2019 4:00:00 [...] findings. Electronically signed by:Tianna Orozco. Transcribed by: [email or web address], User Resident: ALTHEA BLACKMON Electronically Signed by: TIANNA OROZCO @ 04/02/2019 03:18 PM I personally read this/these film(s) with this resident Normal [facility] Comment on above: Order Comment: Other , evaluate for pres, has hypertension and headache, had decreased attenuation on ct head occiptal lobe and bilateral parietal lobes CBC With Platelet No Differe ntialon 06-02-2018 Erythrocyte distribution width Auto Ratio (RBC) 13.6 fL Normal 11.5-15.0 [facility] Hematocrit Auto Volume Fraction (Bld) 44.7 % Normal 37.0-54.0 [facility] Hemoglobin mass conc (Bld) 14.7 g/dL Normal 12.5-16.5 [facility] MCH Auto Entitic mass (RBC) 29.9 pg Normal 26.0-35.0 [facility] MCHC Auto mass conc (RBC) 32.9 % Normal 32.0-34.5 [facility] MCV Auto Entitic volume (RBC) 91.0 fL Normal 80.0-99.9 [facility] Platelet mean volume Auto Entitic volume (Bld) 10.0 fL Normal 7.0-12.0 [facility] Platelets Auto #/vol (Bld) 240 E9/L Normal 130-450 [facility] RBC Auto #/vol (Bld) 4.91 E12/L Normal 3.80-5.80 [facility] WBC Auto #/vol (Bld) 7.5 E9/L Normal 4.5-11.5 [facility] Comprehensive Metabolic Pane vince 06-02-2018 Albumin mass conc 4.4 g/dL Normal 3.5-5.2 [facility] ALP enzyme act/vol 67 U/L Normal 40-129 [facility] ALT enzyme act/vol 54 U/L High 0-40 [facility] Anion gap 3 molar conc 13 mmol/L Normal 7-16 [facility] AST enzyme act/vol 40 U/L High 0-39 [facility] Bilirubin mass conc 0.3 mg/dL Normal 0.0-1.2 [facility] Calcium mass conc 9.1 mg/dL Normal 8.6-10.2 [facility] Chloride molar conc 100 mmol/L Normal 98-107 [facility] CO2 molar conc 24 mmol/L Normal 22-29 [facility] Creatinine mass conc 0.9 mg/dL Normal 0.7-1.2 [facility] GFR/1.73 sq M predicted among blacks MDRD vol rate/area (S/P/Bld) mL/min/{1.73_m2} Normal [facility] GFR/1.73 sq M predicted among non-blacks MDRD vol rate/area (S/P/Bld) mL/min/{1.73_m2} Normal >=60 [facility] Comment on above: Result Comment: [employer] leonard Kidney Disease: less than 60 ml/min/1.73 sq.m. Kidney Failure: less than 15 ml/min/1.73 sq.m.Results valid for patients 18 years and older. Glucose mass conc 161 mg/dL High 74-99 [facility] Potassium molar conc 3.8 mmol/L Normal 3.5-5.0 [facility] Protein mass conc 7.5 g/dL Normal 6.4-8.3 [facility] Sodium molar conc 137 mmol/L Normal 132-146 [facility] Urea nitrogen mass conc 11 mg/dL Normal 6-20 [facility] Troponinon 06-02-2018 Troponin I.cardiac mass conc ng/mL Normal 0.00-0.03 [facility] Comment on above: Result Comment: TROP ONIN T BLOOD LEVELS: 0.03 ng/mL Upper Reference Limit0.04 - 0.09 ng/mL Possible myocardial injury >= 0.10 ng/mL Myocardial injury XR CHEST PORTABLEon 06-02-20 18 XR CHEST PORTABLE Patient : 1965Age: 53 yearsGender: MaleOrder Date: 06/02/2018 8:30 AMExam: XR CHEST PORTABLENumber of Views: 1Indication: Chest painComparison: NoneFindings: There is a normal cardiomediastinal silhouette with clearlungs.. No pneumothorax, pleural effusion or focal areas of airspaceconsolidation. IMPRESSION: No radiographic evidence of acute cardiopulmonary disease.Interpreted by:ANDREIA Whartonigned by:Jarrell Blankenship MD06/02/18inal result Normal [facility] Encounters Encounter Date Encounter Type Care Provider Facility Start: 03-27-2024 End: 03-27-2024 Emergency department patient visit OLYA MALIK [facility] Start: 11-24-2023 ambulatory Sparkle SIEGEL Facility:[facility] Start: 11-05-2023 End: 11-05-2023 ambulatory OLYA MALIK [facility] Start: 09-24-2023 End: 09-24-2023 ambulatory YAHAIRA GASTELUM [facility] Start: 04-13-2023 End: 04-13-2023 ambulatory Sparkle SIEGEL Facility:[facility] Start: 04-28-2022 End: 04-29-2022 ambulatory OLYA MALIK Facility:[facility] Start: 04-08-2022 End: 04-09-2022 ambulatory OLYA MALIK Facility:[facility] Start: 01-12-2022 End: 01-13-2022 ambulatory MIRIAM HASSAN Facility:[facility] Start: 09-15-2021 End: 09-16-2021 ambulatory MIRIAM SONYA Facility:[facility] Start: 08-25-2021 End: 08-26-2021 ambulatory OLYA MALIK Facility:[facility] Start: 08-20-2021 ambulatory MIRIAM HASSAN Facility: [facility] Start: 04-01-2019 End: 04-01-2019 Patient encounter procedure LUÍS FREEDMANZORANQUANG Facility:[facility] Start: 06-02-2018 End: 06-02-2018 Emergency department patient visit TAMMY KENNY [facility] Procedures Date Procedure Procedure Detail Performing Clinician Start: 09-15-2021 PSA screening OLYA PINA Comment on above: Performed By: #### P [facility] #### [facility] [address] [place] [address] Dr. Sheila Thompson Start: 06-02-2018 Blood count complete automated TAMMY KENNY Start: 06-02-2018 Comprehensive metabolic panel TAMMY KENNY Start: 06-02-2018 TROPONIN TAMMY SMI TH Start: 06-02-2018 Radiologic exam ches t single view TAMMY KENNY Start: 06-02-2018 TELEMETRY MONITORING AR FERNANDO KENNY Start: 06-02-2018 EKG 12-LEAD TAMMY SMI TH Start: 06-02-2018 SALINE LOCK IV TAMMY S MITH Payers Date Payer Category Payer Unknown [id number] 1965 Unknown [id number] 1965 Unknown [id number] 2.16.8 [id number] 1965 Unknown [id number] 2.16.84 [id number] 1965 Unknown [id number] 2.16.84 [id number] 1965 Unknown [id number] 2.16.84 [id number] 1965 Unknown [id number] 2.16.84 [id number] 1965 Unknown [id number] 2.16.84 [id number] 1965 Unknown [id number] 2.16.84 [id number] 1965 Unknown [id number] 2.16.84 [id number] 1958 Private Health Insurance [id number] Private Health Insurance [id number] 1958 Self-pay [id number] Progress note 11-05-2023 Note Date & Type Note Facility 11-05-2023 Note [facility] PROGRESS NOTE HPI: Taqueria Hdez is a 58 y.o. male here for routine f/U for CAD s/p PCI, HTN, HPL, and tobacco dependence Patient presents today for follow up. He complains of chronic chest pain, which is atypical in nature. This has been ongoing for quite some time and has not worsened in frequency or severity. It occurs mostly at rest and does not worsen with exertion. SOB is stable. He had echo, CXR, and labs last week. Echo was without significant abnormality. Offers stress. Declines. States cp is stable Cardiology ROS: 10 point ROS is performed and is negative unless otherwise specified in HPI. Medications: Current Outpatient Medications on File Prior to Visit Medication Sig Dispense Refill amLODIPine (Norvasc) 5 mg tablet Take 1 tablet (5 mg) by mouth in the morning. (Patient not taking: Reported on 09/24/2023) 90 tablet 3 aspirin 81 mg EC tablet aspirin 81 [...] stop smoking at this time - spent 7 minutes counseling the patient on the importance of smoking cessation. I emphasized the risk of continued smoking. I offered the patient various resources. Patient respectfully declines at this time. Hypertensive disorder Patient states that HTN is well controlled at home Continue lisinopril, coreg, imdur Hyperlipidemia Continue tricor Coronary atherosclerosis Low risk treadmill stress test performed 12/2022 Patient complains of atypical chest pain Recommend stress with nuclear imaging. Patient declines Aggressive risk factor modification Optimize medical management -Optimize medical management -Aggressive risk factor modification -Plan of care discussed with patient. All questions were answered. Patient voices understanding and is agreeable with current plan. -Patient was educated on red flag symptoms. Strict return precautions were provided. Patient verbalizes understanding -Follow-up in cardiology clinic in 3 months, or sooner as needed Olya Malik MD Radiology: [facility] Progress note 09-24-2023 Note Date & Type Note Facility 09-24-2023 Note senior living tobacco us e and new unintentional weight loss Ordered CXR, and pt to f/U with PCP today [facility] Progress note 09-24-2023 Note Date & Type Note Facility 09-24-2023 Note Continue lipitor and tricor for lipid management [facility] Progress note 09-24-2023 Note Date & Type Note Facility 09-24-2023 Note Reports weight loss of about 30 pounds over last 2.5 months without trying to loose weight/ diet or exercise. F/U with PCP today CXR in light of h/o tobacco dependence [facility] Progress note 09-24-2023 Note Date & Type Note Facility 09-24-2023 Note Hypertension is unco ntrolled in office. Continue coreg and lisinopril [facility] Progress note 09-24-2023 Note Date & Type Note Facility 09-24-2023 Note Coronary artery dise ase is stable Continue GDMT- ASA, lipitor, coreg continue risk factor modifications- heart healthy diet, regular exercise as tolerated and continue all medications. [facility] Progress note 09-24-2023 Note Date & Type Note Facility 09-24-2023 Note [facility] PROGR ESS NOTE [...] illness or hospitalization. 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 [facility] Progress note 09-24-2023 Note Date & Type Note Facility 09-24-2023 Note Patient here for 6 m [...] All other systems reviewed and are negative. [facility] Clinical Note 04-28-2022 Note Date & Type Note Facility 04-28-2022 Note CARDIAC STRESS TEST Requesting Physician: [...] Olya Malik M.D. Primary care physician [facility] Clinical Note 08-25-2021 Note Date & Type Note Facility 08-25-2021 Note CARDIAC STRESS TEST Requesting Physician: Procedure Date: Lexiscan Stress Test with Myocardial Perfusion Imaging performed at the [facility]. Informed consent was obtained. The patient was [...] Myocardial perfusion images will be reported separately. [facility] Signed and Approved by: DR COLE HANEY 08/27/2021 05:26:00 [facility] Summary Purpose Family History No Family History Records FoundNo Family History Records FoundNo Family History Records FoundNo Family History Records FoundNo Family History Records Found Advance Directives No Advanced Directives Records FoundNo Advanced Directives Records FoundNo Advanced Directives Records FoundNo Advanced Directives Records FoundNo Advanced Directives Records Found Hospital Course Note MR#: [id number] [facility] Pt. Name: Taqueria Hdez Admitted: 04/01/2019 [...] PRES and the patient was transferred to [facility] for MRI. HOSPITAL COURSE: 1. Hypertensive urgency, which is improved with his restarting his oral medication. The patient was told to continue ta (more content not included)... Additional Source Comments (unrecognized sect ion and content) No Status Records FoundNo Status Records FoundNo Status Records FoundNo Status Records FoundNo Status Records Found INFORMATION SOURCE (unrecogn ized section and content) DATE CREATED AUTHOR 06/06/2018 [facility] DATE CREATED AUTHOR AUTHOR'S ORGANIZ ATION 10/10/2019 [facility] DATE CREATED AUTHOR AUTHOR'S ORGANIZ ATION 05/14/2022 [facility] DATE CREATED AUTHOR AUTHOR'S ORGANIZ ATION 11/25/2023 [facility] DATE CREATED AUTHOR AUTHOR'S ORGANIZ ATION 03/29/2024 [facility] FOR RECORDS PERTAINING TO PATIENTS WHO [...] BE BASED ON THE PRIMARY CLINICAL RECORDS. [facility] [employer] [facility]. provides no warranty or guarantee of the accuracy or completeness of information in this document.
[2024-03-31 13:30] LABS: Bilirubin Urine NEGATIVE (NEGATIVE); Blood Urine NEGATIVE (NEGATIVE); Clarity Urine CLEAR (CLEAR); Color Urine LT. YELLOW (YELLOW); Glucose Urine UA 500 mg/dL (NEGATIVE); Ketones Urine NEGATIVE (NEGATIVE); Leukocyte Esterase Urine NEGATIVE (NEGATIVE); Nitrite Urine POSITIVE (NEGATIVE); Protein Urine 30 mg/dL (NEG/TRACE); Urobilinogen Urine 0.2 EU/dL (0.2-1.0); pH Urine 6.5 (5.0-9.0)
[2024-03-31 13:38] LABS: Bacteria Urine LARGE #/HPF (NONE SEEN); RBC Urine 0-2 #/HPF (0-2); WBC Urine 0-2 #/HPF (NONE SEEN)
[2024-03-31 13:39] LABS: Cast Seen? NONE SEEN #/LPF (NONE SEEN); Crystals Seen? None Seen #/HPF (None Seen); Mucus Urine NONE SEEN (NONE SEEN); Squamous Epithelial Cell Urine RARE #/LPF (NONE/RARE); Urine Culture Indicated ALREADY ORDERED
== END 2024-03-31 12:57 | disposition home or self-care (01) ==
LOC: LAB 12:56
PROVIDERS: PCP Nurse Practitioner Family; Visit Provider Nurse Practitioner Family
DX: R35.0 Frequency of micturition (principal)
CPT/HCPCS: 81001; 87086; 87150; 87186

== ENCOUNTER 2024-04-11 08:25 | Outpatient (OUT) | payer SELFPAY ==
--- OUTSIDE RECORDS SUMMARY | 2024-04-11 08:33 | XMS_ITS | CCD ---
Author Organization [facility] Care Team Providers Care Campus Receptionist Name Role Phone TAMMY KENNY Unavailable Unavailable [...] SONYA, MIRIAM Primary Care Unavailable ALGHOTHANI, MOHAMAD Attending Unavailable YAHAIRA GASTELUM Attending Unavailable Sparkle SIEGEL Attending Unavailable Sparkle SIEGEL Attending Unavailable Allergies Allergy Classification Reported Allergen(s) Allergy Type Date of Onset Reaction(s) Facility (1 source) No Known Medication Allergies; Translations: [No Known Medication Allergies] Propensity to adverse reactions (disorder) [facility] Repository Problems Active Problems Problem Classification Problem Date Documented Date Episodic/Chronic Coronary atherosclerosis and other heart disease (10 sources) Atherosclerotic heart disease of [place] coronary artery with other forms of angina pectoris; Translations: [Atherosclerotic heart disease of [place] coronary artery without angina pectoris] Onset: 04-14-2022 [...] Range Facility Office Visiton 11-05-2023 Follow-up visit [id number] Kirk Hdez 1965 M Date Provider Department Center 11/05/2023 Shane-OLYA MALIK Family History Problem Relation Age of Onset Coronary artery disease Father Heart attack Father Other Father Coronary artery disease Maternal Grandfather Family Status - Relation Status Age at Father Maternal Grandfather Level of Service:19026 [place] OFFICE/OUTPATIENT ESTABLISHED LOW MDM 20 MIN Normal [facility] Orders Onlyon 11-05-2023 Orders Only [id number] Kirk Hdez P 1965 M Date Provider Department Center 11/05/2023 [id number], HISTORICAL CARD [facility] Family History Problem Relation Age of Onset Coronary artery disease Father Heart attack Father Other Father Coronary artery disease Maternal Grandfather Family Status - Relation Status Age at Father Maternal Grandfather Normal [facility] 36on 10-27-2023 36 PT INFORMED APPT [facility]-24-[facility]23 Follow-up visit [id number] Kirk Hdez ry P 1965 M Date Provider Department Center 09/24/2023 120-NIRAV YAHAIRA MARLA [facility] Family History Problem Relation Age of Onset Coronary artery disease Father Heart attack Father Other Father Coronary artery disease Maternal Grandfather Family Status - Relation Status Age at Father Maternal Grandfather Level of Service:96234 [place] OFFICE/OUTPATIENT ESTABLISHED MOD MDM 30 MIN Normal [facility] Consenton 04-13-2023 Consent [id number]#1. 00TIFF Normal [facility] In office Testingon 04-13-20 23 In office Testing [id number]#1. 00TIFF Normal [facility] Registrationon 04-13-2023 Registration [id number]#1. 00TIFF [facility] LIPID PROFILEon 04-28-2022 CHOL-HDL RATIO NORM SEE BELOW Normal [facility] Comment on above: Result Comment: 3.3 - 4.4 LOW RISK 4.4 - 7.1 AVERAGE RISK 7.1 - 11.0 MODERATE RISK >11.0 HIGH RISK Performed By: #### L IPID ####[facility] [address] [place], [place] [address]JgLeonardo Thompson Cholesterol [Mass/Vol] 154 mg/dL Normal <=[address] [facility] Comment on above: Performed By: #### L IPID ####[facility] [address] [place], [place] [address]DcLeonardo Thompson Cholesterol in HDL [Mass/Vol] 32 mg/dL Critically low 40-[address] [facility] Comment on above: Performed By: #### L IPID ####[facility] [address] [place] [id number]. Sheila Thompson Cholesterol in LDL [Mass/Vol] 80.6 mg/dL Normal [facility] Comment on above: Performed By: #### L IPID ####[facility] [address] [place] [id number]. Sheila Thompson Cholesterol.total/Ch olesterol in HDL [Mass ratio] 4.8 {ratio} Normal [facility] Comment on above: Performed By: #### L IPID ####[facility] [address] [place] [id number]. Sheila Thompson HDL NORMAL > or = 60 mg/dl - LO W CARDIOVASCULAR RISK <40 mg/dl - HIGH CARDIOVASCULAR RISK Normal [facility] Comment on above: Performed By: #### L IPID ####[facility] [address] [place] [id number]. Sheila Thompson LDL CALC NORMAL SEE BELOW Normal [facility] Comment on above: Result Comment: <100 mg/dl OPTIMAL 100 - 129 mg/dl NEAR OR ABOVE OPTIMAL 130 - 159 mg/dl BORDERLINE HIGH 160 - 189 mg/dl HIGH >190 mg/dl VERY HIGH Performed By: #### L IPID ####[facility] [address] [place] [id number]. Sheila Thompson Triglyceride [Mass/Vol] 207 mg/dL Critically high <=150 [facility] Comment on above: Performed By: #### L IPID ####[facility] [address] [place], [place] [address]Aa. Sheila Thompson VLDL CALC 41.4 mg/dL Normal [facility] Comment on above: Performed By: #### L IPID ####[facility] [address]yan[address] [place] [id number]. Sheila Thompson ECHOCARDIO M/2D COMPLETEon 1 ECHOCARDIO M/2D COMPLETE Patient: TAQUERIA HDEZ Exam Date: 04/08/2022 : 1965 Gender:M Ordering : OLYA MALIK Admission #: [id number] Family : Order #: [id number] CLICK HERE TO VIEW EXAM ECHOCARDIOGRAM REPORT [...] M.D. on 04/15/2022 at 11:06 Normal [facility] DIRECT LDLon 01-12-2022 Cholesterol in LDL [Mass/Vol] 70 mg/dL Normal [facility] Comment on above: Performed By: #### L JOSEID DLDL, CMP ####[facility] [address] [place] [address]Dr. Sheila Thompson DLDL NORMAL SEE BELOW Normal [facility] Comment on above: Result Comment: <100 mg/dl OPTIMAL 100 - 129 mg/dl NEAR OR ABOVE OPTIMAL 130 - 159 mg/dl BORDERLINE HIGH 160 - 189 mg/dl HIGH >190 mg/dl VERY HIGH Performed By: #### L IPID, DLDL, CMP ####[facility] [address] [place] [address]Dr. Sheila Thompson GLYCOHEMOGLOBIN A1Con 2021 ADA RECOMMENDATION SEE BELOW Normal [facility] Comment on above: Result Comment: ADA RECOMMENDED LIMIT 4.0 - 6.0 ADA THERAPEUTIC TARGET < 7.0 ACTION SUGGESTED > 7.0 Performed By: #### A 1C ####[facility] [address] [place] [address]Dr. Sheila Thompson Glucose [Mass/Vol] 160 mg/dL Normal [facility] Comment on above: Performed By: #### A 1C ####[facility] [address] [place] [address]Dr. Sheila Thompson HbA1c (Bld) [Mass fraction] 7.2 % Critically high 4.5-6.[address] [facility] Comment on above: Performed By: #### A 1C ####[facility] [address] [place], [place] [address]Dr. Sheila Thompson LIPID PROFILEon 01-12-2022 CHOL-HDL RATIO NORM SEE BELOW Normal [facility] Comment on above: Result Comment: 3.3 - 4.4 LOW RISK 4.4 - 7.1 AVERAGE RISK 7.1 - 11.0 MODERATE RISK >11.0 HIGH RISK Performed By: #### L IPID, DLDL, CMP ####[facility] [address] [place] [address]Dr. Sheila Thompson Cholesterol [Mass/Vol] 165 mg/dL Normal <=[address] [facility] Comment on above: Performed By: #### L IPID, DLDL, CMP ####[facility] [address]rag[address] [place] [address]Dr. Sheila Thompson Cholesterol in HDL [Mass/Vol] 25 mg/dL Critically low 40-[address] [facility] Comment on above: Performed By: #### L IPID, DLDL, CMP ####[facility] Rsecqfwfbf[address] [place] [address]Dr. Sheila Thompson Cholesterol.total/Ch olesterol in HDL [Mass ratio] 6.6 {ratio} Normal [facility] Comment on above: Performed By: #### L IPID, DLDL, CMP ####[facility] [address] [place] [address]Dr. Sheila Thompson HDL NORMAL > or = 60 mg/dl - LO W CARDIOVASCULAR RISK <40 mg/dl - HIGH CARDIOVASCULAR RISK Normal [facility] Comment on above: Performed By: #### L IPID, DLDL, CMP ####[facility] [address]vmdmzxiux[address] [place] [address]Dr. Sheila Thompson Triglyceride [Mass/Vol] 502 mg/dL Critically high <=[address] [facility] Comment on above: Performed By: #### L IPID, DLDL, CMP ####[facility] [address]xlt[address] [place] [address]Dr. Sheila Thompson PROF 14(COMP METB)on 022 Albumin [Mass/Vol] 3.9 g/dL Normal 3.4-5.0 [facility] Comment on above: Performed By: #### L IPID, DLDL, CMP ####[facility] [address] [place] [address]Dr. Sheila Thompson Albumin/Globulin [Mass ratio] 1.1 {ratio} Normal [facility] Comment on above: Performed By: #### L IPID, DLDL, CMP ####[facility] [address] [place] [address]Dr. Sheila Thompson ALP [Catalytic activity/Vol] 71 U/L Normal 46-116 [facility] Comment on above: Performed By: #### L IPID, DLDL, CMP ####[facility] Y[address]uf[address] [place] [address]Dr. Sheila Thompson ALT [Catalytic activity/Vol] 47 U/L Normal 16-63 [facility] Comment on above: Performed By: #### L IPID, DLDL, CMP ####[facility] Csvhydjrnn4[address] [place] [address]Dr. Sheila Thompson Anion gap [Moles/Vol] 12.9 mmol/L Normal [facility] Comment on above: Performed By: #### L IPID, DLDL, CMP ####[facility] T[address] [place] [address]Dr. Sheila Thompson AST [Catalytic activity/Vol] 21 U/L Normal 15-37 [facility] Comment on above: Performed By: #### L IPID, DLDL, CMP ####[facility] [address]ym[address]biqw[address] [place] [address]Dr. Sheila Thompson Bilirubin [Mass/Vol] 0.2 mg/dL Normal 0.2-1.0 [facility] Comment on above: Performed By: #### L IPID, DLDL, CMP ####[facility] [address] [place], [place] [address]Dr. Sheila Thompson Calcium [Mass/Vol] 9.0 mg/dL Normal 8.5-10.1 [facility] Comment on above: Performed By: #### L IPID, DLDL, CMP ####[facility] [address]ssq[address] [place], [place] [address]Dr. Sheila Thompson Chloride [Moles/Vol] 104 mmol/L Normal 98-107 [facility] Comment on above: Performed By: #### L IPID, DLDL, CMP ####[facility] [address] [place], [place] [address]Dr. Sheila Thompson CO2 [Moles/Vol] 26.9 mmol/L Normal 21.0-32.0 [facility] Comment on above: Performed By: #### L IPID, DLDL, CMP ####[facility] [address] [place], [place] [address]Dr. Sheila Thompson Creatinine [Mass/Vol] 0.78 mg/dL Normal 0.70-1.30 [facility] Comment on above: Performed By: #### L IPID, DLDL, CMP ####[facility] [address] [place], [place] [address]Dr. Sheila Thompson EGFR-AF HUNGARIAN >60 Normal >=60 [facility] Comment on above: Performed By: #### L IPID, DLDL, CMP ####[facility] [address]yesot[address] [place], [place] [address]Dr. Sheila Thompson EGFR-NON AF HUNGARIAN >60 Normal >=60 [facility] Comment on above: Performed By: #### L IPID, DLDL, CMP ####[facility] [address] [place] [address]Dr. Sheila Thompson Globulin (S) [Mass/Vol] 3.5 g/dL Normal [facility] Comment on above: Performed By: #### L IPID, DLDL, CMP ####[facility] [address]lpzldbuo[address] [place] [address]Dr. Sheila Thompson Glucose [Mass/Vol] 171 mg/dL Critically high 74-106 T [facility] Comment on above: Performed By: #### L IPID, DLDL, CMP ####[facility] H[address]yfnbmdzd42[address] [place] [address]Dr. Sheila Thompson Potassium [Moles/Vol] 3.8 mmol/L Normal 3.5-5.[address] [facility] Comment on above: Performed By: #### L IPID, DLDL, CMP ####[facility] [address] [place], [place] [address]Dr. Sheila Thompson Protein [Mass/Vol] 7.4 g/dL Normal 6.4-8.2 [facility] Comment on above: Performed By: #### L IPID, DLDL, CMP ####[facility] [address] [place], [place] [address]Dr. Sheila Thompson Sodium [Moles/Vol] 140 mmol/L Normal 136-145 [facility] Comment on above: Performed By: #### L IPID, DLDL, CMP ####[facility] Byvznrcown[address] [place] [address]Dr. Sheila Thompson Urea nitrogen [Mass/Vol] 16.0 mg/dL Normal 7.0-18.0 [facility] Comment on above: Performed By: #### L IPID, DLDL, CMP ####[facility] [address] [place], [place] [address]Dr. Sheila Thompson Urea nitrogen/Creatinine [Mass ratio] 20.5 mg/mg Normal [facility] Comment on above: Performed By: #### L IPID, DLDL, CMP ####[facility] Ex[address]rak[address] [place] [address]Dr. Sheila Thompson INSULINon 09-16-2021 Insulin 59.1 uIU/mL Critically high 2.6-24.9 [facility] Comment on above: Performed By: #### I NSULIN ####[facility] Xib[address] [place], [place] [address]Dr. Sheila Thompson CBC AUTO DIFFon 09-15-2021 BASO # 0.0 103/ul Normal 0.0-0.1 [facility] Comment on above: Performed By: #### C BC ####[facility] [address]vez[address] [place], [place] [address]Dr. Sheila Jay Basophils/100 WBC (Bld) 0.4 % Normal 0.2-2.0 [facility] Comment on above: Performed By: #### C BC ####[facility] [address] [place], [place] [address]Dr. Sheila Jay EO # 0.2 103/ul Normal 0.0-0.7 [facility] Comment on above: Performed By: #### C BC ####[facility] He[address] [place], [place] [address]Dr. Sheila Jay Eosinophils/100 WBC (Bld) 1.9 % Normal 0.9-7.0 [facility] Comment on above: Performed By: #### C BC ####[facility] Ulp[address]hr[address] [place], [place] [address]Dr. Sheila Thompson Erythrocyte distribution width (RBC) [Ratio] 13.3 % Normal 11.0-15.0 [facility] Comment on above: Performed By: #### C BC ####[facility] [address]ws[address] [place], [place] [address]Dr. Sheila Thompson Hematocrit (Bld) [Volume fraction] 44.5 % Normal 42.0-54.0 [facility] Comment on above: Performed By: #### C BC ####[facility] [address] [place], [place] [address]Dr. Sheila Jay Hemoglobin (Bld) [Mass/Vol] 14.7 g/dL Normal 14.0-18.0 [facility] Comment on above: Performed By: #### C BC ####[facility] [address] [place] [id number]. Sheila Thompson IG # 0.02 10e3/ul Normal 0.00-0.[address] [facility] Comment on above: Performed By: #### C BC ####[facility] L[address]ch[address] [place] [id number]. Sheila Thompson IG % 0.2 % Normal 0.0-0.[address] [facility] Comment on above: Performed By: #### C BC ####[facility] [address]qdle[address] [place] [address]Dr. Sehila Thompson LYMPH # 2.2 103/ul Normal 1.2-3.8 [facility] Comment on above: Performed By: #### C BC ####[facility] Ivlvio[address]ywh[address] [place] [address]Dr. Sheila Thompson Lymphocytes/100 WBC (Bld) 26.0 % Normal 20.5-60.[address] [facility] Comment on above: Performed By: #### C BC ####[facility] [address]ks[address] [place] [id number]. Sheila Thompson MANUAL DIFF REQ NO Normal [facility] Comment on above: Performed By: #### C BC ####[facility] F[address]ja[address] [place] [id number]. Sheila Thompson MCH (RBC) [Entitic mass] 30.6 pg Normal 25.9-34.[address] [facility] Comment on above: Performed By: #### C BC ####[facility] [address]aim[address] [place] [id number]. Sheila Thompson MCHC (RBC) [Mass/Vol] 33.0 g/dL Normal 29.9-35.2 [facility] Comment on above: Performed By: #### C BC ####[facility] [address] [place] [id number]. Sheila Thompson MCV (RBC) [Entitic vol] 92.7 fL Normal 80.0-94.[address] [facility] Comment on above: Performed By: #### C BC ####[facility] [address] [place] [id number]. Sheila Thompson MONO # 1.0 103/ul Critically high 0.3-0.8 [facility] Comment on above: Performed By: #### C BC ####[facility] C[address]qbg[address] [place] [id number]. Sheila Thompson Monocytes/100 WBC (Bld) 11.9 % Normal 1.7-12.0 [facility] Comment on above: Performed By: #### C BC ####[facility] Srzwostpet[address] [place] [id number]. Sheila Thompson NEUT # 5.0 103/ul Normal 1.4-6.5 [facility] Comment on above: Performed By: #### C BC ####[facility] [address]fj[address] [place] [address]Dr. Sheila Thompson Neutrophils/100 WBC (Bld) 59.6 % Normal 43.0-75.0 [facility] Comment on above: Performed By: #### C BC ####[facility] Yas[address]vuviu[address] [place] [id number]. Sheila Thompson Platelet mean volume (Bld) [Entitic vol] 10.4 fL Normal 9.5-13.5 [facility] Comment on above: Performed By: #### C BC ####[facility] J[address]shm[address] [place] [id number]. Sheila Thompson PLT 245 103/ul Normal 150-450 [facility] Comment on above: Performed By: #### C BC ####[facility] T[address]ky[address] [place] [id number]. Sheila Thompson RBC 4.80 106/ul Normal 4.70-6.10 [facility] Comment on above: Performed By: #### C BC ####[facility] J[address]ujke[address] [place] [id number]. Sheila Thompson WBC 8.4 103/ul Normal 4.0-11.0 [facility] Comment on above: Performed By: #### C BC ####[facility] [address] [place], [place] [address]YmDr. Sheila Thompson DIRECT LDLon 09-15-2021 Cholesterol in LDL [Mass/Vol] 74 mg/dL Normal [facility] Comment on above: Performed By: #### L IPID, DLDL, CMP, URIC #### [facility] [address] [place] [address] [address] Sheila Thompson DLDL NORMAL SEE BELOW Normal [facility] Comment on above: Result Comment: <100 mg/dl OPTIMAL 100 - 129 mg/dl NEAR OR ABOVE OPTIMAL 130 - 159 mg/dl BORDERLINE HIGH 160 - 189 mg/dl HIGH >190 mg/dl VERY HIGH Performed By: #### L IPID, DLDL, CMP, URIC #### [facility] [address] [place] [address] [address] Sheila Thompson GLYCOHEMOGLOBIN A1Con 2021 ADA RECOMMENDATION ADA THERAPEUTIC TARG ET 6.0 - 7.0 ACTION SUGGESTED > 7.[address] [facility] Comment on above: Performed By: #### A 1C #### [facility] [address] [place] [address] [address] Sheila Thompson Glucose [Mass/Vol] 194 mg/dL Normal [facility] Comment on above: Performed By: #### A 1C #### [facility] [address] [place] [address] Dr. Sheila Thompson HbA1c (Bld) [Mass fraction] 8.4 % Critically high <=6.[address] [facility] Comment on above: Performed By: #### A 1C #### [facility] [address] [place] [address] [address] Sheila Thompson LIPID PROFILEon 09-15-2021 CHOL-HDL RATIO NORM SEE BELOW Normal [facility] Comment on above: Result Comment: 3.3 - 4.4 LOW RISK 4.4 - 7.1 AVERAGE RISK 7.1 - 11.0 MODERATE RISK >11.0 HIGH RISK Performed By: #### L IPID, DLDL, CMP, URIC #### [facility] [address] [place] [address] [address] Sheila Thompson Cholesterol [Mass/Vol] 223 mg/dL Critically high <=[address] [facility] Comment on above: Performed By: #### L IPID, DLDL, CMP, URIC #### [facility] [address] [place] [address] [address] Sheila Thompson Cholesterol in HDL [Mass/Vol] 24 mg/dL Critically low 40-[address] [facility] Comment on above: Performed By: #### L IPID, DLDL, CMP, URIC #### [facility] [address] [place] [address] [address] Sheila Thompson Cholesterol.total/Ch olesterol in HDL [Mass ratio] 9.3 {ratio} Normal [facility] Comment on above: Performed By: #### L IPID, DLDL, CMP, URIC #### [facility] [address] [place] [address] [address] Sheila Thompson HDL NORMAL > or = 60 mg/dl - LO W CARDIOVASCULAR RISK <40 mg/dl - HIGH CARDIOVASCULAR RISK Normal [facility] Comment on above: Performed By: #### L IPID, DLDL, CMP, URIC #### [facility] [address] [place] [address] [address] Sheila Thompson LDL CALC NORMAL SEE BELOW Normal [facility] Comment on above: Result Comment: <100 mg/dl OPTIMAL 100 - 129 mg/dl NEAR OR ABOVE OPTIMAL 130 - 159 mg/dl BORDERLINE HIGH 160 - 189 mg/dl HIGH >190 mg/dl VERY HIGH Performed By: #### L IPID, DLDL, CMP, URIC #### [facility] [address] [place] [address] [address] Sheila Thompson Triglyceride [Mass/Vol] 903 mg/dL Critically high <=[address] [facility] Comment on above: Performed By: #### L IPID, DLDL, CMP, URIC #### [facility] [address] [place] [address] [address] Sheila Thompson PROF 14(COMP METB)on 022 Albumin [Mass/Vol] 3.9 g/dL Normal 3.4-5.0 [facility] Comment on above: Performed By: #### L IPID, DLDL, CMP, URIC #### [facility] [address] [place] [address] [address] Sheila Thompson Albumin/Globulin [Mass ratio] 1.1 {ratio} Normal [facility] Comment on above: Performed By: #### L IPID, DLDL, CMP, URIC #### [facility] [address] [place] [address] [address] Sheila Thompson ALP [Catalytic activity/Vol] 76 U/L Normal 46-[address] [facility] Comment on above: Performed By: #### L IPID, DLDL, CMP, URIC #### [facility] [address] [place] [address] [address] Sheila Thompson ALT [Catalytic activity/Vol] 45 U/L Normal 16-[address] [facility] Comment on above: Performed By: #### L IPID, DLDL, CMP, URIC #### [facility] [address] [place] [address] Dr. Sheila Thompson Anion gap [Moles/Vol] 12.3 mmol/L Normal [facility] Comment on above: Performed By: #### L IPID, DLDL, CMP, URIC #### [facility] [address] [place] [address] Dr. Sheila Thompson AST [Catalytic activity/Vol] 11 U/L Critically low 15-[address] [facility] Comment on above: Performed By: #### L IPID, DLDL, CMP, URIC #### [facility] [address] [place] [address] [address] Sheila Thompson Bilirubin [Mass/Vol] 0.2 mg/dL Normal 0.2-1.[address] [facility] Comment on above: Performed By: #### L IPID, DLDL, CMP, URIC #### [facility] [address] [place] [address] Dr. Sheila Thompson Calcium [Mass/Vol] 8.4 mg/dL Critically low 8.5-10.1 [facility] Comment on above: Performed By: #### L IPID, DLDL, CMP, URIC #### [facility] [address] [place] [address] Dr. Sheila Thompson Chloride [Moles/Vol] 102 mmol/L Normal 98-[address] [facility] Comment on above: Performed By: #### L IPID, DLDL, CMP, URIC #### [facility] [address] [place] [address] [address] Sheila Thompson CO2 [Moles/Vol] 26.8 mmol/L Normal 22.0-30.0 [facility] Comment on above: Performed By: #### L IPID, DLDL, CMP, URIC #### [facility] [address] [place] [address] [address] Sheila Thompson Creatinine [Mass/Vol] 0.67 mg/dL Normal 0.66-1.[address] [facility] Comment on above: Performed By: #### L IPID, DLDL, CMP, URIC #### [facility] [address] [place] [address] Dr. Sheila Thompson EGFR-AF HUNGARIAN >60 Normal >=60 [facility] Comment on above: Performed By: #### L IPID, DLDL, CMP, URIC #### [facility] [address] [place] [address] Dr. Sheila Thompson EGFR-NON AF HUNGARIAN >60 Normal >=[address] [facility] Comment on above: Performed By: #### L IPID, DLDL, CMP, URIC #### [facility] [address] [place] [address] Dr. Sheila Thompson Globulin (S) [Mass/Vol] 3.6 g/dL Normal [facility] Comment on above: Performed By: #### L IPID, DLDL, CMP, URIC #### [facility] [address] [place] [address] [address] Sheila Thompson Glucose [Mass/Vol] 192 mg/dL Critically high 74-106 T [facility] Comment on above: Performed By: #### L IPID, DLDL, CMP, URIC #### [facility] [address] [place] [address] [address] Sheila Thompson Potassium [Moles/Vol] 4.1 mmol/L Normal 3.4-5.[address] [facility] Comment on above: Performed By: #### L IPID, DLDL, CMP, URIC #### [facility] [address] [place] [address] [address] Sheila Thompson Protein [Mass/Vol] 7.5 g/dL Normal 6.1-8.2 [facility] Comment on above: Performed By: #### L IPID, DLDL, CMP, URIC #### [facility] [address] [place] [address] [address] Sheila Thompson Sodium [Moles/Vol] 137 mmol/L Normal 137-145 [facility] Comment on above: Performed By: #### L IPID, DLDL, CMP, URIC #### [facility] [address] [place] [address] Dr. Sheila Thompson Urea nitrogen [Mass/Vol] 16.0 mg/dL Normal 7.0-18.[address] [facility] Comment on above: Performed By: #### L IPID, DLDL, CMP, URIC #### [facility] [address] [place] [address] Dr. Sheila Thompson Urea nitrogen/Creatinine [Mass ratio] 23.9 mg/mg Normal [facility] Comment on above: Performed By: #### L IPID, DLDL, CMP, URIC #### [facility] [address] [place] [address] Dr. Sheila Thompson URIC ACID SERUMon 09-15-2021 Urate [Mass/Vol] 2.4 mg/dL Critically low 3.5-8.[address] [facility] Comment on above: Performed By: #### L IPID, DLDL, CMP, URIC #### [facility] [address] [place] [address] Dr. Sheila Thompson NM STRESS/REST MULTIon 08-25 NM STRESS/REST MULTI Patient: TAQUERIA HDEZ Exam Date: 08/25/2021 : 1965 Gender:M Ordering : ELIANAAlex HORTENISAQUANG Admission #: [id number] Family : Order #: [id number] CLICK HERE TO VIEW EXAM RADIOLOGY REPORT [...] Hurt MD on 08/26/2021 at 13:[address] [facility] BASIC METABOLIC PANELon 03-14 Calcium [Mass/Vol] 9.9 mg/dL Normal 8.6-10.3 [facility] Comment on above: Order Comment: No: D o not add to previous draw Performed By: #### 9 [id number], [id number] #### [facility] [address] [place] [address], [place] Chloride [Moles/Vol] 103 mmol/L Normal 98-107 [facility] Comment on above: Order Comment: No: D o not add to previous draw Performed By: #### 9 9909, [id number] #### [facility] [address] [place] [address], [place] CO2 [Moles/Vol] 26 mmol/L Normal 21-31 [facility] Comment on above: Order Comment: No: D o not add to previous draw Performed By: #### 9 9908, 27479 #### [facility] [address] [place] [address], [place] Creatinine [Mass/Vol] 0.72 mg/dL Normal 0.70-1.30 [facility] Comment on above: Order Comment: No: D o not add to previous draw Performed By: #### 9 9908, 13525 #### [facility] [address] [place] [address], [place] GFR/1.73 sq M predicted among blacks MDRD (S/P/Bld) [Vol rate/Area] mL/min/{1.73_m2} Normal >60 [facility] Comment on above: Order Comment: No: D o not add to previous draw Performed By: #### 9 9908, 60229 #### [facility] [address] [place] [address], [place] GFR/1.73 sq M predicted among non-blacks MDRD (S/P/Bld) [Vol rate/Area] mL/min/{1.73_m2} Normal >60 [facility] Comment on above: Order Comment: No: D o not add to previous draw Performed By: #### 9 9908, 41252 #### [facility] [address] [place] [address], [place] Glucose [Mass/Vol] 152 mg/dL High 70-100 [facility] Comment on above: Order Comment: No: D o not add to previous draw Performed By: #### 9 9908, 36918 #### [facility] [address] [place] [address], [place] Potassium [Moles/Vol] 4.2 mmol/L Normal 3.5-5.1 [facility] Comment on above: Order Comment: No: D o not add to previous draw Performed By: #### 9 9908, 99304 #### [facility] [address] [address], [facility] Sodium [Moles/Vol] 135 mmol/L Low 136-145 [facility] Comment on above: Order Comment: No: D o not add to previous draw Performed By: #### 9 9909, 44972 #### [facility] [address] [facility] [place] [address], [facility] Urea nitrogen [Mass/Vol] 8 mg/dL Normal 7-25 [facility] Comment on above: Order Comment: No: D o not add to previous draw Performed By: #### 9 9909, 70125 #### [facility] [address] [facility] [place] [address], [facility] CBC W/DIFFon 04-01-2019 ABS BASOPHILS 0.0 10*3/uL Normal 0.0-0.2 [facility] Comment on above: Performed By: #### 5 0103 #### [facility] [address] [facility]. [address] ABS IMM GRANS 0.0 10*3/uL Normal 0.0-0.2 [facility] Comment on above: Performed By: #### 5 0103 #### [facility] [address] [facility] [place] [address], [facility] ABS NEUTROPHILS 7.6 10*3/uL Normal 1.6-7.6 [facility] Comment on above: Performed By: #### 5 0103 #### [facility] [address] [facility] [place] [address], [facility] Basophils/100 WBC (Bld) 0.4 % Normal 0.0-1.0 [facility] Comment on above: Performed By: #### 5 0103 #### [facility] [address] [facility] [place] [address], [facility] Eosinophils (Bld) [#/Vol] 0.2 10*3/uL Normal 0.0-0.5 [facility] Comment on above: Performed By: #### 5 0103 #### [facility] [address] [facility] [place] [address], [facility] Eosinophils/100 WBC (Bld) 1.3 % Normal 0.0-6.0 [facility] Comment on above: Performed By: #### 5 0103 #### [facility] [address] [facility] [place] [address], [facility] Erythrocyte distribution width (RBC) [Ratio] 13.2 % Normal 11.5-15.0 [facility] Comment on above: Performed By: #### 5 0103 #### [facility] [address] [facility] [place] [address], [facility] Hematocrit (Bld) [Volume fraction] 47.5 % Normal 39.0-50.0 [facility] Comment on above: Performed By: #### 5 0103 #### [facility] [address] [facility] [place] [address], [facility] Hemoglobin (Bld) [Mass/Vol] 15.2 g/dL Normal 13.0-17.0 [facility] Comment on above: Performed By: #### 5 0103 #### [facility] [address] [facility] [place] [address], [facility] IMMATURE GRANS 0.4 % Normal 0.0-1.0 [facility] Comment on above: Performed By: #### 5 0103 #### [facility] [address] [facility] [place] [place] [address], [facility] Lymphocytes (Bld) [#/Vol] 2.2 10*3/uL Normal 1.2-4.0 [facility] Comment on above: Performed By: #### 5 3 #### [facility] [address] [place] [address], [facility] Lymphocytes/100 WBC (Bld) 19.6 % Low 20.0-45.0 [facility] Comment on above: Performed By: #### 5 0103 #### [facility] [address] [place] [address], [facility] MCH (RBC) [Entitic mass] 29.9 pg Normal 27.0-33.0 [facility] Comment on above: Performed By: #### 5 0103 #### [facility] [address] [facility] [place] [address], [facility] MCHC (RBC) [Mass/Vol] 32.0 g/dL Normal 32.0-35.0 [facility] Comment on above: Performed By: #### 5 0103 #### [facility] [address] [facility] [place] [address], [facility] MCV (RBC) [Entitic vol] 93.3 fL Normal 82.0-98.0 [facility] Comment on above: Performed By: #### 5 0103 #### [facility] [address] [facility] [place] [address], [facility] Monocytes (Bld) [#/Vol] 1.3 10*3/uL High 0.1-1.0 [facility] Comment on above: Performed By: #### 5 3 #### [facility] [address] [facility] [place] [address], [facility] MONOS 11.4 % Normal 5.0-12.0 [facility] Comment on above: Performed By: #### 5 0103 #### [facility] [address] [facility] [place] [address], [facility] Neutrophils/100 WBC (Bld) 66.9 % Normal 40.0-72.0 [facility] Comment on above: Performed By: #### 5 3 #### [facility] [address] [place] [address], [facility] Nucleated RBC/100 WBC (Bld) [Ratio] 0 % Normal 0-0 [facility] Comment on above: Performed By: #### 5 3 #### [facility] [address] [place] [address], [facility] PLAT CNT 223 10*3/uL Normal 150-[address] [facility] Comment on above: Performed By: #### 5 0103 #### [facility] [address] [place] [address], [facility] RBC (Bld) [#/Vol] 5.09 10*6/uL Normal 4.20-5.70 [facility] Comment on above: Performed By: #### 5 0103 #### [facility] [address] [place] [address], [facility] WBC (Bld) [#/Vol] 11.39 10*3/uL High 4.00-10.60 [facility] Comment on above: Performed By: #### 5 0103 #### [facility] [address] [facility] [address] History and Physicalon 04-01 History and Physical MR#: [id number] [facility] Pt. Name: Taqueria Hdez Admitted: 04/01/2019 Date of : 1965 Attending Physician: Julius Ivy MD Room #: [id number] Discharge Date: HISTORY AND PHYSICAL CHIEF COMPLAINT: Headache, elevated blood pressure. HISTORY OF PRESENT ILLNESS: This is a 54-year-old male, who was transferred from [facility] this morning for further evaluation. He presented there last night complaining of a headache. He states his headache has been on the left side of his head radiating to the back. It has been constantly present since 1 p.m. yesterday. It was partially alleviated by morphine that he received at [place], but has returned since. He states his blood pressure has been high as well. It has been in the 160s all week despite taking his medications. Normally, his blood pressure has been systolic within 140s. He reports compliance with his medications. When he presented to [place] ER, his blood pressure reportedly was 188/104. [...] Denies fevers, chills, or cough. In the [facility], he had CT imaging of his head done, which showed some findings concerning for possible moyer. Recommendation was made for the patient to have an MRI and it is not available at [facility]. PAST MEDICAL HISTORY: Hypertension, hyperlipidemia, GERD, [...] normal. LABORATORY STUDIES: Lab studies reviewed from [facility] from March 31, 2019. BMP; sodium [...] Ivy MD Date Trans: 04/01/2019 04:53 A/mmo [id number] Normal [facility] LIVER BATTERYon 04-01-2019 Albumin [Mass/Vol] 4.6 g/dL Normal 3.5-5.7 [facility] Comment on above: Order Comment: No: D o not add to previous draw Performed By: #### 9 9909, 36791 #### [facility] [address] [place] [address], [facility] ALKALINE PHOSPH 62 IU/L Normal 34-104 [facility] Comment on above: Order Comment: No: D o not add to previous draw Performed By: #### 9 9909, 02631 #### [facility] [address] [place] [address], [place] ALT [Catalytic activity/Vol] 53 U/L High 7-52 [facility] Comment on above: Order Comment: No: D o not add to previous draw Performed By: #### 9 9909, 10053 #### [facility] [address] [place] [address], [place] AST [Catalytic activity/Vol] 32 U/L Normal 13-39 [facility] Comment on above: Order Comment: No: D o not add to previous draw Performed By: #### 9 9909, 26198 #### [facility] [address] [place] [id number], [place] Bilirubin [Mass/Vol] 0.4 mg/dL Normal 0.3-1.0 [facility] Comment on above: Order Comment: No: D o not add to previous draw Performed By: #### 9 9909, 99565 #### [facility] [address] [facility] [place] [address], [facility] Bilirubin.direct [Mass/Vol] 0.0 mg/dL Normal 0.0-0.2 [facility] Comment on above: Order Comment: No: D o not add to previous draw Performed By: #### 9 9909, 93214 #### [facility] [address] [facility] [place] [address], [facility] Protein [Mass/Vol] 7.5 g/dL Normal 6.0-8.3 [facility] Comment on above: Order Comment: No: D o not add to previous draw Performed By: #### 9 9909, 23100 #### [facility] [address] [place] [address], [facility] MRI BRAIN WO CONTRASTon 03-14 MRI BRAIN WO CONTRAST [facility] Department of Radiology [address] [place] [id number] ======== Patient Name: TAQUERIA HDEZ : 1965 Sex: M Age: Race: White Pt. Location: [id number] Patient Status: D Ordered Date: 04/01/2019 4:00:00 [...] findings. Electronically signed by:Tianna Orozco. Transcribed by: [email or web address], User Resident: ALTHEA BLACKMON Electronically Signed by: TIANNA OROZCO @ 04/02/2019 03:18 PM I personally read this/these film(s) with this resident Normal [facility] Comment on above: Order Comment: Other , evaluate for pres, has hypertension and headache, had decreased attenuation on ct head occiptal lobe and bilateral parietal lobes CBC With Platelet No Differe ntialon 06-02-2018 Erythrocyte distribution width Auto Ratio (RBC) 13.6 fL Normal 11.5-15.0 [facility] Hematocrit Auto Volume Fraction (Bld) 44.7 % Normal 37.0-54.0 [facility] Hemoglobin mass conc (Bld) 14.7 g/dL Normal 12.5-16.5 [facility] MCH Auto Entitic mass (RBC) 29.9 pg Normal 26.0-35.0 [facility] MCHC Auto mass conc (RBC) 32.9 % Normal 32.0-34.5 [facility] MCV Auto Entitic volume (RBC) 91.0 fL Normal 80.0-99.9 [facility] Platelet mean volume Auto Entitic volume (Bld) 10.0 fL Normal 7.0-12.0 [facility] Platelets Auto #/vol (Bld) 240 E9/L Normal 130-450 [facility] RBC Auto #/vol (Bld) 4.91 E12/L Normal 3.80-5.80 [facility] WBC Auto #/vol (Bld) 7.5 E9/L Normal 4.5-11.5 [facility] Comprehensive Metabolic Pane vince 06-02-2018 Albumin mass conc 4.4 g/dL Normal 3.5-5.2 [facility] ALP enzyme act/vol 67 U/L Normal 40-129 [facility] ALT enzyme act/vol 54 U/L High 0-40 [facility] Anion gap 3 molar conc 13 mmol/L Normal 7-16 [facility] AST enzyme act/vol 40 U/L High 0-39 [facility] Bilirubin mass conc 0.3 mg/dL Normal 0.0-1.2 [facility] Calcium mass conc 9.1 mg/dL Normal 8.6-10.2 [facility] Chloride molar conc 100 mmol/L Normal 98-107 [facility] CO2 molar conc 24 mmol/L Normal 22-29 [facility] Creatinine mass conc 0.9 mg/dL Normal 0.7-1.2 [facility] GFR/1.73 sq M predicted among blacks MDRD vol rate/area (S/P/Bld) mL/min/{1.73_m2} Normal [facility] GFR/1.73 sq M predicted among non-blacks MDRD vol rate/area (S/P/Bld) mL/min/{1.73_m2} Normal >=60 [facility] Comment on above: Result Comment: Insurance Verification Specialist leonard Kidney Disease: less than 60 ml/min/1.73 sq.m. Kidney Failure: less than 15 ml/min/1.73 sq.m.Results valid for patients 18 years and older. Glucose mass conc 161 mg/dL High 74-99 [facility] Potassium molar conc 3.8 mmol/L Normal 3.5-5.0 [facility] Protein mass conc 7.5 g/dL Normal 6.4-8.3 [facility] Sodium molar conc 137 mmol/L Normal 132-146 [facility] Urea nitrogen mass conc 11 mg/dL Normal 6-20 [facility] Troponinon 06-02-2018 Troponin I.cardiac mass conc ng/mL Normal 0.00-0.03 [facility] Comment on above: Result Comment: TROP ONIN [...] by:ANDREIA Whartonigned by:Jarrell Blankenship MD06/02/18inal result Normal [facility] Encounters Encounter Date Encounter Type Care Provider Facility Start: 04-07-2024 End: 04-07-2024 [facility] T ROBBIN [facility] Start: 03-27-2024 End: 03-27-2024 Emergency department patient visit OLYA MALIK [facility] Start: 11-24-2023 ambulatory Sparkle SIEGEL Facility:[facility] Start: 11-05-2023 End: 11-05-2023 [facility] Start: 09-24-2023 End: 09-24-2023 ambulatory YAHAIRA GASTELUM [facility] Start: 04-13-2023 End: 04-13-2023 ambulatory Sparkle SIEGEL [facility] Start: 04-28-2022 End: 04-29-2022 ambulatory OLYA MALIK Facility:[facility] Start: 04-08-2022 End: 04-09-2022 ambulatory OLYA MALIK Facility:[facility] Start: 01-12-2022 End: 01-13-2022 ambulatory MIRIAMHEATH MANNINGMER Facility:[facility] Start: 09-15-2021 End: 09-16-2021 ambulatory MIRIAM HASSAN Facility:[facility] Start: 08-25-2021 End: 08-26-2021 ambulatory OLYA MALIK Facility:[facility] Start: 08-20-2021 ambulatory MIRIAM SONYA Facility: [facility] Start: 04-01-2019 End: 04-01-2019 Patient encounter procedure LUÍS FREEDMANZORANQUANG Facility:[facility] Start: 06-02-2018 End: 06-02-2018 Emergency department patient visit TAMMY KENNY [facility] Procedures Date Procedure Procedure Detail Performing Clinician Start: 09-15-2021 PSA screening OLYA PINA Comment on above: Performed By: #### [facility] #### [facility] [address] [place] [address] Dr. Sheila Thompson Start: 06-02-2018 Blood count complete automated TAMMY KENNY Start: 06-02-2018 Comprehensive metabolic panel TAMMY KENNY Start: 06-02-2018 TROPONIN TAMMY DE LA TORRE Start: 06-02-2018 Radiologic exam ches t single view TAMMY KENNY Start: 06-02-2018 TELEMETRY MONITORING AR FERNANDO KENNY Start: 06-02-2018 EKG 12-LEAD TAMMY BLANCA TH Start: 06-02-2018 SALINE LOCK IV TAMMY Orr [facility] Payers Date Payer Category Payer Unknown [id number] 1965 Unknown [id number] [id number] 1965 Unknown [id number] 2.16.8 [id number] 1965 Unknown [id number] 2.16.84 [id number] 1965 Unknown [id number] 2.16.84 [id number] 1965 Unknown [id number] 2.16.84 [id number] 1965 Unknown [id number] 2.16.84 [id number] 1965 Unknown [id number] 2.16.84 [id number] 1966 Unknown [id number] 2.16.84 [id number] 1965 Unknown [id number] 2.16.84 [id number] 1958 Private Health Insurance [id number] 1958 Private Health Insurance [id number] 1958 Self-pay [id number] Progress note 11-05-2023 Note Date & Type Note Facility 11-05-2023 Note [facility]TP HEIKE CARDIOL OGY PROGRESS NOTE HPI: Taqueria Hdez is a [...] sooner as needed Olya Malik MD Radiology: [facility] Progress note 09-24-2023 Note Date & Type Note Facility 09-24-2023 Note penitentiary tobacco us e and new unintentional weight loss Ordered CXR, and pt to f/U with PCP today [facility] Progress note 09-24-2023 Note Date & Type Note Facility 09-24-2023 Note Continue lipitor and tricor for lipid management [facility] Progress note 09-24-2023 Note Date & Type Note Facility 09-24-2023 Note Reports weight loss of about 30 pounds over last 2.5 months without trying to loose weight/ diet or exercise. F/U with PCP today CXR in light of h/o tobacco dependence [facility] Progress note 09-24-2023 Note Date & Type Note Facility 09-24-2023 Note Hypertension is unco ntrolled in office. Continue coreg and lisinopril [facility] Progress note 09-24-2023 Note Date & Type Note Facility 09-24-2023 Note Coronary artery dise ase is stable Continue GDMT- ASA, lipitor, coreg continue risk factor modifications- heart healthy diet, regular exercise as tolerated and continue all medications. [facility] Progress note 09-24-2023 Note Date & [...] illness or hospitalization. 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 [facility] Progress note 09-24-2023 Note Date & [...] All other systems reviewed and are negative. [facility] Clinical Note 04-28-2022 Note Date & [...] Olya Malik M.D. Primary care physician [facility] Clinical Note 08-25-2021 Note Date & Type Note Facility 08-25-2021 Note CARDIAC STRESS TEST Requesting Physician: Procedure Date: Lexiscan Stress Test with Myocardial Perfusion Imaging performed at the [facility]. Informed consent was obtained. The patient [...] Myocardial perfusion images will be reported separately. [facility] Signed and Approved by: DR COLE HANEY 08/27/2021 05:26:00 [facility] Summary Purpose Family History No Family History Records FoundNo Family History Records FoundNo Family History Records FoundNo Family History Records FoundNo Family History Records Found Advance Directives No Advanced Directives Records FoundNo Advanced Directives Records FoundNo Advanced Directives Records FoundNo Advanced Directives Records FoundNo Advanced Directives Records Found Hospital Course Note MR#: [id number] [facility] Pt. Name: Taqueria Hdez Admitted: [...] PRES and the patient was transferred to [facility] for MRI. HOSPITAL COURSE: 1. Hypertensive urgency, which is improved with his restarting his oral medication. The patient was told to continue ta (more content not included)... Additional Source Comments (unrecognized sect ion and content) No Status Records FoundNo Status Records FoundNo Status Records FoundNo Status Records FoundNo Status Records Found INFORMATION SOURCE (unrecogn ized section and content) DATE CREATED AUTHOR 06/06/2018 [facility] DATE CREATED AUTHOR AUTHOR'S ORGANIZ ATION 10/10/2019 [facility] DATE CREATED AUTHOR AUTHOR'S ORGANIZ ATION 05/14/2022 [facility] DATE CREATED AUTHOR AUTHOR'S ORGANIZ ATION 03/29/2024 [facility] DATE CREATED AUTHOR AUTHOR'S ORGANIZ ATION 04/09/2024 [facility] FOR RECORDS PERTAINING TO PATIENTS [...] BE BASED ON THE PRIMARY CLINICAL RECORDS. [facility]. provides no warranty or guarantee of the accuracy or completeness of information in this document.
[2024-04-11 08:57] LABS: Bilirubin Urine NEGATIVE (NEGATIVE); Blood Urine NEGATIVE (NEGATIVE); Clarity Urine CLEAR (CLEAR); Color Urine YELLOW (YELLOW); Glucose Urine UA >=1000 mg/dL (NEGATIVE); Ketones Urine NEGATIVE (NEGATIVE); Leukocyte Esterase Urine NEGATIVE (NEGATIVE); Nitrite Urine NEGATIVE (NEGATIVE); Protein Urine 30 mg/dL (NEG/TRACE); Specific Gravity Urine 1.025 (1.005-1.025); Urobilinogen Urine 0.2 EU/dL (0.2-1.0)
[2024-04-11 09:15] LABS: Bacteria Urine TRACE #/HPF (NONE SEEN); RBC Urine NONE SEEN #/HPF (0-2); WBC Urine 0-2 #/HPF (NONE SEEN)
[2024-04-11 09:16] LABS: Cast Seen? NONE SEEN #/LPF (NONE SEEN); Crystals Seen? None Seen #/HPF (None Seen); Mucus Urine TRACE (NONE SEEN); Squamous Epithelial Cell Urine NONE SEEN #/LPF (NONE/RARE)
== END 2024-04-11 08:26 | disposition home or self-care (01) ==
LOC: LAB 08:31
PROVIDERS: PCP Nurse Practitioner Family; Visit Provider Nurse Practitioner Family
DX: N39.0 Urinary tract infection, site not specified (principal)
CPT/HCPCS: 81001; 87086

== ENCOUNTER 2024-04-18 07:02 | Outpatient (OUT) | payer SELFPAY ==
--- NOTE | 2024-04-18 | PCN_ITS ---
CARDIAC STRESS TEST Requesting Physician: Procedure Date: 04/18/2024 TREADMILL EXERCISE STRESS TEST INDICATION FOR THE PROCEDURE: Chest pain. The procedure was explained to the patient and he was agreeable to proceed. The patient walked on treadmill according to standard Michael Protocol for 7 minutes and 12 seconds. Exercise was terminated secondary to achievement of target heart rate. Patient?s resting heart rate 66 beats per minute, resting blood pressure 118/76. Max heart rate 139 beats per minute, representing 85% of age predicted maximum heart rate, maximal blood pressure 180/66. The patient achieved 10.1 METS. He reached stage 3. Patient did not experience any chest, neck, jaw or arm discomfort throughout the test; however, he became short of breath, which resolved 2 minutes into recovery. Resting EKG showed normal sinus rhythm, heart rate 69 beats per minute, no significant T or ST changes. EKG during exercise, acute exercise and during recovery phase did not show any significant T or ST changes or any arrhythmias. CONCLUSIONS: 1. Maximal stress test achieving 85% of age predicted maximum heart rate. 2. Good exercise tolerance with appropriate heart rate and blood pressure response to exercise. 3. This treadmill stress test is negative for exercise induced ischemic symptoms, EKG changes or arrhythmias. 4. Hancock score is 7, consistent with low risk. 5. Nuclear perfusion images report will be dictated separately by Radiology. NITIN
--- NOTE | 2024-04-18 | NM_ITS ---
Patient Name: TAQUERIA DRAKE MR#: [id number] : 1965 Exam Date: 04/18/2024 Ordering Doctor: DR. ALEXA HOOVER M.D. RADIOLOGY REPORT PROCEDURE: NM VALENTINE PERF SPECT REST STR COMPARISON: None. INDICATIONS: CHEST PAIN TECHNIQUE: Exam Description: Stress/Rest one day protocol gated SPECT Rest Imagin.8 mCi Tc-99m Cardiolite IV on 04/18/2024 Stress Imaging 31.4 mCi Tc-99m Cardiolite IV on 04/18/2024 Exercise Protocol: Michael Heart Rate (bpm): Rest: 66 Max: 139 PMHR: 85 Blood Pressure: Rest: 118/76 Max: 180/66 Exercise Time: Minutes: 7 Seconds: 12 Stage Reached: Stage: 3 Mets 10.1 Symptoms: Rest and peak stress ECG findings were pending and the exercise portion of the study was pending per attending physician Dr. NEGRETE . For more details please see separate cardiac stress test report. FINDINGS: QUALITY OF STUDY: Excellent. PERFUSION DEFECT: None. LOCATION: N/A SIZE: N/A. SEVERITY: N/A. TYPE: N/A. WALL MOTION: Normal. LV SIZE: Normal. 98 mL. TID / TCD: None; 0.8 LVEF: Normal. Calculated EF 70%. SUMMARY: Myocardial perfusion imaging study is NORMAL. CONCLUSION: 1. Normal myocardial perfusion scan\ 2. Pending exercise test results. Dictated by: Jose Art MD on 04/19/2024 at 15:41 Approved by: Jose Art MD on 04/19/2024 at 15:51
--- OUTSIDE RECORDS SUMMARY | 2024-04-18 07:05 | XMS_ITS | CCD ---
Author Organization [facility] Care Team Providers Care Glass Setter Name Role Phone TAMMY KENNY Unavailable Unavailable [...] Primary Care Unavailable Sparkle SIEGEL Attending Unavailable Sparkle SIEGEL Attending Unavailable ALGHOTHANI, MOHAMAD Attending Unavailable YAHAIRA GASTELUM Attending Unavailable ALEXA HOOVER Attending Unavailable Allergies Allergy Classification Reported Allergen(s) Allergy Type Date of Onset Reaction(s) Facility (1 source) No Known Medication Allergies; Translations: [No Known Medication Allergies] Propensity to adverse reactions (disorder) [facility] Repository Problems Active Problems Problem Classification Problem Date Documented Date Episodic/Chronic Cardiac dysrhythmias (2 sources) Palpitations; Translations: [Palpitations] Onset: 04-12-2024 Episodic Coronary atherosclerosis and other heart disease (10 sources) 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; Translations: [Atherosclerotic heart disease of chitimacha coronary artery without angina pectoris] Onset: 04-14-2022 [...] Value Interpretation Reference Range Facility Office Visiton 04-12-2024 Follow-up visit [id number] Kirk Hdez 1965 M Date Provider Department Center 04/12/2024 52771-FOKYRIALEXA GODINEZ [facility] Family History Problem Relation Age of Onset Coronary artery disease Father Heart attack Father Other Father Coronary artery disease Maternal Grandfather Family Status - Relation Status Age at Father Maternal Grandfather Level of Service:74332 [place] OFFICE/OUTPATIENT ESTABLISHED MOD MDM 30 MIN Reason for Visit and Comments: Coronary Artery Disease [187] Hypertension [637050] - Brought BP log with him today and numbers are elevated. PCP restarted amlodipine a few weeks ago. Brought his medications with him today and lisinopril is missing. Says he's been out of if for quite a while . Hyperlipidemia [182] DOT Physical Clearance [Other] - Patient requesting clearance for DOT physical. Chest Pain [] - Intermittent. Hasn't been taking the isosorbide either. Palpitations [] - intermittent Shortness of Breath [] - Smokes about 1 PPD. Normal [facility] Office Visiton 11-05-2023 Follow-up visit [id number] Kirk Hdez P 1965 M Date Provider Department Center 11/05/2023 3848-OLYA MALIK MARLA Dove Family History Problem Relation Age of Onset Coronary artery disease Father Heart attack Father Other Father Coronary artery disease Maternal Grandfather Family Status - Relation Status Age at Father Maternal Grandfather Level of Service:31820 [place] OFFICE/OUTPATIENT ESTABLISHED LOW MDM 20 MIN Normal [facility] Orders Onlyon 11-05-2023 Orders Only [id number] Kirk Hdez P 1965 M Date Provider Department Center 11/05/2023 [id number], HISTORICAL MARLA Dove Family History Problem Relation Age of Onset Coronary artery disease Father Heart attack Father Other Father Coronary artery disease Maternal Grandfather Family Status - Relation Status Age at Father Maternal Grandfather Normal [facility] 36on 10-27-2023 36 PT INFORMED APPT MADE Normal [facility] Office Visiton 09-24-2023 Follow-up visit [id number] Kirk Hdez P 1965 M Date Provider Department Center 09/24/2023 120-YAHAIRA GASTELUM MARLA Dove Family History Problem Relation Age of Onset Coronary artery disease Father Heart attack Father Other Father Coronary artery disease Maternal Grandfather Family Status - Relation Status Age at Father Maternal Grandfather Level of Service:38405 [place] OFFICE/OUTPATIENT ESTABLISHED MOD MDM 30 MIN Normal [facility] [place]enton 10-31-2023 Consent [id number] 02 [id number]#1. 00TIFF Normal [facility] In office Testingon 04-13-20 In office Testing [id number]#1. 00TIFF Normal [facility] Registrationon 04-13-2023 Registration [id number]#1. 00TIFF Normal [facility] LIPID PROFILEon 04-28-2022 CHOL-HDL RATIO NORM SEE BELOW Normal [facility] Comment on above: Result Comment: 3.3 - 4.4 LOW RISK 4.4 - 7.1 AVERAGE RISK 7.1 - 11.0 MODERATE RISK >11.0 HIGH RISK Performed By: #### L IPID ####[facility] [address] [place] [id number]. Sheila Thompson Cholesterol [Mass/Vol] 154 mg/dL Normal <=200 [facility] Comment on above: Performed By: #### L IPID ####[facility] Defhxuthlr[address] [place] [id number]. Sheila Thompson Cholesterol in HDL [Mass/Vol] 32 mg/dL Critically low 40-60 [facility] Comment on above: Performed By: #### L IPID ####[facility] [address]scfa[address] [place] [id number]. Sheila Thompson Cholesterol in LDL [Mass/Vol] 80.6 mg/dL Normal [facility] Comment on above: Performed By: #### L IPID ####[facility] S[address]yncxd[address] [place] [id number]. Sheila Thompson Cholesterol.total/Ch olesterol in HDL [Mass ratio] 4.8 {ratio} Normal [facility] Comment on above: Performed By: #### L IPID ####[facility] [address] [place] [address]Dr. Yilan Thompson HDL NORMAL > or = 60 mg/dl - LO W CARDIOVASCULAR RISK <40 mg/dl - HIGH CARDIOVASCULAR RISK Normal [facility] Comment on above: Performed By: #### L IPID ####[facility] [address] [place], [place] [address]Kd. Sheila Thompson LDL CALC NORMAL SEE BELOW Normal [facility] Comment on above: Result Comment: <100 mg/dl OPTIMAL 100 - 129 mg/dl NEAR OR ABOVE OPTIMAL 130 - 159 mg/dl BORDERLINE HIGH 160 - 189 mg/dl HIGH >190 mg/dl VERY HIGH Performed By: #### L IPID ####[facility] [address] [place] [id number]. Sheila Thompson Triglyceride [Mass/Vol] 207 mg/dL Critically high <=150 [facility] Comment on above: Performed By: #### L IPID ####[facility] [address]xfvcjklg[address] [place] [address]Dr. Sheila Thompson VLDL CALC 41.4 mg/dL Normal [facility] Comment on above: Performed By: #### L IPID ####[facility] [address] [place] [id number]. Sheila Thompson ECHOCARDIO M/2D COMPLETEon 1 ECHOCARDIO M/2D COMPLETE Patient: TAQUERIA HDEZ Exam Date: 04/08/2022 : 1965 Gender:M Ordering : OLYA MALIK Admission #: [id number] Family : Order #: [id number] CLICK HERE TO VIEW EXAM ECHOCARDIOGRAM REPORT [...] Haney M.D. on 04/15/2022 at 11:06 Normal [facility] DIRECT LDLon 01-12-2022 Cholesterol in LDL [Mass/Vol] 70 mg/dL Normal [facility] Comment on above: Performed By: #### L ABEL ROACH, CMP ####[facility] [address] [place] [address]DrLeonardo Thompson DLDL NORMAL SEE BELOW Normal [facility] Comment on above: Result Comment: <100 mg/dl OPTIMAL 100 - 129 mg/dl NEAR OR ABOVE OPTIMAL 130 - 159 mg/dl BORDERLINE HIGH 160 - 189 mg/dl HIGH >190 mg/dl VERY HIGH Performed By: #### L ABEL ROACH, CMP ####[facility] [address] [place] [address]DrLeonardo Thompson GLYCOHEMOGLOBIN A1Con 2021 ADA RECOMMENDATION SEE BELOW Normal [facility] Comment on above: Result Comment: ADA RECOMMENDED LIMIT 4.0 - 6.0 ADA THERAPEUTIC TARGET < 7.0 ACTION SUGGESTED > 7.0 Performed By: #### A 1C ####[facility] [address] [place] [address]DrLeonardo Thompson Glucose [Mass/Vol] 160 mg/dL Normal [facility] Comment on above: Performed By: #### A 1C ####[facility] [address] [place] [address]DrLeonardo Thompson HbA1c (Bld) [Mass fraction] 7.2 % Critically high 4.5-6.2 [facility] Comment on above: Performed By: #### A 1C ####[facility] [address]spr[address] [place] [address]DrLeonardo Thompson LIPID PROFILEon 01-12-2022 CHOL-HDL RATIO NORM SEE BELOW Normal [facility] Comment on above: Result Comment: 3.3 - 4.4 LOW RISK 4.4 - 7.1 AVERAGE RISK 7.1 - 11.0 MODERATE RISK >11.0 HIGH RISK Performed By: #### L IPID, DLDL, CMP ####[facility] [address]pm[address]cm[address]wc[address] [place] [id number]. Sheila Thompson Cholesterol [Mass/Vol] 165 mg/dL Normal <=200 [facility] Comment on above: Performed By: #### L IPID, DLDL, CMP ####[facility] [address]vngz[address] [place] [id number]. Sheila Thompson Cholesterol in HDL [Mass/Vol] 25 mg/dL Critically low 40-60 [facility] Comment on above: Performed By: #### L IPID, DLDL, CMP ####[facility] Pel[address]ciqfc[address] [place] [address]Dr. Sheila Thompson Cholesterol.total/Ch olesterol in HDL [Mass ratio] 6.6 {ratio} Normal [facility] Comment on above: Performed By: #### L IPID, DLDL, CMP ####[facility] [address] [place] [id number]. Sheila Thompson HDL NORMAL > or = 60 mg/dl - LO W CARDIOVASCULAR RISK <40 mg/dl - HIGH CARDIOVASCULAR RISK Normal [facility] Comment on above: Performed By: #### L IPID, DLDL, CMP ####[facility] [address]iw[address] [place] [id number]. Sheila Thompson Triglyceride [Mass/Vol] 502 mg/dL Critically high <=150 [facility] Comment on above: Performed By: #### L IPID, DLDL, CMP ####[facility] Ybnexpybsj[address] [place] [address]Dr. Sheila Thompson PROF 14(COMP METB)on 022 Albumin [Mass/Vol] 3.9 g/dL Normal 3.4-5.0 [facility] Comment on above: Performed By: #### L IPID, DLDL, CMP ####[facility] [address]wlwusd[address] [place] [address]Dr. Sheila Thompson Albumin/Globulin [Mass ratio] 1.1 {ratio} Normal [facility] Comment on above: Performed By: #### L IPID, DLDL, CMP ####[facility] [address]mrv[address] [place] [address]Dr. Sheila Thopmson ALP [Catalytic activity/Vol] 71 U/L Normal 46-116 [facility] Comment on above: Performed By: #### L IPID, DLDL, CMP ####[facility] W[address]hmcticdp01[address] [place] [address]Dr. Sheila Thompson ALT [Catalytic activity/Vol] 47 U/L Normal 16-63 [facility] Comment on above: Performed By: #### L IPID, DLDL, CMP ####[facility] Ugvjqnpnyx[address] [place], [place] [address]Dr. Sheila Thompson Anion gap [Moles/Vol] 12.9 mmol/L Normal [facility] Comment on above: Performed By: #### L IPID, DLDL, CMP ####[facility] Lzoxkpseei[address] [place], [place] [address]Dr. Sheila Thompson AST [Catalytic activity/Vol] 21 U/L Normal 15-37 [facility] Comment on above: Performed By: #### L IPID, DLDL, CMP ####[facility] Dflobxtzwu[address] [place], [place] [address]Dr. Sheila Thompson Bilirubin [Mass/Vol] 0.2 mg/dL Normal 0.2-1.0 [facility] Comment on above: Performed By: #### L IPID, DLDL, CMP ####[facility] Yinuotlxvb[address] [place], [place] [address]Dr. Sheila Thompson Calcium [Mass/Vol] 9.0 mg/dL Normal 8.5-10.1 [facility] Comment on above: Performed By: #### L IPID, DLDL, CMP ####[facility] Yjnksfmwyt[address] [place], [place] [address]Dr. Sheila Thompson Chloride [Moles/Vol] 104 mmol/L Normal 98-107 [facility] Comment on above: Performed By: #### L IPID DLDL, CMP ####[facility] Cfebeswhhg[address] [place] [address]Dr. Sheila Thompson CO2 [Moles/Vol] 26.9 mmol/L Normal 21.0-32.0 [facility] Comment on above: Performed By: #### L IPID DLDL, CMP ####[facility] Vvwvfndynz[address] [place], [place] [address]Dr. Sheila Thompson Creatinine [Mass/Vol] 0.78 mg/dL Normal 0.70-1.30 [facility] Comment on above: Performed By: #### L IPID DLDL, CMP ####[facility] Gzhxqxygcl[address] [place], [place] [address]Dr. Sheila Thompson EGFR-AF KITTITIAN >60 Normal >=60 [facility] Comment on above: Performed By: #### L IPID DLDL, CMP ####[facility] Ihgdkytqat[address] [place], [place] [address]Dr. Sheila Thompson EGFR-NON AF KITTITIAN >60 Normal >=60 [facility] Comment on above: Performed By: #### L IPID DLDL, CMP ####[facility] Budzgskdkc[address] [place] [address]Dr. Sheila Thompson Globulin (S) [Mass/Vol] 3.5 g/dL Normal [facility] Comment on above: Performed By: #### L IPID DLDL, CMP ####[facility] E[address]duwzzta[address] [place] [address]Dr. Sheila Thompson Glucose [Mass/Vol] 171 mg/dL Critically high 74-106 [facility] Comment on above: Performed By: #### L IPID, DLDL, CMP ####[facility] Eetbmgwgnf5766 [place] [address]Dr. Sheila Thompson Potassium [Moles/Vol] 3.8 mmol/L Normal 3.5-5.1 [facility] Comment on above: Performed By: #### L IPID, DLDL, CMP ####[facility] Lmlmyfojgp9824 [place] [address]Dr. Sheila Thompson Protein [Mass/Vol] 7.4 g/dL Normal 6.4-8.2 [facility] Comment on above: Performed By: #### L IPID, DLDL, CMP ####[facility] Bvclmcxzbm044[address] [place] [address]Dr. Sheila Thompson Sodium [Moles/Vol] 140 mmol/L Normal 136-145 [facility] Comment on above: Performed By: #### L IPID, DLDL, CMP ####[facility] Lqbkfvcgxk[address] [place], [place] [address]Dr. Luzyoung Jay Urea nitrogen [Mass/Vol] 16.0 mg/dL Normal 7.0-18.0 [facility] Comment on above: Performed By: #### L IPID, DLDL, CMP ####[facility] Okvqetucif[address] [place], [place] [address]Dr. Sheila Thompson Urea nitrogen/Creatinine [Mass ratio] 20.5 mg/mg Normal [facility] Comment on above: Performed By: #### L IPID, DLDL, CMP ####[facility] Xgtkizardj[address] [place], [place] [address]Dr. Sheila Jay INSULINon 09-16-2021 Insulin 59.1 uIU/mL Critically high 2.6-24.9 [facility] Comment on above: Performed By: #### I NSULIN ####[facility] Hzlgdzistp[address] [place], [place] [address]Dr. Sheila Thompson CBC AUTO DIFFon 09-15-2021 BASO # 0.0 103/ul Normal 0.0-0.1 [facility] Comment on above: Performed By: #### C BC ####[facility] Rlosvjvpgj[address] [place], [place] [address]Dr. Sheila Jay Basophils/100 WBC (Bld) 0.4 % Normal 0.2-2.0 [facility] Comment on above: Performed By: #### C BC ####[facility] Twlgofvqbg[address] [place], [place] [address]Dr. Sheila Thompson EO # 0.2 103/ul Normal 0.0-0.7 [facility] Comment on above: Performed By: #### C BC ####[facility] Bbwuvcvntq[address] [place] [address]Dr. Sheila Thompson Eosinophils/100 WBC (Bld) 1.9 % Normal 0.9-7.0 [facility] Comment on above: Performed By: #### C BC ####[facility] Ntmjuuvmde[address] [place], [place] [address]Dr. Sheila Thompson Erythrocyte distribution width (RBC) [Ratio] 13.3 % Normal 11.0-15.0 [facility] Comment on above: Performed By: #### C BC ####[facility] Dcnypmdcvl[address] [place], [place] [address]Dr. Sheila Thompson Hematocrit (Bld) [Volume fraction] 44.5 % Normal 42.0-54.0 [facility] Comment on above: Performed By: #### C BC ####[facility] Qulgreoiom[address] [place], [place] [address]Dr. Sheila Thompson Hemoglobin (Bld) [Mass/Vol] 14.7 g/dL Normal 14.0-18.0 [facility] Comment on above: Performed By: #### C BC ####[facility] Ksxtrpetkm[address] [place], [place] [address]Dr. Sheila Thompson IG # 0.02 10e3/ul Normal 0.00-0.03 [facility] Comment on above: Performed By: #### C BC ####[facility] Ycteb[address]zkux[address] [place], [place] [address]Dr. Sheila Thompson IG % 0.2 % Normal 0.0-0.5 [facility] Comment on above: Performed By: #### C BC ####[facility] Powdrkfgbz[address] [place], [place] [address]Dr. Sheila Thompson LYMPH # 2.2 103/ul Normal 1.2-3.8 [facility] Comment on above: Performed By: #### C BC ####[facility] Apwxmtdwjp[address] [place], [place] [address]Dr. Sheila Thompson Lymphocytes/100 WBC (Bld) 26.0 % Normal 20.5-60.0 [facility] Comment on above: Performed By: #### C BC ####[facility] [address]qahg[address] [place] [address]Dr. Sheila Thompson MANUAL DIFF REQ NO Normal [facility] Comment on above: Performed By: #### C BC ####[facility] Ak[address] [place] [address]Dr. Sheila Thompson MCH (RBC) [Entitic mass] 30.6 pg Normal 25.9-34.0 [facility] Comment on above: Performed By: #### C BC ####[facility] Fwpxbhxumv[address] [place], [place] [address]Dr. Sheila Thompson MCHC (RBC) [Mass/Vol] 33.0 g/dL Normal 29.9-35.2 [facility] Comment on above: Performed By: #### C BC ####[facility] Fr[address]aggqt[address] [place], [place] [address]Dr. Sheila Thompson MCV (RBC) [Entitic vol] 92.7 fL Normal 80.0-94.0 [facility] Comment on above: Performed By: #### C BC ####[facility] [address]yslehrsn[address] [place], [place] [address]Dr. Sheila Thompson MONO # 1.0 103/ul Critically high 0.3-0.8 [facility] Comment on above: Performed By: #### C BC ####[facility] Rtcy[address]dvxd[address] [place], [place] [address]Dr. Sheila Thompson Monocytes/100 WBC (Bld) 11.9 % Normal 1.7-12.0 [facility] Comment on above: Performed By: #### C BC ####[facility] [address]prfirc[address] [place], [place] [address]DrLeonardo Thompson NEUT # 5.0 103/ul Normal 1.4-6.5 [facility] Comment on above: Performed By: #### C BC ####[facility] H[address]uf[address] [place], [place] [address]Dr. Sheila Thompson Neutrophils/100 WBC (Bld) 59.6 % Normal 43.0-75.0 [facility] Comment on above: Performed By: #### C BC ####[facility] [address]hwqc[address] [place] [address]Dr. Sheila Thompson Platelet mean volume (Bld) [Entitic vol] 10.4 fL Normal 9.5-13.5 [facility] Comment on above: Performed By: #### C BC ####[facility] [address] [place] [id number]. Sheila Thompson PLT 245 103/ul Normal 150-450 [facility] Comment on above: Performed By: #### C BC ####[facility] [address]hlkvi[address] [place] [address]Dr. Sheila Thompson RBC 4.80 106/ul Normal 4.70-6.10 [facility] Comment on above: Performed By: #### C BC ####[facility] [address]xwaswfqxc[address]69 [place] [address]Dr. Sheila Thompson WBC 8.4 103/ul Normal 4.0-11.0 [facility] Comment on above: Performed By: #### C BC ####[facility] [address]ecbvz[address] [place] [address]Dr. Sheila Thompson DIRECT LDLon 09-15-2021 Cholesterol in LDL [Mass/Vol] 74 mg/dL Normal [facility] Comment on above: Performed By: #### L IPID, DLDL, CMP, URIC #### [facility] [address] [place] [address] [address] Sheila Thompson DLDL NORMAL SEE BELOW Normal [facility] Comment on above: Result Comment: <100 mg/dl OPTIMAL 100 - 129 mg/dl NEAR OR ABOVE OPTIMAL 130 - 159 mg/dl BORDERLINE HIGH 160 - 189 mg/dl HIGH >190 mg/dl VERY HIGH Performed By: #### L IPID, DLDL, CMP, URIC #### [facility] [address] [place] [address] [address] Sheila Thompson GLYCOHEMOGLOBIN A1Con 2021 ADA RECOMMENDATION ADA THERAPEUTIC TARG ET 6.0 - 7.0 ACTION SUGGESTED > 7.0 Normal [facility] Comment on above: Performed By: #### A 1C #### [facility] [address] [place] [address] [address] Sheila Thompson Glucose [Mass/Vol] 194 mg/dL Normal [facility] Comment on above: Performed By: #### A 1C #### [facility] [id number] Sheila Thompson HbA1c (Bld) [Mass fraction] 8.4 % Critically high <=6.0 [facility] Comment on above: Performed By: #### A 1C #### [facility] [address] [place] [address] [address] Sheila Thompson LIPID PROFILEon 09-15-2021 CHOL-HDL RATIO NORM SEE BELOW Normal [facility] Comment on above: Result Comment: 3.3 - 4.4 LOW RISK 4.4 - 7.1 AVERAGE RISK 7.1 - 11.0 MODERATE RISK >11.0 HIGH RISK Performed By: #### L IPID, DLDL, CMP, URIC #### [facility] [address] [place] [address] [address] Sheila Thompson Cholesterol [Mass/Vol] 223 mg/dL Critically high <=200 [facility] Comment on above: Performed By: #### L IPID, DLDL, CMP, URIC #### [facility] [address] [id number] Sheila Thompson Cholesterol in HDL [Mass/Vol] 24 mg/dL Critically low 40-60 [facility] Comment on above: Performed By: #### L IPID, DLDL, CMP, URIC #### [facility] [address] [place] [address] [address] Sheila Thompson Cholesterol.total/Ch olesterol in HDL [Mass ratio] 9.3 {ratio} Normal [facility] Comment on above: Performed By: #### L IPID, DLDL, CMP, URIC #### [facility] [id number] Sheila Thompson HDL NORMAL > or = 60 mg/dl - LO W CARDIOVASCULAR RISK <40 mg/dl - HIGH CARDIOVASCULAR RISK Normal [facility] Comment on above: Performed By: #### L IPID, DLDL, CMP, URIC #### [facility] [address] [address] [address] Sheial Thompson LDL CALC NORMAL SEE BELOW Normal [facility] Comment on above: Result Comment: <100 mg/dl OPTIMAL 100 - 129 mg/dl NEAR OR ABOVE OPTIMAL 130 - 159 mg/dl BORDERLINE HIGH 160 - 189 mg/dl HIGH >190 mg/dl VERY HIGH Performed By: #### L IPID, DLDL, CMP, URIC #### [facility] [address] [address] [address] Sheila Thompson Triglyceride [Mass/Vol] 903 mg/dL Critically high <=150 [facility] Comment on above: Performed By: #### L IPID, DLDL, CMP, URIC #### [facility] [address] [address] [address] Sheila Thompson PROF 14(COMP METB)on 022 Albumin [Mass/Vol] 3.9 g/dL Normal 3.4-5.0 [facility] Comment on above: Performed By: #### L IPID, DLDL, CMP, URIC #### [facility] [address] [address] [address] Sheila Thompson Albumin/Globulin [Mass ratio] 1.1 {ratio} Normal [facility] Comment on above: Performed By: #### L IPID, DLDL, CMP, URIC #### [facility] [address] [address] [address] Sheila Thompson ALP [Catalytic activity/Vol] 76 U/L Normal 46-116 [facility] Comment on above: Performed By: #### L IPID, DLDL, CMP, URIC #### [facility] [address] [address] [address] Sheila Thompson ALT [Catalytic activity/Vol] 45 U/L Normal 16-63 [facility] Comment on above: Performed By: #### L IPID, DLDL, CMP, URIC #### [facility] [address] [address] [address] Sheila Thompson Anion gap [Moles/Vol] 12.3 mmol/L Normal [facility] Comment on above: Performed By: #### L IPID, DLDL, CMP, URIC #### [facility] [address] [address] [address] Sheila Thompson AST [Catalytic activity/Vol] 11 U/L Critically low 15-37 [facility] Comment on above: Performed By: #### L IPID, DLDL, CMP, URIC #### [facility] [address] [address] [address] Sheila Thompson Bilirubin [Mass/Vol] 0.2 mg/dL Normal 0.2-1.3 [facility] Comment on above: Performed By: #### L IPID, DLDL, CMP, URIC #### [facility] [address] [address] [address] Sheila Thompson Calcium [Mass/Vol] 8.4 mg/dL Critically low 8.5-10.1 [facility] Comment on above: Performed By: #### L IPID, DLDL, CMP, URIC #### [facility] [address] [address] [address] Sheila Thompson Chloride [Moles/Vol] 102 mmol/L Normal 98-107 [facility] Comment on above: Performed By: #### L IPID, DLDL, CMP, URIC #### [facility] [address] [address] [address] Sheila Thompson CO2 [Moles/Vol] 26.8 mmol/L Normal 22.0-30.0 The [facility] Comment on above: Performed By: #### L IPID, DLDL, CMP, URIC #### [facility] [address] [address] [address] Sheila Thompson Creatinine [Mass/Vol] 0.67 mg/dL Normal 0.66-1.25 [facility] Comment on above: Performed By: #### L IPID, DLDL, CMP, URIC #### [facility] [address] [address] [address] Sheila Thompson EGFR-AF KITTITIAN >60 Normal >=60 [facility] Comment on above: Performed By: #### L IPID, DLDL, CMP, URIC #### [facility] [address] [place] [address] Dr. Sheila Thompson EGFR-NON AF KITTITIAN >60 Normal >=60 [facility] Comment on above: Performed By: #### L IPID, DLDL, CMP, URIC #### [facility] [address] [place] [address] Dr. Sheila Thompson Globulin (S) [Mass/Vol] 3.6 g/dL Normal [facility] Comment on above: Performed By: #### L IPID, DLDL, CMP, URIC #### [facility] [address] [place] [address] Dr. Sheila Thompson Glucose [Mass/Vol] 192 mg/dL Critically high 74-106 [facility] Comment on above: Performed By: #### L IPID, DLDL, CMP, URIC #### [facility] [address] [address] [address] Sheila Thompson Potassium [Moles/Vol] 4.1 mmol/L Normal 3.4-5.0 [facility] Comment on above: Performed By: #### L IPID, DLDL, CMP, URIC #### [facility] [address] [place] [address] Dr. Sheila Thompson Protein [Mass/Vol] 7.5 g/dL Normal 6.1-8.2 The [facility] Comment on above: Performed By: #### L IPID, DLDL, CMP, URIC #### [facility] [address] [place] [address] Dr. Sheila Thompson Sodium [Moles/Vol] 137 mmol/L Normal 137-145 [facility] Comment on above: Performed By: #### L IPID, DLDL, CMP, URIC #### [facility] [address] [place] [address] Dr. Sheila Thompson Urea nitrogen [Mass/Vol] 16.0 mg/dL Normal 7.0-18.0 [facility] Comment on above: Performed By: #### L IPID, DLDL, CMP, URIC #### [facility] [address] [place], [place] [address] Dr. Sheila Thompson Urea nitrogen/Creatinine [Mass ratio] 23.9 mg/mg Normal [facility] Comment on above: Performed By: #### L IPID, DLDL, CMP, URIC #### [facility] [address] [place], [place] [address] Dr. Sheila Thompson URIC ACID SERUMon 09-15-2021 Urate [Mass/Vol] 2.4 mg/dL Critically low 3.5-8.5 [facility] Comment on above: Performed By: #### L IPID, DLDL, CMP, URIC #### [facility] [id number] Sheila Thompson NM STRESS/REST MULTIon 08-25 NM STRESS/REST MULTI Patient: TAQUERIA HDEZ Exam Date: 08/25/2021 : 1965 Gender:M Ordering : OLYA MALIK Admission #: [id number] Family : Order #: [id number] CLICK HERE TO VIEW EXAM RADIOLOGY REPORT [...] MD on 08/26/2021 at 13:57 Normal The [facility] BASIC METABOLIC PANELon - Calcium [Mass/Vol] 9.9 mg/dL Normal 8.6-10.3 [facility] Comment on above: Order Comment: No: D o not add to previous draw Performed By: #### 9 9909, 13573 #### [facility] [address] [place] [address], [place] Chloride [Moles/Vol] 103 mmol/L Normal 98-107 [facility] Comment on above: Order Comment: No: D o not add to previous draw Performed By: #### 9 99, 92291 #### [facility] [address] [place] [address], [place] CO2 [Moles/Vol] 26 mmol/L Normal 21-31 [facility] Comment on above: Order Comment: No: D o not add to previous draw Performed By: #### 9 99, 28799 #### [facility] [address] [place] [address], [place] Creatinine [Mass/Vol] 0.72 mg/dL Normal 0.70-1.30 [facility] Comment on above: Order Comment: No: D o not add to previous draw Performed By: #### 9 99, 79351 #### [facility] [address] [place] [address], [place] GFR/1.73 sq M predicted among blacks MDRD (S/P/Bld) [Vol rate/Area] mL/min/{1.73_m2} Normal >60 [facility] Comment on above: Order Comment: No: D o not add to previous draw Performed By: #### 9 99, 44517 #### [facility] [address] [place] [address], [facility] GFR/1.73 sq M predicted among non-blacks MDRD (S/P/Bld) [Vol rate/Area] mL/min/{1.73_m2} Normal >60 [facility] Comment on above: Order Comment: No: D o not add to previous draw Performed By: #### 9 [id number], 20980 #### [facility] [address] [place] [address], [facility] Glucose [Mass/Vol] 152 mg/dL High 70-100 The [facility] Comment on above: Order Comment: No: D o not add to previous draw Performed By: #### 9 9908, 66519 #### [facility] [address] [place] [address], [facility] Potassium [Moles/Vol] 4.2 mmol/L Normal 3.5-5.1 [facility] Comment on above: Order Comment: No: D o not add to previous draw Performed By: #### 9 9908, 09373 #### [facility] [address] [place] [address], [facility] Sodium [Moles/Vol] 135 mmol/L Low 136-145 [facility] Comment on above: Order Comment: No: D o not add to previous draw Performed By: #### 9 09, 73344 #### [facility] [address] [place] [address], [facility] Urea nitrogen [Mass/Vol] 8 mg/dL Normal 7-25 [facility] Comment on above: Order Comment: No: D o not add to previous draw Performed By: #### 9 [id number], 53104 #### [facility] [address] [place] [address], [place] CBC W/DIFFon 04-01-2019 ABS BASOPHILS 0.0 10*3/uL Normal 0.0-0.2 The [facility] Comment on above: Performed By: #### 5 0103 #### [facility] [address] [place] [address], [facility] ABS IMM GRANS 0.0 10*3/uL Normal 0.0-0.2 The [facility] Comment on above: Performed By: #### 5 0103 #### [facility] [address] [facility] [place] [address], [facility] ABS NEUTROPHILS 7.6 10*3/uL Normal 1.6-7.6 The [facility] Comment on above: Performed By: #### 5 0103 #### [facility] [address] [facility] [address] Basophils/100 WBC (Bld) 0.4 % Normal 0.0-1.0 [facility] Comment on above: Performed By: #### 5 0103 #### [facility] [address] [facility] [place] [address], [facility] Eosinophils (Bld) [#/Vol] 0.2 10*3/uL Normal 0.0-0.5 [facility] Comment on above: Performed By: #### 5 0103 #### [facility] [address] [place] [address], [facility] Eosinophils/100 WBC (Bld) 1.3 % Normal 0.0-6.0 [facility] Comment on above: Performed By: #### 5 0103 #### [facility] [address] [facility] Erythrocyte distribution width (RBC) [Ratio] 13.2 % Normal 11.5-15.0 [facility] Comment on above: Performed By: #### 5 0103 #### [facility] [address] [place] [address], [facility] Hematocrit (Bld) [Volume fraction] 47.5 % Normal 39.0-50.0 [facility] Comment on above: Performed By: #### 5 0103 #### [facility] [address] [facility] [place] [address], [facility] Hemoglobin (Bld) [Mass/Vol] 15.2 g/dL Normal 13.0-17.0 [facility] Comment on above: Performed By: #### 5 0103 #### [facility] [address] [place] [address], [facility] IMMATURE GRANS 0.4 % Normal 0.0-1.0 The [facility] Comment on above: Performed By: #### 5 3 #### [facility] [address] [place] [address], [facility] Lymphocytes (Bld) [#/Vol] 2.2 10*3/uL Normal 1.2-4.0 [facility] Comment on above: Performed By: #### 5 3 #### [facility] [address] Lymphocytes/100 WBC (Bld) 19.6 % Low 20.0-45.0 [facility] Comment on above: Performed By: #### 5 3 #### [facility] [address] [place] [address], [facility] MCH (RBC) [Entitic mass] 29.9 pg Normal 27.0-33.0 [facility] Comment on above: Performed By: #### 5 3 #### [facility] [address] [place] [address], [facility] MCHC (RBC) [Mass/Vol] 32.0 g/dL Normal 32.0-35.0 [facility] Comment on above: Performed By: #### 5 3 #### [facility] [address] [facility] [place] [place] [address], [facility] MCV (RBC) [Entitic vol] 93.3 fL Normal 82.0-98.0 [facility] Comment on above: Performed By: #### 102 #### [facility] [address] [place] [address], [facility] Monocytes (Bld) [#/Vol] 1.3 10*3/uL High 0.1-1.0 [facility] Comment on above: Performed By: #### 102 #### [facility] [address] [facility] [place] [address], [facility] MONOS 11.4 % Normal 5.0-12.0 [facility] Comment on above: Performed By: #### 102 #### [facility] [address] [facility] [place] [address], [facility] Neutrophils/100 WBC (Bld) 66.9 % Normal 40.0-72.0 [facility] Comment on above: Performed By: #### 102 #### [facility] [address] [facility] [place] [address], [facility] Nucleated RBC/100 WBC (Bld) [Ratio] 0 % Normal 0-0 [facility] Comment on above: Performed By: #### 5 102 #### [facility] [address] [facility] [place] [address], [facility] PLAT CNT 223 10*3/uL Normal 150-400 [facility] Comment on above: Performed By: #### 102 #### [facility] [address] [facility] [place] [address], [facility] RBC (Bld) [#/Vol] 5.09 10*6/uL Normal 4.20-5.70 [facility] Comment on above: Performed By: #### 102 #### [facility] [address] [facility] [place] [address], [facility] WBC (Bld) [#/Vol] 11.39 10*3/uL High 4.00-10.60 [facility] Comment on above: Performed By: #### 102 #### [facility] [address] History and Physicalon 04-01 History and Physical MR#: [id number] [facility] Pt. Name: Taqueria Hdez Admitted: 04/01/2019 Date of : 1965 Attending Physician: Julius Ivy MD Room #: [id number] Discharge Date: HISTORY AND PHYSICAL CHIEF COMPLAINT: Headache, elevated blood pressure. HISTORY OF PRESENT ILLNESS: This is a 54-year-old male, who was transferred from [facility] this morning for further evaluation. He presented there last night complaining of a headache. He states his headache has been on the left side of his head radiating to the back. It has been constantly present since 1 p.m. yesterday. It was partially alleviated by morphine that he received at [facility], but has returned since. He states his blood pressure has been high as well. It has been in the 160s all week despite taking his medications. Normally, his blood pressure has been systolic within 140s. He reports compliance with his medications. When he presented to [facility], his blood pressure reportedly was 188/104. [...] Denies fevers, chills, or cough. In the [facility], he had CT imaging of his head done, which showed some findings concerning for possible moyer. Recommendation was made for the patient to have an MRI and it is not available at [facility]. PAST MEDICAL HISTORY: Hypertension, hyperlipidemia, GERD, [...] normal. LABORATORY STUDIES: Lab studies reviewed from [facility] from March 31, 2019. BMP; sodium [...] Ivy MD Date Trans: 04/01/2019 04:53 A/todd [id number] Normal The [facility] LIVER BATTERYon 04-01-2019 Albumin [Mass/Vol] 4.6 g/dL Normal 3.5-5.7 [facility] Comment on above: Order Comment: No: D o not add to previous draw Performed By: #### 9 9909, 63857 #### [facility] [address] [place] [address], [facility] ALKALINE PHOSPH 62 IU/L Normal 34-104 [facility] Comment on above: Order Comment: No: D o not add to previous draw Performed By: #### 9 9908, 57725 #### [facility] [address] [place] [address], [place] ALT [Catalytic activity/Vol] 53 U/L High 7-52 [facility] Comment on above: Order Comment: No: D o not add to previous draw Performed By: #### 9 9908, 75376 #### [facility] [address] [place] [address], [place] AST [Catalytic activity/Vol] 32 U/L Normal 13-39 [facility] Comment on above: Order Comment: No: D o not add to previous draw Performed By: #### 9 9908, 73312 #### [facility] [address] [place] [address], [place] Bilirubin [Mass/Vol] 0.4 mg/dL Normal 0.3-1.0 [facility] Comment on above: Order Comment: No: D o not add to previous draw Performed By: #### 9 9908, 85735 #### [facility] [address] [place] [address], [place] Bilirubin.direct [Mass/Vol] 0.0 mg/dL Normal 0.0-0.2 [facility] Comment on above: Order Comment: No: D o not add to previous draw Performed By: #### 9 9908, 26133 #### [facility] [address] [place] [address], [place] Protein [Mass/Vol] 7.5 g/dL Normal 6.0-8.3 [facility] Comment on above: Order Comment: No: D o not add to previous draw Performed By: #### 9 9908, 28201 #### [facility] [address] [place], [place] [id number] [place] [address] MRI BRAIN WO CONTRAST 03-14 MRI BRAIN WO CONTRAST [facility] Department of Radiology [address] [place] [address] ======== Patient Name: TAQUERIA HDEZ : 1965 Sex: M Age: Race: White Pt. Location: [id number] Patient Status: D Ordered Date: 04/01/2019 4:00:00 [...] findings. Electronically signed by:Tianna Orozco. Transcribed by: [email or web address], User Resident: ALTHEA BLACKMON Electronically Signed by: TIANNA OROZCO @ 04/02/2019 03:18 PM I personally read this/these film(s) with this resident Normal The [facility] Comment on above: Order Comment: Other , evaluate for pres, has hypertension and headache, had decreased attenuation on ct head occiptal lobe and bilateral parietal lobes CBC With Platelet No Differe ntialon 06-02-2018 Erythrocyte distribution width Auto Ratio (RBC) 13.6 fL Normal 11.5-15.0 [facility] Hematocrit Auto Volume Fraction (Bld) 44.7 % Normal 37.0-54.0 [facility] Hemoglobin mass conc (Bld) 14.7 g/dL Normal 12.5-16.5 [facility] MCH Auto Entitic mass (RBC) 29.9 pg Normal 26.0-35.0 [facility] MCHC Auto mass conc (RBC) 32.9 % Normal 32.0-34.5 [facility] MCV Auto Entitic volume (RBC) 91.0 fL Normal 80.0-99.9 [facility] Platelet mean volume Auto Entitic volume (Bld) 10.0 fL Normal 7.0-12.0 [facility] Platelets Auto #/vol (Bld) 240 E9/L Normal 130-450 [facility] RBC Auto #/vol (Bld) 4.91 E12/L Normal 3.80-5.80 [facility] WBC Auto #/vol (Bld) 7.5 E9/L Normal 4.5-11.5 [facility] Comprehensive Metabolic Pane vince 06-02-2018 Albumin mass conc 4.4 g/dL Normal 3.5-5.2 [facility] ALP enzyme act/vol 67 U/L Normal 40-129 [facility] ALT enzyme act/vol 54 U/L High 0-40 [facility] Anion gap 3 molar conc 13 mmol/L Normal 7-16 [facility] AST enzyme act/vol 40 U/L High 0-39 [facility] Bilirubin mass conc 0.3 mg/dL Normal 0.0-1.2 [facility] Calcium mass conc 9.1 mg/dL Normal 8.6-10.2 [facility] Chloride molar conc 100 mmol/L Normal 98-107 [facility] CO2 molar conc 24 mmol/L Normal 22-29 [facility] Creatinine mass conc 0.9 mg/dL Normal 0.7-1.2 [facility] GFR/1.73 sq M predicted among blacks MDRD vol rate/area (S/P/Bld) mL/min/{1.73_m2} Normal [facility] GFR/1.73 sq M predicted among non-blacks MDRD vol rate/area (S/P/Bld) mL/min/{1.73_m2} Normal >=60 [facility] Comment on above: Result Comment: Fashion Journalist leonard Kidney Disease: less than 60 ml/min/1.73 sq.m. Kidney Failure: less than 15 ml/min/1.73 sq.m.Results valid for patients 18 years and older. Glucose mass conc 161 mg/dL High 74-99 [facility] Potassium molar conc 3.8 mmol/L Normal 3.5-5.0 [facility] Protein mass conc 7.5 g/dL Normal 6.4-8.3 [facility] Sodium molar conc 137 mmol/L Normal 132-146 [facility] Urea nitrogen mass conc 11 mg/dL Normal 6-20 [facility] Troponinon 06-02-2018 Troponin I.cardiac mass conc ng/mL Normal 0.00-0.03 [facility] Comment on above: Result Comment: TROP ONIN [...] by:ANDREIA Whartonigned by:Jarrell Blankenship MD06/02/18inal result Normal [facility] Encounters Encounter Date Encounter Type Care Provider Facility Start: 04-12-2024 End: 04-12-2024 ambulatory [facility] Start: 04-07-2024 End: 04-07-2024 ambulatory [facility] Facility:[facility] Start: 03-27-2024 End: 03-27-2024 Emergency department patient visit [facility] Start: 11-24-2023 ambulatory [facility] Facility:[facility] Start: 11-05-2023 End: 11-05-2023 ambulatory [facility] Start: 09-24-2023 End: 09-24-2023 ambulatory [facility] Start: 04-13-2023 End: 04-13-2023 ambulatory [facility] Facility:[facility] Start: 04-28-2022 End: 04-29-2022 ambulatory [facility] Facility:[facility] Start: 04-08-2022 End: 04-09-2022 ambulatory OLYA MALIK Facility:[facility] Start: 01-12-2022 End: 01-13-2022 ambulatory MIRIAM HASSAN Facility:[facility] Start: 09-15-2021 End: 09-16-2021 ambulatory MIRIAM HASSAN Facility:[facility] Start: 08-25-2021 End: 08-26-2021 ambulatory OLYA MALIK Facility:[facility] Start: 08-20-2021 ambulatory MIRIAM HASSAN Facility: [facility] Start: 04-01-2019 End: 04-01-2019 Patient encounter procedure LUÍS FLORES Facility:[facility] Start: 06-02-2018 End: 06-02-2018 Emergency department patient visit TAMMY KENNY [facility] Procedures Date Procedure Procedure Detail Performing Clinician Start: 09-15-2021 PSA screening ERENDIRANICAlex Loida LUCASQUANG Comment on above: Performed By: #### P [facility] #### [facility] [address] [place] [address] Dr. Sheila Thompson Start: 06-02-2018 Blood count complete automated TAMMY KENNY Start: 06-02-2018 Comprehensive metabolic panel TAMMY KENNY Start: 06-02-2018 TROPONIN TAMMY DE LA TORRE Start: 06-02-2018 Radiologic exam ches t single view TAMMY KENNY Start: 06-02-2018 TELEMETRY MONITORING AR FERNANDO KENNY Start: 06-02-2018 EKG 12-LEAD TAMMY SMI TH Start: 06-02-2018 SALINE LOCK IV TAMMY S [facility] Payers Date Payer Category Payer Unknown [id number] 1965 Unknown [id number] 1965 Unknown [id number] 2.16.8 [id number] 1965 Unknown [id number] 2.16.84 [id number] 1965 Unknown [id number] 2.16.84 [id number] 1965 Unknown [id number] 2.16.84 [id number] 1965 Unknown [id number] 2.16.84 [id number] 1965 Unknown [id number] 2.16.84 [id number] 1965 Unknown [id number] 2.16.84 [id number] 1965 Unknown [id number] 2.16.84 [id number] 1958 Private Health Insurance [id number] 1958 Private Health Insurance [id number] 1958 Self-pay [id number] Clinical Notes 08-25-2021 to 04-12-2024 Note Date & Type Note Facility 04-12-2024 Note [facility] OGY PROGRESS NOTE HPI: 04/12/2024 Patient is here today for DOT clearance. He states that he has been out of lisinopril and Imdur for couple weeks. Patient reports that he has been having left-sided chest pain it goes up to the left shoulder not related to specific exertion and it occurs most of the time while he is driving and it usually lasts for few minutes. He does not have to take any nitroglycerin. He admits also exertional dyspnea. He denies orthopnea or paroxysmal nocturnal dyspnea. He reports intermittent fluttering which lasts only for few seconds but at times it lasts about 10 to 15 minutes. No associated symptoms. He denies legs edema or leg discomfort on exertion. He continue to smoke 1 pack/day since he was 16-year-old. He denies alcohol or illicit drugs 11/05/2023 Taqueria Hdez is a 59 y.o. male here for routine f/U for [...] (5 mg) by mouth in the morning. 90 tablet 3 aspirin 81 mg EC tablet aspirin 81 mg tablet,delayed release atorvastatin (Lipitor) 80 mg tablet TAKE ONE TABLET BY MOUTH AT BEDTIME 90 tablet 3 carvedilol (Coreg) 25 mg tablet Take 1 tablet (25 mg) by mouth with breakfast and with evening meal. 180 tablet 3 fenofibrate (Tricor) 48 mg tablet Take 48 mg by mouth in the morning. glipiZIDE (Glucotrol) 5 mg tablet TAKE 1 TABLET BY MOUTH 30 MINUTES BEFORE THE FIRST MAIN MEAL ONCE A DAY metFORMIN (Glucophage) 500 mg tablet Take 500 mg by mouth with breakfast and with evening meal. nitroglycerin (Nitrostat) 0.[address] 1 tablet (0.4 mg) under the tongue every 5 (five) minutes if needed for chest pain. 25 tablet 2 omeprazole (PriLOSEC) [address] capsule omeprazole 40 mg capsule,delayed release pioglitazone (Actos) 15 mg tablet 15 mg 1 (one) time each day. isosorbide mononitrate ER (Imdur) 60 mg 24 hr tablet isosorbide mononitrate ER 60 mg tablet,extended release 24 hr only takes in the AM if his SPB > 160 lisinopril 40 mg tablet Take 1 tablet (40 mg) by mouth in the morning. 90 tablet 3 No current facility-administered medications on file prior to visit. Physical Exam: Constitutional: Appearance: Normal appearance. Without apparent distress HENT: Head: Normocephalic and atraumatic. Nose: Nose normal. Mouth/Throat: Mouth: Mucous membranes are moist. Eyes: Extraocular Movements: Extraocular movements intact. Conjunctiva/sclera: Conjunctivae normal. Neck: Vascular: No JVD. No carotid bruit Cardiovascular: Rate and Rhythm: Normal rate and regular rhythm. Heart sounds: Normal heart sounds, S1 normal and S2 normal. Pulmonary: Effort: Pulmonary effort is normal. Breath sounds: Normal breath sounds. Abdominal: General: Bowel sounds are normal. Palpations: Abdomen is soft. Musculoskeletal: General: Normal range of motion. Cervical back: Normal range of motion. Right lower leg: No edema. Left lower leg: No edema. Skin: General: Skin is warm and dry. Neurological: General: No focal deficit present. Mental Status: alert and oriented to person, place, and time. Psychiatric: Mood and Affect: Mood normal. Behavior: Behavior normal. Thought Content: Thought content normal. Judgment: Judgment normal. Labs: 10/25/2023 Sodium 135, potassium 4.4, BUN 17, creatinine 0.64, GFR above 60, glucose 300, calcium 9.4 Total bilirubin 0.3, AST 16, ALT 35, alk phos 79, total protein 7.2, albumin 3.6, 09/27/2023 HbA1c 13.1% Triglyceride 592, cholesterol 208, LDL 76, HDL 35 TSH 1.546, free T47.9, free T32.26 CV Testing: EKG today 04/12/2024 showed normal sinus rhythm, heart rate 69 bpm, left axis deviation, possible left atrial enlargement, incomplete right bundle branch block. 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 Last echo sh (more content not included)... [facility] 11-05-2023 Note UTP ALEKS CARDIOL OGY PROGRESS NOTE HPI: Taqueria Hdez [...] sooner as needed Olya Malik MD Radiology: [facility] 09-24-2023 Note retirement tobacco us e and new unintentional weight loss Ordered CXR, and pt to f/U with PCP today [facility] 09-24-2023 Note Continue lipitor and tricor for lipid management [facility] 09-24-2023 Note Reports weight loss of about 30 pounds over last 2.5 months without trying to loose weight/ diet or exercise. F/U with PCP today CXR in light of h/o tobacco dependence [facility] 09-24-2023 Note Hypertension is unco ntrolled in office. Continue coreg and lisinopril [facility] 09-24-2023 Note Coronary artery dise ase is stable Continue GDMT- ASA, lipitor, coreg continue risk factor modifications- heart healthy diet, regular exercise as tolerated and continue all medications. [facility] 09-24-2023 Note Patient here for 6 [...] All other systems reviewed and are negative. [facility] 09-24-2023 Note UTP CARDIOLOGY PROGR ESS [...] illness or hospitalization. 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 [facility] 04-28-2022 Note CARDIAC STRESS TEST Requesting [...] Olya Malik M.D. Primary care physician [facility] 08-25-2021 Note CARDIAC STRESS TEST Requesting Physician: Procedure Date: Lexiscan Stress Test with Myocardial Perfusion Imaging performed at the [facility]. Informed consent was obtained. The patient [...] Myocardial perfusion images will be reported separately. [facility] Signed and Approved by: DR COLE HANEY 08/27/2021 05:26:00 [facility] Summary Purpose Family History No Family History Records FoundNo Family History Records FoundNo Family History Records FoundNo Family History Records FoundNo Family History Records Found Advance Directives No Advanced Directives Records FoundNo Advanced Directives Records FoundNo Advanced Directives Records FoundNo Advanced Directives Records FoundNo Advanced Directives Records Found Hospital Course Note MR#: [id number] 2 [facility] Pt. Name: Taqueria Hdez Admitted: 04/01/2019 [...] PRES and the patient was transferred to [facility] for MRI. HOSPITAL COURSE: 1. Hypertensive urgency, which is improved with his restarting his oral medication. The patient was told to continue ta (more content not included)... Additional Source Comments (unrecognized sect ion and content) No Status Records FoundNo Status Records FoundNo Status Records FoundNo Status Records FoundNo Status Records Found INFORMATION SOURCE (unrecogn ized section and content) DATE CREATED AUTHOR 06/06/2018 [employer] DATE CREATED AUTHOR AUTHOR'S ORGANIZ ATION 10/10/2019 [facility] DATE CREATED AUTHOR AUTHOR'S ORGANIZ ATION 05/14/2022 [facility] DATE CREATED AUTHOR AUTHOR'S ORGANIZ ATION 04/09/[address] [facility] DATE CREATED AUTHOR AUTHOR'S ORGANIZ ATION 04/17/2024 [facility] FOR RECORDS PERTAINING TO PATIENTS WHO [...] BE BASED ON THE PRIMARY CLINICAL RECORDS. [employer] provides no warranty or guarantee of the accuracy or completeness of information in this document.
--- NOTE | 2024-04-18 09:32 | PC.NURSE ---
Nursing Note Cardiac Stress Test Reviewed: Medication, allergies and patient history reviewed. Stress Test: [x ] Patient tolerated stress test well. [ ] Patient unable to tolerate walking on treadmill. Switched to Lexiscan stress test. [ x] No chest pain noted per patient [ ] Chest pain that resolved prior to leaving stress lab. [ ] No dyspnea noted. [ x] Dyspnea that resolved prior to leaving stress lab. [ x] Patient left stress lab asymptomatic and hemodynamically stable. [ ] Patient taken to the Emergency Room due to non-resolving symptoms following stress test. [ x] Patient achieved target heart rate. [ ] Patient unable to achieve target heart rate. [ ] Aminophylline administered as reversal agent to Lexiscan (Regadenoson). [ ] Nitro administered. Nursing Comments:Pt had Cardiolite treadmill stress test done. Pt tolerated well. Pt had some SOB noted but no chest pain or dizziness noted per pt. Within 3-4 minutes of rest pt felt back to normal and was no longer SOB. Pt left stress lab with no symptoms and was taken to cafeteria to eat prior to last set of images.
== END 2024-04-18 07:03 | disposition home or self-care (01) ==
LOC: NM 07:02
PROVIDERS: Visit Provider Internal Medicine Cardiovascular Disease
DX: R07.89 Other chest pain (principal)
CPT/HCPCS: 78452; 93017; A9500